=== PATIENT | male | born 1960 | race African-American/Black ===

== ENCOUNTER 2018-01-04 04:23 | Emergency (ER) | payer MEDICARE ==
--- OUTSIDE RECORDS SUMMARY | 2018-01-04 04:26 | XMS REPORT | Clinical Summary ---
:1960 Author Organization [facility] Address [address] [place] [address] Care Team Providers Name Role Phone Luba Colvin Primary Care Provider Unavailable Allergies No Known Allergies Current Medications Prescription Sig. Disp. Refills Start Date End Date Status aspirin 325 MG tablet Take 325 mg by Active mouth daily. rosuvastatin (CRESTOR) Take 20 mg by Active 20 MG tablet mouth nightly. furosemide (LASIX) 20 Take 20 mg by Active MG tablet mouth 2 (two) times a day. potassium chloride Take 10 mEq by Active (K-DUR,KLOR-CON) 10 mouth daily. MEQ CR tablet DICLOFENAC Take 2 tablets Active SODIUM/MISOPROSTOL by mouth 2 (ARTHROTEC 75 ORAL) (two) times a day. amitriptyline (ELAVIL) Take 25 mg by Active 25 MG tablet mouth nightly. LOSARTAN POTASSIUM Take 1 tablet Active (LOSARTAN ORAL) by mouth daily. insulin detemir Inject 100 Active (LEVEMIR) 100 unit/mL Units under the injection skin 2 (two) times a day. insulin lispro Inject 30 Units Active (HumaLOG) 100 unit/mL under the skin injection 3 (three) times a day before meals. clopidogrel (PLAVIX) Take 1 tablet 90 tablet 3 07/18/2016 07/18/2017 75 mg (75 mg total) tabletIndications: PAD by mouth daily. (peripheral artery disease) Active Problems Not on file Family History Medical History Relation Name Comments No Known Problems Father No Known Problems Mother Relation Name Status Comments Father Mother Social History Tobacco Use Types Packs/Day Years Used Date Former Smoker Alcohol Use Drinks/Week oz/Week Comments No Sex Assigned at Date Recorded Not on file Last Filed Vital Signs Not on file Plan of Treatment Health Maintenance Due Date Last Done Comments COLONOSCOPY 2011 SHINGRIX VACCINE (#1) 2011 INFLUENZA VACCINE 04/02/2018 Results Not on fileafter 01/03/2017 Insurance Payer Benefit Plan / Group Subscriber ID Type Phone Address [facility] MEDICARE AARP MEDICARE COMPLETE MCR xxxxxxxxx O [facility] CHOICE/CHOICE + xxxxxxxxx HMO/PPO Home: Julio C RO ESTELA [phone] [place] [id number]
--- OUTSIDE RECORDS SUMMARY | 2018-01-04 04:26 | XMS REPORT | Clinical Summary ---
:1960 Author Organization [facility] Address [address] [place] [address] Phone Care Team Providers Name Role Phone Unavailable Primary Care Provider Unavailable Allergies No Known Allergies Current Medications Prescription Sig. Disp. Refills Start End Date Status Date metFORMIN Take 500 mg by Active (GLUMETZA) 500 MG mouth daily with (MOD) 24 hr tablet breakfast Takes it 2x day . amitriptyline Take 25 mg by mouth Active (ELAVIL) 25 MG nightly. tablet insulin regular Inject Active (HUMULIN R,NOVOLIN subcutaneously 2 R) 100 unit/mL (two) times daily injectionIndicatio Use as directed . ns: type 1 diabetes mellitus, 40 units in the morning, 40 Units at night rosuvastatin Take 40 mg by mouth Active (CRESTOR) 40 MG daily. tablet furosemide (LASIX) Take 10 mg by mouth Active 10 mg/mL daily. solutionIndication s: Edema QUEtiapine Take 100 mg by Active (SEROQUEL) 100 MG mouth nightly. tablet aspirin 325 MG Take 325 mg by Active tablet mouth daily. FLUoxetine Take 40 mg by mouth Active (PROZAC) 40 MG daily. capsule loratadine Take 10 mg by mouth Active (CLARITIN) 10 mg as needed for tablet Allergies. fluticasone 1 spray by Nasal Active (FLONASE) 50 route as needed for mcg/actuation Rhinitis. nasal spray clopidogrel Take 1 tablet (75 30 tablet 11 09/01/20 Active (PLAVIX) 75 mg mg total) by mouth 7 18 tablet daily. insulin lispro Inject 0-12 Units 10 mL 0 09/01/20 Active (HUMALOG) 100 subcutaneously as 7 18 unit/mL injection needed (High blood sugar). insulin lispro Inject 0-4 Units 10 mL 0 09/01/20 Active (HUMALOG) 100 subcutaneously 7 18 unit/mL injection every night as needed (High blood sugar). carvedilol (COREG) Take 25 mg by mouth 09/01/20 Discontinued 25 MG tablet 2 (two) times daily 17 with breakfast and dinner. Active Problems Problem Noted Date Bradycardia 09/01/2017 AV dissociation 09/01/2017 PAOD (peripheral arterial occlusive disease) ([facility]) 08/31/2017 Ischemic rest pain of lower extremity ([facility]) 08/30/2017 Coronary artery disease involving coronary bypass graft of [place] heart 2016 without angina pectoris Type 2 diabetes mellitus with complication ([facility]) 08/30/2017 Secondary hypertension 08/30/2017 Encounters Date Type Specialty Care Team Description 08/30/2017 - Hospital Encounter Cardiology Damon Iraj Ischemic rest pain 09/01/2017 MD Jami of lower extremity Nighat Stewart ([facility]);Coronary MD Odilon artery disease involving coronary bypass graft of [place] heart without angina pectoris;Secondary hypertension;Type 2 diabetes mellitus with complication, with long-term current use of insulin ([facility]);PAOD (peripheral arterial occlusive disease) ([facility]) 08/30/2017 Procedure Pass 08/30/2017 Surgery Ele Leung, ANGIOGRAM,CORONARY 08/30/2017 Orders Only General Internal Medicine after 01/03/2017 Social History Tobacco Use Types Packs/Day Years Used Date Former Smoker 1 Quit: 08/30/2007 Smokeless Tobacco: Never Used Tobacco Cessation: Counseling Given: No Alcohol Use Drinks/Week oz/Week Comments No Sex Assigned at Date Recorded Not on file Last Filed Vital Signs Vital Sign Reading Time Taken Blood Pressure 116/62 09/01/2017 7:38 AM ADULT SECONDARY EDUCATION INSTRUCTOR Pulse 96 09/01/2017 9:04 AM ADULT SECONDARY EDUCATION INSTRUCTOR Temperature 36.7 C (98.1 F) 09/01/2017 7:38 AM ADULT SECONDARY EDUCATION INSTRUCTOR Respiratory Rate 18 09/01/2017 9:04 AM ADULT SECONDARY EDUCATION INSTRUCTOR Oxygen Saturation 97% 09/01/2017 9:04 AM ADULT SECONDARY EDUCATION INSTRUCTOR Inhaled Oxygen Concentration - - Weight 125.2 kg (276 lb) 08/31/2017 4:30 AM ADULT SECONDARY EDUCATION INSTRUCTOR Height 172.7 cm (5' 8") 08/30/2017 1:00 PM ADULT SECONDARY EDUCATION INSTRUCTOR Body Mass Index 41.97 08/31/2017 4:30 AM ADULT SECONDARY EDUCATION INSTRUCTOR Plan of Treatment Not on file Implants Implanted Type Area Human Resource Statistician Device Expiration Model / Identifier Date Serial / Lot Closure Sysammy Smithgl 6fr 27094-34 - [id number] Cardiovascular Right: POE 06/01/2019 [id number] / Implanted: Qty: 1 on 08/30/2017 by Ele Leung MD Groin LAB:VASC DEV / Lutonix 035 Stents-Periphera Left: BARD VASCULAR [id number] 2019 [id number] / Implanted: Qty: 1 on 08/30/2017 by Ele Leung MD l Arterial / [id number] Lutonix 035 Stents-Periphera Left: BARD VASCULAR [id number] 2019 [id number] / Implanted: Qty: 1 on 08/30/2017 by Ele Leung MD l Arterial / [id number] Poe V[employer] Supera Stents-Periphera Left: POE 06/01/2018 [id number]-65-100 -120-P6 / Implanted: Qty: 1 on 08/30/2017 by Ele Leung MD l Arterial VASCULAR / DEVICE [id number] P[employer] Supera Stents-Periphera Left: POE 12/30/2017 S-65-100 -120-P6 / Implanted: Qty: 1 on 08/30/2017 by Ele Leung MD l Arterial VASCULAR / DEVICE [id number] Cook Stents-Periphera Left: Solaire Generation [id number] 05/01/2019 [id number] / Implanted: Qty: 1 on 08/30/2017 by Ele Leung MD l Arterial / [id number] Procedures Procedure Name Priority Date/Time Associated Diagnosis Comments PERIPHERAL ARTERIOGRAM 08/30/2017 2:17 PM ADULT SECONDARY EDUCATION INSTRUCTOR chest paina ANGIOGRAM,CORONARY 08/30/2017 2:17 PM ADULT SECONDARY EDUCATION INSTRUCTOR chest paina after 01/03/2017 Results CARDIAC CATH REPORT - SCAN (09/04/2017 3:12 PM)RHYTHM STRIP - SCAN (09/04/2017 12:28 PM)EKG-SCANNED (09/04/2017 12:28 PM)POC-Glucose meter (09/01/2017 7:37 AM )Only the most recent of9 resultswithin the time period is included. Component Value Ref Range POC-Glucose Meter 143 (H)Comment: TESTED AT [facility] [address] [place] [address] 70 - 110 mg/[place] [address] Specimen Performing Laboratory Blood [address] [address] Hemoglobin A1c (09/01/2017 3:53 AM) Component Value Ref Range Hemoglobin A1C 8.3 (H) 4.3 - 6.1 % Specimen Performing Laboratory Blood - Arm, Left [address] [address] TRANSFUSION SERVICE REPORT - SCAN (08/31/2017 5:32 PM)PERIPHERAL VASCULAR REPORT - SCAN (08/30/2017 5:43 PM)ECG 12 lead (08/30/2017 12:22 PM)Only the most recent of2 resultswithin the time period is included. Specimen Performing Laboratory GE MUSE Narrative Ventricular Rate 79 BPM Atrial Rate 79 BPM P-R Interval 324 ms QRS Duration 104 ms Q-T Interval 392 ms QTC Calculation(Bazett) 449 ms P [place] 74 degrees R [place] 17 degrees T [place] 44 degrees Sinus rhythm with 1st degree A-V block Possible Left atrial enlargement Nonspecific T wave abnormality Abnormal ECG When compared with ECG of 30-AUG-2017 06:24, Sinus rhythm has replaced Junctional rhythm QT has shortened Confirmed by MD QUEVEDO PATRICK J ([id number]) on 09/01/2017 10:29:06 AM Procedure Note Interface, External Ris In - 09/01/2017 10:29 AM ADULT SECONDARY EDUCATION INSTRUCTOR Ventricular Rate 79 BPM Atrial Rate 79 BPM P-R Interval 324 ms QRS Duration 104 ms Q-T Interval 392 ms QTC Calculation(Bazett) 449 ms P [place] 74 degrees R [place] 17 degrees T [place] 44 degrees Sinus rhythm with 1st degree A-V block Possible Left atrial enlargement Nonspecific T wave abnormality Abnormal ECG When compared with ECG of 30-AUG-2017 06:24, Sinus rhythm has replaced Junctional rhythm QT has shortened Confirmed by MD QUEVEDO PATRICK J ([id number]) on 09/01/2017 10:29:06 AM Arterial doppler legs bilateral (08/30/2017 10:57 AM) Component Value Ref Range Ejection Fraction Specimen Performing Laboratory SLE ECHO HEARTLAB MKCKESSON CPACS Impressions Right Impression 1. The common femoral, profunda femoral, superficial femoral, popliteal, posterior tibial and peroneal arteries are patent with triphasic Doppler waveforms and calcification. 2. There is a >50% stenosis in the mid/distal anterior tibial artery with a peak velocity of 296 cm/sec. 3. The PT KHANG is unobtainable due to non-compressible artery. 4. The DP pressure is 138 mmHg with an KHANG of 1.37, within non-compressible range. 5. The great toe pressure is 70 mmHg with a normal TBI of 0.69. 6. The digits have adequate flow by PPG waveforms. Left Impression 1. The common femoral and profunda femoral arteries are patent with triphasic waveforms. 2. The superficial femoral artery is occluded with reconstitution of flow in the mid-distal segments via collateral flow. 3. The mid-distal popliteal artery is occluded. 4. The posterior tibial artery is occluded. 5. The peroneal is patent with calcification and decreased velocities. 6. The mid anterior tibial artery is occluded with reconstitution of flow distally via collateral flow. 7. The PT and DP KHANG's are unobtainable due to absent Doppler signals. 8. The digits have no obtainable flow by PPG waveforms. Conclusions Summary Arterial pressures and Doppler waveforms were performed bilaterally. Adequate Doppler waveforms were obtained. On the right side, the common femoral, profunda femoral, superficial femoral, popliteal, posterior tibial and peroneal arteries were patent with triphasic Doppler waveforms and calcification. There was a >50% stenosis in the mid/distal anterior tibial artery. The PT KHANG was unobtainable due to non-compressible artery. The DP KHANG was within non-compressible range. The digits had adequate flow by PPG waveforms. On the left side, the superficial femoral artery was occluded with reconstitution of flow in the mid-distal segments via collateral flow. The mid-distal popliteal artery was occluded. The posterior tibial artery was occluded. The peroneal was patent with calcification and decreased velocities. The mid anterior tibial artery was occluded with reconstitution of flow distally via collateral flow. The PT and DP KHANG's were unobtainable due to absent Doppler signals. The digits had no obtainable flow by PPG waveforms. Signature Velocities are measured in cm/s ; Diameters are measured in cm LE Duplex Measurements Right Left + + + + + + + + + + !Location ! !PSV!EDV !Waveform ! !PSV!EDV !Waveform ! + + + + + + + + + + !Mid Common Femoral ! !89.7 !! ! !58.1 !! ! + + + + + + + + + + !Prox PFA ! !44 !! ! !54.2 !! ! + + + + + + + + + + !Prox SFA ! !93.2 !! ! !13 !! ! + + + + + + + + + + !Mid SFA ! !52.6 !! ! !12.4 !! ! + + + + + + + + + + !Dist SFA ! !47.9 !! ! !8.64 !! ! + + + + + + + + + + !Prox Popliteal ! !40.2 !! ! !15.3 !! ! + + + + + + + + + + !Prox BICYCLE SERVICE TECHNICIAN ! !45.2 !! ! !6.48 !! ! + + + + + + + + + + !Mid BICYCLE SERVICE TECHNICIAN ! !42.4 !! ! !9.63 !! ! + + + + + + + + + + !Dist BICYCLE SERVICE TECHNICIAN ! !22.2 !! ! !9.23 !! ! + + + + + + + + + + !Prox ALVIN ! !37.4 !! ! !8.25 !! ! + + + + + + + + + + !Dist ALVIN ! !55 !! ! + + + + + + !Prox Peroneal ! + + !Mid Peroneal ! + + !Dist Peroneal ! + + Narrative [facility] - Lower Extremity Arterial Duplex Demographics Patient Name INES WILKERSON Date of Study 08/30/2017 [id number] Visit Number [id number] Male Accession Number [id number] of 1960 ReferringIraj Jose MD Room Number 1118 Physician SonographerAkilah JewellT Physician , [facility] Procedure Type of Study: Extremities Arteries: Lower Extremities Arterial Duplex, ARTERIAL DOPPLER LEGS, BILATERAL. Indications for Study:Peripheral Vascular Disease. Patient Status:Routine. Study Location:Vascular Lab. Technical Quality:Adequate visualization. Risk Factors History of Disease + +----+ + !Diagnosis!Date!Comments ! + +----+ + !History/Risk Factors:!!CHF, COPD, CAD, HTN, Former Smoker, DM ! + +----+ + Procedure Note Interface, External Ris In - 08/30/2017 5:12 PM ADULT SECONDARY EDUCATION INSTRUCTOR [facility] - Lower Extremity Arterial Duplex Demographics Patient Name INES WILKERSON Date of Study 08/30/2017 Age 57 Visit Number [id number] Gender Male Accession Number [id number] Date of 1960 Referring Iraj Jose MD Room Number 1118 Physician Music Supervisor Lindsay Willard Interpreting Akilah OrozcoT Physician , RP Procedure Type of Study: Extremities Arteries: Lower Extremities Arterial Duplex, ARTERIAL DOPPLER LEGS, BILATERAL. Indications for Study:Peripheral Vascular Disease. Patient Status:Routine. Study Location:Vascular Lab. Technical Quality:Adequate visualization. Risk Factors History of Disease + +----+ + !Diagnosis !Date!Comments ! + +----+ + !History/Risk Factors: ! !CHF, COPD, CAD, HTN, Former Smoker, DM ! + +----+ + Impressions Right Impression 1. The common femoral, profunda femoral, superficial femoral, popliteal, posterior tibial and peroneal arteries are patent with triphasic Doppler waveforms and calcification. 2. There is a >50% stenosis in the mid/distal anterior tibial artery with a peak velocity of 296 cm/sec. 3. The PT KHANG is unobtainable due to non-compressible artery. 4. The DP pressure is 138 mmHg with an KHANG of 1.37, within non-compressible range. 5. The great toe pressure is 70 mmHg with a normal TBI of 0.69. 6. The digits have adequate flow by PPG waveforms. Left Impression 1. The common femoral and profunda femoral arteries are patent with triphasic waveforms. 2. The superficial femoral artery is occluded with reconstitution of flow in the mid-distal segments via collateral flow. 3. The mid-distal popliteal artery is occluded. 4. The posterior tibial artery is occluded. 5. The peroneal is patent with calcification and decreased velocities. 6. The mid anterior tibial artery is occluded with reconstitution of flow distally via collateral flow. 7. The PT and DP KHANG's are unobtainable due to absent Doppler signals. 8. The digits have no obtainable flow by PPG waveforms. Conclusions Summary Arterial pressures and Doppler waveforms were performed bilaterally. Adequate Doppler waveforms were obtained. On the right side, the common femoral, profunda femoral, superficial femoral, popliteal, posterior tibial and peroneal arteries were patent with triphasic Doppler waveforms and calcification. There was a >50% stenosis in the mid/distal anterior tibial artery. The PT KHANG was unobtainable due to non-compressible artery. The DP KHANG was within non-compressible range. The digits had adequate flow by PPG waveforms. On the left side, the superficial femoral artery was occluded with reconstitution of flow in the mid-distal segments via collateral flow. The mid-distal popliteal artery was occluded. The posterior tibial artery was occluded. The peroneal was patent with calcification and decreased velocities. The mid anterior tibial artery was occluded with reconstitution of flow distally via collateral flow. The PT and DP KHANG's were unobtainable due to absent Doppler signals. The digits had no obtainable flow by PPG waveforms. Signature Velocities are measured in cm/s ; Diameters are measured in cm LE Duplex Measurements Right Left + + + -------+ + + + +------- + + !Location ! !PSV !EDV !Waveform ! !PSV !EDV !Waveform ! + + + -------+ + + + +------- + + !Mid Common Femoral ! !89.7 ! ! ! !58.1 ! ! ! + + + -------+ + + + +------- + + !Prox PFA ! !44 ! ! ! !54.2 ! ! ! + + + -------+ + + + +------- + + !Prox SFA ! !93.2 ! ! ! !13 ! ! ! + + + -------+ + + + +------- + + !Mid SFA ! !52.6 ! ! ! !12.4 ! ! ! + + + -------+ + + + +------- + + !Dist SFA ! !47.9 ! ! ! !8.64 ! ! ! + + + -------+ + + + +------- + + !Prox Popliteal ! !40.2 ! ! ! !15.3 ! ! ! + + + -------+ + + + +------- + + !Prox BICYCLE SERVICE TECHNICIAN ! !45.2 ! ! ! !6.48 ! ! ! + + + -------+ + + + +------- + + !Mid BICYCLE SERVICE TECHNICIAN ! !42.4 ! ! ! !9.63 ! ! ! + + + -------+ + + + +------- + + !Dist BICYCLE SERVICE TECHNICIAN ! !22.2 ! ! ! !9.23 ! ! ! + + + -------+ + + + +------- + + !Prox ALVIN ! !37.4 ! ! ! !8.25 ! ! ! + + + -------+ + + + +------- + + !Dist ALVIN ! !55 ! ! ! + + + -------+ + + !Prox Peroneal ! + + !Mid Peroneal ! + + !Dist Peroneal ! + + Basic metabolic panel (08/30/2017 9:20 AM) Component Value Ref Range Sodium 140 136 - 145 meq/L Potassium 4.4 3.5 - 5.1 meq/L Chloride 109 (H) 98 - 107 meq/L CO2 22 22 - 29 meq/L BUN 22 (H) 7 - 21 mg/dL Creatinine 1.25 0.57 - 1.25 mg/dL Glucose 104 70 - 105 mg/dL Calcium 9.2 8.4 - 10.2 mg/dL EGFR 72Comment: ESTIMATED GFR IS NOT ACCURATE mL/min/1.73 sq m CREATININE CLEARANCE IN PREDICTING GLOMERULAR FILTRATION RATE. ESTIMATED GFR IS NOT APPLICABLE FOR DIALYSIS PATIENTS. Specimen Performing Laboratory Blood - Arm, Left [address] [place] [address] XR chest 1 view portable/bedside (08/30/2017 6:02 AM) Specimen Performing Laboratory GE RIS Narrative FINAL REPORT CLINICAL HISTORY: pre-op TECHNIQUE: 1 view of the chest. COMPARISON: None IMPRESSION: There are no focal infiltrates or effusions. A focal density in the medial right upper lung zone may be related to costochondral calcification from the right first rib. The cardiomediastinal silhouette is magnified by technique. Signed: Dorian Pelaez MD Report Verified Date/Time:08/30/2017 07:45:46 Reading Location: [facility] Radiology Reading Room Procedure Note Interface, External Ris In - 08/30/2017 7:47 AM ADULT SECONDARY EDUCATION INSTRUCTOR FINAL REPORT CLINICAL HISTORY: pre-op TECHNIQUE: 1 view of the chest. COMPARISON: None IMPRESSION: There are no focal infiltrates or effusions. A focal density in the medial right upper lung zone may be related to costochondral calcification from the right first rib. The cardiomediastinal silhouette is magnified by technique. Signed: Dorian Pelaez MD Report Verified Date/Time: 08/30/2017 07:45:46 Reading Location: [facility] Radiology Reading Room Type and screen, automated (08/30/2017 4:47 AM) Component Value Ref Range ABO/RH AUTOMATED (BEAKER) A POSITIVE Ab Scrn NEGATIVE Specimen Performing Laboratory Blood - Arm, [address] [address] aPTT (08/30/2017 4:47 AM) Component Value Ref Range PTT 32.2 22.5 - 36.0 seconds Specimen Performing Laboratory Blood - Arm, [address] [address] Narrative Within 24 hours, if on Coumadin Prothrombin time/INR (08/30/2017 4:47 AM) Component Value Ref Range Protime 13.3 11.7 - 14.7 seconds INR 1.0 <=5.9 Specimen Performing Laboratory Blood - Arm, [address] [address] Narrative RECOMMENDED COUMADIN/WARFARIN INR THERAPY RANGES STANDARD DOSE: 2.0 - 3.0 Includes: PROPHYLAXIS for venous thrombosis, systemic embolization; TREATMENT for venous thrombosis and/or pulmonary embolus. HIGH RISK: Target INR is 2.5-3.5 for patients with mechanical heart valves. Within 24 hours, if on Coumadin CBC (Hemogram only) (08/30/2017 4:47 AM) Component Value Ref Range WBC 5.0 3.5 - 10.5 K/L RBC 5.27 4.63 - 6.08 M/L Hemoglobin 15.8 13.7 - 17.5 GM/DL Hematocrit 49.4 40.1 - 51.0 % MCV 93.7 (H) 79.0 - 92.2 fL MCH 30.0 25.7 - 32.2 pg MCHC 32.0 (L) 32.3 - 36.5 GM/DL RDW 13.8 11.6 - 14.4 % Platelets 151 150 - 450 K/CU MM MPV 13.0 (H) 9.4 - 12.4 fL nRBC 0 0 - 0 /100 WBC Specimen Performing Laboratory Blood - Arm, Left [address] [place] [address] after 01/03/2017
--- OUTSIDE RECORDS SUMMARY | 2018-01-04 04:27 | XMS REPORT ---
:1960 [facility] Address [address] [place] [address] Care Team Providers Name Role Phone KARY LOONEY Unavailable Unavailable Problems This patient has no known problems. Allergies, Adverse Reactions, Alerts This patient has no known allergies or adverse reactions. Medications This patient has no known medications. Results Test Description Test Time Test Comments Text Results Atomic Results Result Comments HEMOGLOBIN A1C 2017-09-01 09:17:00 Test Item Value Reference Range Comments HEMOGLOBIN A1C (BEAKER) (test juwc=397) 8.3 % 4.3-6.1 POCT-GLUCOSE [id number] 08:15:00 Test Item Value Reference Range Comments POC-GLUCOSE METER (BEAKER) 143 mg/dL 70-110 TESTED AT [address] (test zwhk=1378) [facility] [address] POCT-GLUCOSE [id number] 21:11:00 Test Item Value Reference Range Comments POC-GLUCOSE METER (BEAKER) 214 mg/dL 70-110 TESTED AT [address] (test elcc=2278) [facility] [address] POCT-GLUCOSE [id number] 17:19:00 Test Item Value Reference Range Comments POC-GLUCOSE METER (BEAKER) 160 mg/dL 70-110 TESTED AT [address] (test aalz=2692) [facility] [address] POCT-GLUCOSE [id number] 12:59:00 Test Item Value Reference Range Comments POC-GLUCOSE METER (BEAKER) 175 mg/dL 70-110 TESTED AT [address] (test ymtj=3404) [facility] [address] POCT-GLUCOSE [id number] 09:21:00 Test Item Value Reference Range Comments POC-GLUCOSE METER (BEAKER) 194 mg/dL 70-110 TESTED AT [address] (test njfo=8909) [place] [address] POCT-GLUCOSE [id number] 21:05:00 Test Item Value Reference Range Comments POC-GLUCOSE METER (BEAKER) 264 mg/dL 70-110 TESTED AT [address] (test kavc=1388) [place] [id number] POCT-GLUCOSE [id number] 17:11:00 Test Item Value Reference Range Comments POC-GLUCOSE METER (BEAKER) 158 mg/dL 70-110 TESTED AT [address] (test krpv=4184) [place] [address] POCT-GLUCOSE [id number] 12:14:00 Test Item Value Reference Range Comments POC-GLUCOSE METER (BEAKER) 127 mg/dL 70-110 TESTED AT [address] (test xtwk=9580) [place] [address] BASIC METABOLIC [id number] 10:20:00 Test Item Value Reference Range Comments SODIUM (BEAKER) (test 140 meq/L 136-145 patj=559) POTASSIUM (BEAKER) (test 4.4 meq/L 3.5-5.1 utub=723) CHLORIDE (BEAKER) (test 109 meq/L 98-107 dzdh=461) CO2 (BEAKER) (test 22 meq/L 22-29 plnh=491) BLOOD UREA NITROGEN 22 mg/dL 7-21 (BEAKER) (test bkqs=282) CREATININE (BEAKER) (test 1.25 mg/dL 0.57-1.25 zylx=620) GLUCOSE RANDOM (BEAKER) 104 mg/dL 70-105 (test dywy=439) CALCIUM (BEAKER) (test 9.2 mg/dL 8.4-10.2 cqgp=324) EGFR (BEAKER) (test 72 mL/min/1.73 sq m ESTIMATED GFR IS NOT bnax=7978) ACCURATE CREATININE CLEARANCE IN PREDICTING GLOMERULAR FILTRATION RATE. ESTIMATED GFR IS NOT APPLICABLE FOR DIALYSIS PATIENTS. POCT-GLUCOSE [id number] 09:05:00 Test Item Value Reference Range Comments POC-GLUCOSE METER (BEAKER) 108 mg/dL 70-110 TESTED AT [address] (test dwie=5902) [place] [address] RAD, CHEST, 1 VIEW, NON [id number] 07:45:00Reason for exam:->pre- opShould this be performed at the bedside?->YesFINAL REPORT CLINICAL HISTORY: pre-op TECHNIQUE: 1 view of the chest. COMPARISON: None IMPRESSION: There are no focal infiltrates or effusions. A focal density in the medial right upper lung zone may be related to costochondral calcification from the right first rib. The cardiomediastinal silhouette is magnified by technique. Signed: Dorian Pelaez MDReport Verified Date/Time: 07:45:46 Reading Location: [facility] Radiology Reading Room PROTHROMBIN [id number] 07:17:00 Test Item Value Reference Range Comments PROTIME (BEAKER) (test pzcl=141) 13.3 seconds 11.7-14.7 INR (BEAKER) (test owjh=214) 1.0 <=5.9 RECOMMENDED COUMADIN/WARFARIN INR THERAPY RANGESSTANDARD DOSE: 2.0 - 3.0 Includes: PROPHYLAXIS forvenous thrombosis, systemic embolization; TREATMENT for venous thrombosis and/or pulmonary embolus.HIGH RISK: Target INR is 2.5-3.5 for patients with mechanical heart valves.Within 24 hours, if on [id number] 07:17:00 Test Item Value Reference Range Comments PARTIAL THROMBOPLASTIN TIME (BEAKER) (test 32.2 seconds 22.5-36.0 cidq=624) Within 24 hours, if on CoumadinCBC (HEMOGRAM ONLY)2017-08-30 07:07:00 Test Item Value Reference Range Comments WHITE BLOOD CELL COUNT (BEAKER) (test jers=488) 5.0 K/ L 3.5-10.5 RED BLOOD CELL COUNT (BEAKER) (test cjjj=594) 5.27 M/ L 4.63-6.08 HEMOGLOBIN (BEAKER) (test sqfv=082) 15.8 GM/DL 13.7-17.5 HEMATOCRIT (BEAKER) (test arwp=579) 49.4 % 40.1-51.0 MEAN CORPUSCULAR VOLUME (BEAKER) (test gvml=876) 93.7 fL 79.0-92.2 MEAN CORPUSCULAR HEMOGLOBIN (BEAKER) (test 30.0 pg 25.7-32.2 ljca=431) MEAN CORPUSCULAR HEMOGLOBIN CONC (BEAKER) (test 32.0 GM/DL 32.3-36.5 uwin=096) RED CELL DISTRIBUTION WIDTH (BEAKER) (test 13.8 % 11.6-14.4 dhjq=696) PLATELET COUNT (BEAKER) (test xywv=393) 151 K/CU MM 150-450 MEAN PLATELET VOLUME (BEAKER) (test xynv=723) 13.0 fL 9.4-12.4 NUCLEATED RED BLOOD CELLS (BEAKER) (test 0 /100 WBC 0-0 dqcm=652)
[2018-01-04] MEDS ORDERED: ALBUTEROL 2.5 MG/3 ML NEB SOL ONE (04:50)
[2018-01-04] MEDS ORDERED: FUROSEMIDE 40 MG/4 ML VIAL ONE (04:50)
[2018-01-04] MEDS ORDERED: IPRATROPIUM BROM 0.5MG/2.5ML ONE (04:50)
[2018-01-04 05:21] LABS: Absolute Lymphocytes (CBC) 1.8 K/uL (0.7-4.9); Absolute Monocytes 0.9 K/uL (0.1-1.3); Basophils % 0.4 % (0-1.3); Eosinophils % 4.6 % (0-4.4); Hematocrit 51.5 % (39.6-49.0); Lymphocytes % 29.9 % (15.3-44.8); MCH 30.3 pg (27.0-35.0); MCV 93.7 fL (80-100); MPV 10.1 fL (7.6-11.3); Monocytes % 14.4 % (3.3-12.3); RBC Red Blood Cell Count 5.49 M/uL (4.33-5.43)
[2018-01-04 05:27] LABS: Protime INR 1.02
--- NOTE | 2018-01-04 06:30 | ER ---
Nurse's Notes [facility] Name: [place] Age: 57 yrs Sex: Male : 1960 Arrival Date: 01/04/2018 Time: 04:24 Bed 5 Private MD: Opal Lares Diagnosis: Unspecified combined systolic (congestive) and diastolic (congestive) heart failure;Cough Presentation: 01/04 04:45 Presenting complaint: Patient states: that for the past 2 weeks he has had fc progressively worsening shortness of breath and cough with clear sputum. Denies any sore throat or fever. Transition of care: patient was not received from another setting of care. Onset of symptoms was December 2017. Initial Sepsis Screen: Does the patient meet any 2 criteria? No. Patient's initial sepsis screen is negative. Does the patient have a suspected source of infection? No. Patient's initial sepsis screen is negative. Care prior to arrival: None. 04:45 Method Of Arrival: Ambulatory fc 04:45 Acuity: ANKIT 3 fc Triage Assessment: 05:14 General: Appears in no apparent distress. uncomfortable. Respiratory: Reports shortness ao of breath Onset: The symptoms/episode began/occurred suddenly, the patient has moderate shortness of breath. Historical: - Allergies: 04:53 No Known Allergies; fc - Home Meds: 04:53 amitriptyline 10 mg Oral tab 1 tab nightly for Depression [Active]; aspirin 81 mg Oral fc TbEC 1 tab once daily [Active]; Crestor 20 mg Oral tab 1 tab once daily for Hypercholesterolemia [Active]; doxazosin 2 mg Oral tab 1 tab 2 times daily [Active]; furosemide 20 mg Oral tab 1 tab once daily [Active]; loratadine 10 mg Oral tab 1 tab once daily [Active]; metformin 500 mg Oral tab 1 tab 2 times per day [Active]; Plavix 75 mg Oral tab 1 tab once daily [Active]; potassium chloride 10 mEq Oral cpER 1 cap once daily [Active]; tamsulosin 0.4 mg Oral cp24 1 cap once daily [Active]; Trulicity 0.75 mg/0.5 mL subcutaneous pnij 0.5 mL once wkly [Active]; Toujeo SoloStar 300 unit/mL (1.5 mL) subcutaneous inpn 45 unit daily [Active]; - PMHx: 04:53 Bipolar disorder; Depression; Diabetes - IDDM; DVT; High Cholesterol; Hypertension; fc quadraple bypass; Schizophrenia; - PSHx: 04:53 Heart stents; CABG; fc - Immunization history:: Last tetanus immunization: unknown. - Social history:: Smoking status: Patient/guardian denies using tobacco. Screenin:48 Abuse screen: Denies threats or abuse. Nutritional screening: No deficits noted. fc Tuberculosis screening: No symptoms or risk factors identified. Fall Risk None identified. Assessment: 04:50 General: Appears in no apparent distress. uncomfortable, Behavior is calm, cooperative, ao appropriate for age. Pain: Denies pain. Neuro: Level of Consciousness is awake, alert, obeys commands, Oriented to person, place, time, situation, Appropriate for age Moves all extremities. Speech is normal, Facial symmetry appears normal. Cardiovascular: Capillary refill < 3 seconds Rhythm is regular. Respiratory: Airway is patent Respiratory effort is even, unlabored, Respiratory pattern is regular, symmetrical, Breath sounds with crackles bilaterally. GI: Abdomen is obese. : No signs and/or symptoms were reported regarding the genitourinary system. EENT: No signs and/or symptoms were reported regarding the EENT system. Derm: Skin is intact, Skin is normal, Skin temperature is warm. Musculoskeletal: Range of motion: limited in all extremities. 05:54 Reassessment: Patient appears in no apparent distress at this time. Patient and/or ao family updated on plan of care and expected duration. Pain level reassessed. Patient is alert, oriented x 3, equal unlabored respirations, skin warm/dry/pink. waiting on dispo Patient states feeling better. Patient states symptoms have improved. 06:55 Reassessment: Patient appears in no apparent distress at this time. Patient and/or ao family updated on plan of care and expected duration. Pain level reassessed. Patient is alert, oriented x 3, equal unlabored respirations, skin warm/dry/pink. Patient resting with no SS of distress. 07:13 Reassessment: Report given to BAYRON Villanueva. ao 07:15 General: Appears comfortable, Behavior is calm, cooperative. Pain: Denies pain. Neuro: aa5 Level of Consciousness is awake, alert, obeys commands, Oriented to person, place, time, situation. Cardiovascular: Heart tones S1 S2 present Rhythm is regular. Respiratory: Reports shortness of breath cough that is productive, Airway is patent Respiratory effort is even, unlabored, Respiratory pattern is regular, symmetrical, Breath sounds are clear bilaterally. GI: Abdomen is obese, Bowel sounds present X 4 quads. Abd is soft and non tender X 4 quads. : No signs and/or symptoms were reported regarding the genitourinary system. EENT: No signs and/or symptoms were reported regarding the EENT system. Derm: Skin is dry, Skin is normal, Skin temperature is warm. Musculoskeletal: Range of motion: intact in all extremities. 07:45 Reassessment: Pt currently in CT . aa5 Vital Signs: 04:45 BP 146 / 87; Pulse 85; Resp 18; Temp 97.9(O); Pulse Ox 98% on R/A; Weight 127.01 kg fc (R); Height 5 ft. 8 in. (172.72 cm) (R); Pain 5/10; 05:54 BP 135 / 83; Pulse 72; Resp 16; Pulse Ox 95% on R/A; Pain 0/10; ao 06:55 BP 138 / 106; Pulse 79; Resp 16; Pulse Ox 97% ; ao 07:15 BP 139 / 84; Pulse 73; Resp 18; Pulse Ox 95% ; ao 08:05 BP 133 / 95; Pulse 75; Resp 18 S; Pulse Ox 98% on R/A; Pain 0/10; aa5 12:31 BP 134 / 98; Pulse 73; Resp 17; Pulse Ox 99% on R/A; aj 04:45 Body Mass Index 42.57 (127.01 kg, 172.72 cm) ED Course: 04:24 Patient arrived in ED. do 04:24 Opal Lares is Private Physician. do 04:39 Te Rebolledo MD is Attending Physician. gs 04:45 Arm band placed on Patient placed in an exam room, on a stretcher. fc 04:46 Lalit Piper, BAYRON is Primary Nurse. ao 04:47 Triage completed. fc 04:48 Patient has correct armband on for positive identification. Bed in low position. Call light in reach. 04:50 Inserted saline lock: 20 gauge in left forearm, using aseptic technique. Blood ao collected. 05:16 X-ray completed. Portable x-ray completed in exam room. jr1 05:18 XRAY Chest (1 view) In Process Unspecified. EDMS 07:10 Report received from BAYRON Cohn. aa5 07:13 Tiffany Cordova, RN is Primary Nurse. aa5 07:53 CT Chest For PE Angio In Process Unspecified. EDMS 07:53 CT completed. Patient tolerated procedure well. Patient moved back from CT. vr 08:11 No provider procedures requiring assistance completed. aa5 10:00 Report given to BAYRON Gray. aa5 12:32 IV discontinued, intact, bleeding controlled, No redness/swelling at site. Pressure aj dressing applied. Administered Medications: 05:00 Drug: Lasix 40 mg Route: IVP; Site: left forearm; ao 06:39 Follow up: Response: No adverse reaction ao 05:00 Drug: Albuterol 2.5 mg Route: Inhalation; ao 06:39 Follow up: Response: No adverse reaction ao 05:00 Drug: AtroVENT Aerosol 0.5 mg Route: Inhalation; ao 06:40 Follow up: Response: No adverse reaction ao Outcome: 06:29 Discharge ordered by MD. gs 12:23 Discharge ordered by MD. rn 12:32 Discharged to home ambulatory, with family. aj 12:32 Condition: good 12:32 Discharge instructions given to patient, family, Instructed on discharge instructions, follow up and referral plans. Demonstrated understanding of instructions, follow-up care, medications. 12:33 Patient left the ED. aj Signatures: Dispatcher [employer] Marina Pratt RN RN aj Ringgold, Jennifer jr1 Letha Wu RN RN fc Nieto, Roman, MD MD rn Calderon, Audri, RN RN aa5 Davis, Victoria vr Ortiz, Alex, RN RN ao Ogletree, Danielle do Starr, Gregory, MD MD gs
--- NOTE | 2018-01-04 06:30 | EDPHYS ---
Physician Documentation [facility] Name: [place] Jordan Age: 57 yrs Sex: Male : 1960 Arrival Date: 01/04/2018 Time: 04:24 Bed 5 Private MD: Opal Lares ED Physician Te Ocampo HPI: 01/04 05:05 This 57 yrs old Black Male presents to ER via Ambulatory with complaints of Breathing gs Difficulty, Cough. 05:05 The patient has shortness of breath at rest, with light activity, during heavy gs activity. Onset: The symptoms/episode began/occurred 2 week(s) ago, and became persistent. Duration: The symptoms are continuous. The patient's shortness of breath is aggravated by coughing, exertion, supine position, is alleviated by elevating head. Associated signs and symptoms: Pertinent positives: non-productive cough, Pertinent negatives: chest pain. Severity of symptoms: At their worst the symptoms were moderate in the emergency department the symptoms are unchanged. The patient has experienced similar episodes in the past, a few times. Historical: - Allergies: 04:53 No Known Allergies; fc - Home Meds: 04:53 amitriptyline 10 mg Oral tab 1 tab nightly for Depression [Active]; aspirin 81 mg Oral fc TbEC 1 tab once daily [Active]; Crestor 20 mg Oral tab 1 tab once daily for Hypercholesterolemia [Active]; doxazosin 2 mg Oral tab 1 tab 2 times daily [Active]; furosemide 20 mg Oral tab 1 tab once daily [Active]; loratadine 10 mg Oral tab 1 tab once daily [Active]; metformin 500 mg Oral tab 1 tab 2 times per day [Active]; Plavix 75 mg Oral tab 1 tab once daily [Active]; potassium chloride 10 mEq Oral cpER 1 cap once daily [Active]; tamsulosin 0.4 mg Oral cp24 1 cap once daily [Active]; Trulicity 0.75 mg/0.5 mL subcutaneous pnij 0.5 mL once wkly [Active]; Toujeo SoloStar 300 unit/mL (1.5 mL) subcutaneous inpn 45 unit daily [Active]; - PMHx: 04:53 Bipolar disorder; Depression; Diabetes - IDDM; DVT; High Cholesterol; Hypertension; fc quadraple bypass; Schizophrenia; - PSHx: 04:53 Heart stents; CABG; fc - Immunization history:: Last tetanus immunization: unknown. - Social history:: Smoking status: Patient/guardian denies using tobacco. ROS: 05:05 All other systems are negative. gs Exam: 05:05 Head/Face: Normocephalic, atraumatic. Eyes: Pupils equal round and reactive to light, gs extra-ocular motions intact. Lids and lashes normal. Conjunctiva and sclera are non-icteric and not injected. Cornea within normal limits. Periorbital areas with no swelling, redness, or edema. ENT: Nares patent. No nasal discharge, no septal abnormalities noted. Tympanic membranes are normal and external auditory canals are clear. Oropharynx with no redness, swelling, or masses, exudates, or evidence of obstruction, uvula midline. Mucous membranes moist. Neck: Trachea midline, no thyromegaly or masses palpated, and no cervical lymphadenopathy. Supple, full range of motion without nuchal rigidity, or vertebral point tenderness. No Meningismus. Chest/axilla: Normal chest wall appearance and motion. Nontender with no deformity. No lesions are appreciated. Cardiovascular: Regular rate and rhythm with a normal S1 and S2. No gallops, murmurs, or rubs. Normal PMI, no JVD. No pulse deficits. 05:05 Abdomen/GI: Soft, non-tender, with normal bowel sounds. No distension or tympany. No guarding or rebound. No evidence of tenderness throughout. Back: No spinal tenderness. No costovertebral tenderness. Full range of motion. Skin: Warm, dry with normal turgor. Normal color with no rashes, no lesions, and no evidence of cellulitis. MS/ Extremity: Pulses equal, no cyanosis. Neurovascular intact. Full, normal range of motion. Neuro: Awake and alert, GCS 15, oriented to person, place, time, and situation. Cranial nerves II-XII grossly intact. Motor strength 5/5 in all extremities. Sensory grossly intact. Cerebellar exam normal. Normal gait. 05:05 Constitutional: The patient appears alert, awake. 05:05 Cardiovascular: Edema: 1+ edema to level of left ankle and right ankle. 05:05 ECG was reviewed by the Attending Physician. 05:05 Respiratory: the patient does not display signs of respiratory distress, Respirations: normal, Breath sounds: decreased breath sounds, are located in both bases. Vital Signs: 04:45 BP 146 / 87; Pulse 85; Resp 18; Temp 97.9(O); Pulse Ox 98% on R/A; Weight 127.01 kg fc (R); Height 5 ft. 8 in. (172.72 cm) (R); Pain 5/10; 05:54 BP 135 / 83; Pulse 72; Resp 16; Pulse Ox 95% on R/A; Pain 0/10; ao 06:55 BP 138 / 106; Pulse 79; Resp 16; Pulse Ox 97% ; ao 07:15 BP 139 / 84; Pulse 73; Resp 18; Pulse Ox 95% ; ao 08:05 BP 133 / 95; Pulse 75; Resp 18 S; Pulse Ox 98% on R/A; Pain 0/10; aa5 12:31 BP 134 / 98; Pulse 73; Resp 17; Pulse Ox 99% on R/A; aj 04:45 Body Mass Index 42.57 (127.01 kg, 172.72 cm) MDM: 04:43 Patient medically screened. 05:05 Differential diagnosis: CHF exacerbation, Chronic Obstructive Pulmonary Disease gs pneumonia. Data reviewed: vital signs, nurses notes. 06:29 Response to treatment: the patient's symptoms have markedly improved after treatment, and as a result, I will discharge patient. 06:55 ED course: says has ivc filter, no swelling pain in legs no pleuritic pain. feels gs better wants to go home. . 12:22 ED course: Signed out to me by Dr ocampo, plan was to repeat trop and if no change rn attribute to CHF and chronic stress, trop no change, ct pe neg, patient urinated 3 jugs of urinals, feels much better, will dc home with pcp/cardiology f/u for lasix titration.. 01/04 04:44 Order name: Basic Metabolic Panel; Complete Time: 06:16 01/04 04:44 Order name: BNP; Complete Time: 06:16 01/04 04:44 Order name: CBC with Diff; Complete Time: 05:27 01/04 04:44 Order name: PT-INR; Complete Time: 06:16 01/04 04:44 Order name: Troponin (emerg Dept Use Only); Complete Time: 06:16 01/04 06:17 Order name: Urine Dipstick--Ancillary (enter results); Complete Time: 07:14 em1 01/04 04:44 Order name: XRAY Chest (1 view); Complete Time: 10:02 gs 01/04 06:56 Order name: Troponin (emerg Dept Use Only) gs 01/04 06:56 Order name: Troponin (Emerg Dept Use Only); Complete Time: 10:02 EDMS 01/04 07:15 Order name: CT Chest For PE Angio; Complete Time: 10:02 rn 01/04 04:44 Order name: EKG; Complete Time: 04:45 gs 01/04 04:44 Order name: Cardiac monitoring; Complete Time: 05:01 gs 01/04 04:44 Order name: EKG - Nurse/Tech; Complete Time: 05:15 gs 01/04 04:44 Order name: IV Saline Lock; Complete Time: 05:01 gs 01/04 04:44 Order name: Labs collected and sent; Complete Time: 05:01 gs 01/04 04:44 Order name: O2 Per Protocol; Complete Time: 05:01 gs 01/04 04:44 Order name: O2 Sat Monitoring; Complete Time: 05:01 gs 01/04 04:44 Order name: Urine Dipstick-Ancillary (obtain specimen); Complete Time: 06:38 gs EC:05 Rate is 80 beats/min. Rhythm is regular. NC interval is prolonged. QRS interval is gs prolonged. QT interval is normal. T waves are Flattened. Clinical impression: NSR w/ Non-specific ST/T Changes and Abnormal EKG without significant change. Interpreted by me. Administered Medications: 05:00 Drug: Lasix 40 mg Route: IVP; Site: left forearm; ao 06:39 Follow up: Response: No adverse reaction ao 05:00 Drug: Albuterol 2.5 mg Route: Inhalation; ao 06:39 Follow up: Response: No adverse reaction ao 05:00 Drug: AtroVENT Aerosol 0.5 mg Route: Inhalation; ao 06:40 Follow up: Response: No adverse reaction ao Disposition: 01/04/18 12:23 Discharged to Home. Impression: Unspecified combined systolic (congestive) and diastolic (congestive) heart failure, Cough. - Condition is Stable. - Discharge Instructions: Heart Failure, Cough, Adult. - Medication Reconciliation Form, Thank You Letter, Antibiotic Education, Prescription Opioid Use form. - Follow up: Private Physician; When: As needed; Reason: Recheck today's complaints, Re-evaluation by your physician. - Problem is new. - Symptoms have improved. Signatures: Dispatcher [employer] [facility] Marina Jiménez RN Letha Vieira RN Renny Roland MD MD rn Ortiz, Alex, RN RN ao Starr, Gregory, MD MD gs Corrections: (The following items were deleted from the chart) 06:32 06:29 01/04/2018 06:29 Discharged to Home. Impression: Acute bronchitis. Condition is gs Stable. Forms are Medication Reconciliation Form, Thank You Letter, Antibiotic Education, Prescription Opioid Use. Follow up: Private Physician; When: 2 - 3 days; Reason: Re-evaluation by your physician. 06:57 06:34 Chest For PE Angio+CT.RAD.BRZ ordered. [facility] 09:58 06:34 Extrem Venous W Compression Tereso+VAS.RAD.BRZ ordered. [facility] 12:33 12:23 01/04/2018 12:23 Discharged to Home. Impression: Unspecified combined systolic aj (congestive) and diastolic (congestive) heart failure; Cough. Condition is Stable. Forms are Medication Reconciliation Form, Thank You Letter, Antibiotic Education, Prescription Opioid Use. Follow up: Private Physician; When: As needed; Reason: Recheck today's complaints, Re-evaluation by your physician. Problem is new. Symptoms have improved. rn
[2018-01-04 07:10] LABS: Urine Blood TRACE (NEG); Urine Glucose 2+ (NEG); Urine Protein NEGATIVE (NEG)
--- NOTE | 2018-01-04 07:37 | EKG ---
Test Date: 2018-01-04 Test Time: 05:09:48 [employer]er: GARY MEASUREMENT RESULTS: Intervals: Rate: 80 UT: 344 QRSD: 110 QT: 378 QTc: 435 [place]: P: 58 UT: 344 QRS: 14 T: 10 INTERPRETIVE STATEMENTS: Sinus rhythm with 1st degree AV block Nonspecific T wave abnormality Abnormal ECG Compared to ECG 08/29/2017 20:34:26 T-wave abnormality still present Electronically Signed On 01-04-18 07:36:38 CDT by Felix Saenz
--- NOTE | 2018-01-04 08:10 | RAD REPORT ---
EXAM DESCRIPTION: CT - Chest For Pe Angio - 01/04/2018 7:53 am CLINICAL HISTORY: Chest pain and shortness of breath for 2 weeks COMPARISON: None. TECHNIQUE: Dynamically enhanced axial 3 mm thick images of the chest were obtained during administra tion of <100> mL Isovue 370 IV contrast. Coronal and oblique reconstruction images were generated and reviewed. Exam utilizes a protocol for optimal evaluation of pulmonary arterial tree. All CT scans are performed using dose optimization technique as appropriate and may include automated exposure control or mA/KV adjustment according to patient size. FINDINGS: A pulmonary embolus is not seen. A thoracic aortic aneurysm is not noted. A pleural effusion is not seen. A pericardial effusion is not seen. A lung consolidation is not present. The heart is enlarged IMPRESSION: Negative for a pulmonary embolism.
--- NOTE | 2018-01-04 09:55 | RAD REPORT ---
EXAM DESCRIPTION: Deven Single View01/04/2018 5:20 am CLINICAL HISTORY: cough COMPARISON: October 2017 FINDINGS: The lungs appear clear of acute infiltrate. The heart is mildly enlarged IMPRESSION: No acute abnormalities displayed
[2018-01-04 12:45] VITALS: TEMP 97.9
[2018-01-04 12:50] VITALS: BP 134/98; O2SAT 99
== END 2018-01-04 12:33 | disposition home or self-care (01) ==
LOC: ER 04:23
DX: I50.40 Unspecified combined systolic (congestive) and diastolic (congestive) heart failure (principal); I10 Essential (primary) hypertension; E11.9 Type 2 diabetes mellitus without complications; E78.5 Hyperlipidemia, unspecified; F31.9 Bipolar disorder, unspecified; Z95.1 Presence of aortocoronary bypass graft; Z95.818 Presence of other cardiac implants and grafts; Z79.01 Long term (current) use of anticoagulants; Z79.4 Long term (current) use of insulin; Z79.82 Long term (current) use of aspirin
CPT/HCPCS: 36415; 71045; 71275; 80048; 81003; 83880; 84484 ×2; 85025; 85610; 93005; 96374; 99285; Q9967

== ENCOUNTER 2018-09-08 21:43 | Observation (INO) | payer MEDICARE ==
--- OUTSIDE RECORDS SUMMARY | 2018-09-08 22:35 | XMS REPORT | Clinical Summary ---
:1960 Author Organization [facility] Address [address] [place] [address] Care Team Providers Name Role Phone Luba Colvin Primary Care Provider Unavailable Allergies No Known Allergies Medications Medication Sig Dispensed Refills Start Date End Date Status aspirin 325 MG tablet Take 325 mg by 0 Active mouth daily. rosuvastatin (CRESTOR) Take 20 mg by 0 Active 20 MG tablet mouth nightly. furosemide (LASIX) 20 Take 20 mg by 0 Active MG tablet mouth 2 (two) times a day. potassium chloride Take 10 mEq by 0 Active (K-DUR,KLOR-CON) 10 MEQ mouth daily. CR tablet DICLOFENAC Take 2 tablets by 0 Active SODIUM/MISOPROSTOL mouth 2 (two) (ARTHROTEC 75 ORAL) times a day. amitriptyline (ELAVIL) Take 25 mg by 0 Active 25 MG tablet mouth nightly. LOSARTAN POTASSIUM Take 1 tablet by 0 Active (LOSARTAN ORAL) mouth daily. insulin detemir Inject 100 Units 0 Active (LEVEMIR) 100 unit/mL under the skin 2 injection (two) times a day. insulin lispro Inject 30 Units 0 Active (HumaLOG) 100 unit/mL under the skin 3 injection (three) times a day before meals. Active Problems Not on file Family History Medical History Relation Name Comments No Known Problems Father No Known Problems Mother Relation Name Status Comments Father Mother Social History Tobacco Use Types Packs/Day Years Used Date Former Smoker Alcohol Use Drinks/Week oz/Week Comments No Sex Assigned at Date Recorded Not on file Job Start Date Occupation Industry Not on file Not on file Not on file Travel History Travel Start Travel End No recent travel history available. Last Filed Vital Signs Not on file Plan of Treatment Health Maintenance Due Date Last Done Comments COLON CANCER SCREENING 2011 SHINGLES VACCINES (1 of 2) 2011 INFLUENZA VACCINE 04/02/2018 Results Not on fileafter 09/07/2017 Insurance Payer Benefit Plan / Group Subscriber ID Type Phone Address [facility] MEDICARE AARP MEDICARE COMPLETE MCR xxxxxxxxx HMO [facility] CHOICE/CHOICE + xxxxxxxxx HMO/PPO ([place]) [place] [address] Advance Directives Patient has advance care planning documents on file. For more information, please contact:Trent Jacobs[address] [place] [address]
--- OUTSIDE RECORDS SUMMARY | 2018-09-08 22:36 | XMS REPORT ---
:1960 Author Organization [facility] Address [address] [place] [address] Care Team Providers Name Role Phone KARY [...] Reference Range Comments HEMOGLOBIN A1C (BEAKER) (test hnav=648) 8.3 % 4.3-6.1 POCT-GLUCOSE [id number] 08:15:00 Test Item Value Reference Range Comments POC-GLUCOSE METER (BEAKER) 143 mg/dL 70-110 TESTED AT [address] (test pggg=8227) [facility] [address] POCT-GLUCOSE [id number] 21:11:00 Test Item Value Reference Range Comments POC-GLUCOSE METER (BEAKER) 214 mg/dL 70-110 TESTED AT [address] (test fsme=9425) [facility] [address] POCT-GLUCOSE [id number] 17:19:00 Test Item Value Reference Range Comments POC-GLUCOSE METER (BEAKER) 160 mg/dL 70-110 TESTED AT [address] (test zwff=4349) [facility] [address] POCT-GLUCOSE [id number] 12:59:00 Test Item Value Reference Range Comments POC-GLUCOSE METER (BEAKER) 175 mg/dL 70-110 TESTED AT [address] (test llrx=9459) [facility] [address] POCT-GLUCOSE [id number] 09:21:00 Test Item Value Reference Range Comments POC-GLUCOSE METER (BEAKER) 194 mg/dL 70-110 TESTED AT [address] (test qrnm=1126) [place] [address] POCT-GLUCOSE [id number] 21:05:00 Test Item Value Reference Range Comments POC-GLUCOSE METER (BEAKER) 264 mg/dL 70-110 TESTED AT [address] (test sssm=6442) [place] [id number] POCT-GLUCOSE [id number] 17:11:00 Test Item Value Reference Range Comments POC-GLUCOSE METER (BEAKER) 158 mg/dL 70-110 TESTED AT [address] (test mbqn=1181) [place] [address] POCT-GLUCOSE [id number] 12:14:00 Test Item Value Reference Range Comments POC-GLUCOSE METER (BEAKER) 127 mg/dL 70-110 TESTED AT [address] (test hxsc=3673) [place] [address] BASIC METABOLIC [id number] 10:20:00 Test Item Value Reference Range Comments SODIUM (BEAKER) (test 140 meq/L 136-145 edlh=220) POTASSIUM (BEAKER) (test 4.4 meq/L 3.5-5.1 oyfy=071) CHLORIDE (BEAKER) (test 109 meq/L 98-107 tpfs=027) CO2 (BEAKER) (test 22 meq/L 22-29 awsm=144) BLOOD UREA NITROGEN 22 mg/dL 7-21 (BEAKER) (test ryzn=864) CREATININE (BEAKER) (test 1.25 mg/dL 0.57-1.25 ltgm=183) GLUCOSE RANDOM (BEAKER) 104 mg/dL 70-105 (test mhdi=681) CALCIUM (BEAKER) (test 9.2 mg/dL 8.4-10.2 lcjr=106) EGFR (BEAKER) (test 72 mL/min/1.73 sq m ESTIMATED GFR IS NOT hqob=2548) ACCURATE CREATININE CLEARANCE IN PREDICTING GLOMERULAR FILTRATION RATE. ESTIMATED GFR IS NOT APPLICABLE FOR DIALYSIS PATIENTS. POCT-GLUCOSE [id number] 09:05:00 Test Item Value Reference Range Comments POC-GLUCOSE METER (BEAKER) 108 mg/dL 70-110 TESTED AT [address] (test hdbv=4392) [place] [address] RAD, CHEST, 1 VIEW, NON [id number] 07:45:00Reason for exam:->pre- opShould this be performed at the bedside?->YesFINAL REPORT CLINICAL HISTORY: pre-op TECHNIQUE: 1 view of the chest. COMPARISON: None IMPRESSION: There are no focal infiltrates or effusions. A focal density in the medial right upper lung zone may be related to costochondral calcification from the right first rib. The cardiomediastinal silhouette is magnified by technique. Signed: Dorian Pealez MDReport Verified Date/Time: 07:45:46 Reading Location: [facility] Radiology Reading Room PROTHROMBIN TIME/[id number] 07:17:00 Test Item Value Reference Range Comments PROTIME (BEAKER) (test csrp=973) 13.3 seconds 11.7-14.7 INR (BEAKER) (test fndo=795) 1.0 <=5.9 RECOMMENDED COUMADIN/WARFARIN INR THERAPY RANGESSTANDARD DOSE: 2.0 - 3.0 Includes: PROPHYLAXIS forvenous thrombosis, systemic embolization; TREATMENT for venous thrombosis and/or pulmonary embolus.HIGH RISK: Target INR is 2.5-3.5 for patients with mechanical heart valves.Within 24 hours, if on [id number] 07:17:00 Test Item Value Reference Range Comments PARTIAL THROMBOPLASTIN TIME (BEAKER) (test 32.2 seconds 22.5-36.0 dozd=190) Within 24 hours, if on CoumadinCBC (HEMOGRAM ONLY)2017-08-30 07:07:00 Test Item Value Reference Range Comments WHITE BLOOD CELL COUNT (BEAKER) (test jtyb=381) 5.0 K/ L 3.5-10.5 RED BLOOD CELL COUNT (BEAKER) (test ffaa=191) 5.27 M/ L 4.63-6.08 HEMOGLOBIN (BEAKER) (test yzux=353) 15.8 GM/DL 13.7-17.5 HEMATOCRIT (BEAKER) (test lozq=779) 49.4 % 40.1-51.0 MEAN CORPUSCULAR VOLUME (BEAKER) (test fojl=844) 93.7 fL 79.0-92.2 MEAN CORPUSCULAR HEMOGLOBIN (BEAKER) (test 30.0 pg 25.7-32.2 nmnf=958) MEAN CORPUSCULAR HEMOGLOBIN CONC (BEAKER) (test 32.0 GM/DL 32.3-36.5 hvew=099) RED CELL DISTRIBUTION WIDTH (BEAKER) (test 13.8 % 11.6-14.4 oyom=592) PLATELET COUNT (BEAKER) (test dbiu=431) 151 K/CU MM 150-450 MEAN PLATELET VOLUME (BEAKER) (test jdnk=385) 13.0 fL 9.4-12.4 NUCLEATED RED BLOOD CELLS (BEAKER) (test 0 /100 WBC 0-0 izdd=597)
--- OUTSIDE RECORDS SUMMARY | 2018-09-08 22:36 | XMS REPORT | Clinical Summary ---
:1960 Author Organization [facility] Address [address] [place] [address] Care Team Providers Name Role Phone Unavailable Primary Care Provider Unavailable Allergies No Known Allergies Medications Medication Sig Dispensed Refills Start Date End Date Status metFORMIN Take 500 mg by mouth 0 Active (GLUMETZA) 500 MG daily with breakfast (MOD) 24 hr tablet Takes it 2x day . amitriptyline Take 25 mg by mouth 0 Active (ELAVIL) 25 MG nightly. tablet insulin regular Inject 0 Active (HUMULIN R,NOVOLIN subcutaneously 2 R) 100 unit/mL (two) times daily injectionIndication Use as directed . s: type 1 diabetes mellitus, 40 units in the morning, 40 Units at night rosuvastatin Take 40 mg by mouth 0 Active (CRESTOR) 40 MG daily. tablet furosemide (LASIX) Take 10 mg by mouth 0 Active 10 mg/mL daily. solutionIndications : Edema QUEtiapine Take 100 mg by mouth 0 Active (SEROQUEL) 100 MG nightly. tablet aspirin 325 MG Take 325 mg by mouth 0 Active tablet daily. FLUoxetine (PROZAC) Take 40 mg by mouth 0 Active 40 MG capsule daily. loratadine Take 10 mg by mouth 0 Active (CLARITIN) 10 mg as needed for tablet Allergies. fluticasone 1 spray by Nasal 0 Active (FLONASE) 50 route as needed for mcg/actuation nasal Rhinitis. spray clopidogrel Take 1 tablet (75 mg 30 tablet 11 09/01/2017 (PLAVIX) 75 mg total) by mouth 8 tablet daily. insulin lispro Inject 0-12 Units 10 mL 0 09/01/2017 (HUMALOG) 100 subcutaneously as 8 unit/mL injection needed (High blood sugar). insulin lispro Inject 0-4 Units 10 mL 0 09/01/2017 (HUMALOG) 100 subcutaneously every 8 unit/mL injection night as needed (High blood sugar). Active Problems Problem Noted Date Bradycardia 09/01/2017 AV dissociation 09/01/2017 PAOD (peripheral arterial occlusive disease) 08/31/2017 Ischemic rest pain of lower extremity 08/30/2017 Coronary artery disease involving coronary bypass graft of [place] heart 2016 without angina pectoris Type 2 diabetes mellitus with complication 08/30/2017 Secondary hypertension 08/30/2017 Social History Tobacco Use Types Packs/Day Years [...] Signs Not on file Plan of Treatment Not on file Implants Implanted Type Area Sleeve Sewer Device Shelf Model / Identifier Expiration Serial / Date Lot Closure Sys Perclose Progl 6fr [id number] - [id number] Cardiovascular Right: POE 06/01/2019 [id number] / Implanted: Qty: 1 on 08/30/2017 by Ele Leung MD [facility] LAB:VASC DEV / Lutonix 035 Stents-Periphera Left: BARD VASCULAR [id number] 2019 [id number] / Implanted: Qty: 1 on 08/30/2017 by Ele Leung MD l Arterial / [id number] Lutonix 035 Stents-Periphera Left: BARD VASCULAR [id number] 2019 [id number] / Implanted: Qty: 1 on 08/30/2017 by Ele Leung MD l Arterial / [id number] [employer] Supera Stents-Periphera Left: POE 06/01/2018 S-65-100 -120-P6 / Implanted: Qty: 1 on 08/30/2017 by Ele Leung MD l Arterial VASCULAR / DEVICE [id number] [employer] Supera Stents-Periphera Left: POE 12/30/2017 S-65-100 -120-P6 / Implanted: Qty: 1 on 08/30/2017 by Ele Leung MD l Arterial VASCULAR / DEVICE [id number] Cook Stents-Periphera Left: [employer] [id number] 05/01/2019 [id number] / Implanted: Qty: 1 on 08/30/2017 by Ele Leung MD l Arterial / [id number] Results Not on fileafter 09/07/2017 Insurance Payer Benefit Plan / Group Subscriber ID Type Phone Address [employer] - MEDICARE AARP/MEDICARE COMPLETE xxxxxxxxx MGD CARE Advance Directives For more information, please contact:[address] [phone] Code Status Date Activated Date Inactivated Comments Full Code 08/30/2017 4:15 AM 09/01/2017 3:36 PM This code status was determined by: Patient
[2018-09-08 22:38] LABS: Absolute Lymphocytes (CBC) 1.6 K/uL (0.7-4.9); Absolute Monocytes 0.8 K/uL (0.1-1.3); Absolute Neutrophil 2.8 K/uL (1.8-8.0); Basophils % 0.6 % (0-1.3); Eosinophils % 6.2 % (0-4.4); Hematocrit 45.1 % (39.6-49.0); Lymphocytes % 29.2 % (15.3-44.8); MPV 10.9 fL (7.6-11.3); Monocytes % 13.5 % (3.3-12.3); RBC Red Blood Cell Count 4.77 M/uL (4.33-5.43)
[2018-09-08 22:41] LABS: Protime INR 1.17
[2018-09-08] MEDS ORDERED: NA CHLORIDE 0.9% 1,000 ML ONE (22:45)
[2018-09-08 23:03] LABS: Albumin 3.2 g/dL (3.4-5.0); Bilirubin Direct 0.1 mg/dL (0-0.2); Bilirubin Total 0.3 mg/dL (0.2-1.0); Magnesium 1.8 mg/dL (1.8-2.4); Potassium 4.1 mmol/L (3.5-5.1); Protein, Total 7.2 g/dL (6.4-8.2); Troponin (Emerg Dept Use Only) 0.24 ng/mL (0.0-0.045)
[2018-09-08 23:24] LABS: Thyroid Stimulating Hormone 1.96 uIU/mL (0.360-3.740)
[2018-09-08 23:35] LABS: Blood Morphology Comment NOT SEEN (NOT SEEN); Platelet Estimate DECR; Platelets, Giant FEW; Urine White Blood Cell Casts OK
[2018-09-08 23:37] LABS: Urine Blood 1+ (NEG); Urine Glucose NEGATIVE (NEG); Urine Protein 2+ (NEG); Urine Specific Gravity 1.025 (1.005-1.030); Urine pH 5.5 (5.0-7.0)
--- NOTE | 2018-09-09 00:52 | EDPHYS ---
Physician Documentation [facility] Name: [place] Age: 58 yrs Sex: Male : 1960 Arrival Date: 09/08/2018 Time: 21:53 Bed 8 Private MD: Tarik Lackey HPI: 09/09 00:44 This 58 yrs old Black Male presents to ER via Ambulatory with complaints of High Blood sy Pressure, LT LEG NUMB AND PAINFUL. 00:44 The patient has elevated blood pressure and discovered this at home. Onset: The sy symptoms/episode began/occurred 5 day(s) ago. Modifying factors: The symptoms are aggravated by activity, The symptoms are alleviated by remaining still. 00:45 The patient presents with pain, weakness, difficult to control. The complaints affect sy the lateral aspect of left thigh, lateral aspect of left knee, lateral aspect of left calf, left hamstring, posterior aspect of left knee, left calf, medial aspect of left thigh, medial aspect of left knee, medial aspect of left calf, left quadriceps, left knee and left chacon. Context: The problem was sustained at an unknown site. Modifying factors: The symptoms are alleviated by remaining still, the symptoms are aggravated by movement, weight bearing, bending knee. Associated signs and symptoms: Pertinent positives: weakness, of the left leg. The patient complains of pain to the forehead, left frontal area, left temporal area and right temporal area. Onset: The symptoms/episode began/occurred 3 day(s) ago. Historical: - Allergies: 09/08 22:15 No Known Allergies; ea - Home Meds: 22:15 amitriptyline 10 mg Oral tab 1 tab nightly for Depression [Active]; aspirin 81 mg Oral ea TbEC 1 tab once daily [Active]; Crestor 20 mg Oral tab 1 tab once daily for Hypercholesterolemia [Active]; doxazosin 2 mg Oral tab 1 tab 2 times daily [Active]; furosemide 20 mg Oral tab 1 tab once daily [Active]; Humulin N Pen 100 unit/mL (3 mL) Sub-Q inpn 40 unit twice a day [Active]; loratadine 10 mg Oral tab 1 tab once daily [Active]; metformin 500 mg Oral tab 1 tab 2 times per day [Active]; Plavix 75 mg Oral tab 1 tab once daily [Active]; potassium chloride 10 mEq Oral cpER 1 cap once daily [Active]; tamsulosin 0.4 mg Oral cp24 1 cap once daily [Active]; Toujeo SoloStar 300 unit/mL (1.5 mL) subcutaneous inpn 45 unit daily [Active]; Trulicity 0.75 mg/0.5 mL subcutaneous pnij 0.5 mL once wkly [Active]; - PMHx: 22:15 Bipolar disorder; Depression; Diabetes - IDDM; High Cholesterol; Hypertension; DVT; ea Schizophrenia; quadraple bypass; - PSHx: 22:15 CABG; Heart stents; ea - Immunization history:: Adult Immunizations up to date. - Social history:: Smoking status: Patient/guardian denies using tobacco. - Ebola Screening: : No symptoms or risks identified at this time. - Family history:: not pertinent. ROS: 09/09 00:45 Constitutional: Negative for fever, chills, and weight loss, Eyes: Negative for injury, sy pain, redness, and discharge, ENT: Negative for injury, pain, and discharge, Neck: Negative for injury, pain, and swelling, Cardiovascular: Negative for chest pain, palpitations, and edema, Respiratory: Negative for shortness of breath, cough, wheezing, and pleuritic chest pain, Abdomen/GI: Negative for abdominal pain, nausea, vomiting, diarrhea, and constipation, Back: Negative for injury and pain, : Negative for injury, bleeding, discharge, and swelling, Skin: Negative for injury, rash, and discoloration, Psych: Negative for depression, anxiety, suicide ideation, homicidal ideation, and hallucinations, Allergy/Immunology: Negative for hives, rash, and allergies, Endocrine: Negative for neck swelling, polydipsia, polyuria, polyphagia, and marked weight changes, Hematologic/Lymphatic: Negative for swollen nodes, abnormal bleeding, and unusual bruising. MS/extremity: Positive for decreased range of motion, pain, of the left leg. Neuro: Positive for headache, weakness. Exam: 00:45 Constitutional: This is a well developed, well nourished patient who is awake, alert, sy and in no acute distress. Head/Face: Normocephalic, atraumatic. Eyes: Pupils equal round and reactive to light, extra-ocular motions intact. Lids and lashes normal. Conjunctiva and sclera are non-icteric and not injected. Cornea within normal limits. Periorbital areas with no swelling, redness, or edema. ENT: Nares patent. No nasal discharge, no septal abnormalities noted. Tympanic membranes are normal and external auditory canals are clear. Oropharynx with no redness, swelling, or masses, exudates, or evidence of obstruction, uvula midline. Mucous membranes moist. Neck: Trachea midline, no thyromegaly or masses palpated, and no cervical lymphadenopathy. Supple, full range of motion without nuchal rigidity, or vertebral point tenderness. No Meningismus. Chest/axilla: Normal chest wall appearance and motion. Nontender with no deformity. No lesions are appreciated. Cardiovascular: Regular rate and rhythm with a normal S1 and S2. No gallops, murmurs, or rubs. Normal PMI, no JVD. No pulse deficits. Respiratory: Lungs have equal breath sounds bilaterally, clear to auscultation and percussion. No rales, rhonchi or wheezes noted. No increased work of breathing, no retractions or nasal flaring. Abdomen/GI: Soft, non-tender, with normal bowel sounds. No distension or tympany. No guarding or rebound. No evidence of tenderness throughout. Back: No spinal tenderness. No costovertebral tenderness. Full range of motion. Skin: Warm, dry with normal turgor. Normal color with no rashes, no lesions, and no evidence of cellulitis. MS/ Extremity: Pulses equal, no cyanosis. Neurovascular intact. Full, normal range of motion. Psych: Awake, alert, with orientation to person, place and time. Behavior, mood, and affect are within normal limits. 00:45 Neuro: Orientation: is normal, appropriate for stated age, no acute changes, Mentation: is normal, appropriate for stated age, no acute changes, Memory: is normal, appropriate for stated age, no acute changes, Cranial nerves: grossly normal, is grossly normal based on the patient's age, no acute changes, Cerebellar function: unable to test, Motor: moves all fours, strength is 5/5 in all extremities, Sensation: no obvious gross deficits, appropriate no acute changes, Gait: not tested. seizure activity, is not displayed by the patient. Vital Signs: 09/08 22:12 BP 177 / 94; Pulse 81; Resp 18; Temp 98.5; Pulse Ox 98% ; Weight 114.31 kg; Height 5 ea ft. 8 in. (172.72 cm); 23:09 BP 119 / 75; Pulse 85; Resp 18 S; Pulse Ox 96% on R/A; ca1 23:54 BP 125 / 68; Pulse 66; Resp 19; Pulse Ox 95% on R/A; ca1 09/09 00:35 BP 157 / 96; Pulse 73; Resp 19; Pulse Ox 95% on R/A; ca1 01:13 BP 144 / 80; Pulse 73; Resp 19; Pulse Ox 96% on R/A; ca1 02:16 BP 135 / 96; Pulse 67; Resp 18; Pulse Ox 97% on R/A; ca1 09/08 22:12 Body Mass Index 38.32 (114.31 kg, 172.72 cm) ea MDM: 09/08 22:14 Patient medically screened. [facility] 09/09 00:53 Data reviewed: vital signs, nurses notes, lab test result(s), EKG, radiologic studies, [facility] CT scan, plain films. 09/08 22:15 Order name: Basic Metabolic Panel; Complete Time: 00:37 [facility] 09/08 22:15 Order name: CBC with Diff; Complete Time: 00:37 [facility] 09/08 22:15 Order name: LFT's; Complete Time: 00:37 [facility] 09/08 22:15 Order name: Magnesium; Complete Time: 00:37 [facility] 09/08 22:15 Order name: NT PRO-BNP; Complete Time: 00:37 [facility] 09/08 22:15 Order name: PT-INR; Complete Time: 00:37 [facility] 09/08 22:15 Order name: Troponin (emerg Dept Use Only); Complete Time: 00:37 [facility] 09/08 22:15 Order name: XRAY Chest (1 view) [facility] 09/08 22:15 Order name: Lipase; Complete Time: 00:37 [facility] 09/08 22:15 Order name: Urine Culture [facility] 09/08 22:15 Order name: CT Head Brain wo Cont [facility] 09/08 22:15 Order name: TSH; Complete Time: 00:37 [facility] 09/08 23:20 Order name: Urine Dipstick--Ancillary (enter results); Complete Time: 00:37 ag4 09/08 23:35 Order name: CBC Smear Scan; Complete Time: 00:37 EDMS 09/08 22:15 Order name: EKG; Complete Time: 22:16 [facility] 09/08 22:15 Order name: Cardiac monitoring; Complete Time: 22:17 [facility] 09/08 22:15 Order name: EKG - Nurse/Tech; Complete Time: 22:46 [facility] 09/08 22:15 Order name: IV Saline Lock; Complete Time: 22:33 [facility] 09/08 22:15 Order name: Labs collected and sent; Complete Time: 22:33 [facility] 09/08 22:15 Order name: O2 Per Protocol; Complete Time: 22:17 [facility] 09/08 22:15 Order name: O2 Sat Monitoring; Complete Time: 22:17 [facility] 09/08 22:15 Order name: Urine Dipstick-Ancillary (obtain specimen); Complete Time: 23:19 [facility] Administered Medications: 09/08 22:52 Drug: NS 0.9% 1000 ml Route: IV; Rate: 125 ml/hr; Site: left antecubital; ca1 09/09 00:55 Follow up: Response: No adverse reaction; IV Status: Infusion continued upon admission ca1 02:19 Follow up: IV Status: IV converted to saline lock ca1 00:47 Drug: Aspirin 81 mg Route: PO; ca1 02:20 Follow up: Response: No adverse reaction ca1 00:48 Drug: Lovenox 100 mg Route: Sub-Q; Site: right lower abdomen; ca1 02:20 Follow up: Response: No adverse reaction ca1 Disposition: 09/09/18 00:51 Hospitalization ordered by June Quarles for Observation. Preliminary diagnosis are Weakness - left leg, Essential (primary) hypertension, Type 1 diabetes mellitus - elevated troponin, Obesity, unspecified, Palpitations - Mobitz 1. - Bed requested for Telemetry/MedSurg (observation). - Status is Observation. ca1 - Condition is Fair. - Problem is new. - Symptoms have improved. UTI on Admission? No Signatures: Dispatcher [employer] EDMS Elizabeth De La Cruz RN RN mw Anderson, Corey, MD MD cha Antunez, Elena, RN RN ea Acob, Cheryl, RN RN ca1 Corrections: (The following items were deleted from the chart) 00:53 00:51 Hospitalization Ordered by June Quarles MD for Observation. Preliminary [facility] diagnosis is Weakness - left leg; Essential (primary) hypertension; Type 1 diabetes mellitus; Obesity, unspecified. Bed requested for Telemetry/MedSurg (observation). Status is Observation. Condition is Fair. Problem is new. Symptoms have improved. UTI on Admission? No. sy 01:04 00:53 09/09/2018 00:51 Hospitalization Ordered by June Quarles MD for Observation. mw Preliminary diagnosis is Weakness - left leg; Essential (primary) hypertension; Type 1 diabetes mellitus - elevated troponin; Obesity, unspecified; Palpitations - Mobitz 1. Bed requested for Telemetry/MedSurg (observation). Status is Observation. Condition is Fair. Problem is new. Symptoms have improved. UTI on Admission? No. sy 02:21 01:04 09/09/2018 00:51 Hospitalization Ordered by June Quarles MD for Observation. ca1 Preliminary diagnosis is Weakness - left leg; Essential (primary) hypertension; Type 1 diabetes mellitus - elevated troponin; Obesity, unspecified; Palpitations - Mobitz 1. Bed requested for Telemetry/MedSurg (observation). Status is Observation. Condition is Fair. Problem is new. Symptoms have improved. UTI on Admission? No. mw
--- NOTE | 2018-09-09 00:52 | ER ---
Nurse's Notes [facility] Name: New Jordan Age: 58 yrs Sex: Male : 1960 Arrival Date: 09/08/2018 Time: 21:53 Bed 8 Private MD: Diagnosis: Weakness-left leg;Essential (primary) hypertension;Type 1 diabetes mellitus-elevated troponin;Obesity, unspecified;Palpitations-Mobitz 1 Presentation: 09/08 22:08 Presenting complaint: Patient states: Pt reports numbness and pain to the left leg that ea started two days ago. Pt states she has been feeling dizzy when he walks. Transition of care: patient was not received from another setting of care. Onset of symptoms was September 08, 2018. Risk Assessment: Do you want to hurt yourself or someone else? Patient reports no desire to harm self or others. Initial Sepsis Screen: Does the patient meet any 2 criteria? No. Patient's initial sepsis screen is negative. Does the patient have a suspected source of infection? No. Patient's initial sepsis screen is negative. Care prior to arrival: None. 22:08 Method Of Arrival: Ambulatory ea 22:08 Acuity: ANKIT 3 ea Historical: - Allergies: 22:15 No Known Allergies; ea - Home Meds: 22:15 amitriptyline 10 mg Oral tab 1 tab nightly for Depression [Active]; aspirin 81 mg Oral ea TbEC 1 tab once daily [Active]; Crestor 20 mg Oral tab 1 tab once daily for Hypercholesterolemia [Active]; doxazosin 2 mg Oral tab 1 tab 2 times daily [Active]; furosemide 20 mg Oral tab 1 tab once daily [Active]; Humulin N Pen 100 unit/mL (3 mL) Sub-Q inpn 40 unit twice a day [Active]; loratadine 10 mg Oral tab 1 tab once daily [Active]; metformin 500 mg Oral tab 1 tab 2 times per day [Active]; Plavix 75 mg Oral tab 1 tab once daily [Active]; potassium chloride 10 mEq Oral cpER 1 cap once daily [Active]; tamsulosin 0.4 mg Oral cp24 1 cap once daily [Active]; Toujeo SoloStar 300 unit/mL (1.5 mL) subcutaneous inpn 45 unit daily [Active]; Trulicity 0.75 mg/0.5 mL subcutaneous pnij 0.5 mL once wkly [Active]; - PMHx: 22:15 Bipolar disorder; Depression; Diabetes - IDDM; High Cholesterol; Hypertension; DVT; ea Schizophrenia; quadraple bypass; - PSHx: 22:15 CABG; Heart stents; ea - Immunization history:: Adult Immunizations up to date. - Social history:: Smoking status: Patient/guardian denies using tobacco. - Ebola Screening: : No symptoms or risks identified at this time. - Family history:: not pertinent. Screenin:11 Abuse screen: Denies threats or abuse. Nutritional screening: No deficits noted. ea Tuberculosis screening: No symptoms or risk factors identified. Fall Risk None identified. Assessment: 22:11 General: Appears in no apparent distress. uncomfortable, Behavior is calm, cooperative, ca1 appropriate for age. Pain: Complains of pain in left leg Pain currently is 7 out of 10 on a pain scale. Quality of pain is described as numb. Neuro: Level of Consciousness is awake, alert, obeys commands, Oriented to person, place, time, situation, Reports dizziness. Cardiovascular: Heart tones S1 S2 present Capillary refill < 3 seconds Patient's skin is warm and dry. Respiratory: Airway is patent Trachea midline Respiratory effort is even, unlabored, Respiratory pattern is regular, symmetrical, Breath sounds are clear bilaterally. GI: Abdomen is round non-distended, Bowel sounds present X 4 quads. Abd is soft and non tender X 4 quads. : No signs and/or symptoms were reported regarding the genitourinary system. EENT: No signs and/or symptoms were reported regarding the EENT system. Derm: Skin is intact, is healthy with good turgor, Skin is pink, warm \T\ dry. Musculoskeletal: Circulation, motion, and sensation intact. Capillary refill < 3 seconds, Reports pain in left leg. 23:09 Reassessment: Patient appears in no apparent distress at this time. Patient and/or ca1 family updated on plan of care and expected duration. Pain level reassessed. Patient is alert, oriented x 3, equal unlabored respirations, skin warm/dry/pink. 23:54 Reassessment: Patient is alert, oriented x 3, equal unlabored respirations, skin ca1 warm/dry/pink. Patient sleeping on bed. 09/09 00:35 Reassessment: Patient appears in no apparent distress at this time. Patient is alert, ca1 oriented x 3, equal unlabored respirations, skin warm/dry/pink. Dr. Osullivan at bedside. 01:13 Reassessment: Patient appears in no apparent distress at this time. Patient and/or ca1 family updated on plan of care and expected duration. Pain level reassessed. Patient is alert, oriented x 3, equal unlabored respirations, skin warm/dry/pink. Patient talking to over the phone. Informed of hospitalization for observation. 02:16 Reassessment: Patient appears in no apparent distress at this time. Patient and/or ca1 family updated on plan of care and expected duration. Pain level reassessed. Patient is alert, oriented x 3, equal unlabored respirations, skin warm/dry/pink. Vital Signs: 09/08 22:12 BP 177 / 94; Pulse 81; Resp 18; Temp 98.5; Pulse Ox 98% ; Weight 114.31 kg; Height 5 ea ft. 8 in. (172.72 cm); 23:09 BP 119 / 75; Pulse 85; Resp 18 S; Pulse Ox 96% on R/A; ca1 23:54 BP 125 / 68; Pulse 66; Resp 19; Pulse Ox 95% on R/A; ca1 09/09 00:35 BP 157 / 96; Pulse 73; Resp 19; Pulse Ox 95% on R/A; ca1 01:13 BP 144 / 80; Pulse 73; Resp 19; Pulse Ox 96% on R/A; ca1 02:16 BP 135 / 96; Pulse 67; Resp 18; Pulse Ox 97% on R/A; ca1 09/08 22:12 Body Mass Index 38.32 (114.31 kg, 172.72 cm) ea ED Course: 09/08 21:53 Patient arrived in ED. es 22:07 Melissa Bee, RN is Primary Nurse. ea 22:11 Triage completed. ea 22:12 Arm band placed on right wrist. Patient placed in an exam room, on a stretcher, on ea pulse oximetry. 22:13 Tarik Osullivan MD is Attending Physician. sy 22:13 Patient has correct armband on for positive identification. Placed in gown. Bed in low ca1 position. Call light in reach. Side rails up X 1. 22:13 Pulse ox on. NIBP on. Warm blanket given. ca1 22:[address] via stretcher. nj 22:25 Missed attempt(s): 20 gauge in right antecubital area. ca1 22:27 Initial lab(s) drawn, by me, sent to lab. Inserted saline lock: 20 gauge in left ca1 antecubital area, using aseptic technique. Blood collected. 22:34 XRAY Chest (1 view) In Process Unspecified. EDMS 22:35 CT completed. Patient tolerated procedure well. Patient moved back from CT. nj 22:37 CT Head Brain wo Cont In Process Unspecified. EDMS 23:19 Yanci Rucker, RN is Primary Nurse. ca1 09/09 00:50 June Quarles MD is Hospitalizing Provider. sy 00:54 No provider procedures requiring assistance completed. Patient admitted, IV remains in ca1 place. Administered Medications: 09/08 22:52 Drug: NS 0.9% 1000 ml Route: IV; Rate: 125 ml/hr; Site: left antecubital; ca1 09/09 00:55 Follow up: Response: No adverse reaction; IV Status: Infusion continued upon admission ca1 02:19 Follow up: IV Status: IV converted to saline lock ca1 00:47 Drug: Aspirin 81 mg Route: PO; ca1 02:20 Follow up: Response: No adverse reaction ca1 00:48 Drug: Lovenox 100 mg Route: Sub-Q; Site: right lower abdomen; ca1 02:20 Follow up: Response: No adverse reaction ca1 Outcome: 00:51 Decision to Hospitalize by Provider. sy 01:08 Condition: stable ca1 01:08 Instructed on the need for admit, Demonstrated understanding of instructions. 02:10 Admitted to Med/surg accompanied by tech, via wheelchair, room 220, with chart, Report ca1 called to Denise Barrera RN 02:21 Patient left the ED. ca1 Signatures: Dispatcher [employer] Tarik Wright MD MD cha Salyer, Edna es Jordan, Nathan nj Antunez, Elena, RN RN ea Acob, Cheryl, RN RN ca1
[2018-09-09] MEDS ORDERED: ASPIRIN 81 MG CHEWABLE TABLET ONE (00:56)
[2018-09-09] MEDS ORDERED: ENOXAPARIN 100 MG/ML SYR SQ ONE (00:57)
--- NOTE | 2018-09-09 02:00 | P.HP ---
Certification for Inpatient Patient admitted to: Observation With expected LOS: <2 Midnights Practitioner: I am a practitioner with admitting privileges, knowledge of patient current condition, hospital course, and medical plan of care. Services: Services provided to patient in accordance with Admission requirements found in Title 42 Section 412.3 of the Code of Federal Regulations Patient History Date of Service: 09/09/18 Reason for admission: left side numbness History of Present Illness: Mr Jordan is a 58 years old male with history of CAD, DM II, HTN who came to ED complaining of left upper and lower extremity numbness since about 1 week ago. He was also complaining of headache and dizziness. He denied, weakness, blurred vision. During this time, the patient did not have any improvement of his symptoms. Lab work remarkable for creatinine 1.45, trop I 0.45. No chest pain or SOB. CT head shows no acute abnormalities, however, still expecting radiology report. Allergies No Known Drug Allergies Allergy (Unverified 08/10/14 19:00) Unknown No Known Allergies Allergy (Uncoded 12/11/15 21:51) Unknown Home medications list reviewed: Yes - Past Medical/Surgical History -: CAD -: DM II -: HTN -: DVT -: Dyslipidemia -: IVC filter -: CABG - Social History Smoking Status: Former smoker Alcohol use: No CD- Drugs: No Place of Residence: Home Review of Systems 10-point ROS is otherwise unremarkable Physical Examination - Physical Exam General: Alert, In no apparent distress HEENT: Atraumatic, PERRLA, Mucous membr. moist/pink, EOMI, Sclerae nonicteric Neck: Supple, 2+ carotid pulse no bruit, No LAD, Without JVD or thyroid abnormality Respiratory: Clear to auscultation bilaterally, Normal air movement Cardiovascular: Regular rate/rhythm, Normal S1 S2 Gastrointestinal: Normal bowel sounds, No tenderness Musculoskeletal: No tenderness Integumentary: No rashes Neurological: Normal speech, Normal strength at 5/5 x4 extr, Normal tone, Normal affect - Studies Laboratory Data (last 24 hrs) 09/08/18 22:27: PT 13.8 H, INR 1.17 09/08/18 22:27: WBC 5.6, Hgb 14.6, Hct 45.1, Plt Count 121 L 09/08/18 22:27: Sodium 141, Potassium 4.1, BUN 20 H, Creatinine 1.45 H, Glucose 149 H, Magnesium 1.8, Total Bilirubin 0.3, AST 16, ALT 22, Alkaline Phosphatase 61, Lipase 97 Assessment and Plan - Problems (Diagnosis) (1) Left sided numbness Current Visit: Yes Status: Acute (2) HTN (hypertension) Current Visit: Yes Status: Acute Qualifiers: Hypertension type: essential hypertension Qualified Code(s): I10 - Essential (primary) hypertension (3) Diabetes mellitus Current Visit: Yes Status: Acute Qualifiers: Diabetes mellitus type: type 2 Diabetes mellitus buttermaker helper insulin use: with buttermaker helper use Diabetes mellitus complication status: with unspecified complications Qualified Code(s): E11.8 - Type 2 diabetes mellitus with unspecified complications; Z79.4 - intermediate frame tender (current) use of insulin (4) CAD (coronary artery disease) Current Visit: Yes Status: Acute Qualifiers: Coronary Disease-Associated Artery/Lesion type: bypass graft [place] vs. transplanted heart: [place] heart Associated angina: without angina Qualified Code(s): I25.810 - Atherosclerosis of coronary artery bypass graft(s) without angina pectoris - Plan The patient will be admitted to the hospital to R/O acute/subacute CVA. Will order brain MRI, ECHO and carotid doppler. Continue plavix, check lipid panel, order statins. Consult PT. - Advance Directives Does patient have a Living Will: No Does patient have a Durable POA for Healthcare: No - Code Status/Comfort Care Code Status Assessed: Yes Code Status: Full Code
[2018-09-09] MEDS ORDERED: CLOPIDOGREL 75 MG TABLET PO ONE (02:28)
[2018-09-09] MEDS ORDERED: ONDANSETRON 4 MG/2 ML VIAL IV PRN (02:28)
[2018-09-09] MEDS ORDERED: ACETAMINOPHEN 500 MG TAB PO PRN (02:28)
[2018-09-09 02:37] VITALS: BMI 39.4
[2018-09-09 03:12] LABS: Absolute Lymphocytes (CBC) 2.1 K/uL (0.7-4.9); Absolute Monocytes 0.7 K/uL (0.1-1.3); Absolute Neutrophil 2.4 K/uL (1.8-8.0); Basophils % 0.1 % (0-1.3); Eosinophils % 6.1 % (0-4.4); Lymphocytes % 37.5 % (15.3-44.8); MPV 11.6 fL (7.6-11.3); Monocytes % 13.3 % (3.3-12.3); RBC Red Blood Cell Count 4.85 M/uL (4.33-5.43)
[2018-09-09 03:26] LABS: Potassium 4.1 mmol/L (3.5-5.1)
[2018-09-09] MEDS ORDERED: INFLUENZA VACCINE (for 3y+) 0.5 ML DOSE IMVAC ONE (06:00)
[2018-09-09] MEDS: INSULIN -REGULAR HUMAN 50 UNIT/0.5 ML ML SQ SCH ×2 (07:30→11:30)
--- NOTE | 2018-09-09 07:36 | EKG ---
Test Date: 2018-09-08 Test Time: 22:45:39 [employer]: JALIL MEASUREMENT RESULTS: Intervals: Rate: 57 OK: QRSD: 112 QT: 434 QTc: 422 [place]: P: 76 OK: QRS: 19 T: 71 INTERPRETIVE STATEMENTS: Sinus rhythm with 2nd degree AV block (Mobitz I) Nonspecific T wave abnormality Abnormal ECG Compared to ECG 01/04/2018 05:09:48 First degree AV block no longer present T-wave abnormality still present Electronically Signed On 09-09-18 07:35:24 SEQUENCING MACHINE OPERATOR by Felix Saenz
[2018-09-09 07:44] LABS: Urine Appearance CLEAR; Urine Bilirubin NEGATIVE (NEG); Urine Blood TRACE (NEG); Urine Color YELLOW; Urine Glucose NEGATIVE (NEG); Urine Protein 1+ (NEG); Urine Specific Gravity 1.015 (1.005-1.030)
[2018-09-09 07:46] LABS: Urine Microscopic Reflex ORDER UMIC
--- NOTE | 2018-09-09 07:54 | RAD REPORT ---
EXAM DESCRIPTION: Deven Single View09/08/2018 10:36 pm CLINICAL HISTORY: cough COMPARISON: January 2008 FINDINGS: The lungs appear clear of acute infiltrate. The heart is borderline enlarged IMPRESSION: No acute abnormalities displayed
[2018-09-09 08:35] LABS: Urine Bacteria <20 /HPF (NONE SEEN); Urine Culture Reflex Order NOT NEEDED; Urine RBC <5 /HPF (NONE SEEN)
[2018-09-09] MEDS ORDERED: ENOXAPARIN 40 MG/0.4 ML SQ SCH ×2 (09:00→21:00)
--- NOTE | 2018-09-09 09:32 | RAD REPORT ---
EXAM DESCRIPTION: MRI - Brain Wo Cont - 09/09/2018 7:58 am CLINICAL HISTORY: Blurred vision and numbness COMPARISON: 2017 MRI TECHNIQUE: Axial, sagittal, and coronal magnetic resonance images of the brain were obtained. FINDINGS: A few small areas of increased signal within deep, subcortical white matter are unchanged. Diffusion-weighted/ADC mapping does not reveal evidence of acute infarction. The ventricles are normal caliber. An extra-axial fluid collection is not noted. The sinuses and mastoids are clear. IMPRESSION: A few small areas increased signal within deep, subcortical and white matter unchanged f rom 2017 probably representing ischemic changes secondary to small vessel disease. No acute intracranial abnormality is noted
--- NOTE | 2018-09-09 09:33 | RAD REPORT ---
EXAM DESCRIPTION: CT - Head Brain Wo Cont - 09/09/2018 5:47 am CLINICAL HISTORY: Numbness and blurred vision COMPARISON: [address] TECHNIQUE: Computed axial tomography of the head was obtained. IV contrast was not requested.Juicei rebekah report generated by [employer] and reviewed prior to dictation All CT scans are performed using dose optimization technique as appropriate and may include automated exposure control or mA/KV adjustment according to patient size. FINDINGS: An intracranial bleed is not seen . The ventricles are normal in caliber. No extra-axial fluid collection is noted. Mild low-density areas within periventricular, deep and sub cortical white matter likely represent ischemic changes secondary to small vessel disease. Fluid within the sinuses/ mastoids is not seen. IMPRESSION: No acute intracranial abnormality is seen. If patient's symptoms persist MRI of the bra in would be recommended.
--- NOTE | 2018-09-09 09:34 | RAD REPORT ---
EXAM DESCRIPTION: USCarotid Artery Bilateral09/09/2018 8:20 am CLINICAL HISTORY: Blurred vision and numbness COMPARISON: None FINDINGS: The velocity of the right internal carotid artery equals 93 cm/sec. The right ICA/CCA rati o 1.9 The velocity of the left internal carotid artery equals 62 cm/sec. The left ICA/CCA ratio 0.7 Mild plaque is present within the carotid arteries. The vertebral arteries demonstrate antegrade flow IMPRESSION: Mild plaque within the carotid arteries without evidence of a hemodynamically significan t stenosis NASCET criteria used. Mild 0-49% stenosis Moderate 50-69% stenosis Severe 70-99% stenosis
[2018-09-09 11:19] VITALS: O2SAT 97
--- NOTE | 2018-09-09 12:33 | ECHO ---
HEIGHT: 5 ft 8 in WEIGHT: 259 lb 8 oz DATE OF STUDY: 09/09/[address]: June Ho MD 2-DIMENSIONAL: YES M.MODE: YES DOPPLER: YES COLOR FLOW: YES TDS: NO PORTABLE: NO DEFINITY: NO BUBBLE STUDY: NO DIAGNOSIS: CEREBRAL VASCULAR ACCIDENT CARDIAC HISTORY: CATHERIZATION: YES SURGERY: YES PROSTHETIC VALVE: NO PACEMAKER: NO MEASUREMENTS (cm) DIASTOLIC (NORMALS) SYSTOLIC (NORMALS) IVSd 1.3 (0.6-1.2) LA Diam 4.2 (1.9-4.0) LVEF 20-25% LVIDd 5.2 (3.5-5.7) LVIDs 4.2 (2.0-3.5) %FS % LVPWd 1.3 (0.6-1.2) Ao Diam 3.0 (2.0-3.7) 2 DIMENSIONAL ASSESSMENT: RIGHT ATRIUM: NORMAL LEFT ATRIUM: DILATED RIGHT VENTRICLE: NORMAL LEFT VENTRICLE: NORMAL TRICUSPID VALVE: NORMAL MITRAL VALVE: MITRAL ANNULAR CALCIFICATION PULMONIC VALVE: NORMAL AORTIC VALVE: SCLEROSIS PERICARDIAL EFFUSION: NONE AORTIC ROOT: NORMAL LEFT VENTRICULAR WALL MOTION: SEVERE GLOBAL HYPOKINESIS. DOPPLER/COLOR FLOW: MILD TRICUSPID, MITRAL AND AORTIC REGURGITATION. COMMENTS: SEVERE GLOBAL HYPOKINESIS. MILD TRICUSPID, MITRAL AND AORTIC REGURGITATION. NO THROMBUS. MITRAL ANNULAR CALCIFICATION. AORTIC SCLEROSIS. TECHNOLOGIST: Anthony ROMERO
[2018-09-09 13:48] VITALS: BP 146/73; TEMP 97.7
--- NOTE | 2018-09-09 15:46 | RAD REPORT ---
EXAM DESCRIPTION: USEisaias Venous Uni Ltd09/09/2018 3:01 pm CLINICAL HISTORY: left leg pain and swelling. COMPARISON: 2017 FINDINGS: Left common femoral, superficial femoral, popliteal and posterior tibial veins are compre ssible and demonstrate augmentation. Doppler demonstrates good flow. IMPRESSION: No evidence of deep venous thrombosis involving the left lower extremity.
[2018-09-09] MEDS ORDERED: ATORVASTATIN 20 MG TAB PO SCH (21:00)
== END 2018-09-09 16:26 | disposition home or self-care (01) ==
LOC: ER 21:43 → ERHOLD 09-09 00:51 → 2ND 09-09 02:12
PROVIDERS: ADMIT Internal Medicine; ATTEND Internal Medicine
DX: R20.0 Anesthesia of skin (principal); I25.10 Atherosclerotic heart disease of native coronary artery without angina pectoris; E11.9 Type 2 diabetes mellitus without complications; I10 Essential (primary) hypertension; E78.5 Hyperlipidemia, unspecified; Z86.718 Personal history of other venous thrombosis and embolism; Z95.1 Presence of aortocoronary bypass graft; Z23 Encounter for immunization
CPT/HCPCS: 36415; 70450; 70551; 71045; 80048 ×2; 80061; 80076; 81003; 82962 ×2; 83690; 83735; 83880; 84443; 84484 ×3; 85025 ×2; 85610; 87086; 87088; 93005; 93306; 93880; 93971; 96360; 96361; 96372; 97163; 99285; G0008; J1650; J7030; Q2035; 81015; G0378

== ENCOUNTER 2019-08-09 04:36 | Inpatient (IN) | payer MEDICARE ==
--- OUTSIDE RECORDS SUMMARY | 2019-08-09 04:38 | XMS REPORT ---
:1960 [facility] [address] [place] [address] Care Team Providers Name Role Phone KARY [...] Reference Range Comments HEMOGLOBIN A1C (BEAKER) (test yilk=695) 8.3 % 4.3-6.1 POCT-GLUCOSE [id number] 08:15:00 Test Item Value Reference Range Comments POC-GLUCOSE METER (BEAKER) 143 mg/dL 70-110 TESTED AT [address] (test juzi=1506) [facility] [address] POCT-GLUCOSE [id number] 21:11:00 Test Item Value Reference Range Comments POC-GLUCOSE METER (BEAKER) 214 mg/dL 70-110 TESTED AT [address] (test xray=8383) [facility] [address] POCT-GLUCOSE [id number] 17:19:00 Test Item Value Reference Range Comments POC-GLUCOSE METER (BEAKER) 160 mg/dL 70-110 TESTED AT [address] (test mptk=2023) [facility] [address] POCT-GLUCOSE [id number] 12:59:00 Test Item Value Reference Range Comments POC-GLUCOSE METER (BEAKER) 175 mg/dL 70-110 TESTED AT [address] (test nlyv=6623) [facility] [address] POCT-GLUCOSE [id number] 09:21:00 Test Item Value Reference Range Comments POC-GLUCOSE METER (BEAKER) 194 mg/dL 70-110 TESTED AT [address] (test whnq=4366) [place] [address] POCT-GLUCOSE [id number] 21:05:00 Test Item Value Reference Range Comments POC-GLUCOSE METER (BEAKER) 264 mg/dL 70-110 TESTED AT [address] (test bsls=6603) [place] [id number] POCT-GLUCOSE [id number] 17:11:00 Test Item Value Reference Range Comments POC-GLUCOSE METER (BEAKER) 158 mg/dL 70-110 TESTED AT [address] (test erdz=8986) [place] [address] POCT-GLUCOSE [id number] 12:14:00 Test Item Value Reference Range Comments POC-GLUCOSE METER (BEAKER) 127 mg/dL 70-110 TESTED AT [address] (test hpja=4419) [place] [address] BASIC METABOLIC [id number] 10:20:00 Test Item Value Reference Range Comments SODIUM (BEAKER) (test 140 meq/L 136-145 uwoh=235) POTASSIUM (BEAKER) (test 4.4 meq/L 3.5-5.1 adfv=140) CHLORIDE (BEAKER) (test 109 meq/L 98-107 lrlx=773) CO2 (BEAKER) (test 22 meq/L 22-29 inkn=665) BLOOD UREA NITROGEN 22 mg/dL 7-21 (BEAKER) (test wfoz=266) CREATININE (BEAKER) (test 1.25 mg/dL 0.57-1.25 twca=345) GLUCOSE RANDOM (BEAKER) 104 mg/dL 70-105 (test xlyt=761) CALCIUM (BEAKER) (test 9.2 mg/dL 8.4-10.2 ztem=792) EGFR (BEAKER) (test 72 mL/min/1.73 sq m ESTIMATED GFR IS NOT sjec=9876) ACCURATE CREATININE CLEARANCE IN PREDICTING GLOMERULAR FILTRATION RATE. ESTIMATED GFR IS NOT APPLICABLE FOR DIALYSIS PATIENTS. POCT-GLUCOSE [id number] 09:05:00 Test Item Value Reference Range Comments POC-GLUCOSE METER (BEAKER) 108 mg/dL 70-110 TESTED AT [address] (test zfyr=9741) [place] [address] RAD, CHEST, 1 VIEW, NON [id number] 07:45:00Reason for exam:->pre- opShould this be performed [...] Pelaez MDReport Verified Date/Time: 07:45:46 Reading Location: [facility] Radiology Reading Room PROTHROMBIN [id number] 07:17:00 Test Item Value Reference Range Comments PROTIME (BEAKER) (test reau=693) 13.3 seconds 11.7-14.7 INR (BEAKER) (test jinh=303) 1.0 <=5.9 RECOMMENDED COUMADIN/WARFARIN INR THERAPY RANGESSTANDARD DOSE: 2.0 - 3.0 Includes: PROPHYLAXIS forvenous thrombosis, systemic embolization; TREATMENT for venous thrombosis and/or pulmonary embolus.HIGH RISK: Target INR is 2.5-3.5 for patients with mechanical heart valves.Within 24 hours, if on [id number] 07:17:00 Test Item Value Reference Range Comments PARTIAL THROMBOPLASTIN TIME (BEAKER) (test 32.2 seconds 22.5-36.0 ujoj=260) Within 24 hours, if on CoumadinCBC (HEMOGRAM ONLY)2017-08-30 07:07:00 Test Item Value Reference Range Comments WHITE BLOOD CELL COUNT (BEAKER) (test cbhz=628) 5.0 K/ L 3.5-10.5 RED BLOOD CELL COUNT (BEAKER) (test vmip=909) 5.27 M/ L 4.63-6.08 HEMOGLOBIN (BEAKER) (test vqvl=491) 15.8 GM/DL 13.7-17.5 HEMATOCRIT (BEAKER) (test yvjn=753) 49.4 % 40.1-51.0 MEAN CORPUSCULAR VOLUME (BEAKER) (test rxrh=501) 93.7 fL 79.0-92.2 MEAN CORPUSCULAR HEMOGLOBIN (BEAKER) (test 30.0 pg 25.7-32.2 ompn=273) MEAN CORPUSCULAR HEMOGLOBIN CONC (BEAKER) (test 32.0 GM/DL 32.3-36.5 qgyl=201) RED CELL DISTRIBUTION WIDTH (BEAKER) (test 13.8 % 11.6-14.4 gybk=416) PLATELET COUNT (BEAKER) (test blof=700) 151 K/CU MM 150-450 MEAN PLATELET VOLUME (BEAKER) (test hfbr=830) 13.0 fL 9.4-12.4 NUCLEATED RED BLOOD CELLS (BEAKER) (test 0 /100 WBC 0-0 lvzd=102)
[2019-08-09] MEDS ORDERED: METHYLPREDNISOLONE 125 MG INJ ONE (05:46)
[2019-08-09] MEDS ORDERED: IPRATROPIUM BROM 0.5MG/2.5ML ONE (05:46)
[2019-08-09] MEDS ORDERED: CEFEPIME 2 GM VIAL ONE (05:46)
[2019-08-09] MEDS ORDERED: LEVALBUTEROL 1.25 MG/3 ML NEB ONE ×2 (05:47→07:07)
[2019-08-09] MEDS ORDERED: NA CHLORIDE 0.9% 1,000 ML ONE (05:47)
[2019-08-09] MEDS ORDERED: NA CHLORIDE 0.9% 100 ML IV ONE (05:47)
[2019-08-09 06:34] LABS: Basophils % 0.2 % (0-1.3); Hematocrit 41.9 % (39.6-49.0); MPV 10.9 fL (7.6-11.3); RBC Red Blood Cell Count 4.45 M/uL (4.33-5.43)
[2019-08-09 06:35] LABS: Protime INR 1.06
[2019-08-09 06:48] LABS: Albumin 2.9 g/dL (3.4-5.0); Bilirubin Direct 0.1 mg/dL (0-0.2); Bilirubin Total 0.4 mg/dL (0.2-1.0); Magnesium 2.1 mg/dL (1.8-2.4); Protein, Total 7.3 g/dL (6.4-8.2); Troponin (Emerg Dept Use Only) 0.34 ng/mL (0.0-0.045)
[2019-08-09] MEDS ORDERED: ASPIRIN 81 MG CHEWABLE TABLET ONE (07:07)
[2019-08-09] MEDS ORDERED: ENOXAPARIN 100 MG/ML SYR SQ ONE (07:08)
--- NOTE | 2019-08-09 07:15 | ER ---
Nurse's Notes [facility] Name: [place] Jordan Age: 59 yrs Sex: Male : 1960 Arrival Date: 08/09/2019 Time: 04:39 Bed 19 Private MD: Diagnosis: Dyspnea;Non-ST elevation (NSTEMI) myocardial infarction;Type 1 diabetes mellitus;Chronic obstructive pulmonary disease with (acute) exacerbation;Pneumonia due to other specified bacteria-bilateral patchy infiltrates;Hemoptysis Presentation: 08/09 05:01 Presenting complaint: Patient states: he has been sick approx 5 days starting with a bb headache then difficulty breathing, cough which turned into hemoptysis and dark sputum also his urine is very dark he was seen by PCP of Saturday and told he had bronchitis and started on antibiotics and breathing treatments. Transition of care: patient was not received from another setting of care. Onset of symptoms was August 04, 2019. Risk Assessment: Do you want to hurt yourself or someone else? Patient reports no desire to harm self or others. Initial Sepsis Screen: Does the patient meet any 2 criteria? No. Patient's initial sepsis screen is negative. Does the patient have a suspected source of infection? No. Patient's initial sepsis screen is negative. Care prior to arrival: None. 05:01 Method Of Arrival: Ambulatory bb 05:01 Acuity: ANKIT 3 bb Triage Assessment: 04:56 General: Appears in no apparent distress. uncomfortable. Respiratory: Reports shortness cc3 of breath at rest on exertion since 2 days ago cough that is Onset: The symptoms/episode began/occurred 2 days ago, the patient has moderate shortness of breath. Historical: - Allergies: 05:10 No Known Allergies; bb - Home Meds: 05:10 aspirin 81 mg Oral TbEC 1 tab once daily [Active]; Crestor 20 mg Oral tab 1 tab once bb daily for Hypercholesterolemia [Active]; furosemide 20 mg Oral tab 1 tab once daily [Active]; Plavix 75 mg Oral tab 1 tab once daily [Active]; metformin 750 mg oral Tb24 1 tab twice a day [Active]; Jardiance 25 mg oral tab 1 tab once daily [Active]; Nystatin Topical [Active]; Vesicare 10 mg oral tab 1 tab once daily [Active]; [place] XL [Active]; pantoprazole 40 mg oral TbEC 1 tab once daily [Active]; Triamcinolone Acetonide Topical [Active]; fluoxetine Oral [Active]; Trulicity 0.75 mg/0.5 mL subcutaneous pnij 0.5 mL once wkly [Active]; Toucatalina SoloStar 300 unit/mL (1.5 mL) subcutaneous inpn 45 unit daily [Active]; - PMHx: 05:10 Bipolar disorder; Depression; Diabetes - IDDM; DVT; High Cholesterol; Hypertension; bb quadraple bypass; Schizophrenia; - PSHx: 05:10 CABG; bb - Immunization history:: Adult Immunizations up to date. - Social history:: Smoking status: Patient/guardian denies using tobacco. - Ebola Screening: : No symptoms or risks identified at this time. - Family history:: not pertinent. Screenin:56 Abuse screen: Denies threats or abuse. Denies injuries from another. Nutritional cc3 screening: No deficits noted. Tuberculosis screening: No symptoms or risk factors identified. Fall Risk Ambulatory Aid- None/Bed Rest/Nurse Assist (0 pts). Gait- Normal/Bed Rest/Wheelchair (0 pts) Mental Status- Oriented to own ability (0 pts). Assessment: 04:56 General: Appears in no apparent distress. uncomfortable, Behavior is calm, cooperative, cc3 appropriate for age. Pain: Denies pain. Neuro: Level of Consciousness is awake, alert, obeys commands, Oriented to person, place, time, situation, Appropriate for age. Cardiovascular: Denies chest pain, Heart tones S1 S2 present Capillary refill < 3 seconds in bilateral fingers Patient's skin is warm and dry. Rhythm is regular. Respiratory: Airway is patent Respiratory effort is even, unlabored, Respiratory pattern is regular, symmetrical, Breath sounds are diminished bilaterally. Breath sounds with rhonchi bilaterally. Breath sounds with wheezes bilaterally. GI: Abdomen is round obese, Bowel sounds present X 4 quads. Abd is soft and non tender X 4 quads. : No signs and/or symptoms were reported regarding the genitourinary system. EENT: No signs and/or symptoms were reported regarding the EENT system. Derm: Skin is intact, is healthy with good turgor, Skin is normal, black, Skin temperature is warm. Musculoskeletal: Circulation, motion, and sensation intact. Range of motion: intact in all extremities. 05:12 Reassessment: Patient appears in no apparent distress at this time. Patient and/or cc3 family updated on plan of care and expected duration. Pain level reassessed. Patient is alert, oriented x 3, equal unlabored respirations, skin warm/dry/pink. 06:31 Reassessment: Patient appears in no apparent distress at this time. Patient and/or cc3 family updated on plan of care and expected duration. Pain level reassessed. Patient is alert, oriented x 3, equal unlabored respirations, skin warm/dry/pink. Patient denies pain at this time. 07:05 General: Appears in no apparent distress. comfortable, Behavior is calm, cooperative, em appropriate for age. Pain: Complains of pain in head Pain currently is 7 out of 10 on a pain scale. Neuro: Level of Consciousness is awake, alert, obeys commands, Oriented to person, place, time, situation, Appropriate for age. Cardiovascular: Capillary refill < 3 seconds Patient's skin is warm and dry. Respiratory: Airway is patent Respiratory effort is even, unlabored, Respiratory pattern is regular, symmetrical. Derm: Skin is intact, is healthy with good turgor, Skin is pink, warm \T\ dry. Musculoskeletal: Capillary refill < 3 seconds, Range of motion: intact in all extremities. 08:00 Reassessment: see [facility] charting, pt ER hold, pending room assignment. em Vital Signs: 05:10 BP 138 / 91; Pulse 61; Resp 20 S; Temp 98.1(O); Pulse Ox 100% on R/A; Weight 118.84 kg bb (R); Height 5 ft. 8 in. (172.72 cm) (R); Pain 7/10; 06:24 BP 118 / 80; Pulse 88; Resp 20 S; Pulse Ox 100% on R/A; cc3 07:15 BP 133 / 75; Pulse 84; Resp 16; Pulse Ox 99% on R/A; Pain 7/10; em 05:10 Body Mass Index 39.84 (118.84 kg, 172.72 cm) ED Course: 04:39 Patient arrived in ED. cl3 04:56 Paty Gimenez is Primary Nurse. cc3 04:56 Patient has correct armband on for positive identification. Placed in gown. Bed in low cc3 position. Call light in reach. Side rails up X2. senior biostatistician on. Pulse ox on. NIBP on. 04:59 Tarik Osullivan MD is Attending Physician. sy 05:04 Triage completed. bb 05:10 Arm band placed on Patient placed in an exam room, on a stretcher, on pulse oximetry. bb EKG completed in triage. Results shown to MD. 05:55 Inserted saline lock: 22 gauge in right antecubital area, using aseptic technique. cc3 Blood collected. inserted by audiometric technician [place]. 06:07 XRAY Chest (1 view) In Process Unspecified. EDMS 07:00 Report given to JAZMIN Nicole. cc3 07:04 Corey Kerr LVN is Primary Nurse. em 07:10 Pranav Vega MD is Hospitalizing Provider. sy 07:31 CT completed. Patient tolerated procedure well. Patient moved back from CT. bq 07:33 CT Chest For PE Angio In Process Unspecified. EDMS 08:00 No provider procedures requiring assistance completed. Patient admitted, IV remains in em place. Administered Medications: 05:40 Drug: Xopenex 3.75 mg Route: Inhalation; cc3 06:24 Follow up: Response: No adverse reaction; Marked relief of symptoms cc3 05:40 Drug: AtroVENT Aerosol 0.5 mg Route: Inhalation; cc3 06:24 Follow up: Response: No adverse reaction; Marked relief of symptoms cc3 05:45 Drug: NS 0.9% 1000 ml Route: IV; Rate: 75 ml/hr; Site: right antecubital; cc3 05:45 Drug: SOLU-Medrol 125 mg Route: IVP; Site: right antecubital; cc3 06:24 Follow up: Response: No adverse reaction; Marked relief of symptoms cc3 06:10 Drug: Cefepime 2 grams Route: IVPB; Rate: 200 ml/hr; Infused Over: 30 mins; Site: right cc3 antecubital; 06:39 Follow up: Response: No adverse reaction; IV Status: Completed infusion; IV Intake: cc3 100ml 07:10 Drug: Lovenox 100 mg Route: Sub-Q; Site: left lower abdomen; em 07:47 Follow up: Response: No adverse reaction em 07:10 Drug: Aspirin 162 mg Route: PO; em 07:47 Follow up: Response: No adverse reaction em 07:11 Drug: Xopenex 1.25 mg Route: Inhalation; em 07:47 Follow up: Response: No adverse reaction; Marked relief of symptoms em 07:47 Drug: Tylenol 650 mg Route: PO; em 08:28 Follow up: Response: No adverse reaction; Marked relief of symptoms; Pain is decreased em 07:48 Drug: Pepcid 20 mg Route: IVP; Site: right forearm; iw 08:22 Follow up: Response: No adverse reaction em 08:47 Drug: Zithromax 500 mg Route: IVPB; Infused Over: 1 hrs; Site: right forearm; em 17:11 Follow up: IV Status: Completed infusion; IV Intake: 250ml em Intake: 06:39 IV: 100ml; Total: 100ml. cc3 17:11 IV: 250ml; Total: 350ml. em Outcome: 07:13 Decision to Hospitalize by Provider. sy 08:00 Admitted to Tele accompanied by tech, via wheelchair, room 221, with chart. em 08:00 Condition: good 08:00 Instructed on the need for admit, Demonstrated understanding of instructions. 14:10 Patient left the ED. eb Signatures: Dispatcher [employer] Tarik Wright MD MD cha Quilty, Betty bq Munoz, Edgar, GAMBLING COUNSELLOR GAMBLING COUNSELLOR Ebony García, Samara Ross RN, Lizeth Chandler RN, Charlene cc3 Sofía Lu cl3
--- NOTE | 2019-08-09 07:16 | EDPHYS ---
Physician Documentation [facility] Name: [place] Jordan Age: 59 yrs Sex: Male : 1960 Arrival Date: 08/09/2019 Time: 04:39 Bed 19 Private MD: ED Physician Tarik Osullivan HPI: 08/09 05:28 This 59 yrs old Black Male presents to ER via Ambulatory with complaints of Shortness sy Of Breath, Fever. 05:28 The patient has shortness of breath at rest, with light activity. Onset: The sy symptoms/episode began/occurred 2 day(s) ago. Duration: The symptoms are continuous, and are steadily getting worse. The patient's shortness of breath is aggravated by coughing, exertion. Associated signs and symptoms: Pertinent positives: non-productive cough, fever. Severity of symptoms: At their worst the symptoms were mild moderate in the emergency department the symptoms are unchanged. The patient has experienced similar episodes in the past, several times. Historical: - Allergies: 05:10 No Known Allergies; bb - Home Meds: 05:10 aspirin 81 mg Oral TbEC 1 tab once daily [Active]; Crestor 20 mg Oral tab 1 tab once bb daily for Hypercholesterolemia [Active]; furosemide 20 mg Oral tab 1 tab once daily [Active]; Plavix 75 mg Oral tab 1 tab once daily [Active]; metformin 750 mg oral Tb24 1 tab twice a day [Active]; Jardiance 25 mg oral tab 1 tab once daily [Active]; Nystatin Topical [Active]; Vesicare 10 mg oral tab 1 tab once daily [Active]; [place] XL [Active]; pantoprazole 40 mg oral TbEC 1 tab once daily [Active]; Triamcinolone Acetonide Topical [Active]; fluoxetine Oral [Active]; Trulicity 0.75 mg/0.5 mL subcutaneous pnij 0.5 mL once wkly [Active]; Toujeo SoloStar 300 unit/mL (1.5 mL) subcutaneous inpn 45 unit daily [Active]; - PMHx: 05:10 Bipolar disorder; Depression; Diabetes - IDDM; DVT; High Cholesterol; Hypertension; bb quadraple bypass; Schizophrenia; - PSHx: 05:10 CABG; bb - Immunization history:: Adult Immunizations up to date. - Social history:: Smoking status: Patient/guardian denies using tobacco. - Ebola Screening: : No symptoms or risks identified at this time. - Family history:: not pertinent. ROS: 05:28 Constitutional: Negative for fever, chills, and weight loss, Eyes: Negative for injury, sy pain, redness, and discharge, ENT: Negative for injury, pain, and discharge, Neck: Negative for injury, pain, and swelling, Cardiovascular: Negative for chest pain, palpitations, and edema, Abdomen/GI: Negative for abdominal pain, nausea, vomiting, diarrhea, and constipation, Back: Negative for injury and pain, : Negative for injury, bleeding, discharge, and swelling, MS/Extremity: Negative for injury and deformity, Skin: Negative for injury, rash, and discoloration, Neuro: Negative for headache, weakness, numbness, tingling, and seizure, Psych: Negative for depression, anxiety, suicide ideation, homicidal ideation, and hallucinations, Allergy/Immunology: Negative for hives, rash, and allergies, Endocrine: Negative for neck swelling, polydipsia, polyuria, polyphagia, and marked weight changes. 05:28 Respiratory: Positive for cough, "sounds productive". Exam: 05:28 Constitutional: This is a well developed, well nourished patient who is awake, alert, sy and in no acute distress. Head/Face: Normocephalic, atraumatic. Eyes: Pupils equal round and reactive to light, extra-ocular motions intact. Lids and lashes normal. Conjunctiva and sclera are non-icteric and not injected. Cornea within normal limits. Periorbital areas with no swelling, redness, or edema. ENT: Nares patent. No nasal discharge, no septal abnormalities noted. Tympanic membranes are normal and external auditory canals are clear. Oropharynx with no redness, swelling, or masses, exudates, or evidence of obstruction, uvula midline. Mucous membranes moist. Neck: Trachea midline, no thyromegaly or masses palpated, and no cervical lymphadenopathy. Supple, full range of motion without nuchal rigidity, or vertebral point tenderness. No Meningismus. Chest/axilla: Normal chest wall appearance and motion. Nontender with no deformity. No lesions are appreciated. Cardiovascular: Regular rate and rhythm with a normal S1 and S2. No gallops, murmurs, or rubs. Normal PMI, no JVD. No pulse deficits. Abdomen/GI: Soft, non-tender, with normal bowel sounds. No distension or tympany. No guarding or rebound. No evidence of tenderness throughout. Male : Normal genitalia with no discharge or lesions. Skin: Warm, dry with normal turgor. Normal color with no rashes, no lesions, and no evidence of cellulitis. MS/ Extremity: Pulses equal, no cyanosis. Neurovascular intact. Full, normal range of motion. Neuro: Awake and alert, GCS 15, oriented to person, place, time, and situation. Cranial nerves II-XII grossly intact. Motor strength 5/5 in all extremities. Sensory grossly intact. Cerebellar exam normal. Normal gait. Psych: Awake, alert, with orientation to person, place and time. Behavior, mood, and affect are within normal limits. 05:28 Respiratory: mild respiratory distress is noted, Respirations: normal, Breath sounds: decreased breath sounds, rhonchi, wheezing: inspiratory expiratory 07:48 Musculoskeletal/extremity: DVT Exam: No signs of deep vein thrombosis. no pain, no sy swelling, no tenderness, negative Homans' sign noted on exam, no appreciated bluish discoloration, no erythema, no increased warmth. Vital Signs: 05:10 BP 138 / 91; Pulse 61; Resp 20 S; Temp 98.1(O); Pulse Ox 100% on R/A; Weight 118.84 kg bb (R); Height 5 ft. 8 in. (172.72 cm) (R); Pain 7/10; 06:24 BP 118 / 80; Pulse 88; Resp 20 S; Pulse Ox 100% on R/A; cc3 07:15 BP 133 / 75; Pulse 84; Resp 16; Pulse Ox 99% on R/A; Pain 7/10; em 05:10 Body Mass Index 39.84 (118.84 kg, 172.72 cm) MDM: 05:13 Patient medically screened. [facility] [place] 05:28 Data reviewed: vital signs, nurses notes, lab test result(s), EKG, radiologic studies. [facility] [place] 08/09 05:28 Order name: Basic Metabolic Panel; Complete Time: 06:53 [facility] [place] 08/09 05:28 Order name: CBC with Diff; Complete Time: 06:42 [facility] [place] 08/09 05:28 Order name: LFT's; Complete Time: 06:53 [facility] [place] 08/09 05:28 Order name: Magnesium; Complete Time: 06:53 [facility] [place] 08/09 05:28 Order name: NT PRO-BNP; Complete Time: 06:53 [facility] [place] 08/09 05:28 Order name: PT-INR; Complete Time: 06:42 [facility] [place] 08/09 05:28 Order name: Troponin (emerg Dept Use Only); Complete Time: 06:53 [facility] [place] 08/09 05:28 Order name: Blood Culture Adult (2) [facility] [place] 08/09 05:28 Order name: Urine Culture [facility] [place] 08/09 05:28 Order name: Lactate; Complete Time: 06:42 [facility] [place] 08/09 08:19 Order name: CBC with Automated Diff EDMS 08/09 08:19 Order name: CBC with Automated Diff EDMS 08/09 08:19 Order name: Comprehensive Metabolic Panel EDIL 08/09 08:19 Order name: Comprehensive Metabolic Panel EDIL 08/09 05:28 Order name: XRAY Chest (1 view) [facility] [place] 08/09 07:15 Order name: CT Chest For PE Angio; Complete Time: 07:53 [facility] [place] 08/09 08:19 Order name: Echo with Doppler EDIL 08/09 08:19 Order name: Lipid Profile EDIL 08/09 08:19 Order name: Lipid Profile EDMS 08/09 08:19 Order name: Troponin I EDIL 08/09 08:19 Order name: Troponin I EDIL 08/09 08:19 Order name: Troponin I EDIL 08/09 12:24 Order name: Glucose, Ancillary Testing EDIL 08/09 14:09 Order name: Urine Dipstick--Ancillary (enter results) 08/09 05:28 Order name: EKG; Complete Time: 05:30 [facility] [place] 08/09 05:28 Order name: Cardiac monitoring; Complete Time: 05:41 [facility] [place] 08/09 05:28 Order name: EKG - Nurse/Tech; Complete Time: 05:41 [facility] [place] 08/09 05:28 Order name: IV Saline Lock; Complete Time: 06:09 [facility] [place] 08/09 05:28 Order name: Labs collected and sent; Complete Time: 06:09 [facility] [place] 08/09 05:28 Order name: O2 Per Protocol; Complete Time: 05:41 [facility] [place] 08/09 05:28 Order name: O2 Sat Monitoring; Complete Time: 05:41 [facility] [place] 08/09 08:19 Order name: CONS Pharmacy Consult EDIL 08/09 08:19 Order name: CONS Physician Consult [facility] 08/09 08:19 Order name: Heart Healthy EDIL Administered Medications: 05:40 Drug: Xopenex 3.75 mg Route: Inhalation; cc3 06:24 Follow up: Response: No adverse reaction; Marked relief of symptoms cc3 05:40 Drug: AtroVENT Aerosol 0.5 mg Route: Inhalation; cc3 06:24 Follow up: Response: No adverse reaction; Marked relief of symptoms cc3 05:45 Drug: NS 0.9% 1000 ml Route: IV; Rate: 75 ml/hr; Site: right antecubital; cc3 05:45 Drug: SOLU-Medrol 125 mg Route: IVP; Site: right antecubital; cc3 06:24 Follow up: Response: No adverse reaction; Marked relief of symptoms cc3 06:10 Drug: Cefepime 2 grams Route: IVPB; Rate: 200 ml/hr; Infused Over: 30 mins; Site: right cc3 antecubital; 06:39 Follow up: Response: No adverse reaction; IV Status: Completed infusion; IV Intake: cc3 100ml 07:10 Drug: Lovenox 100 mg Route: Sub-Q; Site: left lower abdomen; em 07:47 Follow up: Response: No adverse reaction em 07:10 Drug: Aspirin 162 mg Route: PO; em 07:47 Follow up: Response: No adverse reaction em 07:11 Drug: Xopenex 1.25 mg Route: Inhalation; em 07:47 Follow up: Response: No adverse reaction; Marked relief of symptoms em 07:47 Drug: Tylenol 650 mg Route: PO; em 08:28 Follow up: Response: No adverse reaction; Marked relief of symptoms; Pain is decreased em 07:48 Drug: Pepcid 20 mg Route: IVP; Site: right forearm; iw 08:22 Follow up: Response: No adverse reaction em 08:47 Drug: Zithromax 500 mg Route: IVPB; Infused Over: 1 hrs; Site: right forearm; em 17:11 Follow up: IV Status: Completed infusion; IV Intake: 250ml em Disposition: 08/09/19 07:13 Hospitalization ordered by Pranav Vega for Inpatient Admission. Preliminary diagnosis are Dyspnea, Non-ST elevation (NSTEMI) myocardial infarction, Type 1 diabetes mellitus, Chronic obstructive pulmonary disease with (acute) exacerbation, Pneumonia due to other specified bacteria - bilateral patchy infiltrates, Hemoptysis. - Bed requested for Telemetry/MedSurg (Inpatient). - Status is Inpatient Admission. eb - Condition is Fair. - Problem is new. - Symptoms have improved. UTI on Admission? No Signatures: Dispatcher [employer] EDTarik Rico MD MD cha Munoz, Corey, FOCUSED FACTORY MANAGER FOCUSED FACTORY MANAGER em Ebony Sifuentes RN RN bb Samara Garcia RN RN iw Botello, Elizabeth eb Cordel, Charlene cc3 Corrections: (The following items were deleted from the chart) 07: 07:13 Hospitalization Ordered by Pranav Vega MD for Inpatient Admission. Preliminary eb diagnosis is Dyspnea; Non-ST elevation (NSTEMI) myocardial infarction; Type 1 diabetes mellitus; Chronic obstructive pulmonary disease with (acute) exacerbation. Bed requested for Telemetry/MedSurg (Inpatient). Status is Inpatient Admission. Condition is Fair. Problem is new. Symptoms have improved. UTI on Admission? No. sy 08:07 07:21 08/09/2019 07:13 Hospitalization Ordered by Pranav Vega MD for Inpatient sy Admission. Preliminary diagnosis is Dyspnea; Non-ST elevation (NSTEMI) myocardial infarction; Type 1 diabetes mellitus; Chronic obstructive pulmonary disease with (acute) exacerbation. Bed requested for Telemetry/MedSurg (Inpatient). Status is Inpatient Admission. Condition is Fair. Problem is new. Symptoms have improved. UTI on Admission? No. eb 08:07 08:07 08/09/2019 07:13 Hospitalization Ordered by Pranav Vega MD for Inpatient sy Admission. Preliminary diagnosis is Dyspnea; Non-ST elevation (NSTEMI) myocardial infarction; Type 1 diabetes mellitus; Chronic obstructive pulmonary disease with (acute) exacerbation; Pneumonia due to other specified bacteria - bilateral patchy infiltrates. Bed requested for Telemetry/MedSurg (Inpatient). Status is Inpatient Admission. Condition is Fair. Problem is new. Symptoms have improved. UTI on Admission? No. sy 08:34 08:07 08/09/2019 07:13 Hospitalization Ordered by Pranav Vega MD for Inpatient eb Admission. Preliminary diagnosis is Dyspnea; Non-ST elevation (NSTEMI) myocardial infarction; Type 1 diabetes mellitus; Chronic obstructive pulmonary disease with (acute) exacerbation; Pneumonia due to other specified bacteria - bilateral patchy infiltrates; Hemoptysis. Bed requested for Telemetry/MedSurg (Inpatient). Status is Inpatient Admission. Condition is Fair. Problem is new. Symptoms have improved. UTI on Admission? No. sy 12:48 08:34 08/09/2019 07:13 Hospitalization Ordered by Pranav Vega MD for Inpatient eb Admission. Preliminary diagnosis is Dyspnea; Non-ST elevation (NSTEMI) myocardial infarction; Type 1 diabetes mellitus; Chronic obstructive pulmonary disease with (acute) exacerbation; Pneumonia due to other specified bacteria - bilateral patchy infiltrates; Hemoptysis. Bed requested for [facility] ER HOLD. Status is Inpatient Admission. Condition is Fair. Problem is new. Symptoms have improved. UTI on Admission? No. eb 14:10 12:48 08/09/2019 07:13 Hospitalization Ordered by Pranav Vega MD for Inpatient eb Admission. Preliminary diagnosis is Dyspnea; Non-ST elevation (NSTEMI) myocardial infarction; Type 1 diabetes mellitus; Chronic obstructive pulmonary disease with (acute) exacerbation; Pneumonia due to other specified bacteria - bilateral patchy infiltrates; Hemoptysis. Bed requested for Telemetry/MedSurg (Inpatient). Status is Inpatient Admission. Condition is Fair. Problem is new. Symptoms have improved. UTI on Admission? No. eb
[2019-08-09] MEDS ORDERED: ACETAMINOPHEN 325 MG TABLET ONE (07:33)
[2019-08-09] MEDS ORDERED: FAMOTIDINE 20 MG/2 ML VIAL IV ONE (07:33)
--- NOTE | 2019-08-09 07:48 | RAD REPORT ---
EXAM DESCRIPTION: CT - Chest For Pe Angio - 08/09/2019 7:32 am CLINICAL HISTORY: CHEST PAIN, shortness of breath, hemoptysis COMPARISON: Chest For Pe Angio dated 01/04/2018; Chest Single View dated 08/09/2019 TECHNIQUE: Dynamically enhanced 3 mm thick images of the chest were obtained during administration o f approximately 150mL Isovue 370 IV contrast. Coronal and oblique MIP reconstruction images were gene rated and reviewed. Exam utilizes a protocol to evaluate the pulmonary arterial tree. All CT scans are performed using dose optimization technique as appropriate and may include automated exposure control or mA/KV adjustment according to patient size. FINDINGS: No pulmonary emboli are identified. The aorta as imaged shows no acute or suspicious finding. Cardiomegaly is present without pericardial effusion. Patchy airspace opacification present in the anterior mid left lung field with minimal airspace opaci ties present in the lingula and in the left lower lobe base. Bilateral lower lung field bronchial wal l thickening present. There is interstitial opacification in each lower lobe with patchy airspace [place] in the medial right lower lobe and in the inferior anterior aspect of the right upper lobe. No endobronchial lesion. Minimal bilateral pleural effusions are present. Nonspecific mediastinal lymph nodes are present most likely reactive. No chest wall masses or abnorma l axillary lymphadenopathy. IMPRESSION: No pulmonary emboli identified. Patchy bilateral pneumonia changes are present. Minimal bilateral pleural effusions.
[2019-08-09] MEDS ORDERED: ONDANSETRON 4 MG/2 ML VIAL IV PRN (08:09)
[2019-08-09] MEDS ORDERED: ACETAMINOPHEN 500 MG TAB PO PRN (08:09)
[2019-08-09] MEDS ORDERED: ALBUTEROL 2.5 MG/3 ML NEB SOL NEB PRN (08:09)
[2019-08-09] MEDS ORDERED: HYDRALAZINE HCL 20 MG/ML VIAL IV PRN (08:11)
[2019-08-09] MEDS ORDERED: GUAIFENESIN/DM 5 ML UCUP PO PRN (08:11)
[2019-08-09] MEDS ORDERED: Oxycodone HCl/Acetaminophen 1 TAB TAB PO PRN (08:11)
[2019-08-09] MEDS ORDERED: D50W 25 GM/50 ML SYRINGE/VIAL IV PRN ×2 (08:13→12:20)
[2019-08-09] MEDS ORDERED: GLUCAGON 1 MG/VIAL IM PRN ×2 (08:13→12:20)
--- NOTE | 2019-08-09 08:47 | RAD REPORT ---
EXAM DESCRIPTION: RAD - Chest Single View - 08/09/2019 6:07 am CLINICAL HISTORY: Chest pain, cough, COPD COMPARISON: September 2018 TECHNIQUE: AP portable chest image was obtained 0602 hours . FINDINGS: Lungs are underinflated accentuating lung markings. Bilateral lung base increased opacific ation may simply be the affects of shallow inspiration and large body habitus. Early interstitial gissel ma or infiltrate can be masked in this setting. No large consolidations seen with patchy areas of pne umonia could be masked. Heart size is normal and pulmonary vascularity within normal limits for the e xam limitations. Significant failure or volume overload are doubtful. No measurable pleural effusion and no pneumothorax. No acute bony abnormality seen. No acute aortic findings suspected. IMPRESSION: No dense mass or consolidation. Shallow inspiration and body habitus affects accentuate lung base markings potentially early pneumoni a.
[2019-08-09] MEDS: FLUOXETINE 20 MG CAP PO SCH (09:00)
[2019-08-09] MEDS: LOSARTAN POTASSIUM 50 MG TABLET PO SCH (09:00)
[2019-08-09] MEDS: CLOPIDOGREL 75 MG TABLET PO SCH (09:00)
[2019-08-09] MEDS ORDERED: HOME MED 1 EA UNK (Aspirin [Aspirin Ec 325 Mg] 325 MG) PO SCH (09:00)
[2019-08-09] MEDS ORDERED: FUROSEMIDE 40 MG/4 ML VIAL IV ONE (09:00)
[2019-08-09] MEDS ORDERED: HOME MED 1 EA UNK (Fluoxetine Hcl [Prozac] 40 MG) PO SCH (09:00)
[2019-08-09] MEDS: GABAPENTIN 100 MG CAP PO SCH ×2 (09:00→20:58)
[2019-08-09] MEDS ORDERED: POTASSIUM 25 MEQ EFFERV TAB PO ONE (09:00)
[2019-08-09] MEDS: CEFTRIAXONE/SWI 1gm 1 GM/10 ML SYR IVP SCH (09:00)
[2019-08-09] MEDS: ASPIRIN EC 325 MG TABLET PO SCH (09:00)
[2019-08-09] MEDS: INSULIN GLARGINE 100 UNITS/ML SQ SCH ×2 (09:00→20:59)
[2019-08-09] MEDS: FUROSEMIDE 40 MG TABLET PO SCH ×2 (09:00→16:36)
[2019-08-09] MEDS: ENOXAPARIN 40 MG/0.4 ML SQ SCH (09:00)
[2019-08-09] MEDS: NITROGLYCERIN 0.2 MG/HR (5 MG) PATCH TD SCH (09:00)
[2019-08-09] MEDS ORDERED: METFORMIN ER 500 MG TAB PO SCH (09:00)
[2019-08-09] MEDS ORDERED: AZITHROMYCIN IV 500 MG in NA CHLORIDE 0.9% 250 ML IVPB ONE (09:00)
[2019-08-09] MEDS ORDERED: INSULIN GLARGINE HUM REC ANLOG 10 UNIT SQ SCH (09:00)
[2019-08-09] MEDS: PANTOPRAZOLE 40MG TABLET PO SCH ×2 (09:00→16:37)
[2019-08-09] MEDS: GUAIFENESIN 600 MG SA TAB PO SCH ×2 (09:00→20:58)
[2019-08-09] MEDS ORDERED: POTASSIUM 25 MEQ EFFERV TAB ONE (09:18)
[2019-08-09] MEDS ORDERED: FUROSEMIDE 40 MG/4 ML VIAL ONE (09:18)
[2019-08-09] MEDS ORDERED: FUROSEMIDE 40 MG TABLET ONE (09:18)
[2019-08-09] MEDS ORDERED: PANTOPRAZOLE 40MG TABLET PO ONE (09:18)
[2019-08-09] MEDS ORDERED: CLOPIDOGREL 75 MG TABLET ONE (09:18)
--- NOTE | 2019-08-09 10:21 | P.CNS ---
Date of Consult: 08/09/19 Reason for Consult: Pneumonia Chief Complaint: Cough congestion fever chills History of Present Illness: Patient is 59 years of age gets sick her hr the past 4 days started complaining of cough congestion fever chills and hemoptysis this interim lose some shortness of breath and was admitted to the hospital with a diagnosis of bilateral pneumonia no prior history of pulmonary complaints he is significant cardiac history status post CABG 5 years ago he does have diabetes hypertension neuropathy peripheral vascular disease nonsmoker Allergies No Known Drug Allergies Allergy (Verified 09/09/18 02:10) Unknown Home Medications: Aspirin [Aspirin EC 325 MG] 325 mg PO DAILY 09/09/18 Clopidogrel Bisulfate [Plavix] 75 mg PO DAILY 09/09/18 Dulaglutide [Trulicity] 1.5 mg SQ Q7D 09/09/18 Fluoxetine HCl [Prozac] 40 mg PO DAILY 09/09/18 Fluticasone [Flonase 50MCG Nasal [place]*] 1 puff IN BID 09/09/18 Gabapentin 100 mg PO BID 09/09/18 Insulin Glargine,Hum.rec.anlog [Toujeo Solostar] 10 unit SQ DAILY 09/09/18 Losartan Potassium [Cozaar] 75 mg PO DAILY 09/09/18 Metformin ER [Glucophage ER*] 750 mg PO BID 09/09/18 Pantoprazole [Protonix Tab*] 40 mg PO DAILY 09/09/18 Rosuvastatin Calcium 40 mg PO BEDTIME 09/09/18 Solifenacin Succinate [Vesicare] 10 mg PO DAILY 09/09/18 - Past Medical/Surgical History Diabetic: Yes -: CAD -: DM II -: HTN -: DVT -: Dyslipidemia -: Bipolar -: Depression -: HLD -: Schizophrenia -: IVC filter -: CABG -: Cardiac stents - Social History Smoking Status: Never smoker Alcohol use: No CD- Drugs: No Caffeine use: Yes Review of Systems 10-point ROS is otherwise unremarkable General: Weakness Respiratory: Cough, Shortness of Breath, Hemoptysis Physical Examination Temp Pulse Resp BP Pulse Ox 97.4 F 85 20 136/84 97 08/09/19 08:09 08/09/19 09:00 08/09/19 08:09 08/09/19 09:00 08/09/19 08:09 General: Alert, Oriented x3 Neck: Supple Respiratory: Crackles/rales, Expiratory wheezes Cardiovascular: No edema, Regular rate/rhythm, Normal S1 S2 Gastrointestinal: Normal bowel sounds, Soft and benign Laboratory Data (last 24 hrs) 08/09/19 05:55: PT 12.5, INR 1.06 08/09/19 05:55: WBC 6.9, Hgb 13.8, Hct 41.9, Plt Count 124 L 08/09/19 05:55: Sodium 141, Potassium 4.0, BUN 16, Creatinine 1.04, Glucose 98, Magnesium 2.1, Total Bilirubin 0.4, AST 35, ALT 31, Alkaline Phosphatase 63 - Problems (1) Pneumonia Current Visit: Yes Status: Acute Plan: Patient is 59 years of age admitted with a 4 day history of cough congestion hemoptysis fever chills she chest CT scan shows bilateral interstitial changes probably has either atypical pneumonia or Haemophilus history of congestive heart failure BNP is elevated troponin and also mildly elevated I recommend changing admit to p.o. levofloxacin possible discharge elevated troponin is nonspecific EKG not available oxygen saturations vital satisfactory Qualifiers: Laterality: bilateral
[2019-08-09] MEDS: INSULIN -REGULAR HUMAN 50 UNIT/0.5 ML ML SQ SCH ×3 (11:30→20:59)
[2019-08-09] MEDS: ALBUTEROL 2.5 MG/3 ML NEB SOL NEB SCH ×3 (12:00→19:20)
[2019-08-09] MEDS ORDERED: ALBUTEROL 2.5 MG/3 ML NEB SOL ONE (12:16)
[2019-08-09] MEDS ORDERED: INSULIN -REGULAR HUMAN 50 UNIT/0.5 ML ML ONE (12:26)
[2019-08-09 14:12] LABS: Urine Blood TRACE (NEG); Urine Glucose 1+ (NEG); Urine Protein NEGATIVE (NEG); Urine Specific Gravity 1.005 (1.005-1.030)
[2019-08-09] MEDS: MORPHINE 2 MG/ML SYR IV PRN (14:30)
[2019-08-09] MEDS: Levofloxacin500mg IV 500 MG/100 ML BAG IV SCH (14:33)
[2019-08-09 15:36] LABS: Urine Appearance CLEAR; Urine Bilirubin NEGATIVE (NEG); Urine Blood TRACE (NEG); Urine Glucose 3+ (NEG); Urine Protein 1+ (NEG); Urine Specific Gravity 1.025 (1.005-1.030); Urine pH 5.5 (5.0-7.0)
[2019-08-09 15:38] LABS: Urine Color YELLOW; Urine Microscopic Reflex ORDER UMIC
[2019-08-09 15:43] LABS: Urine Bacteria <20 /HPF (NONE SEEN); Urine Culture Reflex Order NOT NEEDED; Urine RBC <5 /HPF (NONE SEEN)
[2019-08-09] MEDS: IPRATROPIUM BROM 0.5MG/2.5ML NEB SCH ×2 (15:45→19:20)
[2019-08-09] MEDS: METFORMIN ER 500 MG TAB PO SCH (16:36)
--- NOTE | 2019-08-09 22:49 | HP ---
Date of Admission: 08/09/2019 Presenting Complaint: Increasing shortness of breath and cough. History Of Present Illness: Mr. Jordan is a 58-year-old male with history of hype rtension, diabetes mellitus type 2 with diabetic neuropathy, history of CAD, status post quadruple bypass 6 years ago, history of lower extremity PVD, previously on antic oagulation, but had a stent placement with a recurrent chronic lower extremity pain limiting ambulati on. Patient also has history of chronic exertional dyspnea. He presented because of increasing coug h since 1 week with shortness of breath now at rest. He admits to fever and chills. He states he layton s a sick contact with the recently having upper respiratory tract symptoms. He denies any recen t travel. He denies any associated chest pain, but admits to intermittent chest pain with exertion f or less than 1 block. He has not had any repeat cardiac stressing or angiogram since his post CABG. He has stop seeing his tape maker since over a year now due to some insurance issues. He denies a ny increasing body swelling. He denies any headache. On presentation in the ED, he was noted with m ild elevated troponin of 0.2. Patient admits to trace hemoptysis with fits of coughing. Past Medical History: Significant for hypertension, diabetes mellitus, history of DVT/PVD, history o f lower extremity stent placement, history of IVC filter, history of hyperlipidemia, history of chron ic exertional dyspnea. Past Surgical History: Significant for IVC filter placement as well as CABG. Social History: Patient is a former smoker, quit about 10 years ago. He resides in the community wi th his spouse. No history of alcohol, tobacco, or illicit drug use now. Family History: Significant for history of CAD, but no history of lung cancer. Allergies: NO KNOWN DRUG ALLERGY. Home Medications: The patient to bring home med list. Review of Systems: All systems reviewed x14 were negative except patient also complaining of intermittent dysphagia with swallowing as well as intermittent choking symptoms while asleep. Physical Examination: Current Vitals: Blood pressure is 140/84, pulse of 86, respiratory rate of 20, O2 saturation of 96% on room air. Temp of 98.1. General: Obese, a middle-aged male, sitting in bed, not on any oxygen on room air. HEENT: Head is atraumatic, normocephalic. Pupils equal, reactive to light. Neck: No JVD. No carotid bruit. Respiratory: Has left base crepitations noted. No expiratory wheeze or rhonchi. Anterior chest wal l with multiple keloid around sternotomy scar. Cardiovascular: S1, S2. Rate and rhythm regular. GI: Abdomen is slightly distended, but soft. Bowel sounds positive in all 4 quadrants. No epigastr ic tenderness. Rectal: Deferred. Extremities: Trace pedal edema, but no calf tenderness. Neuro: Patient is alert, oriented. Cranial nerves 2-12 grossly intact. Laboratory And Imaging Data: EKG shows normal sinus rhythm with borderline first-degree AV block. R est of labs: WBC 6.9, hemoglobin 13, platelet 124, neutrophils 70%, no bands. INR 1.06. Sodium 141 , potassium 4, BUN 16, creatinine 1.04, glucose 247, lactic acid of 0.9, magnesium 2.1. Troponin of 0.34, repeat of 0.33. ProBNP of 1424. Chest x-ray shows left base pneumonia. CT of the chest done with contrast shows no evidence of PE, but notable left base pneumonia with right midlung zone infilt rate also consistent with bilateral pneumonia. Also noted bilateral mild pleural effusion. Impression: 1.Bilateral pneumonia, likely community-acquired. 2.Presumed diastolic congestive heart failure with pleural effusions. 3.Dysphagia. 4.Hypertension. 5.Diabetes mellitus. 6.Coronary artery disease with possible [id number] myocardial infarction. Plan: 1.We will admit patient to telemetry unit. We will manage patient for following bilateral pneumonia . We will obtain sputum for culture and sensitivity. We will consult Pulmonary. We start patient o n empirical antibiotics with Levaquin and Rocephin. We will obtain blood cultures. We will continue to monitor pulse oximetry. May need oxygen leave decompensating. We will not do any IV fluid for n ow, but we do IV Lasix given mild bilateral pleural effusions. Appreciate Pulmonary evaluation today . 2.Epl-EM-spmpbbckk [place] appears to be patient chronic. Review of record shows patient admission 1 yea r ago with a troponin of 0.45 in setting of diabetic neuropathy. We will monitor troponin trend. We will obtain echocardiogram given suspected diastolic CHF. 3.Mild fluid retention/suspected diastolic CHF. We will increase Lasix to 40 b.i.d. from 20 daily. We will monitor for fluid volume for now. Monitor daily weight. 4.Hypertension. Continue home regimen. 5.Diabetes mellitus with insulin sliding scale with Accu-Cheks. We will continue metformin, but we will hold other insulin regimen and do Lantus, Levemir p.r.n. 6.DVT prophylaxis. Continue with subcutaneous Lovenox. 7.Advanced directive discussed with patient. The patient wishes to be full code. 8.History of intermittent dysphagia. We will do a mechanical soft diet for now. We will obtain a b arium swallow eval in a.m. Total time spent review of record discussed with patient and evaluation, greater than [address] Coby Soto from Pulmonary also discussed with. EO/MODL Voice ID: [id number]
--- NOTE | 2019-08-09 22:55 | HP ---
Date of Admission: 08/09/2019 Presenting Complaint: Increasing shortness of breath. DICTATION ENDS HERE. EO/MODL Voice ID: [id number]
[2019-08-10] MEDS: ALBUTEROL 2.5 MG/3 ML NEB SOL NEB SCH ×6 (01:30→20:08)
[2019-08-10] MEDS: IPRATROPIUM BROM 0.5MG/2.5ML NEB SCH ×4 (01:30→20:08)
[2019-08-10 06:14] LABS: Absolute Lymphocytes (CBC) 0.7 K/uL (0.7-4.9); Basophils % 0.1 % (0-1.3); Hematocrit 39.1 % (39.6-49.0); Lymphocytes % 6.5 % (15.3-44.8); MPV 11.1 fL (7.6-11.3); RBC Red Blood Cell Count 4.21 M/uL (4.33-5.43)
[2019-08-10 06:30] LABS: Albumin 2.8 g/dL (3.4-5.0); Bilirubin Total 0.3 mg/dL (0.2-1.0); Protein, Total 7.1 g/dL (6.4-8.2)
[2019-08-10] MEDS: INSULIN -REGULAR HUMAN 50 UNIT/0.5 ML ML SQ SCH ×4 (07:30→21:00)
--- NOTE | 2019-08-10 07:40 | EKG ---
Test Date: 2019-08-09 Test Time: 05:04:40 Mainframe Programmer Analyst: STEVE MEASUREMENT RESULTS: Intervals: Rate: 61 DE: 384 QRSD: 114 QT: 442 QTc: 444 [place]: P: 65 DE: 384 QRS: 29 T: 75 INTERPRETIVE STATEMENTS: Sinus rhythm with sinus arrhythmia with 1st degree AV block Incomplete left bundle branch block Nonspecific T wave abnormality Abnormal ECG Compared to ECG 09/08/2018 22:45:39 First degree AV block now present Left bundle-branch block now present T-wave abnormality still present Electronically Signed On 08-10-19 07:39:33 MOTOR OPERATOR by Felix Saenz
[2019-08-10 07:41] LABS: Blood Morphology Comment NOT SEEN (NOT SEEN); Platelet Estimate ADEQ
[2019-08-10] MEDS: FUROSEMIDE 40 MG TABLET PO SCH ×2 (09:00→16:00)
[2019-08-10] MEDS: INSULIN GLARGINE 100 UNITS/ML SQ SCH ×2 (09:00)
[2019-08-10] MEDS: ASPIRIN EC 325 MG TABLET PO SCH (09:23)
[2019-08-10] MEDS: LOSARTAN POTASSIUM 50 MG TABLET PO SCH (09:23)
[2019-08-10] MEDS: METFORMIN ER 500 MG TAB PO SCH ×2 (09:24→16:00)
[2019-08-10] MEDS: FLUOXETINE 20 MG CAP PO SCH (09:24)
[2019-08-10] MEDS: GABAPENTIN 100 MG CAP PO SCH ×2 (09:24→21:04)
[2019-08-10] MEDS: PANTOPRAZOLE 40MG TABLET PO SCH ×2 (09:25→16:00)
[2019-08-10] MEDS: CLOPIDOGREL 75 MG TABLET PO SCH (09:25)
[2019-08-10] MEDS: GUAIFENESIN 600 MG SA TAB PO SCH ×2 (09:25→21:04)
[2019-08-10] MEDS: ENOXAPARIN 40 MG/0.4 ML SQ SCH (09:25)
[2019-08-10] MEDS: CEFTRIAXONE/SWI 1gm 1 GM/10 ML SYR IVP SCH (09:25)
[2019-08-10] MEDS: NITROGLYCERIN 0.2 MG/HR (5 MG) PATCH TD SCH (09:26)
[2019-08-10] MEDS: MORPHINE 2 MG/ML SYR IV PRN (09:30)
[2019-08-10] MEDS: TOUJEO SQ SCH (10:11)
--- NOTE | 2019-08-10 12:11 | P.PN ---
Subjective Date of Service: 08/10/19 Chief Complaint: Cough congestion fever chills Subjective: No new changes, Doing well Review of Systems 10-point ROS is otherwise unremarkable Physical Examination - Vital Signs Temperature: 97.9 F Blood Pressure: 125/67 Pulse: 95 Respirations: 20 Pulse Ox (%): 95 - Physical Exam General: Alert, In no apparent distress, Oriented x3 HEENT: Atraumatic, Normocephalic Neck: Supple, 2+ carotid pulse no bruit Respiratory: Clear to auscultation bilaterally, Normal air movement Cardiovascular: No edema, Normal pulses, Regular rate/rhythm Gastrointestinal: Normal bowel sounds, Soft and benign Musculoskeletal: No clubbing, No swelling - Studies # Medications List Reviewed: Yes Assessment & Plan - Problems (Diagnosis) (1) Pneumonia Current Visit: Yes Status: Acute Qualifiers: Laterality: bilateral (2) HTN (hypertension) Onset Date: 09/10/18 Current Visit: No Status: Acute Qualifiers: Hypertension type: essential hypertension Qualified Code(s): I10 - Essential (primary) hypertension (3) Diabetes mellitus Onset Date: 09/10/18 Current Visit: No Status: Acute Qualifiers: Diabetes mellitus type: type 2 Diabetes mellitus intermediate project manager insulin use: with penitentiary use Diabetes mellitus complication status: with unspecified complications (4) CAD (coronary artery disease) Onset Date: 09/10/18 Current Visit: No Status: Acute Qualifiers: Coronary Disease-Associated Artery/Lesion type: bypass graft [place] vs. transplanted heart: [place] heart Associated angina: without angina Qualified Code(s): I25.810 - Atherosclerosis of coronary artery bypass graft(s) without angina pectoris Discharge Plan: Home Plan to discharge in: 24 Hours - Code Status/Comfort Care Code Status Assessed: Yes Code Status: Full Code Physician Review Additional Text: # B/l PNA - doing well -follow with abx -appreciate Pulmonary # Dysphagia - follow barium swallow # HTN - controlled # CHF- follow echo , possible systolic -c/w lasix # DVT prop- sc heparin Critical Care: No Time Spent Managing Pts Care (In Minutes): 35
[2019-08-10] MEDS: Levofloxacin500mg IV 500 MG/100 ML BAG IV SCH (12:24)
[2019-08-10] MEDS ORDERED: D50W 25 GM/50 ML SYRINGE/VIAL IV PRN (13:55)
--- NOTE | 2019-08-10 15:00 | RAD REPORT ---
EXAM DESCRIPTION: RAD - Barium Swallow Modified - 08/10/2019 2:53 pm CLINICAL HISTORY: Cough, choking, dysphagia FINDINGS: No aspiration noted. No pooling of contrast within the valleculae/ piriform sinus Prominent cricopharyngeus at c4-c5, Moderate esophageal stasis/retention, barium tablet passed into LES without incident fluoro time 2.31 min 13 fluoroscopic spot series obtained
--- NOTE | 2019-08-10 15:12 | ECHO ---
HEIGHT: 5 ft 8 in WEIGHT: 269 lb 6 oz DATE OF STUDY: 08/10/[address]: Pranav Vega MD 2-DIMENSIONAL: YES M.MODE: YES DOPPLER: YES COLOR FLOW: YES TDS: NO PORTABLE: NO DEFINITY: NO BUBBLE STUDY: NO DIAGNOSIS: CEREBRAL VASCULAR ACCIDENT CARDIAC HISTORY: CATHERIZATION: YES SURGERY: YES PROSTHETIC VALVE: NO PACEMAKER: NO MEASUREMENTS (cm) DIASTOLIC (NORMALS) SYSTOLIC (NORMALS) IVSd 1.3 (0.6-1.2) LA Diam 4.3 (1.9-4.0) LVEF 40-45% LVIDd 5.2 (3.5-5.7) LVIDs 4.4 (2.0-3.5) %FS 14% LVPWd 1.4 (0.6-1.2) Ao Diam 2.9 (2.0-3.7) 2 DIMENSIONAL ASSESSMENT: RIGHT ATRIUM: NORMAL LEFT ATRIUM: DILATED RIGHT VENTRICLE: NORMAL LEFT VENTRICLE: LEFT VENTRICULAR HYPERTROPHY TRICUSPID VALVE: NORMAL MITRAL VALVE: NORMAL PULMONIC VALVE: NORMAL AORTIC VALVE: SCLEROSIS, BICUSPID PERICARDIAL EFFUSION: NONE AORTIC ROOT: NORMAL LEFT VENTRICULAR WALL MOTION: MILD GLOBAL HYPOKINESIS. DOPPLER/COLOR FLOW: NO AORTIC STENOSIS OR AORTIC REGURGITATION. MILD TRICUSPID REGURGITATION. NORMAL RIGHT VENTRICULAR SYSTOLIC PRESSURE. COMMENTS: MILDLY DEPRESSED LEFT VENTRICULAR EJECTION FRACTION. DILATED LEFT ATRIUM. LEFT VENTRICULAR HYPERTROPHY. BICUSPID AORTIC VALVE WITH NO SIGNIFICATION AORTIC STENOSIS OR AORTIC REGURGITATION. MILD TRICUSPID REGURGITATION. THE RHYTHM WAS IRREGULAR, LIKELY ATRIAL FIBRILLATION. TECHNOLOGIST: Anthony ROMERO
[2019-08-10] MEDS ORDERED: INSULIN GLARGINE 100 UNITS/ML SQ SCH (21:00)
[2019-08-11] MEDS: ALBUTEROL 2.5 MG/3 ML NEB SOL NEB SCH ×4 (00:05→13:00)
[2019-08-11] MEDS: IPRATROPIUM BROM 0.5MG/2.5ML NEB SCH ×3 (02:00→13:00)
[2019-08-11 06:26] VITALS: BMI 39.4
[2019-08-11] MEDS: INSULIN -REGULAR HUMAN 50 UNIT/0.5 ML ML SQ SCH ×2 (07:30→11:30)
[2019-08-11] MEDS: TOUJEO SQ SCH (08:32)
[2019-08-11] MEDS: GUAIFENESIN 600 MG SA TAB PO SCH (08:33)
[2019-08-11] MEDS: PANTOPRAZOLE 40MG TABLET PO SCH (08:33)
[2019-08-11] MEDS: FLUOXETINE 20 MG CAP PO SCH (08:34)
[2019-08-11] MEDS: GABAPENTIN 100 MG CAP PO SCH (08:34)
[2019-08-11] MEDS: FUROSEMIDE 40 MG TABLET PO SCH (08:34)
[2019-08-11] MEDS: LOSARTAN POTASSIUM 50 MG TABLET PO SCH (08:35)
[2019-08-11] MEDS: METFORMIN ER 500 MG TAB PO SCH (08:35)
[2019-08-11] MEDS: CLOPIDOGREL 75 MG TABLET PO SCH (08:35)
[2019-08-11] MEDS: NITROGLYCERIN 0.2 MG/HR (5 MG) PATCH TD SCH (08:36)
[2019-08-11] MEDS: ASPIRIN EC 325 MG TABLET PO SCH (08:36)
[2019-08-11] MEDS: CEFTRIAXONE/SWI 1gm 1 GM/10 ML SYR IVP SCH (08:37)
[2019-08-11] MEDS: ENOXAPARIN 40 MG/0.4 ML SQ SCH (08:37)
[2019-08-11 08:39] VITALS: O2SAT 96
[2019-08-11 08:43] VITALS: BP 156/83
[2019-08-11 09:29] VITALS: TEMP 97.7
[2019-08-11] MEDS: Levofloxacin500mg IV 500 MG/100 ML BAG IV SCH (12:06)
--- NOTE | 2019-08-11 12:41 | P.PN ---
Subjective Date of Service: 08/19/19 Chief Complaint: Hemoptysis Patient is still complaining of some hemoptysis no change patient is on Plavix at home Review of Systems General: Weakness Respiratory: Cough, Hemoptysis Physical Examination - Vital Signs Temperature: 97.7 F Blood Pressure: 156/83 Pulse: 77 Respirations: 20 Pulse Ox (%): 95 - Physical Exam General: Alert, Oriented x3 HEENT: Atraumatic Neck: Supple Respiratory: Clear to auscultation bilaterally Cardiovascular: No edema, Regular rate/rhythm - Studies Medications List Reviewed: Yes Assessment & Plan - Problems (Diagnosis) (1) Pneumonia Status: Acute Plan: Patient has been complaining of hemoptysis normal white count is Plavix will need to be stopped patient has a normal white count blood cultures are negative bronchoscopy contraindicated as patient a will have to be off Plavix for a week or some sputum cultures vital signs oxygenation stable. Consider discharge follow up with me in a week if his hemoptysis persists will consider bronchoscopy echocardiogram shows mild heart failure Qualifiers: Pneumonia type: due to unspecified organism Laterality: bilateral
--- NOTE | 2019-08-11 14:02 | P.DS ---
Admission Date: 08/09/19 Discharge Date: 08/11/19 Disposition: ROUTINE DISCHARGE Discharge Condition: GOOD Reason for Admission: Hemoptysis Consultations: pulmonary - Problems (1) Pneumonia Current Visit: Yes Status: Acute Qualifiers: Pneumonia type: due to unspecified organism Laterality: bilateral (2) HTN (hypertension) Onset Date: 09/10/18 Current Visit: No Status: Acute Qualifiers: Hypertension type: essential hypertension Qualified Code(s): I10 - Essential (primary) hypertension (3) Diabetes mellitus Onset Date: 09/10/18 Current Visit: No Status: Acute Qualifiers: Diabetes mellitus type: type 2 Diabetes mellitus manager terminal insulin use: with long-term use Diabetes mellitus complication status: with unspecified complications (4) CAD (coronary artery disease) Onset Date: 09/10/18 Current Visit: No Status: Acute Qualifiers: Coronary Disease-Associated Artery/Lesion type: bypass graft [place] vs. transplanted heart: [place] heart Associated angina: without angina Qualified Code(s): I25.810 - Atherosclerosis of coronary artery bypass graft(s) without angina pectoris Brief History of Present Illness: History of Present Illness: Patient is 59 years of age gets sick her hr the past 4 days started complaining of cough congestion fever chills and hemoptysis this interim lose some shortness of breath and was admitted to the hospital with a diagnosis of bilateral pneumonia no prior history of pulmonary complaints he is significant cardiac history status post CABG 5 years ago he does have diabetes hypertension neuropathy peripheral vascular disease nonsmoker Allergies Hospital Course: Patient with PMHX of HTN , DM , CAD on Plavix and Aspirin admitted for cough , SOB , hemoptysis . He was noted with b/l infiltrate on CXR and CT chest .He was started on abx and his cough symptoms started to improved . Pulmonary eval was done and given patient was on Plavix , decision was made to hold Plavix and ave follow up with pulmonary at outpt for possible bronchoscopy . Patient is stable , dosing well on abx and mucolytics regime Vital Signs/Physical Exam: Temp Pulse Resp BP Pulse Ox 97.7 F 77 20 156/83 H 95 08/11/19 12:42 08/11/19 12:42 08/11/19 12:42 08/11/19 12:42 08/11/19 12:42 General: Alert, In no apparent distress, Oriented x3 HEENT: Atraumatic, Normocephalic Neck: Supple, 2+ carotid pulse no bruit Respiratory: Clear to auscultation bilaterally, Normal air movement Cardiovascular: No edema, Normal pulses Gastrointestinal: Normal bowel sounds, Soft and benign Integumentary: No rashes, No breakdown Neurological: Normal gait, Normal speech Laboratory Data at Discharge: WBC 10.5 K/uL (4.3-10.9) D 08/10/19 05:48 Hgb 13.4 g/dL (13.6-17.9) L 08/10/19 05:48 Hct 39.1 % (39.6-49.0) L 08/10/19 05:48 Plt Count 135 K/uL (152-406) L 08/10/19 05:48 PT 12.5 SECONDS (9.5-12.5) 08/09/19 05:55 INR 1.06 08/09/19 05:55 Sodium 140 mmol/L (136-145) 08/10/19 05:48 Potassium 4.0 mmol/L (3.5-5.1) 08/10/19 05:48 BUN 19 mg/dL (7-18) H 08/10/19 05:48 Creatinine 1.14 mg/dL (0.55-1.3) 08/10/19 05:48 Glucose 150 mg/dL (74-106) H 08/10/19 05:48 Magnesium 2.1 mg/dL (1.8-2.4) 08/09/19 05:55 Total Bilirubin 0.3 mg/dL (0.2-1.0) 08/10/19 05:48 AST 25 U/L (15-37) 08/10/19 05:48 ALT 26 U/L (12-78) 08/10/19 05:48 Alkaline Phosphatase 59 U/L (45-117) 08/10/19 05:48 Troponin I 0.34 ng/mL (0.0-0.045) H 08/09/19 12:30 Triglycerides 53 mg/dL (<150) 08/10/19 05:48 Cholesterol 155 mg/dL (<200) 08/10/19 05:48 HDL Cholesterol 62 mg/dL (40-60) H 08/10/19 05:48 Cholesterol/HDL Ratio 2.50 08/10/19 05:48 Home Medications: Aspirin [Aspirin EC 325 MG] 325 mg PO DAILY 09/09/18 Dulaglutide [Trulicity] 1.5 mg SQ Q7D 09/09/18 Fluoxetine HCl [Prozac] 40 mg PO DAILY 09/09/18 Fluticasone [Flonase 50MCG Nasal [place]*] 1 puff IN BID 09/09/18 Gabapentin 100 mg PO BID 09/09/18 Insulin Glargine,Hum.rec.anlog [Toujeo Solostar] 10 unit SQ DAILY 09/09/18 Losartan Potassium [Cozaar] 75 mg PO DAILY 09/09/18 Metformin ER [Glucophage ER*] 750 mg PO BID 09/09/18 Pantoprazole [Protonix Tab*] 40 mg PO DAILY 09/09/18 Rosuvastatin Calcium 40 mg PO BEDTIME 09/09/18 Solifenacin Succinate [Vesicare] 10 mg PO DAILY 09/09/18 Albuterol Neb [Proventil 0.083% Neb Soln] 2.5 mg NEB [id number] PRN #14 amp Ipratropium Neb [Atrovent*] 0.5 mg NEB [id number] PRN #14 amp 08/11/19 Levofloxacin [Levaquin] 500 mg PO DAILY #10 tablet 08/11/19 New Medications: Albuterol Neb [Proventil 0.083% Neb Soln] 2.5 mg NEB [id number] PRN #14 amp PRN Reason: Shortness Of Breath Ipratropium Neb [Atrovent*] 0.5 mg NEB [id number] PRN #14 amp PRN Reason: Wheezing Levofloxacin [Levaquin] 500 mg PO DAILY #10 tablet Diet: ADA Activity: Ad ananya Followup: Curt Soto MD [ACTIVE - CAN ADMIT] - 1 Week Time spent managing pt's care (in minutes): 35
== END 2019-08-11 15:33 | disposition home or self-care (01) | DRG 193 ==
LOC: ER 04:36 → ERHOLD 08:10 → 2ND 13:49
PROVIDERS: ADMIT Internal Medicine; ATTEND Internal Medicine
DX: J18.9 Pneumonia, unspecified organism (principal); I50.21 Acute systolic (congestive) heart failure; R04.2 Hemoptysis; E11.9 Type 2 diabetes mellitus without complications; I25.10 Atherosclerotic heart disease of native coronary artery without angina pectoris; Z95.1 Presence of aortocoronary bypass graft; I73.9 Peripheral vascular disease, unspecified; I11.0 Hypertensive heart disease with heart failure
CPT/HCPCS: 36415; 71045; 71275; 74230; 80048; 80053; 80061; 80076; 81003; 81015; 82947; 83605; 83735; 83880; 84484; 85025; 85610; 87040; 87086; 87088; 92611; 93005; 93306; 94640; 94760; 96365; 96366; 96367; 96372; 96375; 99285; J0456; J0692; J0696; J1650; J1815; J1940; J2270; J2930; J7030; Q9967

== ENCOUNTER 2020-02-23 12:13 | Inpatient (IN) | payer MEDICARE ==
[2020-02-23 12:49] LABS: Absolute Lymphocytes (CBC) 1.2 K/uL (0.7-4.9); Basophils % 0.3 % (0-1.3); Hematocrit 47.7 % (39.6-49.0); Lymphocytes % 11.4 % (15.3-44.8); RBC Red Blood Cell Count 5.13 M/uL (4.33-5.43)
[2020-02-23 13:06] LABS: Albumin 3.6 g/dL (3.4-5.0); Bilirubin Direct 0.1 mg/dL (0-0.2); Bilirubin Total 0.6 mg/dL (0.2-1.0); Potassium 4.6 mmol/L (3.5-5.1); Protein, Total 8.1 g/dL (6.4-8.2)
--- OUTSIDE RECORDS SUMMARY | 2020-02-23 13:17 | XMS REPORT | Continuity of Care Document ---
:1960 Author Organization [employer] Care Team Providers Name Role Phone [employer] Unavailable Un available Problems Problem Status Onset Classification Date Comments Sourc e Date Reported Cervical Active Problem 08/13/2019 [facility]ischer spondylosis Neuro (disorder) Cough (finding) Active Problem 08/13/2019 Mis milo Neuro Diabetes mellitus Active Problem 08/13/2019 M ischer (disorder) Neuro Hyperlipidemia Active Problem 08/13/2019 Misc her (disorder) Neuro Hypertensive Active Problem 08/13/2019 Mische r disorder, Neuro systemic arterial (disorder) Lumbar Active Problem 08/13/2019 Mischer radiculopathy Neuro (disorder) Morbid obesity Active Problem 08/13/2019 Misc her (disorder) Neuro Paresthesia Active Problem 08/13/2019 Mischer (finding) Neuro Peripheral nerve Active Problem 08/13/2019 Mi smith disease Neuro (disorder) Peripheral Resolved Problem 08/13/2019 Mischer vascular disease Delmy ro (disorder) Medications No Data Provided for This Section Allergies, Adverse Reactions, Alerts Substance Category Reaction Severity Reaction Status Date Comments S ource type Reported No Known Assertion Drug Misch er Medication allergy Neuro Allergies Immunizations No Data Provided for This Section Results No Data Provided for This Section Pathology Reports No Data Provided for This Section Diagnostic Reports No Data Provided for This Section Consultation Notes No Data Provided for This Section Discharge Summaries No Data Provided for This Section History and Physicals No Data Provided for This Section Vital Signs Vital Sign Value Date Comments Source Systolic (mm Hg) 134 04/21/2019 Mischer Delmy ro Diastolic (mm Hg) 67 04/21/2019 [facility] Ne uro Heart Rate 65 04/21/2019 [facility] Neuro Respitory Rate 16 04/21/2019 [facility] Neuro Height 172.72 cm 04/21/2019 [facility] Neuro Weight 122.727 04/21/2019 [facility] Neuro BMI Calculated 41.14 04/21/2019 [facility] Neuro Heart Rate 78 01/28/2019 [facility] Neuro Respitory Rate 16 01/28/2019 [facility] Neuro Systolic (mm Hg) 127 01/28/2019 Mischer Delmy ro Diastolic (mm Hg) 67 01/28/[address] [facility] Ne uro Height 172.72 cm 12/23/[address] [facility] Neuro Weight 112.727 12/23/[address] [facility] Neuro BMI Calculated 37.79 12/23/[address] [facility] Neuro Heart Rate 87 12/23/[address] [facility] Neuro Respitory Rate 16 12/23/[address] [facility] Neuro Systolic (mm Hg) 137 12/23/[address] [facility] Delmy ro Diastolic (mm Hg) 87 12/23/[address] [facility] Ne uro Encounters Location Location Encounter Encounter Reason Attending ADM MS Stat us Source Details Type Number For Provider Date Date Visit Outpatient [id number] Baltazar 12/05 [facility] [place] Outpatient [id number] Baltazar 12/23 [facility] [place] MNA Outpatient [id number] Baltazar 12/23 12/[address] [facility] Neurology [facility] [place] Outpatient [id number] Baltazar 01/28 [facility] [place] MNA Outpatient [id number] Baltazar 01/28 01/[address] [facility] Neurology [facility] [place] Outpatient [id number] Baltazar 03/18 Active [facility] MNA Ambulatory [id number] Baltazar 03/18 03/[address] [facility] Neurology Pre-Reg [facility] [place] Outpatient [id number] Baltazar 04/21 [facility] [place] MNA Outpatient [id number] Baltazar 04/21 04/[address] [facility] Neurology [facility] [place] Outpatient [id number] Baltazar 08/11 Active [facility] [place] MNA Ambulatory [id number] Baltazar 08/11 08/[address] [facility] Neurology Pre-Reg [facility] [place] Procedures No Data Provided for This Section Assessment and Plan No Data Provided for This Section Plan of Care No Data Provided for This Section Social History Social History Date Source Social History TypeResponse 04/21/[address] 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
--- OUTSIDE RECORDS SUMMARY | 2020-02-23 13:17 | XMS REPORT | Clinical Summary ---
:1960 Author Organization [employer] Address [address] [place] [address] Care Team Providers Name Role Phone Vinicius Primary Care Provider Unavailable Allergies No Known [...] tablet DICLOFENAC Take 2 tablets by 0 A ctive SODIUM/MISOPROSTOL mouth 2 (two) (ARTHROTEC 75 ORAL) [...] Maintenance Due Date Last Done Comments COLONOSCOPY SCREENING 2011 SHINGLES VACCINES (#1) 2011 INFLUENZA VACCINE 04/02/2020 Results Not on fileafter 02/22/2019 Insurance Payer Benefit Plan / Group Subscriber ID Effective Phone Addre ss Type Dates [facility] MEDICARE AARP MEDICARE COMPLETE xxxxxxxxx 2015-Prese HMO MCR nt [facility] xxxxxxxxx 2015-Prese HMO/PPO CHOICE/CHOICE + nt Advance Directives For more information, please contact: [phone] Type Date 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
--- OUTSIDE RECORDS SUMMARY | 2020-02-23 13:17 | XMS REPORT | Clinical Summary ---
:1960 Author Organization [facility] Address [address] [place] [address] Care Team Providers Name Role Phone Unavailable Primary Care Provider Unavailable Allergies No Known Allergies Medications Medication Sig Dispensed Refills Start Date End Date Status metFORMIN (GLUMETZA) Take 500 mg by mouth 0 Active 500 MG (MOD) 24 hr daily with breakfast tablet Takes it 2x day . amitriptyline Take 25 mg by mouth 0 Active (ELAVIL) 25 MG nightly. tablet insulin regular Inject 0 Acti ve (HUMULIN R,NOVOLIN subcutaneously 2 R) 100 unit/mL (two) times daily injectionIndications Use as directed . : type 1 diabetes mellitus, 40 units in the morning, 40 Units at night rosuvastatin Take 40 mg by mouth 0 Active (CRESTOR) 40 MG daily. tablet furosemide (LASIX) Take 10 mg by mouth 0 Active 10 mg/mL daily. solutionIndications: visible water retention QUEtiapine Take 100 mg by mouth 0 Active (SEROQUEL) 100 MG nightly. tablet aspirin 325 MG Take 325 mg by mouth 0 Active tablet daily. FLUoxetine (PROZAC) Take 40 mg by mouth 0 Active 40 MG capsule daily. loratadine Take 10 mg by mouth 0 Active (CLARITIN) 10 mg as needed for tablet Allergies. fluticasone 1 spray by Nasal 0 A ctive (FLONASE) 50 route as needed for mcg/actuation nasal Rhinitis. spray Active Problems Problem Noted Date Bradycardia 09/01/2017 AV dissociation 09/01/2017 PAOD (peripheral arterial occlusive disease) 7 Ischemic rest pain of lower extremity 08/30/2017 Coronary artery disease involving coronary bypass [facility] [place] [facility] 08/30/2017 without angina pectoris Type 2 diabetes mellitus with complication 08/30/2017 Secondary hypertension 08/30/2017 Social History Tobacco Use Types Packs/Day Years Used Date Former Smoker 1 Quit: 08/30/20 07 Smokeless Tobacco: Never Used Tobacco Cessation: Counseling [...] Not on file Implants Implanted Type Area Independent Distributor Device Shelf Model / Identifier Expiration Serial / Date Lot Closure Sys Perclose Progl 6fr [id number] - [id number] Cardiovascul ar Right: POE 06/01/2019 [id number] / Implanted: Qty: 1 on 08/30/2017 by Ele Leung MD [facility]:VASC DEV / Lutonix 035 Stents-Periphera Left: BARD VASCULAR [id number] / Implanted: Qty: 1 on 08/30/2017 by Ele Leung MD l Arterial / [id number] Lutonix 035 Stents-Periphera Left: BARD VASCULAR [id number] / Implanted: Qty: 1 on 08/30/2017 by Ele Leung MD l Arterial / [id number] [employer]oe [employer] Supera Stents-Periphera Left: POE 06/01/2018 [id number] / Implanted: Qty: 1 on 08/30/2017 by Ele Leung MD l Arterial VASCULAR / DEVICE [id number] [employer] Supera Stents-Periphera Left: POE 12/30/2017 [id number] / Implanted: Qty: 1 on 08/30/2017 by Ele Leung MD l Arterial VASCULAR / DEVICE [id number] Cook Stents-Periphera Left: [employer] [id number] 05/01 [id number] / Implanted: Qty: 1 on 08/30/2017 by Ele Leung MD l Arterial / [id number] Results Not on fileafter 02/22/2019 Insurance Payer Benefit Plan / Group Subscriber ID Type Phone A ddress [employer] - MEDICARE AARP/MEDICARE COMPLETE xxxxxxxxx MGD CARE Advance Directives For more information, please contact:[place] [id number] [place], [place] [phone] Code Status Date Activated Date Inactivated Comments Full Code 08/30/2017 4:15 AM 09/01/2017 3:36 PM This code status was determined by: Patient
--- OUTSIDE RECORDS SUMMARY | 2020-02-23 13:18 | XMS REPORT | Summary of Care ---
:1960 Author Organization [facility] - [facility] Address [address] [place] [address] Care Team Providers Name Role Phone Opal Lares Primary Care Provider Reason for Visit Reason Comments Rx Concern/Question Encounter Details Date Type Department Care Team Description 12/24/2019 Telephone [facility] [place] [facility] Larisa Carranza MD Rx Concern/Question Endocrinology- [place] [id number] [facility] Professional Office [address] [address] [address] [place] [address] [phone] Allergies No Known Allergiesdocumented as of this encounter (statuses as of 12/24/2019) Medications Medication Sig Dispensed Refills Start Date End Date Status aspirin 81 mg Take 325 mg by 0 A ctive chewable tablet mouth daily. carvedilol 6.25 mg 0 07/01/2017 Active tablet FLUoxetine 40 mg 0 07/01/2017 Ac tive capsule QUEtiapine 100 mg 0 07/01/2017 A ctive tablet amitriptyline 10 mg 0 07/01/2017 Active tablet fluticasone 50 0 07/01/2017 Acti ve mcg/actuation nasal spray ketoconazole 2 % 0 07/01/2017 Ac tive cream loratadine 10 mg Take 1 tablet by 30 tablet 6 10/24/2017 Active tablet mouth daily. gabapentin 100 mg Take 2 tablet at 270 capsule 1 06/03/2018 Active capsuleIndications: bedtime and one Neuropathy tablet in morning blood sugar Use as directed, 300 Strip 1 12/02/2018 Active diagnostic (ONETOUCH BID, DX:E11.21 VERIO) stripIndications: Type 2 diabetes mellitus with diabetic nephropathy, with long-term current use of insulin lancets 33 gauge Use as directed, 300 Each 1 12/02/2018 Active MiscIndications: Type DX:E11.21, TID 2 diabetes mellitus with diabetic nephropathy, with long-term current use of insulin LISINOPRIL 10 mg TAKE 1 TABLET BY 90 tablet 1 02/19/2019 Active tablet MOUTH ONCE DAILY dulaglutide inject 1.5 mg 6 mL 1 05/19/2019 Act [place] (TRULICITY) 1.5 under the skin mg/0.5 mL weekly. PnIjIndications: Type 2 diabetes mellitus with diabetic nephropathy, with long-term current use of insulin empagliflozin Take 1 tablet by 90 tablet 3 09/23/2019 Active (JARDIANCE) 25 mg mouth daily. TabIndications: Type 2 diabetes mellitus with diabetic nephropathy, with long-term current use of insulin rosuvastatin 40 mg Take 1 tablet by 90 tablet 3 09/23/2019 Active tabletIndications: mouth at bedtime. Dyslipidemia, PVD (peripheral vascular disease) TOUWASHINGTON SOLOSTAR U-300 inject 45 Units 15 mL 1 09/23/2019 Active INSULIN 300 unit/mL under the skin (1.5 mL) every morning. InPnIndications: Type 2 diabetes mellitus with diabetic nephropathy, with long-term current use of insulin METFORMIN ER 750 mg TAKE 1 TABLET BY 180 tablet 0 12/18/2019 Active 24 hr MOUTH TWICE DAILY tabletIndications: BEFORE BREAKFAST Type 2 diabetes AND BEFORE SUPPER mellitus with diabetic nephropathy, with long-term current use of insulin documented as of this encounter (statuses as of 12/24/2019) Active Problems Problem Noted Date Albuminuria 06/03/2018 Essential hypertension 06/03/2018 Stage 3 chronic kidney disease 08/20/2017 Type 2 diabetes mellitus with diabetic nephropathy, wi th long-term current 04/09/2017 use of insulin Dyslipidemia 04/09/2017 documented as of this encounter (statuses as of 12/24/2019) Social History Tobacco Use Types Packs/Day Years Used Date Never Smoker Smokeless Tobacco: Never Used Sex Assigned at Date Recorded Not on file Job Start Date Occupation Industry Not on file Not on file Not on file Travel History Travel Start Travel End No recent travel history available. documented as of this encounter Last Filed Vital Signs Not on filedocumented in this encounter Plan of Treatment Date Type Specialty Care Team Description 01/26/2020 Telemedicine Visit Endocrinology Diabetes & Larisa Carranza MD Metabolism [address] [place] [address] [phone] Health Maintenance Due Date Last Done Comments HEPATITIS C (HCV) SCREEN 1960 PNEUMOCOCCAL 0-64 YEARS 1967 COMBINED SERIES (1 of 1 - PPSV23) DTaP,Tdap,and Td Vaccines 1972 (1 - Tdap) COLONOSCOPY 2011 Zoster Recombinant Vaccine 2011 (SHINGRIX) (1 of 2) EYE EXAM 02/28/2020 02/27/2019 HgA1C 03/23/2020 09/23/2019, 12/02/2018, 06/03/2018, Additional history exists INFLUENZA VACCINE (#1) 2020 Postponed from 05/03/2019 ([place] Guidelines) CREATININE (SERUM) 09/23/2020 09/23/2019, 12/02/2018, 09/20/2018, Additional history exists FOOT EXAM 09/23/2020 09/23/2019, 09/23/2019, 12/02/2018, Additional history exists LDL-C 09/23/2020 09/23/2019, 12/02/2018, 12/11/2017, Additional history exists URINE MICROALBUMIN 09/23/2020 09/23/2019, 12/02/2018, 08/20/2017 documented as of this encounter Results Not on filedocumented in this encounter Insurance Payer Benefit Plan / Subscriber ID Effective Phone Address T ype Group Dates [facility] [id number] 2019-[place] mix [facility] - MEDICARE nt HMO MANAGED MEDICARE ADVANTAGE documented as of this encounter
--- OUTSIDE RECORDS SUMMARY | 2020-02-23 13:18 | XMS REPORT | Summary of Care ---
:1960 Author Organization [facility] - [facility] Address [address] [place] [address] Care Team Providers Name Role Phone Opal Lares Primary Care Provider Reason for Visit Reason Comments Refill Request Encounter Details Date Type Department Care Team Description 12/18/[address] [facility] Endocrinology- Larisa Carranza MD Refill Request [address] Professional Office [place], [place] [id number] [place] [address] [address] [place] [address] Allergies No Known Allergiesdocumented as of this encounter (statuses as of 12/18/2019) Medications Medication Sig Dispensed Refills Start Date [...] cream loratadine 10 mg Take 1 tablet 30 tablet 6 10/24/2017 Active tablet by mouth daily. gabapentin 100 mg Take 2 tablet 270 capsule 1 06/03/2018 Active capsuleIndications: at bedtime and Neuropathy one tablet in morning blood sugar Use as 300 Strip 1 12/02/2018 Active diagnostic directed, BID, (ONETOUCH VERIO) DX:E11.21 stripIndications: Type 2 diabetes mellitus with diabetic nephropathy, with long-term current use of insulin lancets 33 gauge Use as 300 Each 1 12/02/2018 Ac tive MiscIndications: directed, Type 2 diabetes DX:E11.21, TID mellitus with diabetic nephropathy, with long-term current use of insulin LISINOPRIL 10 mg TAKE 1 TABLET 90 tablet 1 02/19/2019 Active tablet BY MOUTH ONCE DAILY dulaglutide inject 1.5 mg 6 mL 1 05/19/2019 Act [place] (TRULICITY) 1.5 under the skin mg/0.5 mL weekly. PnIjIndications: Type 2 diabetes mellitus with diabetic nephropathy, with long-term current use of insulin empagliflozin Take 1 tablet 90 tablet 3 09/23/2019 A ctive (JARDIANCE) 25 mg by mouth TabIndications: daily. Type 2 diabetes mellitus with diabetic nephropathy, with long-term current use of insulin rosuvastatin 40 mg Take 1 tablet 90 tablet 3 09/23/2019 Active tabletIndications: by mouth at Dyslipidemia, PVD bedtime. (peripheral vascular disease) TOUJEO SOLOSTAR inject 45 15 mL 1 09/23/2019 Act [place] U-300 INSULIN 300 Units under unit/mL (1.5 mL) the skin every InPnIndications: morning. Type 2 diabetes mellitus with diabetic nephropathy, with long-term current use of insulin METFORMIN ER 750 mg TAKE 1 TABLET 180 tablet 0 12/18/2019 Active 24 hr BY MOUTH TWICE tabletIndications: DAILY BEFORE Type 2 diabetes BREAKFAST AND mellitus with BEFORE SUPPER diabetic nephropathy, with long-term current use of insulin METFORMIN ER 750 mg TAKE 1 TABLET 180 tablet 0 08/17/201912/01 Discontinued 24 hr BY MOUTH TWICE 0 tabletIndications: DAILY BEFORE Type 2 diabetes BREAKFAST AND mellitus with DINNER diabetic nephropathy, with long-term current use of insulin documented as of this encounter (statuses as of 12/18/2019) Active Problems Problem Noted Date Albuminuria 06/03/2018 Essential hypertension 06/03/2018 Stage 3 chronic kidney disease 08/20/2017 Type 2 diabetes mellitus with diabetic nephropathy, wi th long-term current 04/09/2017 use of insulin Dyslipidemia 04/09/2017 documented as of this encounter (statuses as of 12/18/2019) Social History Tobacco Use Types Packs/Day Years [...] Description 01/26/2020 Telemedicine Visit Endocrinology Diabetes & Carranza, MD Larisa Metabolism [address] [place] [address] [phone] Health Maintenance Due Date Last Done Comments [...] Results Not on filedocumented in this encounter Visit Diagnoses Diagnosis Type 2 diabetes mellitus with diabetic n ephropathy, with long-term current use of insulin documented in this encounter Insurance Payer Benefit Plan / Subscriber ID Effective Phone Address T ype Group Dates [facility] [id number] 2019-[employer]iquita [employer] HEALTHCARE - MEDICARE nt O MANAGED MEDICARE ADVANTAGE documented as of this encounter
--- OUTSIDE RECORDS SUMMARY | 2020-02-23 13:18 | XMS REPORT | Continuity of Care Document ---
:1960 Author Organization [facility] t Address [address] [place] [address] Care Team Providers Name Role Phone Vinicius Primary Care Physician Unavailable Dillon MENDOZA Attending Clinician Paul MENDOZA Attending Clinician Pramod Pham Attending Clinician RICK LOONEY Attending Clinician Unavailable RIOS SMITH Admitting Clinician Unavailable Payers Payer Name Policy Type Policy Number Effective Date Expiration Date S ource Problems Condition Condition Condition Status Onset Resolution Last Treating Co mments Source Name Details Category Date Date Treatment Clinician Date Bradycardi Bradycardi Disease Active 2016-[address] [facility] 00 [place] AV AV Disease Active 2016-[address] [facility] dissociati dissociati 2-31 Tracee kes - on on 00:00: Medical 00 Center PAOD PAOD Disease Active 2016-[address] (periphera (periphera 2-30 Tracee kes - l arterial l arterial 00:00: Me dical occlusive occlusive 00 Cent er disease) disease) Ischemic Ischemic Disease Active 2016-09 [facility] pain rest pain 2-29 [facility] - of lower of lower 00:00: Medica l extremity extremity 00 Cent er Coronary Coronary Disease Active 2016-09 [facility] artery artery [facility]- [facility] - disease disease 00:00: Medical involving involving 00 Cent er coronary coronary bypass bypass graft of graft of [place] heart heart without without angina angina pectoris pectoris Type 2 Type 2 Disease Active 2016-[address] [facility] diabetes diabetes 2- [facility] - mellitus mellitus 00:00: Medica l with with 00 Center complicati complicati on on Secondary Secondary Disease Active 2016-[address]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 Tracee kes - on on 00:00: Medical 00 Center Peripheral Problem Resolve 2019-08-13 Memoria vascular d 22:26:06 l disease Geoff (disorder) Peripheral vascular disease (disorder) Resolved Problem 08/13/2019 [facility] Cervical Problem Active 2019-08-13 Mem oria spondylosi 22:26:06 l s Cervical Javier n (disorder) spondylosi s (disorder) Active Problem 08/13/2019 [facility] Cough Problem Active 2019-08-13 Memor ia (finding) 22:26:06 l Cough [place] (finding) Active Problem 08/13/2019 [facility] Diabetes Problem Active 2019-08-13 Mem oria mellitus 22:26:06 l (disorder) Diabetes He rmann mellitus (disorder) Active Problem 08/13/2019 [facility] Hyperlipid Problem Active 2019-08-13 M emoria emia 22:26:06 l (disorder) Javier n Hyperlipid emia (disorder) Active Problem 08/13/2019 [facility] Hypertensi Problem Active 2019-08-13 M emoria ve 22:26:06 l disorder, Geoff systemic Hypertensi arterial ve (disorder) disorder, systemic arterial (disorder) Active Problem 08/13/2019 [facility] Lumbar Problem Active 2019-08-13 Memor ia radiculopa 22:26:06 l thy Lumbar [place] (disorder) radiculopa thy (disorder) Active Problem 08/13/2019 [facility] Morbid Problem Active 2019-08-13 Memor ia obesity 22:26:06 l (disorder) Morbid Herm esvin obesity (disorder) Active Problem 08/13/2019 [facility] Paresthesi Problem Active 2019-08-13 M emoria a 22:26:06 l (finding) [place] Paresthesi a (finding) Active Problem 08/13/2019 [facility] Peripheral Problem Active 2019-08-13 M emoria nerve 22:26:06 l disease [place] (disorder) Peripheral nerve disease (disorder) Active Problem 08/13/2019 [facility] Allergies, Adverse Reactions, Alerts Allergy Allergy Status Severity Reaction(s) Onset Inactive Treating Comm ents Source Name Type Date Date Clinician Iodine FA Active [facility] 00:00: [address] Produc guaifene DA Active [facility] sin 11-22 [facility] 00:00: [address] No Known DA Active [facility] Allergie 02-06 [facility] s 00:00: [address] No Known No Known Active Memori a Medicati Medicati l on on Geoff Allergie Allergie s s Family History Family Member Diagnosis Comments Start Date Stop Date Source Natural father No Known Problems [facility] Natural mother No Known Problems [facility]da [facility] Social History Social Habit Start Date Stop Date Quantity Comments Source Sex Assigned At [facility] Cigarettes smoked 2017-09-03 2017-09-03 [facility] - current (pack per 00:00:00 00:00:00 [facility] day) - Reported Alcohol intake 2016-08-02 2016-08-02 Current [facility] thodist 00:00:00 00:00:00 non-drinker of alcohol (finding) History of tobacco 2007-08-[address] [facility] use [facility] Smoking Status Start Date Stop Date Source Former smoker 2017-09-03 00:00:00 2017-09-03 00:00:00 [facility] Medications Ordered Filled Start Stop Current Ordering Indication Dosage Frequency Signature Comments Components Source Medication Medication Date Date Medication? Clinician (SIG) Name Name aspirin 325 2016-09 Yes 325mg QD Take [address] MG tablet 2-29 mg by [facility] - 00:59: mouth Medical 09 daily. [place] FLUoxetine 2016-09 Yes 40mg QD Take [address] (PROZAC) 40 2-29 by mouth Luke s - MG capsule 00:59: daily. Medic al 09 [place] loratadine 2016-09 Yes 10mg Take [address] (CLARITIN) 2-29 by mouth [facility] - 10 mg 00:59: as needed Medical tablet 09 for Center Allergies. fluticasone 2016-09 Yes 1{spray [address] [facility] [address] (FLONASE) 2-29 } Nasal [facility] - 50 00:59: route as Medical mcg/actuati 09 needed for Ce nter on nasal Rhinitis. spray QUEtiapine 2016-09 Yes 100mg QD Take [address] (SEROQUEL) 2-29 mg by [facility] - 100 MG 00:39: mouth Medical tablet 06 nightly. [place] amitriptyli 2016-09 Yes 25mg QD Take [address] ne (ELAVIL) 2-29 by mouth Luke s - 25 MG 00:36: nightly. Medical tablet 58 [place] insulin 2016-09 Yes type [address] Q[address] [facility] regular 2-29 diabetes subcutaneo Tracee kes - (HUMULIN 00:36: mellitus usly 2 Med ical R,NOVOLIN 58 (two) Center R) 100 times unit/mL daily Use injection as directed . rosuvastati 2016-09 Yes 40mg QD Take [address] n (CRESTOR) 2-29 by mouth Luke s - 40 MG 00:36: daily. Medical tablet 58 [place] furosemide 2016-09 Yes visible 10mg QD Take [address] (LASIX) 10 2-29 water by mouth Luke s - mg/mL 00:36: retention daily. Medic al solution 58 [place] metFORMIN 2016-09 Yes 500mg Take [address] (GLUMETZA) 2-29 mg by [facility] - 500 MG 00:30: mouth Medical (MOD) 24 hr 55 daily with Ce nter tablet breakfast Takes it 2x day . aspirin 325 2015-09 Yes 325mg QD Take 325 [place] MG tablet 1-29 mg by Methodi 14:11: mouth st 20 daily. rosuvastati 2015-09 Yes 20mg QD Take 20 mg [place] (CRESTOR) 1-29 by mouth Meth shyla 20 MG 14:11: nightly. st tablet 20 furosemide 2015-09 Yes 20mg Q.5D Take 20 mg [place] (LASIX) 20 1-29 by mouth 2 Met hodi MG tablet 14:11: (two) st 20 times a day. potassium 2015-09 Yes 10meq QD Take 10 [place] chloride 1-29 mEq by Methodi (K-DUR,KLOR 14:11: mouth st -CON) 10 20 daily. MEQ CR tablet DICLOFENAC 2015-09 Yes 2{tbl} Q.5D Take 2 G[place]elda ston SODIUM/MISO -29 tablets by Me jackson PROSTOL 14:11: mouth 2 st (ARTHROTEC 20 (two) 75 ORAL) times a day. amitriptyli 2015-09 Yes 25mg QD Take 25 mg [place] ne (ELAVIL) 29 by mouth Meth shyla 25 MG 14:11: nightly. st tablet 20 LOSARTAN 2015-09 Yes 1{tbl} QD Take 1 [place] POTASSIUM 09-30 tablet by Metho di (LOSARTAN 14:11: mouth st ORAL) 20 daily. insulin 2015-09 Yes 100U Q.5D Inject 100 [place] detemir - Units Methodi (LEVEMIR) 14:11: under the st 100 unit/mL 20 skin 2 injection (two) times a day. insulin 2015-09 Yes 30U [id number] Inject 30 [place] lispro 09-30 [id number] Units Method i (HumaLOG) 14:11: 3D under the st 100 unit/mL 20 skin 3 injection (three) times a day before meals. Vital Signs Vital Name Observation Time Observation Value Comments Source Systolic (mm Hg) 2019-04-21 16:15:00 Cl rial Geoff Diastolic (mm Hg) 2019-04-21 16:15:00 Mem orial Geoff Heart Rate 2019-04-21 16:15:00 [facility] Geoff Respitory Rate 2019-04-21 16:15:00 Memori al [place] Height 2019-04-21 16:15:00 172.72 cm [facility] Geoff Weight 2019-04-21 16:15:00 [facility] Geoff BMI Calculated 2019-04-21 16:15:00 Memori al Geoff Heart Rate 2019-01-28 19:55:00 Memorial [place] Respitory Rate 2019-01-28 19:55:00 Memori al [place] Systolic (mm Hg) 2019-01-28 19:55:00 Cl rial [place] Diastolic (mm Hg) 2019-01-28 19:55:00 Mem orial [place] Height 2018-12-23 21:36:00 172.72 cm [facility] Geoff Weight 2018-12-23 21:36:00 [facility] Geoff BMI Calculated 2018-12-23 21:36:00 Memori al [place] Heart Rate 2018-12-23 21:36:00 [facility] Geoff Respitory Rate 2018-12-23 21:36:00 Memmisha al Geoff Systolic (mm Hg) 2018-12-23 21:36:00 Cl nava [place] Diastolic (mm Hg) 2018-12-23 21:36:00 Mem orial [place] Procedures This patient has no known procedures. Plan of Care Planned Activity Planned Date Details Comments Source Future Scheduled 2020-04-02 INFLUENZA VACCINE [place] 00:00:00 [code = INFLUENZA VACCINE] Future Scheduled 2011 COLONOSCOPY SCREENING [place] [facility] 00:00:00 [code = COLONOSCOPY SCREENING] Future Scheduled 2011 SHINGLES VACCINES [facility] 00:00:00 (#1) [code = SHINGLES VACCINES (#1)] Encounters Start End Encounter Admission Attending Care Care Encounter Source Date/Time Date/Time Type Type Clinicians Facility Department ID 2020-01-26 2020-01-26 Telemedici Carranza, [facility] [id number] 07:58:17 08:28:17 ne Visit Larisa Morley [id number] Gary [id number] Professio [phone] [address] 2019-12-31 2019-12-31 Telephone Carranza, [facility] [id number] 00:00:00 00:00:00 Wentong Morley [id number] Gary [id number] Professio [phone] [address] 2019-12-24 2019-12-24 Telephone Carranza, [facility] [id number] 00:00:00 00:00:00 Wentong Morley [id number] Gary [id number] Professio [phone] [address] 2019-12-18 2019-12-18 Refill Carranza, [facility] [id number] 00:00:00 00:00:00 Wentong Morley [id number] Gary [id number] Professio [phone] [address] 2019-10-12 2019-10-12 Patient Carranza, [facility] [id number] 00:00:00 00:00:00 Secure Msg Larisa Silva [id number] Gary [id number] Professio [phone] nal 220 [facility] 2019-09-25 2019-09-25 Telephone Paul [facility] [id number] 00:00:00 00:00:00 Carli Silva [id number] Gary [id number] Professio [phone] nal 059 [facility] 2019-09-23 2019-09-23 Office Dillon [facility] [id number] 10:40:06 12:19:03 Visit Larisa Silva [id number] Gary [id number] Professio [phone] nal 220 [facility] 2019-08-11 2019-08-11 Outpatient HAILEE Pham MISCHER [id number] 09:30:00 09:30:00 Baltazar 05 [facility] 2019-04-21 2019-04-21 Outpatient FRANCIE PhamSCHALANA GRESHAMMISCHER [id number] 11:00:00 23:59:59 Baltazar 04 [facility] 2019-03-18 2019-03-18 Outpatient FRANCIE PhamSCHALANA GRESHAMMISCHER [id number] 14:45:00 14:45:00 Baltazar 03 [facility] 2019-01-28 2019-01-28 Outpatient HAILEE PhamSCHER [id number] 14:30:00 23:59:59 Baltazar 02 [facility] 2018-12-23 2018-12-23 Outpatient FRANCIE PhamSCHALANA MISCHER [id number] 16:15:00 23:59:59 Baltazar Pramod Results Test Description Test Time Test Comments Results Result Comments Source GLUCOSE BEDSIDE TESTING 2019-11-25 16:27:00 Test Item Value Reference Range Interpretation Comme nts GLUCOSE BEDSIDE TESTING (test code = GLUBED) 368 MG/DL 60-99 Notified Nurse~ GLUCOSE BEDSIDE [id number] 08:20:00 Test Item Value Reference Range Interpretation Comments GLUCOSE BEDSIDE TESTING (test code 109 MG/DL 60-99 H = GLUBED) GLUCOSE BEDSIDE [id number] 08:17:00 Test Item Value Reference Range Interpretation Comments GLUCOSE BEDSIDE TESTING 439 MG/DL 60-99 HH Noti fied Nurse~ (test code = GLUBED) BASIC METABOLIC [id number] 06:32:00 Test Item Value Reference Range Interpretation Comments SODIUM (test code = 136 MMOL/L 137-145 L NA) POTASSIUM (test code = 4.6 MMOL/L 3.5-5.1 N K) CHLORIDE (test code = 103 MMOL/L 98-107 N CL) CARBON DIOXIDE (test 23 MMOL/L 22-30 N code = CO2) ANION GAP (test code = 15 MMOL/L 14-24 N GAP) GLUCOSE (test code = 150 MG/DL 74-106 H GLU) BLOOD UREA NITROGEN 25 MG/DL 9-20 H (test code = BUN) GLOMERULAR FILTRATION > 60 Report ing units: RATE (test code = GFR) ml/mi n/1.73 m2 (Modified MDRD Formula)Referen ce Range: > or = 6 0 ml/min/1.73 m2 CREATININE (test code 1.20 MG/DL 0.66-1.25 N = CREAT) CALCIUM (test code = 8.8 MG/DL 8.4-10.2 N CA) BASIC METABOLIC [id number] 06:28:00 Test Item Value Reference Range Interpretation Comments SODIUM (test code = NA) 136 MMOL/L 137-145 L POTASSIUM (test code = K) 4.6 MMOL/L 3.5-5.1 N CHLORIDE (test code = CL) 103 MMOL/L 98-107 N CARBON DIOXIDE (test code = CO2) MMOL/L 22-30 GLUCOSE (test code = GLU) MG/DL 74-106 BLOOD UREA NITROGEN (test code = MG/DL 9-20 BUN) GLOMERULAR FILTRATION RATE (test code = GFR) CREATININE (test code = CREAT) MG/DL 0.66-1.25 CALCIUM (test code = CA) MG/DL 8.7-9.7 CBC W/AUTO [id number] 06:17:00 Test Item Value Reference Range Interpretation Comments WHITE BLOOD CELL (test code = 10.2 K/MM3 3.8-9.8 H WBC) RED BLOOD CELL (test code = 5.12 M/MM3 3.95-5.67 N RBC) HEMOGLOBIN (test code = HGB) 15.8 G/DL 12.4-16.7 N HEMATOCRIT (test code = HCT) 48.6 % 35.9-49.5 N MEAN CELL VOLUME (test code = 95 fL 81.7-96.1 N MCV) MEAN CELL HGB (test code = MCH) 30.9 pg 27.6-33.2 N MEAN CELL HGB CONCETRATION 32.5 % 32.9-35.5 L (test code = MCHC) RED CELL DISTRIBUTION WIDTH 12.7 % 12.1-15.2 N (test code = RDW) PLATELET COUNT (test code = 127 K/MM3 129-368 L PLT) MEAN PLATELET VOLUME (test code 12.4 fl 7.4-10.4 H = MPV) NEUTROPHIL % (test code = NT%) 74.7 % 43-75 N IMMATURE GRANULOCYTE % (test 0.3 % 0.0-2.0 N code = IG%) LYMPHOCYTE % (test code = LY%) 14.3 % 14-44 N MONOCYTE % (test code = MO%) 10.6 % 4-13 N EOSINOPHIL % (test code = EO%) 0.0 % 0-6 N BASOPHIL % (test code = BA%) 0.1 % 0-2 N NUCLEATED RBC % (test code = 0.0 % 0-1.0 N NRBC%) NEUTROPHIL # (test code = NT#) 7.60 K/mm3 2.0-7.6 N IMMATURE GRANULOCYTE # (test 0.03 x10 3/uL 0-0.03 N code = IG#) LYMPHOCYTE # (test code = LY#) 1.45 K/mm3 1.0-3.8 N MONOCYTE # (test code = MO#) 1.08 K/mm3 0.1-0.8 H EOSINOPHIL # (test code = EO#) 0.00 K/mm3 0.0-0.2 N BASOPHIL # (test code = BA#) 0.01 K/mm3 0.0-0.2 N NUCLEATED RBC # (test code = 0.00 K/mm3 0.0-0.1 N NRBC#) - XR CHEST [id number] 11:58:00 Patient Name: INES WILKERSON Unit No: [id number] EXAMS: CPT CODE: [id number] XR CHEST 1V [id number] EXAM: XR Chest 1 View INDICATION: S/P ICD LOCATION CODE: T 18 COMPARISON: Chest radiograph dated 03/20/2013 TECHNIQUE: Frontal view of the chest was obtained. FINDINGS: Left 3-lead AICD/pacemakerhas been placed with one lead in the right atrium. Second lead in the left ventricle, and third lead in the right ventricle.. Mild pulmonary vascular congestion is present. No focal c onsolidation is seen. There is no pleural effusion or pneumothorax. The cardiomediastinal silhouette is unchanged. No acute osseous abnormality is identified. IMPRESSION: 1. Interval placement of left 3-lead pacemaker as described above. No pneumothorax is seen. 2. Mild pulmonary vascular congestion. at 1158 Reported and signed by: Lizeth Salgado MD CC: Te Sheth Technologist: Regina Coles, RT (R) Transcrpt Date/Tm/Trnsp: 11/24/2019 (1158) [email or web address] Orig Print D/T: S: 11/24/2019 (1202) [facility] NAME: INES WILKERSON [address] PHYS: [place] [address] : 1960 AGE: 59 SEX: M LOC: Z[facility] PHONE #: [phone] EXAM DATE: 11/24/2019 STATUS: REG [facility] [place] [place] FAX #: [phone] RADIOLOGY NO: PAGE 1 Signed ReportBASIC METABOLIC [id number] 07:32:00 Test Item Value Reference Range Interpretation Comments SODIUM (test code = 139 MMOL/L 137-145 N NA) POTASSIUM (test code = 4.6 MMOL/L 3.5-5.1 N K) CHLORIDE (test code = 105 MMOL/L 98-107 N CL) CARBON DIOXIDE (test 28 MMOL/L 22-30 N code = CO2) GLUCOSE (test code = 153 MG/DL 74-106 H GLU) BLOOD UREA NITROGEN 21 MG/DL 9-20 H (test code = BUN) GLOMERULAR FILTRATION > 60 Report ing units: RATE (test code = GFR) ml/mi n/1.73 m2 (Modified MDRD Formula)Referen ce Range: > or = 6 0 ml/min/1.73 m2 CREATININE (test code 1.30 MG/DL 0.66-1.25 H = CREAT) CALCIUM (test code = 9.4 MG/DL 8.4-10.2 N CA) Comments to Religion Teacher: NURSE WILL BRING SPECIMEN TO LABIs this a LINE draw? N [id number] 07:32:00 Test Item Value Reference Range Interpretation Comments MAGNESIUM (test code = MAG) 2.1 MG/DL 1.6-2.3 N Comments to Religion Teacher: NURSE WILL BRING SPECIMEN TO LABIs this a LINE draw? N BASIC METABOLIC [id number] 07:31:00 Test Item Value Reference Range Interpretation Comments SODIUM (test code = 139 MMOL/L 137-145 N NA) POTASSIUM (test code = 4.6 MMOL/L 3.5-5.1 N K) CHLORIDE (test code = 105 MMOL/L 98-107 N CL) CARBON DIOXIDE (test 28 MMOL/L 22-30 N code = CO2) GLUCOSE (test code = MG/DL 74-106 GLU) BLOOD UREA NITROGEN MG/DL 9-20 (test code = BUN) GLOMERULAR FILTRATION > 60 Report ing units: RATE (test code = GFR) ml/mi n/1.73 m2 (Modified MDRD Formula)Referen ce Range: > or = 6 0 ml/min/1.73 m2 CREATININE (test code 1.30 MG/DL 0.66-1.25 H = CREAT) CALCIUM (test code = MG/DL 8.7-9.7 CA) Comments to Religion Teacher: NURSE WILL BRING SPECIMEN TO LABIs this a LINE draw? N [id number] 07:31:00 Test Item Value Reference Range Interpretation Comments MAGNESIUM (test code = MAG) MG/DL 1.6-2.3 Comments to Religion Teacher: NURSE WILL BRING SPECIMEN TO LABIs this a LINE draw? N BASIC METABOLIC [id number] 07:29:00 Test Item Value Reference Range Interpretation Comments SODIUM (test code = NA) 139 MMOL/L 137-145 N POTASSIUM (test code = K) 4.6 MMOL/L 3.5-5.1 N CHLORIDE (test code = CL) 105 MMOL/L 98-107 N CARBON DIOXIDE (test code = CO2) MMOL/L 22-30 GLUCOSE (test code = GLU) MG/DL 74-106 BLOOD UREA NITROGEN (test code = MG/DL 9-20 BUN) GLOMERULAR FILTRATION RATE (test code = GFR) CREATININE (test code = CREAT) MG/DL 0.66-1.25 CALCIUM (test code = CA) MG/DL 8.7-9.7 Comments to Religion Teacher: NURSE WILL BRING SPECIMEN TO LABIs this a LINE draw? N [id number] 07:29:00 Test Item Value Reference Range Interpretation Comments MAGNESIUM (test code = MAG) MG/DL 1.6-2.3 Comments to Religion Teacher: NURSE WILL BRING SPECIMEN TO LABIs this a LINE draw? N BASIC METABOLIC [id number] 07:28:00 Test Item Value Reference Range Interpretation Comments SODIUM (test code = NA) 139 MMOL/L 137-145 N POTASSIUM (test code = K) MMOL/L 3.5-5.1 CHLORIDE (test code = CL) 105 MMOL/L 98-107 N CARBON DIOXIDE (test code = CO2) MMOL/L 22-30 GLUCOSE (test code = GLU) MG/DL 74-106 BLOOD UREA NITROGEN (test code = MG/DL 9-20 BUN) GLOMERULAR FILTRATION RATE (test code = GFR) CREATININE (test code = CREAT) MG/DL 0.66-1.25 CALCIUM (test code = CA) MG/DL 8.7-9.7 Comments to Religion Teacher: NURSE WILL BRING SPECIMEN TO LABIs this a LINE draw? N [id number] 07:28:00 Test Item Value Reference Range Interpretation Comments MAGNESIUM (test code = MAG) MG/DL 1.6-2.3 Comments to Religion Teacher: NURSE WILL BRING SPECIMEN TO LABIs this a LINE draw? N PROTHROMBIN [id number] 07:26:00 Test Item Value Reference Range Interpretation Comments PROTHROMBIN TIME 11.7 SECONDS 9.4-12.5 N PATIENT (test code = PTP) INTERNATIONAL NORMAL 1.1 The INR is to be RATIO (test code = used only for INR) monitoring oral anticoagulantth erap y. INDICATION I NR VALUE ---- ---- ---- -------1. Prophylaxis, de ep venous thrombos is, including hig h risk surgery. 2.0 - 3.0 2. Prophylaxis, de ep venous thrombos is, hip surgery, treatment for d eep venous thrombosis or pulmonary prevention of systemic emboli sm in patients wit h valvular heart disease, atrial fibrillation, tissue heart va lve, or acute myocar dial infarction. 2.0 - 3 .0 3. Mechanical prosthesis hear t valves, recurrent syste verenice embolism. 3.0 - 4.5 Comments to Religion Teacher: NURSE WILL BRING SPECIMEN TO LABPTT ACTIVATED 2019-11-24 07:26:00 Test Item Value Reference Range Interpretation Comments PTT ACTIVATED (test code = APTT) 34.6 SECONDS 25.1-36.5 N Comments to Religion Teacher: NURSE WILL BRING SPECIMEN TO LABCBC W/AUTO DIFF 2019-11-24 07:15:00 Test Item Value Reference Range Interpretation Comments WHITE BLOOD CELL (test code = 4.9 K/MM3 3.8-9.8 N WBC) RED BLOOD CELL (test code = 5.27 M/MM3 3.95-5.67 N RBC) HEMOGLOBIN (test code = HGB) 16.2 G/DL 12.4-16.7 N HEMATOCRIT (test code = HCT) 50.7 % 35.9-49.5 H MEAN CELL VOLUME (test code = 96 fL 81.7-96.1 N MCV) MEAN CELL HGB (test code = MCH) 30.7 pg 27.6-33.2 N MEAN CELL HGB CONCETRATION 32.0 % 32.9-35.5 L (test code = MCHC) RED CELL DISTRIBUTION WIDTH 13.0 % 12.1-15.2 N (test code = RDW) PLATELET COUNT (test code = 126 K/MM3 129-368 L PLT) MEAN PLATELET VOLUME (test code 11.6 fl 7.4-10.4 H = MPV) NEUTROPHIL % (test code = NT%) 48.2 % 43-75 N IMMATURE GRANULOCYTE % (test 0.4 % 0.0-2.0 N code = IG%) LYMPHOCYTE % (test code = LY%) 33.7 % 14-44 N MONOCYTE % (test code = MO%) 14.0 % 4-13 H EOSINOPHIL % (test code = EO%) 3.3 % 0-6 N BASOPHIL % (test code = BA%) 0.4 % 0-2 N NUCLEATED RBC % (test code = 0.0 % 0-1.0 N NRBC%) NEUTROPHIL # (test code = NT#) 2.37 K/mm3 2.0-7.6 N IMMATURE GRANULOCYTE # (test 0.02 x10 3/uL 0-0.03 N code = IG#) LYMPHOCYTE # (test code = LY#) 1.66 K/mm3 1.0-3.8 N MONOCYTE # (test code = MO#) 0.69 K/mm3 0.1-0.8 N EOSINOPHIL # (test code = EO#) 0.16 K/mm3 0.0-0.2 N BASOPHIL # (test code = BA#) 0.02 K/mm3 0.0-0.2 N NUCLEATED RBC # (test code = 0.00 K/mm3 0.0-0.1 N NRBC#) Comments to Religion Teacher: NURSE WILL BRING SPECIMEN TO LABIs this a LINE draw? N HEMOGLOBIN [id number] 09:17:00 Test Item Value Reference Range Interpretation Comments HEMOGLOBIN A1C ([facility]) (test code = 8.3 % 4.3-6.1 H 368) POCT-GLUCOSE [id number] 08:15:00 Test Item Value Reference Range Interpretation Comments POC-GLUCOSE METER 143 mg/dL 70-110 H TESTED AT [place] [address] ([facility]) ([facility] = [facility] 1538) [id number] POCT-GLUCOSE [id number] 21:11:00 Test Item Value Reference Range Interpretation Comments POC-GLUCOSE METER 214 mg/dL 70-110 H TESTED AT [place] [address] ([facility]) (test code = [facility] Emilia [facility] 1538) [address] POCT-GLUCOSE [id number] 17:19:00 Test Item Value Reference Range Interpretation Comments POC-GLUCOSE METER 160 mg/dL 70-110 H TESTED AT [place] [address] ([facility]) (test code = [facility] Emilia [facility] 1538) [address] POCT-GLUCOSE [id number] 12:59:00 Test Item Value Reference Range Interpretation Comments POC-GLUCOSE METER 175 mg/dL 70-110 H TESTED AT [facility] 6720 (BEAKER) (test code = ANDREA Nieto [facility] 1538) [address] POCT-GLUCOSE [id number] 09:21:00 Test Item Value Reference Range Interpretation Comments POC-GLUCOSE METER 194 mg/dL 70-110 H TESTED AT [facility] 6720 (BEAKER) (test code = [facility] 1538) [id number] POCT-GLUCOSE [id number] 21:05:00 Test Item Value Reference Range Interpretation Comments POC-GLUCOSE METER 264 mg/dL 70-110 H TESTED AT [place] [id number] (BEAKER) (test code = [facility] Emilia [facility] 1538) [address] POCT-GLUCOSE [id number] 17:11:00 Test Item Value Reference Range Interpretation Comments POC-GLUCOSE METER 158 mg/dL 70-110 H TESTED AT [place] [address] (BEAKER) (test code = [facility] Emilia [facility] 1538) [address] POCT-GLUCOSE [id number] 12:14:00 Test Item Value Reference Range Interpretation Comments POC-GLUCOSE METER 127 mg/dL 70-110 H TESTED AT [place] [address] (BEAKER) (test code = [facility] 1538) [id number] BASIC METABOLIC [id number] 10:20:00 Test Item Value Reference Range Interpretation Comments SODIUM (BEAKER) 140 meq/L 136-145 (test code = 381) POTASSIUM (BEAKER) 4.4 meq/L 3.5-5.1 (test code = 379) CHLORIDE (BEAKER) 109 meq/L 98-107 H (test code = 382) CO2 (BEAKER) (test 22 meq/L 22-29 code = 355) BLOOD UREA NITROGEN 22 mg/dL 7-21 H (BEAKER) (test code = 354) CREATININE (BEAKER) 1.25 mg/dL 0.57-1.25 (test code = 358) GLUCOSE RANDOM 104 mg/dL 70-105 (BEAKER) (test code = 652) CALCIUM (BEAKER) 9.2 mg/dL 8.4-10.2 (test code = 697) EGFR (BEAKER) (test 72 mL/min/1.73 ESTIMA NIRALI GFR IS code = 1092) sq m NOT ACCURATE CREATININE CLEARANCE IN PREDICTING GLOMERULAR FILTRATION RATE . ESTIMATED GFR I S NOT APPLICABLE FOR DIALYSIS PATIEN TS. POCT-GLUCOSE [id number] 09:05:00 Test Item Value Reference Range Interpretation Comments POC-GLUCOSE METER 108 mg/dL 70-110 TESTED AT [facility] (test code = [place] 1538) [address] RAD, CHEST, 1 VIEW, NON [id number] 07:45:00Reason for exam:->pre-opShould this be performed at the bedside?->YesFINAL REPORT CLINICAL HISTORY: pre-op TECHNIQUE: 1 view of the chest. COMPARISON: None IMPRESSION: There are no focal infiltrates or effusions. A focal density in the medial right upper lung zone may be related to costochondral calcification from the right first rib. The cardiomediastinal silhouette is magnified by technique. Signed: Dorian Barnetteport Verified Date/Time: 08/30/2017 07:45:46 Reading Location: [facility] Radiology Reading Room PROTHROMBIN TIME/[id number] 07:17:00 Test Item Value Reference Range Interpretation Comments PROTIME ([facility]) (test code = 13.3 seconds 11.7-14.7 759) INR ([facility]) (test code = 370) 1.0 <=5.9 RECOMMENDED COUMADIN/WARFARIN INR THERAPY RANGESSTANDARD DOSE: 2.0 - 3.0 Includes: PROPHYLAXIS forvenous thrombosis, systemic embolization; TREATMENT for venous thrombosis and/or pulmonary embolus.HIGH RISK: Target INR is 2.5-3.5 for patients with mechanical heart valves.Within 24 hours, if on CoumadinAPTT 2017-08-30 07:17:00 Test Item Value Reference Range Interpretation Comments PARTIAL THROMBOPLASTIN TIME 32.2 seconds 22.5-36.0 ([facility]) (test code = 760) Within 24 hours, if on CoumadinCBC (HEMOGRAM ONLY)2017-08-30 07:07:00 Test Item Value Reference Range Interpretation Comments WHITE BLOOD CELL COUNT (AKER) 5.0 K/ L 3.5-10.5 (test code = 775) RED BLOOD CELL COUNT (BEAKER) 5.27 M/ L 4.63-6.08 (test code = 761) HEMOGLOBIN (BEAKER) (test code = 15.8 GM/DL 13.7-17.5 410) HEMATOCRIT (BEAKER) (test code = 49.4 % 40.1-51.0 411) MEAN CORPUSCULAR VOLUME (BEAKER) 93.7 fL 79.0-92.2 H (test code = 753) MEAN CORPUSCULAR HEMOGLOBIN 30.0 pg 25.7-32.2 (BEAKER) (test code = 751) MEAN CORPUSCULAR HEMOGLOBIN CONC 32.0 GM/DL 32.3-36.5 L (BEAKER) (test code = 752) RED CELL DISTRIBUTION WIDTH 13.8 % 11.6-14.4 (BEAKER) (test code = 412) PLATELET COUNT (BEAKER) (test 151 K/CU MM 150-450 code = 756) MEAN PLATELET VOLUME (BEAKER) 13.0 fL 9.4-12.4 H (test code = 754) NUCLEATED RED BLOOD CELLS 0 /100 WBC 0-0 (BEAKER) (test code = 413)
--- OUTSIDE RECORDS SUMMARY | 2020-02-23 13:19 | XMS REPORT | Summary of Care ---
:1960 Author Organization [facility] Address [address] [place] [id number] Care Team Providers Name Role Phone Opal Lares Primary Care Provider Reason for Visit Reason Comments Follow-up Diabetes Mellitus II (Routine) Status Reason Specialty Diagnoses / Referred By Referred To Procedures Contact Contact Closed Endocrinology Procedures Dillon Lares Went[place], Diabetes & CONSULT Opal Jenkins MD Metabolism ENDOCRINOLOGY [address] [address] [place], [place] Phone: [phone] Phone: Encounter Details Date Type Department Care Team Description 01/26/2020 Telemedicine Visit [facility] Larisa Carranza MD Type 2 diabetes mellitus with diabetic n ephropathy, with long-term current use of insulin (Primary Dx); Endocrinology- [address] [place] [address] Dyslipidemia; [facility] Albuminuria; Professional Office [place], [place] Ess tia hypertension; Building [address] PVD (peripheral vascular disease) [address] [place] [address] [address] [place], [place] (Fax) [phone] Allergies No Known Allergiesdocumented as of this encounter (statuses as of 01/26/2020) Medications Medication Sig Dispensed Refills Start Date End Date Status aspirin 81 mg chewable Take 325 mg by 0 Active tablet mouth daily. carvedilol 6.25 mg 0 07/01/2017 Active tablet FLUoxetine 40 mg 0 07/01/2017 Ac tive capsule QUEtiapine 100 mg 0 07/01/2017 A ctive tablet amitriptyline 10 mg 0 07/01/2017 Active tablet fluticasone 50 0 07/01/2017 Acti ve mcg/actuation nasal spray ketoconazole 2 % cream 0 07/01/2017 Active loratadine 10 mg Take 1 tablet by 30 tablet 6 10/24/2017 Active tablet mouth daily. gabapentin 100 mg Take 2 tablet at 270 capsule 1 06/03/2018 Active capsuleIndications: bedtime and one Neuropathy tablet in morning blood sugar diagnostic Use as directed, 300 Strip 1 12/02/2018 Active (ONETOUCH VERIO) BID, DX:E11.21 stripIndications: Type 2 diabetes mellitus with [...] tablet 3 09/23/2019 Active tabletIndications: mouth at Dyslipidemia, PVD bedtime. (peripheral vascular disease) TOUWASHINGTON SOLOSTAR U-300 inject 45 Units 15 mL 1 09/23/2019 Active INSULIN 300 unit/mL under the skin (1.5 mL) every morning. InPnIndications: Type 2 diabetes mellitus with diabetic nephropathy, with long-term current use of insulin Additional information Patient taking differently: 47 Units Subcutaneous QAM, Reported on 01/26/2020 9:17 AM METFORMIN ER 750 mg 24 TAKE 1 TABLET 180 tablet 0 12/18/2019 Active hr tabletIndications: BY MOUTH TWICE Type 2 diabetes mellitus DAILY BEFORE with diabetic BREAKFAST AND nephropathy, with BEFORE SUPPER long-term current use of insulin dulaglutide (TRULICITY) inject 1.5 mg 6 mL 1 01/26/2020 Active 1.5 mg/0.5 mL under the skin PnIjIndications: Type 2 weekly. diabetes mellitus with diabetic nephropathy, with long-term current use of insulin lisinopril 10 mg Take 1 tablet 90 tablet 1 01/26/2020 Active tabletIndications: by mouth daily. Albuminuria, Essential hypertension LISINOPRIL 10 mg tablet TAKE 1 TABLET 90 tablet 1 02/19/2019 0 01/25 Discontinued BY MOUTH ONCE /2019 (Reord er) DAILY dulaglutide (TRULICITY) inject 1.5 mg 6 mL 1 05/19/2019 0 01/25 Discontinued 1.5 mg/0.5 mL under the skin /2019 ( Reorder) PnIjIndications: Type 2 weekly. diabetes mellitus with diabetic nephropathy, with long-term current use of insulin documented as of this encounter (statuses as of 01/26/2020) Active Problems Problem Noted Date Albuminuria 06/03/2018 Essential hypertension 06/03/2018 Stage 3 chronic kidney disease 08/20/2017 Type 2 diabetes mellitus with diabetic nephropathy, wi th long-term current 04/09/2017 use of insulin Dyslipidemia 04/09/2017 documented as of this encounter (statuses as of 01/26/2020) Social History Tobacco Use Types Packs/Day Years Used Date Never Smoker Smokeless Tobacco: Never Used Sex Assigned at Date Recorded Not on file Job Start Date Occupation Industry Not on file Not on file Not on file Travel History Travel Start Travel End No recent travel history available. documented as of this encounter Last Filed Vital Signs Not on filedocumented in this encounter Patient Instructions Patient InstructionsLarisa Carranza MD - 01/26/2020 9:00 AM CDTContinue current metformin ER, jardiance, Trulicity and Toujeo documented in this encounter Progress Notes Larisa Carranza MD - 01/26/2020 9:00 AM CDT TELEHEALTH NOTE Verbal consent obtained from Patient: [place] Sr. due to the COVID-19 pandemic for telehealthservices provided below. Communication with patient was conducted via Telephone due to patient unable to obtain video call option. Location of Patient: Home Location of Provider: Clinic Date of Service: 01/26/2020 Chief Complaint: Type 2 diabetes mellitus-follow up HPI: [place] Sr. is a 59 year old male with Past Medical History: Diagnosis Date Diabetes mellitus Dyslipidemia Hyperlipidemia Hypertension PVD (peripheral vascular disease) who is called today for follow up Diabetes Mellitus Type 2. Patient's diabetes is complicated by atherogenic diet, hyperlipidemia, hypertension , macrovascular complications: Coronary Artery Disease and S/P 4 Vessel Coronary Artery Bypass Graft , nephropathy: with chronic kidney disease stage 3 and with microalbuminuria and obesity. Type 2 diabetes mellitus Diagnosed at age 46, on insulin since 2011 TAD was in 09/2019 with A1C at 7.1. He reports compliance with diet Had pace maker placement by Dr Aleman in 11/2019 Patient usually checks blood glucoses once every other day. Average blood sugar at breakfast [phone]. Post meal( 30 minutes) some 200s. The patient is not having problems with hypoglycemia. Patient is compliant with medication regimen Diabetes regimen: Metformin ER 750 mg bid Jardiance 25 mg daily Trulicity 1.5 mg Toujeo 47 units daily Patient issemicompliant with diet.. Exercise is limited due to PVD. Weight stable Dyslipidemia: taking Crestor 40 mg. Neuropathy: Takes gabapentin 100 mg-one in am and twoat night. folowing with Dr Pham, neurologist BPH: Sees Urologist. Takes Vesicare CKD stage 3: GFR 40-50, stable PVd: Bilateral- Stents placed 08/2017 HTn/proteinuria: Off Losartan CAD s/p CABG- Dr Robertson in past . Now follow Dr. Love JOYA- sees pulmonary DIABETIC HEALTH MAINTENANCE Last Ophthalmology visit was 01/2019, stable retinopathy, Dr Rodriguez Patient on ALEKSANDR/ARB therapy - No stopped by vascular Patient on ASA therapy - Yes. Patient on Statin/Fibrate therapy - Yes. Patient instructed about daily feet exams, last sensation exam was 09/23/2019 Patient has received Nutrition/Diet/Diabetes Education on 09/2019 MEDICATIONS: Patient's Medications START taking these medications No medications on file CONTINUE taking these medications which have NOT CHANGED AMITRIPTYLINE 10 MG TABLET ASPIRIN 81 MG CHEWABLE TABLET Take 325 mg by mouth daily. BLOOD SUGAR DIAGNOSTIC (PLTechTOUCH VERIO) STRIP Use as directed, BID, DX:E11.21 CARVEDILOL 6.25 MG TABLET EMPAGLIFLOZIN (JARDIANCE) 25 MG TAB Take 1 tablet by mouth daily. FLUOXETINE 40 MG CAPSULE FLUTICASONE 50 MCG/ACTUATION NASAL SPRAY GABAPENTIN 100 MG CAPSULE Take 2 tablet at bedtime and one tablet in morning KETOCONAZOLE 2 % CREAM LANCETS 33 GAUGE MISC Use as directed, DX:E11.21, TID LORATADINE 10 MG TABLET Take 1 tablet by mouth daily. METFORMIN ER 750 MG 24 HR TABLET TAKE 1 TABLET BY MOUTH TWICE DAILY BEFORE BREAKFAST AND BEFORE SUPPER QUETIAPINE 100 MG TABLET ROSUVASTATIN 40 MG TABLET Take 1 tablet by mouth at bedtime. IRAJ SONG U-300 INSULIN 300 UNIT/ML (1.5 ML) INPN inject 45 Units under the skin every morning. START taking Modified Medications as Prescribed Modified Medication Previous Medication DULAGLUTIDE (TRULICITY) 1.5 MG/0.5 ML PNIJ dulaglutide (TRULICITY) 1.5 mg/0.5 mL PnIj inject 1.5 mg under the skin weekly. inject 1.5 mg under the skin weekly. LISINOPRIL 10 MG TABLET LISINOPRIL 10 mg tablet Take 1 tablet by mouth daily. TAKE 1 TABLET BY MOUTH ONCE DAILY STOP taking these medications No medications on file ROS Constitutional: denies weight change, denies fatigue and hair loss Eyes: denies blurry vision, denies diplopia and denies pain. Neck: denies pain, denies swollen glands Cardiovascular: denies chest pain , denies irregular pulse and denies palpitations. Respiratory: denies dyspnea on exertion and denies shortness of breath. Gastrointestinal: denies abdominal pain, denies constipation and denies diarrhea. Genitourinary: denies burning and denies dysuria. Musculoskeletal: + bilateral burning thigh pain on and off Skin: + pigmentation on feet- chronic. Neuro: +numbness in feet and leg , denies tingling and denies tremor. Psych: negative. Endocrine: denies goiter, denies hair loss, denies intolerance to cold, denies intolerance to heat, denies polydipsia, denies polyphagia and denies polyuria. TELEHEALTH EXAM Chest/ Lungs: Patient not short of breath during phone encounter. Breathing sounds are normal on thephone. Neuro: Patient answering questions appropriately. Alert. No additional exam as this is a telephone encounter. POCT GLU (mg/dL) Date Value 04/23/2016 401 (H) CREATININE Date Value 09/23/2019 1.27 mg/dL (H) 04/06/2004 0.88 MG/DL CREATININE-Q (mg/dL) Date Value 08/20/2017 1.49 (H) CHOL Date Value 09/23/2019 226 mg/dL (H) 04/06/2004 404 MG/DL (W) CHOLESTEROL, TOTAL-Q (mg/dL) Date Value 08/20/2017 274 (H) HDL CHOL (MG/DL) Date Value 04/06/2004 65 HDL CHOLESTEROL-Q (mg/dL) Date Value 08/20/2017 76 HDL (mg/dL) Date Value 09/23/2019 79 LDL CHOL Date Value 09/23/2019 137 mg/dL 04/06/2004 305 MG/DL (H) [id number]-S (mg/dL (calc)) Date Value 08/20/2017 181 (H) TRIG Date Value 09/23/2019 50 mg/dL 04/06/2004 168 MG/DL TRIGLYCERIDES-Q (mg/dL) Date Value 08/20/2017 66 MICROAL/CR (mg/g of creatinine) Date Value 09/23/2019 388 (H) POCT HBA1C (%) Date Value 09/23/2019 7.1 (A) 12/02/2018 6.5 (A) HGB A1C (%) Date Value 04/06/2004 15.1 (H) ASSESSMENT/ PLAN New [place] Sr. is a 59 year old male with PMH as above presenting with: 1. Type 2 diabetes mellitus with diabetic nephropathy, with long-term current use of insulin -A1C (target=6-7%): 6.5 (12/19) --->7.1(09/21) -glucose range: AM fasting at target.concerns he has postprandial hyperglycemia - without hypoglycemia -complication: neuropathy retinopathy nephropathy macrovascular: CAD -medication limitation: Victoza- did not help, Metformin-2000 mg daily--- stopped due to side effects ( diarrhea) -diet: compliant -exercise: limited by leg pain--PVD Plan -reinterated to check glucose daily alternating fasting and 2 hours post meals -urged compliance with diet/exercise - dulaglutide (TRULICITY) 1.5 mg/0.5 mL PnIj; inject 1.5 mg under the skin weekly. Dispense: 6 mL; Refill: 1 Patient Instructions Continue current metformin ER, jardiance, Trulicity and Toujeo 2. Dyslipidemia Lipid was at target plan - rosuvastatin 40 mg tablet; Take 1 tablet by mouth at bedtime. 3. Albuminuria 4. Essential hypertension Comment:. Advised to monitor BP at home Plan: Continue - lisinopril 10 mg tablet; Take 1 tablet by mouth daily. Dispense: 90 tablet; Refill: 1 5. PVD (peripheral vascular disease) Follow up with casting room helper After visit summary (AVS ) documentation will be available [facility] for this encounter. A total of 40 minutes was spent on the Telephone due to patient unable to obtain video call option. Larisa Carranza MD documented in this encounter Plan of Treatment Health Maintenance Due Date Last Done Comments HEPATITIS C (HCV) SCREEN 1960 PNEUMOCOCCAL 0-64 YEARS 1966 COMBINED SERIES (1 of 1 - PPSV23) DTaP,Tdap,and Td Vaccines 1972 (1 - Tdap) COLONOSCOPY 2011 Zoster Recombinant Vaccine 2011 (SHINGRIX) (1 of 2) EYE EXAM 02/28/2020 02/27/2019 HgA1C 03/23/2020 09/23/2019, 12/02/2018, 06/03/2018, Additional history exists INFLUENZA VACCINE (Season 06/01/2020 Postpo suzette from Ended) 05/03/2020 ([place] Guidelines) CREATININE (SERUM) 09/23/2020 09/23/2019, [...] ephropathy, with long-term current use of insulin - Primary Dyslipidemia Other and unspecified hyperlipidemia Albuminuria Proteinuria Essential hypertension Unspecified essential hypertension PVD (peripheral vascular disease) Peripheral vascular disease, unspecified documented in this encounter Insurance Payer Benefit Plan / Subscriber ID Effective Phone Address T e Group Dates [facility] [id number] 2019-[place]iqu[place] mix [facility] - MEDICARE nt HMO MANAGED MEDICARE ADVANTAGE documented as of this encounter
--- OUTSIDE RECORDS SUMMARY | 2020-02-23 13:19 | XMS REPORT | Summary of Care ---
:1960 Author Organization [facility] Address [address] [place] [id number] Care Team Providers Name Role Phone Opal Lares Primary Care Provider Reason for Visit Reason Comments Assessment Encounter Details Date Type Department Care Team Description 12/31/2019 Telephone [facility] Endocrinology- Larisa Carranza MD Assessment [address] Professional Office [place], [place] [id number] [place] [address] [address] [place] [phone] Allergies No Known Allergiesdocumented as of this encounter (statuses as of 12/31/2019) Medications Medication Sig Dispensed Refills Start Date [...] as of this encounter (statuses as of 12/31/2019) Active Problems Problem Noted Date Albuminuria 06/03/2018 Essential hypertension 06/03/2018 Stage 3 chronic kidney disease 08/20/2017 Type 2 diabetes mellitus with diabetic nephropathy, wi th long-term current 04/09/2017 use of insulin Dyslipidemia 04/09/2017 documented as of this encounter (statuses as of 12/31/2019) Social History Tobacco Use Types Packs/Day Years [...] Description 01/26/2020 Telemedicine Visit Endocrinology Diabetes & CarranzaLarisa MD Metabolism [address] [place] [address] [phone] Health Maintenance Due Date Last Done Comments [...] Effective Phone Address T ype Group Dates [facility] [id number] 2019-[employer] - MEDICARE nt HMO MANAGED MEDICARE ADVANTAGE documented as of this encounter
--- NOTE | 2020-02-23 13:49 | RAD REPORT ---
EXAM DESCRIPTION: CT - Stone Protocol - 02/23/2020 1:24 pm CLINICAL HISTORY: Abdominal pain. Flank pain COMPARISON: 2010 TECHNIQUE: Computed axial tomography of the abdomen pelvis was obtained without oral or IV contrast. Lack of IV and oral contrast limits evaluation of solid organs, bowel, and vessels. Coronal reformat bisi images were obtained and reviewed. All CT scans are performed using dose optimization technique as appropriate and may include automated exposure control or mA/KV adjustment according to patient size. FINDINGS: A renal calculus is not seen. An ureteral calculus is not noted. A bladder calculus is not present. The liver, spleen, pancreas and right adrenal appear grossly normal 24 millimeter left adrenal nodule unchanged compatible with an adenoma. A filter is present within the IVC There is no evidence of diverticulitis. The appendix appears normal Multiple small gallstones. The gallbladder is distended. The gallbladder wall appears mildly thickene d IMPRESSION: Negative for a genitourinary calculus Cholelithiasis. Gallbladder is distended. Mild gallbladder wall thickening may indicate cholecystitis
[2020-02-23 15:06] LABS: Urine Bacteria <20 /HPF (NONE SEEN); Urine Culture Reflex Order NOT NEEDED; Urine RBC <5 /HPF (NONE SEEN)
--- NOTE | 2020-02-23 15:39 | RAD REPORT ---
EXAM DESCRIPTION: US - Abdomen Exam Limited - 02/23/2020 3:17 pm CLINICAL HISTORY: Abdominal pain. COMPARISON: CT scan February 23, 2020 FINDINGS: Gallbladder wall is thickened measuring 9 millimeters. Multiple gallstones. Gallbladder is distended. The biliary tree is normal caliber. IMPRESSION: Cholelithiasis with gallbladder wall thickening probably cholecystitis.
--- NOTE | 2020-02-23 16:34 | EDPHYS ---
Physician Documentation [facility] Name: New Jordan Age: 59 yrs Sex: Male : 1960 Arrival Date: 02/23/2020 Time: 12:16 Bed 17 Private MD: ED Physician Renny Schaeffer HPI: 02/22 12:44 This 59 yrs old Black Male presents to ER via Wheelchair with complaints of Possible kb Kidney Stone - blood in urine. 12:44 The patient presents with abdominal pain in the right upper quadrant, right lower kb quadrant. The patient has not experienced similar symptoms in the past. The patient has not recently seen a physician. 12:44 Onset: The symptoms/episode began/occurred yesterday. The symptoms do not radiate. kb Associated signs and symptoms: none. The symptoms are described as constant. Modifying factors: The symptoms are alleviated by nothing, the symptoms are aggravated by nothing. Severity of pain: At its worst the pain was moderate in the emergency department the pain has improved mildly. Pt reports right flank and right abd pain since yesterday. Historical: - Allergies: 12:26 No Known Allergies; ca1 - PMHx: 12:26 Bipolar disorder; Depression; Diabetes - IDDM; DVT; High Cholesterol; Hypertension; ca1 quadraple bypass; Schizophrenia; - PSHx: 12:26 CABG; ca1 - Immunization history:: Adult Immunizations up to date. - Social history:: Smoking status: Patient denies any tobacco usage or history of. ROS: 12:42 Constitutional: Negative for fever, chills, and weight loss, Cardiovascular: Negative kb for chest pain, palpitations, and edema, Respiratory: Negative for shortness of breath, cough, wheezing, and pleuritic chest pain, : Negative for injury, bleeding, discharge, and swelling, MS/Extremity: Negative for injury and deformity, Skin: Negative for injury, rash, and discoloration, Neuro: Negative for headache, weakness, numbness, tingling, and seizure. 12:42 Abdomen/GI: Positive for abdominal pain. 12:42 Back: Positive for flank pain, on the right. Exam: 12:43 Constitutional: This is a well developed, well nourished patient who is awake, alert, kb and in no acute distress. Head/Face: Normocephalic, atraumatic. Chest/axilla: Normal chest wall appearance and motion. Nontender with no deformity. No lesions are appreciated. Cardiovascular: Regular rate and rhythm with a normal S1 and S2. No gallops, murmurs, or rubs. Normal PMI, no JVD. No pulse deficits. Respiratory: Lungs have equal breath sounds bilaterally, clear to auscultation and percussion. No rales, rhonchi or wheezes noted. No increased work of breathing, no retractions or nasal flaring. Back: No spinal tenderness. No costovertebral tenderness. Full range of motion. Skin: Warm, dry with normal turgor. Normal color with no rashes, no lesions, and no evidence of cellulitis. MS/ Extremity: Pulses equal, no cyanosis. Neurovascular intact. Full, normal range of motion. Neuro: Awake and alert, GCS 15, oriented to person, place, time, and situation. Cranial nerves II-XII grossly intact. Motor strength 5/5 in all extremities. Sensory grossly intact. Cerebellar exam normal. Normal gait. 12:43 Abdomen/GI: Inspection: obese Bowel sounds: normal, in all quadrants, Palpation: soft, in all quadrants, mild abdominal tenderness, in the right upper quadrant and right lower quadrant. Vital Signs: 12:20 BP 81 / 53; Pulse 89; Resp 16 S; Temp 98.4(TE); Pulse Ox 97% on R/A; Weight 115.67 kg ca1 (R); Height 5 ft. 8 in. (172.72 cm) (R); Pain 6/10; 12:33 BP 105 / 59; ca1 13:20 BP 93 / 70; Pulse 77; Resp 15; Pulse Ox 97% ; bp 15:26 BP 111 / 73; Pulse 84; Resp 18; Pulse Ox 99% on R/A; ls4 16:44 BP 115 / 79; Pulse 89; Resp 16; Pulse Ox 100% ; bp 12:20 Body Mass Index 38.77 (115.67 kg, 172.72 cm) ca1 MDM: 12:26 Patient medically screened. kb 12:42 Data reviewed: vital signs, nurses notes. Data interpreted: Pulse oximetry: on room air kb is 97 %. Interpretation: normal. 16:13 Counseling: I had a detailed discussion with the patient and/or guardian regarding: the kb historical points, exam findings, and any diagnostic results supporting the discharge/admit diagnosis, lab results, radiology results, the need for further work-up and treatment in the hospital. Physician consultation: Jensen Salas MD was called at 16:10. 16:32 Physician consultation: Prince Carolann MENDOZA was contacted at 16:32, regarding admission, kb to the medical/surgical unit. patient's condition, and will see patient in ED, shortly. 02/22 12:22 Order name: Urine Microscopic Only; Complete Time: 15:08 kb 02/22 12:35 Order name: Basic Metabolic Panel; Complete Time: 13:09 kb 02/22 12:35 Order name: CBC with Diff; Complete Time: 12:56 kb 02/22 12:35 Order name: Hepatic Function; Complete Time: 13:09 kb 02/22 12:35 Order name: Lipase; Complete Time: 13:09 kb 02/22 13:45 Order name: Urine Dipstick--Ancillary (enter results) em1 02/22 12:22 Order name: Urine Dipstick-Ancillary (obtain specimen); Complete Time: 13:44 kb 02/22 12:35 Order name: IV Saline Lock; Complete Time: 13:20 kb 02/22 12:35 Order name: Labs collected and sent; Complete Time: 13:20 kb 02/22 13:10 Order name: CT Stone Protocol; Complete Time: 13:51 kb 02/22 13:52 Order name: US Abdomen Limited; Complete Time: 15:44 kb Administered Medications: 16:45 Drug: NS 0.9% 1000 ml Route: IV; Rate: 75 ml/hr; Site: right antecubital; ls4 16:55 Drug: Zosyn 3.375 grams Route: IVPB; Infused Over: 60 mins; Site: right antecubital; ls4 Disposition: 02/23 07:13 Co-signature as Attending Physician, Renny Schaeffer MD. rn Disposition: 02/23/20 16:33 Hospitalization ordered by Prince Carolann for Observation. Preliminary diagnosis are Cholelithiasis, Cholecystitis. - Bed requested for Telemetry/MedSurg (observation). - Status is Observation. ea - Condition is Stable. - Problem is new. - Symptoms are unchanged. Signatures: Dispatcher [employer] EDLilian Garcia, SUREKHA-Gregory IRBY-Nida Bettencourt, RN RN dw Renny Schaeffer MD MD rn Antunez, Elena, RN RN ea Ingrid Chahal, BAYRON VERMA ls4 Yanci Rucker RN RN ca1 Corrections: (The following items were deleted from the chart) 02/22 16:46 16:33 Hospitalization Ordered by Prince Carolann MENDOZA for Observation. Preliminary dw diagnosis is Cholelithiasis; Cholecystitis. Bed requested for Telemetry/MedSurg (observation). Status is Observation. Condition is Stable. Problem is new. Symptoms are unchanged. kb 19:21 16:46 02/23/2020 16:33 Hospitalization Ordered by Prince Carolann MENDOZA for Observation. ea Preliminary diagnosis is Cholelithiasis; Cholecystitis. Bed requested for Telemetry/MedSurg (observation). Status is Observation. Condition is Stable. Problem is new. Symptoms are unchanged. dw
--- NOTE | 2020-02-23 16:34 | ER ---
Nurse's Notes [facility] Name: New Jordan Age: 59 yrs Sex: Male : 1960 Arrival Date: 02/23/2020 Time: 12:16 Bed 17 Private MD: Diagnosis: Cholelithiasis;Cholecystitis Presentation: 02/22 12:20 Chief complaint: Patient states: Diffuse abdominal pain radiating to the back since ca1 yesterday evening. Reports nausea and little vomiting. Denies diarrhea. Denies fever. Coronavirus screen: Proceed with normal triage. Patient denies a cough. Patient denies shortness of breath or difficulty breathing. Patient denies measured and/or subjective temperature greater than 100.4F prior to today's visit. Patient denies travel on a cruise ship or to a country the [facility] currently lists as an affected area. Patient denies contact with known and/or suspected case of COVID-19. Ebola Screen: Patient negative for fever greater than or equal to 101.5 degrees Fahrenheit, and additional compatible Ebola Virus Disease symptoms Patient denies exposure to infectious person. Patient denies travel to an Ebola-affected area in the 21 days before illness onset. No symptoms or risks identified at this time. Initial Sepsis Screen: Does the patient meet any 2 criteria? No. Patient's initial sepsis screen is negative. Does the patient have a suspected source of infection? No. Patient's initial sepsis screen is negative. Risk Assessment: Do you want to hurt yourself or someone else? Patient reports no desire to harm self or others. Onset of symptoms was February 23, 2020. 12:20 Method Of Arrival: Wheelchair ca1 12:20 Acuity: ANKIT 2 ca1 Triage Assessment: 12:30 General: Appears in no apparent distress. uncomfortable, obese, Behavior is calm, bp cooperative, appropriate for age. Pain: Complains of pain in abdomen. EENT: No deficits noted. Neuro: No deficits noted. Cardiovascular: Rhythm is sinus rhythm. Respiratory: No deficits noted. GI: Abdomen is non-distended, obese. : No signs and/or symptoms were reported regarding the genitourinary system. Derm: No deficits noted. Musculoskeletal: No deficits noted. Historical: - Allergies: 12:26 No Known Allergies; ca1 - PMHx: 12:26 Bipolar disorder; Depression; Diabetes - IDDM; DVT; High Cholesterol; Hypertension; ca1 quadraple bypass; Schizophrenia; - PSHx: 12:26 CABG; ca1 - Immunization history:: Adult Immunizations up to date. - Social history:: Smoking status: Patient denies any tobacco usage or history of. Screenin:30 Abuse screen: Denies threats or abuse. Denies injuries from another. Nutritional bp screening: No deficits noted. Tuberculosis screening: No symptoms or risk factors identified. Fall Risk None identified. Assessment: 12:30 General: SEE TRIAGE NOTE. bp 13:20 Reassessment: PT TO CT WITH CHIEF CREATIVE OFFICER. bp 15:00 Reassessment: PT TO U/S, CT SUGGESTIVE OF WILDA. bp 16:44 Reassessment: HOSPITALIST AT B/S. bp 18:13 Respiratory: Airway is compromised Trachea midline Respiratory effort is even, ls4 unlabored, Respiratory pattern is regular, Breath sounds are clear bilaterally. the patient has mild shortness of breath. GI: Bowel sounds present X 4 quads. Abd is soft Abdomen is tender to palpation in right lower quadrant and right upper quadrant Reports lower abdominal pain. : Reports blood in urine. Derm: No deficits noted. No signs and/or symptoms reported regarding the dermatologic system. Musculoskeletal: No deficits noted. No signs and/or symptoms reported regarding the musculoskeletal system. 19:22 Reassessment: Patient and/or family updated on plan of care and expected duration. Pain ea level reassessed. Patient is alert, oriented x 3, equal unlabored respirations, skin warm/dry/pink. Pt admitted to second floor, pt left ED via stretcher per tech. Pt tolerating well. Report called to second floor per day shift ED nurse. Vital Signs: 12:20 BP 81 / 53; Pulse 89; Resp 16 S; Temp 98.4(TE); Pulse Ox 97% on R/A; Weight 115.67 kg ca1 (R); Height 5 ft. 8 in. (172.72 cm) (R); Pain 6/10; 12:33 BP 105 / 59; ca1 13:20 BP 93 / 70; Pulse 77; Resp 15; Pulse Ox 97% ; bp 15:26 BP 111 / 73; Pulse 84; Resp 18; Pulse Ox 99% on R/A; ls4 16:44 BP 115 / 79; Pulse 89; Resp 16; Pulse Ox 100% ; bp 12:20 Body Mass Index 38.77 (115.67 kg, 172.72 cm) ca1 ED Course: 12:16 Patient arrived in ED. as 12:18 Lil[facility]ill [facility]C [facility] kb 12:18 Renny Schaeffer MD is Attending Physician. kb 12:24 Triage completed. ca1 12:26 Arm band placed on right wrist. ca1 12:27 Blaze Dalton, RN is Primary Nurse. bp 12:30 Patient has correct armband on for positive identification. Bed in low position. Call bp light in reach. Side rails up X2. 12:43 Initial lab(s) drawn, by me, sent to lab. Inserted saline lock: 20 gauge in right ca1 forearm, using aseptic technique. Blood collected. 13:25 CT Stone Protocol In Process Unspecified. EDMS 14:00 No apparent distress. ls4 14:00 No provider procedures requiring assistance completed. Patient maintains SpO2 ls4 saturation greater than 95% on room air. 15:16 US Abdomen Limited In Process Unspecified. EDMS 16:33 Prince Vuong MD is Hospitalizing Provider. kb 19:21 Patient admitted, IV remains in place. ea Administered Medications: 16:45 Drug: NS 0.9% 1000 ml Route: IV; Rate: 75 ml/hr; Site: right antecubital; ls4 16:55 Drug: Zosyn 3.375 grams Route: IVPB; Infused Over: 60 mins; Site: right antecubital; ls4 Outcome: 16:33 Decision to Hospitalize by Provider. kb 19:20 Admitted to Med/surg accompanied by tech, via stretcher, room 230, on monitor. ea 19:20 Condition: stable 19:20 Instructed on the need for admit, Demonstrated understanding of instructions. 19:21 Patient left the ED. ea Signatures: Dispatcher [employer] EDMS Lilian Dill FNP-C FNP-Mirta Rosado Elena, RN RN ea Blaze Dalton, Ingrid Carter RN, RN RN ls4 Yanci Rucker RN RN ca1 Corrections: (The following items were deleted from the chart) 12:28 12:20 Acuity: ANKIT 3 ca1 ca1 12:28 12:20 Pulse 89bpm; Resp 16bpm; Spontaneous; Pulse Ox 97% RA; Temp 98.4F Temporal; ca1 115.67 kg Reported; Height 5 ft. 8 in. Reported; BMI: 38.7; Pain 6/10; ca1 17:20 17:19 Zosyn 3.375 grams IVPB in right antecubital over 60 mins ls4 ls4
--- NOTE | 2020-02-23 17:12 | P.HP ---
Certification for Inpatient Patient admitted to: Inpatient With expected LOS: >2 Midnights Patient will require the following post-hospital care: None Practitioner: I am a practitioner with admitting privileges, knowledge of patient current condition, hospital course, and medical plan of care. Services: Services provided to patient in accordance with Admission requirements found in Title 42 Section 412.3 of the Code of Federal Regulations Patient History Date of Service: 02/23/20 Reason for admission: Abdominal pain History of Present Illness: Patient is a 59-year-old man with a past medical history of hypertension, hyperlipidemia, coronary disease status post CABG 6 years ago, 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 He presents to the ER accompanied by with an acute onset of abdominal pain. He is describing a a right upper quadrant abdominal pain, which started less than 24 hr prior to presentation. Associated symptoms include subjective fever, chills and dry heaving. He arrived in the ER without signs of sepsis. Abdominal CT showed evidence of cholelithiasis and acute cholecystitis. Dr. Oconnor has been consulted and there is a tentative plan for a cholecystectomy tomorrow. Patient is on dual anti-platelet therapy aspirin and Plavix. My cardiac standpoint, she has been complaining of dyspnea on exertion without poor exercise tolerance. He has occasional bilateral lower extremity edema. His last stress test was September of 2019 in [place] and was told that the study was unremarkable. I consulted Cardiology for perioperative management Allergies No Known Drug Allergies Allergy (Verified 09/09/18 02:10) Unknown Home Medications: Aspirin [Aspirin EC 325 MG] 325 mg PO DAILY 09/09/18 Dulaglutide [Trulicity] 1.5 mg SQ Q7D 09/09/18 Fluoxetine HCl [Prozac] 40 mg PO DAILY 09/09/18 Fluticasone [Flonase 50MCG Nasal Lowry*] 1 puff IN BID 09/09/18 Gabapentin 100 mg PO BID 09/09/18 Insulin Glargine,Hum.rec.anlog [Toujeo Solostar] 10 unit SQ DAILY 09/09/18 Losartan Potassium [Cozaar] 75 mg PO DAILY 09/09/18 Metformin ER [Glucophage ER*] 750 mg PO BID 09/09/18 Pantoprazole [Protonix Tab*] 40 mg PO DAILY 09/09/18 Rosuvastatin Calcium 40 mg PO BEDTIME 09/09/18 Solifenacin Succinate [Vesicare] 10 mg PO DAILY 09/09/18 Albuterol Neb [Proventil 0.083% Neb Soln] 2.5 mg NEB [id number] PRN #14 amp 08/11/19 Guaifenesin/Dextromethorphan [Mucinex Dm ER 600-30 mg Tablet] 1 each PO BID #10 tab.er.12h 08/11/19 Ipratropium Neb [Atrovent*] 0.5 mg NEB [id number] PRN #14 amp 08/11/19 Levofloxacin [Levaquin] 500 mg PO DAILY #10 tablet 08/11/19 - Past Medical/Surgical History Diabetic: Yes -: CAD -: DM II -: HTN -: DVT -: Dyslipidemia -: Bipolar -: Depression -: HLD -: Schizophrenia -: IVC filter -: CABG -: Cardiac stents - Social History Alcohol use: No CD- Drugs: No Caffeine use: No Physical Examination - Physical Exam General: Cooperative, Acute distress, Mild distress, Obese HEENT: Atraumatic, Normocephalic Neck: Supple Respiratory: Clear to auscultation bilaterally, Normal air movement Cardiovascular: No edema, Normal pulses, Regular rate/rhythm, Normal S1 S2, Other Gastrointestinal: Normal bowel sounds, Non-distended, Tenderness Musculoskeletal: No clubbing, No swelling, No contractures, No erythema, No tenderness, No warmth Integumentary: No rashes, No breakdown, No significant lesion, No tenderness/swelling, No erythema, No warmth, No cyanosis Neurological: Normal speech, Normal tone, Sensation intact, Normal affect - Studies Laboratory Data (last 24 hrs) 02/23/20 12:42: WBC 10.9, Hgb 15.6, Hct 47.7, Plt Count 150 L 02/23/20 12:42: Sodium 137, Potassium 4.6, BUN 27 H, Creatinine 1.63 H, Glucose 229 H, Total Bilirubin 0.6, AST 27, ALT 32, Alkaline Phosphatase 63, Lipase 65 L Assessment and Plan - Problems (Diagnosis) (1) Cholecystitis, acute with cholelithiasis Current Visit: Yes Status: Acute (2) Hx of CABG Current Visit: Yes Status: Acute (3) Pacemaker Current Visit: Yes Status: Acute (4) CAD (coronary artery disease) Onset Date: 09/10/18 Current Visit: No Status: Acute Qualifiers: Coronary Disease-Associated Artery/Lesion type: bypass graft [place] vs. transplanted heart: [place] heart Associated angina: without angina Qualified Code(s): I25.810 - Atherosclerosis of coronary artery bypass graft(s) without angina pectoris (5) Diabetes mellitus Onset Date: 09/10/18 Current Visit: No Status: Acute Qualifiers: Diabetes mellitus type: type 2 Diabetes mellitus manager long term care insulin use: with manager long term care use Diabetes mellitus complication status: with unspecified complications (6) HTN (hypertension) Onset Date: 09/10/18 Current Visit: No Status: Acute Qualifiers: Hypertension type: essential hypertension Qualified Code(s): I10 - Essential (primary) hypertension (7) ZABRINA (acute kidney injury) Current Visit: Yes Status: Acute - Plan Assessment Patient is a 59-year-old male with a past medical history of hypertension, hyperlipidemia, coronary disease status post CABG, pacemaker placement for symptomatic bradycardia, and uncontrolled diabetes. He is currently admitted with acute cholecystitis with cholelithiasis and is pending surgical evaluation. Surgery has been consulted. I also consulted Cardiology for preop assessment PLAN Admit inpatient with telemetry NPO after midnight Start clear liquid diet and a slow infusion of lactated Ringer Anti emetics and multimodal pain regimen Surgery has been consulted. Possible cholecystectomy tomorrow Hold aspirin and Plavix perioperatively I have consulted Cardiology Nephrology consulted for ZABRINA Will obtain a preop EKG and chest x-ray Check for hemoglobin A1c and lipid panel Resume rest of home regimen except for insulin, which will be resumed at half the home dose since patient will be NPO tomorrow - Advance Directives Does patient have a Living Will: No Does patient have a Durable POA for Healthcare: No
[2020-02-23] MEDS ORDERED: IPRATROPIUM BROM 0.5MG/2.5ML NEB PRN (17:22)
[2020-02-23] MEDS ORDERED: ALBUTEROL 2.5 MG/3 ML NEB SOL NEB PRN (17:22)
[2020-02-23] MEDS ORDERED: SODIUM CHLORIDE 0.9% 10ML INJ IV PRN (17:25)
[2020-02-23] MEDS ORDERED: ONDANSETRON 4 MG/2 ML VIAL IV PRN (17:25)
[2020-02-23] MEDS: PIPER/TAZO/NS 3.375gm 3.375 GM/100 ML BAG IVPB SCH (19:47)
[2020-02-23 20:01] VITALS: BMI 38.7
[2020-02-23] MEDS: PANTOPRAZOLE 40 MG INJ IVP SCH (20:27)
[2020-02-23] MEDS: GABAPENTIN 100 MG CAP PO SCH (20:27)
[2020-02-23] MEDS: ROSUVASTATIN 10 MG TAB PO SCH (20:27)
[2020-02-23] MEDS ORDERED: GABAPENTIN 100 MG CAP PO SCH (21:00)
[2020-02-23] MEDS ORDERED: ROSUVASTATIN CALCIUM 40 MG PO SCH (21:00)
[2020-02-23 21:05] LABS: Urine Blood NEGATIVE (NEG); Urine Glucose 2+ (NEG); Urine Protein NEGATIVE (NEG); Urine pH 5.5 (5.0-7.0)
--- NOTE | 2020-02-23 21:37 | RAD REPORT ---
EXAM DESCRIPTION: Deven Single View02/23/2020 8:24 pm CLINICAL HISTORY: Preop cardiomegaly COMPARISON: none FINDINGS: The lungs appear clear of acute infiltrate. The heart is mildly enlarged. Pacemaker leads are in place IMPRESSION: No acute abnormalities displayed
--- NOTE | 2020-02-23 21:52 | P.CNS ---
Date of Consult: 02/23/20 PC: This 59-year-old male presents emergency room with severe abdominal pain for diagnosis and treatment. HPC: Patient states he had sudden onset of severe right upper quadrant abdominal pain. Head and crawling on the floor in misery. PMH: Coronary artery disease, defibrillator, diabetes, hypercholesterolemia PSHx: Open heart surgery, IVC filter SOC: No known allergies, medications were reviewed (he is on Plavix and aspirin SYS REVIEW: States he has been relatively good shape, saw his supervising broker recently and had no changes. No cough, temperatures, appetite is being good weight is steady O/E awake alert vital signs are stable at the moment, resting comfortably HEENT: Not jaundice Chest: Chest movement equal bilaterally ABD: Soft but still has some mild tenderness LOCO: Intact DATA: Documenting gallstones IMPRESSION: Biliary colic with cholelithiasis PLAN: I will take him to the in the morning to the operating room for laparoscopic cholecystectomy with cholangiogram. The risks of this surgery were discussed. The possibility of bleeding, infection, injury to bile ducts blood vessels intestines has been described. The possible need for an open and/or further surgeries and procedures was discussed. He understands and wants us to proceed.
[2020-02-23] MEDS ORDERED: GLUCAGON 1 MG/VIAL IM PRN (22:17)
[2020-02-23] MEDS ORDERED: NA CHLORIDE 0.9% 1,000 ML IV SCH (23:00)
[2020-02-23] MEDS: INSULIN -REGULAR HUMAN 50 UNIT/0.5 ML ML SQ SCH (23:26)
[2020-02-24] MEDS: PIPER/TAZO/NS 3.375gm 3.375 GM/100 ML BAG IVPB SCH ×3 (00:46→18:37)
[2020-02-24 04:42] LABS: Protime INR 1.12
--- NOTE | 2020-02-24 05:42 | CON ---
Date of Consultation: 02/23/2020 The patient admitted to Dr. Vuong on 02/23/2020. Reason For Consultation: Cardiac clearance for possible cholecystectomy. History Of Present Illness: Mr. Jordan is a 59-year-old black male. He is a patient of Dr. Amol hardin. Has had some cardiac history in the past. He has had a history of CABG. Has a pacemaker defibri llator. Apparently, has done very well as far as that is concerned. His last defibrillator check wa s the end of December, had an echocardiogram in the middle of December by Dr. Bee and according to the salvador ent, everything looked stable. He has not had any cardiac symptoms. Denied PND, orthopnea, pedal ed amber, palpitations, or syncope. He denied any chest pain. He came in and was found to have gallstone s. There is a plan for possible cholecystectomy although patient took his Plavix this morning. Past Medical History: As stated above, also included bipolar disorder, depression, diabetes, hyperte nsion, dyslipidemia, history of DVT. Past Surgical History: Includes CABG. Allergies: NONE. Review of Systems: Negative. Social History: Negative. Family History: Noncontributory. Medications: At home include, 1.Albuterol inhaler. 2.Aspirin. 3.Plavix. 4.Trulicity. 5.Jardiance. 6.Prozac. 7.Gabapentin. 8.Insulin. 9.Atrovent. 10.Losartan. 11.Metformin. 12.Protonix. 13.Crestor. 14.VESIcare. 15.Carvedilol. Physical Examination: Vital Signs: Stable. He was afebrile. HEENT: Negative. Neck: Supple with no bruit. Chest: Clear. Cardiac: Revealed paced rhythm. Abdomen: Negative. Extremities: Revealed no clubbing, cyanosis, or edema. Diagnostic Data: His creatinine is 1.63. EKG showed paced rhythm. Chest x-ray is negative. White count is 10.9. His glucose was 229. Troponin was negative. Ultrasound of the gallbladder showed ch olelithiasis with gallbladder wall thickening, probably cholecystitis. CT scan of the abdomen shows gallbladder that is distended, may indicate cholecystitis. Surgical consultation is pending. Impression And Plan: Mr. Jordan is a patient who has chronic systolic congestive heart failure. H e is status post coronary artery bypass graft in the past. He has a defibrillator pacemaker. Recent echocardiogram, pacemaker check in December by Dr. Bee seems to be stable. He is not having any card iac symptoms. He has unremarkable cardiac examination at this point. He is on appropriate therapy f rom a heart standpoint. My only concern is that he took Plavix this morning and his risk of bleeding is higher with surgery. I will leave that decision up to Dr. Salas and the family and Dr. Vuong as far as surgery is concerned, but from my standpoint, he is clear from a cardiovascular standpoint . I will continue to follow him along. His other problems including hypertension, dyslipidemia, diabetes seems to be well controlled. JANIS/XI Voice ID: [id number] Report ID: [id number]
[2020-02-24] MEDS: INSULIN -REGULAR HUMAN 50 UNIT/0.5 ML ML SQ SCH ×4 (07:30→18:00)
[2020-02-24 08:03] LABS: Potassium 3.9 mmol/L (3.5-5.1)
[2020-02-24] MEDS: D50W 25 GM/50 ML SYRINGE/VIAL IV PRN ×2 (08:08→12:38)
[2020-02-24] MEDS: SOLIFENACIN SUCCIN 5 MG TAB PO SCH (09:00)
[2020-02-24] MEDS ORDERED: HOME MED 1 EA UNK (Fluoxetine Hcl [Prozac] 40 MG) PO SCH (09:00)
[2020-02-24] MEDS: GABAPENTIN 100 MG CAP PO SCH ×2 (09:00→21:23)
[2020-02-24] MEDS: FLUOXETINE 20 MG CAP PO SCH (09:00)
[2020-02-24] MEDS: PANTOPRAZOLE 40 MG INJ IVP SCH (11:16)
[2020-02-24] MEDS ORDERED: GLUCAGON 1 MG/VIAL IM PRN (11:53)
[2020-02-24] MEDS ORDERED: D50W 25 GM/50 ML SYRINGE/VIAL IV PRN (11:53)
--- NOTE | 2020-02-24 11:54 | P.PN ---
Subjective Date of Service: 02/24/20 Chief Complaint: Abdominal pain Subjective: Other (NPO for possible cholecystectomy today. Hypoglycemic overnight with BG 48. Required D50 injection.) Physical Examination - Vital Signs Temperature: 98.2 F Blood Pressure: 116/75 Pulse: 64 Respirations: 16 Pulse Ox (%): 96 - Physical Exam General: In no apparent distress, Cooperative, Other (lethargic) HEENT: Atraumatic, Normocephalic, EOMI Neck: Supple Respiratory: Clear to auscultation bilaterally, Normal air movement Cardiovascular: No edema, Normal pulses, Regular rate/rhythm, Normal S1 S2, Oth er (AICD in place) Gastrointestinal: Normal bowel sounds, Soft and benign, Non-distended, No tenderness Musculoskeletal: No clubbing, No swelling, No contractures, No erythema, No tenderness, No warmth Integumentary: No rashes, No breakdown, No significant lesion, No tenderness/swelling, No erythema, No warmth, No cyanosis Neurological: Normal speech, Sensation intact, Normal affect - Studies Laboratory Data (last 24 hrs) 02/23/20 12:42: WBC 10.9, Hgb 15.6, Hct 47.7, Plt Count 150 L 02/23/20 12:42: Sodium 137, Potassium 4.6, BUN 27 H, Creatinine 1.63 H, Glucose 229 H, Total Bilirubin 0.6, AST 27, ALT 32, Alkaline Phosphatase 63, Lipase 65 L Assessment & Plan - Problems (Diagnosis) (1) Cholecystitis, acute with cholelithiasis Current Visit: Yes Status: Acute (2) Hx of CABG Current Visit: Yes Status: Acute (3) Pacemaker Current Visit: Yes Status: Acute (4) CAD (coronary artery disease) Onset Date: 09/10/18 Current Visit: No Status: Acute Qualifiers: Coronary Disease-Associated Artery/Lesion type: bypass graft [place] vs. transplanted heart: [place] heart Associated angina: without angina Qualified Code(s): I25.810 - Atherosclerosis of coronary artery bypass graft(s) without angina pectoris (5) Diabetes mellitus Onset Date: 09/10/18 Current Visit: No Status: Acute Qualifiers: Diabetes mellitus type: type 2 Diabetes mellitus fpc insulin use: with fpc use Diabetes mellitus complication status: with unspecified complications (6) HTN (hypertension) Onset Date: 09/10/18 Current Visit: No Status: Acute Qualifiers: Hypertension type: essential hypertension Qualified Code(s): I10 - Essential (primary) hypertension (7) ZABRINA (acute kidney injury) Current Visit: Yes Status: Acute Physician Review Additional Text: Assessment Patient is a 59-year-old male with a past medical history of hypertension, hyperlipidemia, coronary disease status post CABG (on DAPT), pacemaker placement for symptomatic bradycardia, and uncontrolled diabetes. He is currently admitted with acute cholecystitis with cholelithiasis and is pending surgical evaluation. He has been evaluated by Cardiology. No acute intervention or work up recommended. However, cardiology expressed concerned regarding higher risk of bleeding since patient took his plavix the morning of 02/23/2020. Surgery has been updated. Hospital course complicated by hypoglycemia after he has been NPO. He took 46 units of Toujeo (long acting insulin) the morning of 02/23/2020. PLAN Currently NPO Defer surgical decision to Dr. Oconnor Change IVF from NS to D5 1/2 NS infusion Hold insulin products including insulin sliding scale due to recent hypoglycemia Anti emetics and multimodal pain regimen Hold BP meds due to low-normal BP Continue holding aspirin and Plavix perioperatively
[2020-02-24] MEDS: D5 0.45 NS 1,000 ML IV SCH (12:27)
--- NOTE | 2020-02-24 13:27 | CON ---
Date of Consultation: 02/24/2020 Reason For Consult: Acute renal failure. History Of Present Illness: Mr. Jordan is a 59-year-old male with past medical hi story significant for history of coronary artery disease, hypertension, and morbid obesity, presented to the emergency room yesterday accompanied by his with acute onset of abdominal pain, which he described as right upper quadrant abdominal pain and he was found to have acute cholecystitis on the CT scan. He is being scheduled for cholecystectomy, however he has had a slight setback because of hypoglycemia from being n.p.o. status. Nephrology is being consulted for management of acute renal i nsufficiency. The patient is being also evaluated by Cardiology prior to his surgery because of the fact that he has coronary artery disease and he is on dual anti-platelet therapy. Past Medical History: Significant for history of coronary artery disease status post CABG, type 2 di abetes, hypertension, hyperlipidemia, bipolar disease, depression, history of IVC filter. Social History: No history of tobacco, alcohol, or drug use reported. Family History: Noncontributory. Review of Systems: Positive for abdominal pain, weakness, lethargy. All other review of systems are negative. Physical Examination: Vital Signs: At this time are showing temperature of 98.2, pulse rate of 64, respiratory rate of 16, and blood pressure 116/75. General: He appears in no acute distress. He is a morbidly obese male. HEENT: Atraumatic head. Lungs: Clear to auscultation. Abdomen: Soft with tenderness noted in the right upper quadrant. Extremities: Lower extremities showed no evidence of edema. Heart: Auscultation of the heart revealed regular rate and rhythm. Laboratory Data: At this time are showing creatinine improving to 1.3 from 1.6 yesterday. Sodium of 141, potassium of 3.9, chloride of 109, and BUN of 26. Blood glucose was down to 48 and has improve d to 105 at this time. LFTs were within normal limits yesterday, lipase was 65. CBC showed stable h emoglobin, hematocrit, and platelet count. Current Medications: Include, 1.D5 half-normal saline. 2.Zosyn every 8 hours. 3.VESIcare. 4.Aspirin and Plavix are currently on hold. 5.Insulin sliding scale. Impression: 1.Acute renal failure secondary to possibly from dehydration and acute cholecystitis. Currently, wi th improving renal function. Continue IV fluids and monitor closely. 2.History of coronary artery bypass graft. The patient has been evaluated by Cardiology and will ne ed to monitor closely for bleeding, especially given dual anti-platelet therapy. 3.History of pacemaker. 4.Type 2 diabetes. 5.Hypertension, currently stable. Plan: Patient is currently okay. Continue D5 half-normal saline to maintain his blood sugar levels and also maintain renal perfusion. Avoid further hypotension and intraoperative hypotension. Plan w as discussed with the patient's at bedside. He is okay for proceeding to surgery from Nephrolog y standpoint. Continue all other medications and plan of care. VV/MODL Voice ID: [id number] Report ID: [id number]
[2020-02-24] MEDS ORDERED: ROCURONIUM 50 MG/5 ML VIAL IV ONE (13:49)
[2020-02-24] MEDS ORDERED: FENTANYL CITR 100 MCG/2 ML ONE (13:49)
[2020-02-24] MEDS ORDERED: propofoL 200 MG/20 ML VIAL IV ONE (13:49)
[2020-02-24] MEDS ORDERED: ONDANSETRON 4 MG/2 ML VIAL ONE (13:50)
[2020-02-24] MEDS ORDERED: MIDAZOLAM HCL 2 MG/2 ML INJ ONE (13:50)
[2020-02-24] MEDS ORDERED: LIDOCAINE 2% MPF 5 ML VIAL ONE (13:50)
[2020-02-24] MEDS ORDERED: KETOROLAC 30 MG/ML INJ ONE (13:50)
[2020-02-24] MEDS ORDERED: dexAMETHasone 10 MG/ML VIAL ONE (13:50)
[2020-02-24] MEDS ORDERED: NA CHLORIDE 0.9% 1,000 ML ONE (13:52)
[2020-02-24] MEDS ORDERED: NS 0.9% VIAL 10 ML ONE (15:47)
[2020-02-24] MEDS ORDERED: Phenylephrine HCl 10 MG/ML 1 ML VIAL ONE (15:47)
[2020-02-24] MEDS ORDERED: ETOMIDATE 20 MG/10 ML VIAL IV ONE (16:04)
[2020-02-24] MEDS ORDERED: GLYCOPYRROLATE 0.2 MG/ML SYR ONE (16:40)
--- NOTE | 2020-02-24 17:33 | P.OP ---
Preoperative diagnosis: Cholecystitis with cholelithiasis Postoperative diagnosis: The same Primary procedure: Laparoscopic cholecystectomy Secondary procedure: Cholangiogram Anesthesia: General Estimated blood loss: Less than 10 cc Specimen: 1 gallbladder and contents Operative Technique: The patient was brought to the operating room placed supine on the table. After the induction of adequate general endotracheal anesthesia, the area of the abdomen was prepped with a DuraPrep solution, and draped in the usual aseptic manner. A subumbilical incision was made. This brought down through the skin and subcutaneous tissue. The Visiport was used to enter the peritoneal cavity and created pneumoperitoneum to approximately 12 mm of mercury. Under direct vision a 5 mm trocar was placed in the upper midline, and 2 other 5 mm trocars on the right lateral side. The patient was then placed in reverse Trendelenburg and rolled towards the pulper operator's side. We could see a chronically inflamed gallbladder with an acute component. There was a marked amount of adhesions to the serosal surface. These were thick dense chronic adhesions. There were gently dissected off the gallbladder from the fundus down towards Lashell's pouch. The gallbladder was also markedly distended. The contents were aspirated from the gallbladder itself. A grasper was now placed on the fundus of the gallbladder. Another 1 was placed down by Lashell's pouch. Applying lateral traction we were able to dissect and expose the cystic duct and artery. The artery was dealt with 1st. It was clipped and divided in the usual manner. A clip was then placed between the gallbladder and the cystic duct. An opening was made into the cystic duct. We attempted then to pass the cholangiocath into the c ystic duct.The cystic duct itself contained numerous valves. We were finally able to get the catheter to slide in. Our cholangiogram demonstrated good flow of contrast into the duodenum. No filling defects were noted. The catheter was removed. Clips were now placed on the distal portion of the cystic duct. The cystic duct was then divided. The gallbladder was now dissected free from the liver bed. There was a marked amount of edema between the gallbladder and the liver itself. The was also chronic thick scar tissue in this area as well. This pus was finally detached, and the placed into an Endo-Catch. The specimen was then brought out through the umbilical trocar site. The gallbladder fossa was inspected to ensure adequate hemostasis. It was irrigated with a saline solution and the irrigant aspirated from the peritoneal cavity. 0.25% Marcaine was aerosolized into the right upper quadrant and the gallbladder fossa. The umbilical trocar site was now approximated with an Endo Close and an absorbable sutures. The pneumoperitoneum was then collapsed, the suture tied, and nelsy applied to the skin. A further 0.25% Marcaine was injected around are incision sites. At the end of the procedure the patient was in a stable condition when sent to the recovery room. Needle sponge instrument count were correct. 1 specimen was sent for histopathology. Complications: None Transferred to: Recovery Room Condition: Good
[2020-02-24] MEDS ORDERED: D50W 25 GM/50 ML SYRINGE/VIAL IV ONE (17:41)
[2020-02-24] MEDS ORDERED: MORPHINE 4 MG/ML SYR IV PRN (17:47)
[2020-02-24] MEDS ORDERED: HYDROCODONE/APAP 7.5/325 MG TAB PO PRN (17:47)
[2020-02-24] MEDS: HYDROMORPHONE HCL 1 MG/ML INJ ONE ×2 (17:58→18:04)
[2020-02-24] MEDS: ROSUVASTATIN 10 MG TAB PO SCH (21:22)
--- NOTE | 2020-02-24 21:33 | PN ---
Date of Progress Note: 02/24/2020 Mr. Jordan was seen yesterday for preop clearance for cholecystectomy because of cholelithiasis wit h acute cholecystitis. Dr. Salas saw the patient yesterday. There is a plan for him to go to surg [facility] today for laparoscopic cholecystectomy. The patient continues to be in a paced rhythm. No cardi ac complaints. Vital signs stable. Chest is clear. He shows no peripheral edema. He has been off Plavix for more than 24 hours and we will await the recommendation of Dr. Salas and we will continu e to follow him along. I will be available for questions if the need arises. JANIS/XI Voice ID: [id number] Report ID: [id number]
--- NOTE | 2020-02-24 22:36 | RAD REPORT ---
EXAM DESCRIPTION: RAD - Cholangiogram Oper-Xray Or - 02/24/2020 6:23 pm FINDINGS: Two portable C-arm views were submitted from an intraoperative fluoroscopic assisted chola ngiogram. No suspicious or unexpected finding. Light weights is limited when only selected images are available. Fluoro time was 0.1 minutes.
[2020-02-25] MEDS: INSULIN -REGULAR HUMAN 50 UNIT/0.5 ML ML SQ SCH ×3 (00:23→12:05)
[2020-02-25] MEDS: PIPER/TAZO/NS 3.375gm 3.375 GM/100 ML BAG IVPB SCH ×2 (00:48→08:27)
[2020-02-25 02:11] VITALS: O2SAT 94
[2020-02-25] MEDS: D5 0.45 NS 1,000 ML IV SCH ×2 (03:11→08:00)
[2020-02-25] MEDS ORDERED: D50W 25 GM/50 ML SYRINGE/VIAL IV PRN (05:14)
[2020-02-25] MEDS ORDERED: GLUCAGON 1 MG/VIAL IM PRN (05:14)
[2020-02-25 05:17] LABS: Absolute Lymphocytes (CBC) 0.6 K/uL (0.7-4.9); Hematocrit 43.8 % (39.6-49.0); Lymphocytes % 4.8 % (15.3-44.8); MPV 11.1 fL (7.6-11.3); RBC Red Blood Cell Count 4.61 M/uL (4.33-5.43)
[2020-02-25 07:26] LABS: Blood Morphology Comment NOT SEEN (NOT SEEN); Platelet Estimate ADEQ
[2020-02-25] MEDS: FLUOXETINE 20 MG CAP PO SCH (08:25)
[2020-02-25] MEDS: GABAPENTIN 100 MG CAP PO SCH (08:26)
[2020-02-25] MEDS: SOLIFENACIN SUCCIN 5 MG TAB PO SCH (08:26)
[2020-02-25] MEDS: PANTOPRAZOLE 40 MG INJ IVP SCH (08:27)
[2020-02-25] MEDS ORDERED: INSULIN GLARGINE 100 UNITS/ML SQ SCH (09:00)
--- NOTE | 2020-02-25 11:02 | P.DS ---
Admission Date: 02/23/20 Discharge Date: 02/25/20 Disposition: ROUTINE DISCHARGE Discharge Condition: GOOD Reason for Admission: Abdominal pain - Problems (1) Cholecystitis, acute with cholelithiasis Current Visit: Yes Status: Acute (2) Hx of CABG Current Visit: Yes Status: Acute (3) Pacemaker Current Visit: Yes Status: Acute (4) CAD (coronary artery disease) Onset Date: 09/10/18 Current Visit: No Status: Acute Qualifiers: Coronary Disease-Associated Artery/Lesion type: bypass graft [place] vs. 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 He presents to the ER accompanied by with an acute onset of abdominal pain. He is describing a a right upper quadrant abdominal pain, which started less than 24 hr prior to presentation. Associated symptoms include subjective fever, chills and dry heaving. He arrived in the ER without signs of sepsis. Abdominal CT showed evidence of cholelithiasis and acute cholecystitis. Dr. Oconnor has been consulted and there is a tentative plan for a cholecystectomy tomorrow. Patient is on dual anti-platelet therapy aspirin and Plavix. My cardiac standpoint, she has been complaining of dyspnea on exertion without poor exercise tolerance. He has occasional bilateral lower extremity edema. His last stress test was September of 2019 in [place] and was told that the study was unremarkable. I consulted Cardiology for perioperative management Hospital Course: Patient is a 59 year old male who was admitted with acute cholecystitis complicated by cholelithiasis. He underwent laparascopic cholecystectomy without complications. He will be discharged today. Vital Signs/Physical Exam: Temp Pulse Resp BP Pulse Ox 97.8 F 77 18 138/79 97 02/25/20 08:00 02/25/20 08:00 02/25/20 08:00 02/25/20 08:00 02/25/20 08:00 General: Alert, In no apparent distress, Obese HEENT: Atraumatic, Normocephalic Neck: Supple Respiratory: Clear to auscultation bilaterally Cardiovascular: No edema, Normal pulses, Regular rate/rhythm, Normal S1 S2 Gastrointestinal: Normal bowel sounds, Soft and benign, No tenderness, No guarding Neurological: Normal speech, Sensation intact, Normal affect Laboratory Data at Discharge: WBC 11.6 K/uL (4.3-10.9) H 02/25/20 04:32 Hgb 14.0 g/dL (13.6-17.9) 02/25/20 04:32 Hct 43.8 % (39.6-49.0) 02/25/20 04:32 Plt Count 122 K/uL (152-406) L 02/25/20 04:32 PT 13.2 SECONDS (9.5-12.5) H 02/24/20 04:03 INR 1.12 02/24/20 04:03 APTT 34.7 SECONDS (24.3-36.9) 02/24/20 04:03 Sodium 135 mmol/L (136-145) L 02/25/20 04:32 Potassium 5.0 mmol/L (3.5-5.1) 02/25/20 04:32 BUN 27 mg/dL (7-18) H 02/25/20 04:32 Creatinine 1.56 mg/dL (0.55-1.3) H 02/25/20 04:32 Glucose 375 mg/dL (74-106) H 02/25/20 04:32 Total Bilirubin 0.6 mg/dL (0.2-1.0) 02/23/20 12:42 AST 27 U/L (15-37) 02/23/20 12:42 ALT 32 U/L (12-78) 02/23/20 12:42 Alkaline Phosphatase 63 U/L (45-117) 02/23/20 12:42 Triglycerides 85 mg/dL (<150) 02/24/20 04:03 Cholesterol 171 mg/dL (<200) 02/24/20 04:03 HDL Cholesterol 65 mg/dL (40-60) H 02/24/20 04:03 Cholesterol/HDL Ratio 2.63 02/24/20 04:03 Lipase 65 U/L (73-393) L 02/23/20 12:42 Home Medications: Dulaglutide [Trulicity] 1.5 mg SQ Q7D 09/09/18 Fluoxetine HCl [Prozac] 40 mg PO DAILY 09/09/18 Fluticasone [Flonase 50MCG Nasal Kathleen*] 1 puff IN BID 09/09/18 Gabapentin 600 mg PO BID 09/09/18 Losartan Potassium [Cozaar] 75 mg PO DAILY 09/09/18 Pantoprazole [Protonix Tab*] 40 mg PO DAILY 09/09/18 Rosuvastatin Calcium 40 mg PO BEDTIME 09/09/18 Solifenacin Succinate [Vesicare] 10 mg PO DAILY 09/09/18 Albuterol Neb [Proventil 0.083% Neb Soln] 2.5 mg NEB [id number] PRN #14 amp 08/11/19 Ipratropium Neb [Atrovent*] 0.5 mg NEB [id number] PRN #14 amp 08/11/19 Aspirin [Lo-Dose Aspirin EC] 1 tab PO DAILY 02/23/20 Clopidogrel Bisulfate [Plavix*] 75 mg PO DAILY 02/23/20 Empagliflozin [Jardiance] 1 tab PO DAILY 02/23/20 carvediloL [Carvedilol] 12.23 mg PO BID 02/23/20 Tramadol HCl [Ultram] 50 mg PO Q8HR PRN #7 tablet 02/25/20 New Medications: Tramadol HCl [Ultram] 50 mg PO Q8HR PRN #7 tablet PRN Reason: Abdominal Pain Diet: ADA
[2020-02-25 12:33] VITALS: BP 117/60; TEMP 98.2
--- NOTE | 2020-02-25 20:54 | P.PN ---
Date of Service: 02/25/20 Vital Signs Temp Pulse Resp BP Pulse Ox 98.2 F 81 19 117/60 96 02/25/20 12:00 02/25/20 12:00 02/25/20 12:00 02/25/20 12:00 02/25/20 12:00 Assessment/ Plan: Nephrology CPS stable without CP or SOB. Feeling better. +Appetite Reports ED. No acute events overnight. Vitals, medications, blood work and imaging reviewed in the chart. NAD. MMM. Neck supple. CTA. RRR. Soft Abd. No C/C/E. No rash. AAO. Normal Speech. Obese. A/ ZABRINA/ CKD III Hyponatremia Hypocalcemia HTN with CKD LE Edema DM II with CKD BPH with LUTS. P/ Continue current POC and Medications. IVF as needed. Continue abx. Recommend Vitamin D. Encourage nutrition. AM labs PRN. Daily weight. No NSAIDs. EXAM DESCRIPTION: US - Abdomen Exam Limited - 02/23/2020 3:17 pm CLINICAL HISTORY: Abdominal pain. COMPARISON: CT scan February 23, 2020 FINDINGS: Gallbladder wall is thickened measuring 9 millimeters. Multiple gallstones. Gallbladder is distended. The biliary tree is normal caliber. IMPRESSION: Cholelithiasis with gallbladder wall thickening probably cholecystitis. EXAM DESCRIPTION: RADChest Single View02/23/2020 8:24 pm CLINICAL HISTORY: Preop cardiomegaly COMPARISON: none FINDINGS: The lungs appear clear of acute infiltrate. The heart is mildly enlarged. Pacemaker leads are in place IMPRESSION: No acute abnormalities displayed EXAM DESCRIPTION: CT - Stone Protocol - 02/23/2020 1:24 pm CLINICAL HISTORY: Abdominal pain. Flank pain COMPARISON: 2010 TECHNIQUE: Computed axial tomography of the abdomen pelvis was obtained without oral or IV contrast. Lack of IV and oral contrast limits evaluation of solid organs, bowel, and vessels. Coronal reformatted images were obtained and reviewed. All CT scans are performed using dose optimization technique as appropriate and may include automated exposure control or mA/KV adjustment according to patient size. FINDINGS: A renal calculus is not seen. An ureteral calculus is not noted. A bladder calculus is not present. The liver, spleen, pancreas and right adrenal appear grossly normal 24 millimeter left adrenal nodule unchanged compatible with an adenoma. A filter is present within the IVC There is no evidence of diverticulitis. The appendix appears normal Multiple small gallstones. The gallbladder is distended. The gallbladder wall appears mildly thickened IMPRESSION: Negative for a genitourinary calculus Cholelithiasis. Gallbladder is distended. Mild gallbladder wall thickening may indicate cholecystitis
== END 2020-02-25 12:41 | disposition home or self-care (01) | DRG 418 ==
LOC: ER 12:13 → ERHOLD 16:33 → 2ND 18:11
PROVIDERS: ADMIT Internal Medicine; ATTEND Internal Medicine
PROC: BF121ZZ Fluoroscopy of Gallbladder using Low Osmolar Contrast (ICD-10-PCS; 2020-02-24)
PROC: 0FT44ZZ Resection of Gallbladder, Percutaneous Endoscopic Approach (ICD-10-PCS; principal; 2020-02-24 12:00)
DX: K80.00 Calculus of gallbladder with acute cholecystitis without obstruction (principal); I25.810 Atherosclerosis of coronary artery bypass graft(s) without angina pectoris; N17.9 Acute kidney failure, unspecified; I50.22 Chronic systolic (congestive) heart failure; K80.42 Calculus of bile duct with acute cholecystitis without obstruction; I13.0 Hypertensive heart and chronic kidney disease with heart failure and stage 1 through stage 4 chronic kidney disease, or unspecified chronic kidney disease; E87.1 Hypo-osmolality and hyponatremia; E78.5 Hyperlipidemia, unspecified; N40.1 Benign prostatic hyperplasia with lower urinary tract symptoms; Z95.5 Presence of coronary angioplasty implant and graft; Z68.38 Body mass index [BMI] 38.0-38.9, adult; Z95.810 Presence of automatic (implantable) cardiac defibrillator; E66.01 Morbid (severe) obesity due to excess calories; E86.0 Dehydration; N18.3 Chronic kidney disease, stage 3 (moderate); E11.22 Type 2 diabetes mellitus with diabetic chronic kidney disease; E83.51 Hypocalcemia; Z11.59 Encounter for screening for other viral diseases; R60.9 Edema, unspecified; Z79.82 Long term (current) use of aspirin; Z86.718 Personal history of other venous thrombosis and embolism; Z79.899 Other long term (current) drug therapy; Z79.4 Long term (current) use of insulin
CPT/HCPCS: 36415; 71045; 74176; 74300; 76377; 76705; 80048; 80061; 80076; 81003; 81015; 82947; 83036; 83690; 85025; 85610; 85730; 88304; 96374; 99285; C9113; J1100; J1170; J1815; J2250; J2370; J2405; J2543; J2704; J3010; J7030; J7799; U0002

== ENCOUNTER 2020-04-05 01:56 | Emergency (ER) | payer MEDICARE ==
--- OUTSIDE RECORDS SUMMARY | 2020-04-05 01:58 | XMS REPORT | Clinical Summary ---
:1960 Author Organization [facility] Address [address] [place] [address] Care Team Providers Name Role Phone Vinicius [...] INFLUENZA VACCINE 04/02/2020 Results Not on fileafter 04/05/2019 Insurance Payer Benefit Plan / Group Subscriber ID Effective Phone Addre ss Type Dates [facility] MEDICARE AARP MEDICARE COMPLETE xxxxxxxxx 2015-Prese HMO MCR nt [facility] xxxxxxxxx 2015-Prese HMO/PPO CHOICE/CHOICE + nt Advance Directives For more information, please contact: [phone] Type Date Recorded Patient Crumb Packer Explanati on Advance Directives, Living Will and Medical Power of Photographer'S Model
--- OUTSIDE RECORDS SUMMARY | 2020-04-05 01:59 | XMS REPORT | Continuity of Care Document ---
:1960 Author Organization [facility] [facility] Care Team Providers Name Role Phone [employer] [facility] Unavailable Un available Problems Problem Status Onset [...] Delmy ro Diastolic (mm Hg) 67 01/28/2019 [facility] Ne uro Height 172.72 cm 12/23/2018 [facility] Neuro Weight 112.727 12/23/2018 [facility] BMI Calculated 37.79 12/23/2018 [facility] Neuro Heart Rate 87 12/23/2018 [facility] Neuro Respitory Rate 16 12/23/2018 [facility] Neuro Systolic (mm Hg) 137 12/23/2018 [facility] Delmy ro Diastolic (mm Hg) 87 12/23/2018 [facility] Ne uro Encounters Location Location Encounter Encounter Reason Attending ADM [place] Stat us Source Details Type Number For Provider Date Date Visit Outpatient [id number] Balta[place] 12/05 [facility] Outpatient [id number] Baltazar 12/23 [facility] Outpatient [id number] Baltazar 12/23 12/24 [facility] Neurology [facility] [place] [facility]patient [id number] [place] 01/28 [facility] MNA Outpatient [id number] Baltazar 01/28 01/29 [facility] Neurology [facility] [place] Outpatient [id number] Baltazar 03/18 Active [facility] MNA Ambulatory [id number] Baltazar 03/18 03/18 [facility] Neurology Pre-Reg [facility] [place] Outpatient [id number] Baltazar 04/21 [facility] Outpatient [id number] Baltazar 04/21 04/22 [facility] Neurology [facility] [place] Outpatient [id number] Baltazar 08/11 Active [facility]NA Ambulatory [id number] Baltazar 08/11 08/11 [facility] Neurology Pre-Reg [facility] [place] Procedures No Data Provided for This Section Assessment and Plan No Data Provided for This Section Plan of Care No Data Provided for This Section Social History Social History Date Source Social History TypeResponse 04/21/2019 [facility] Neur o Smoking Status Unknown if ever smoked; 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
--- OUTSIDE RECORDS SUMMARY | 2020-04-05 01:59 | XMS REPORT | Clinical Summary ---
:1960 Author Organization [facility] Address [address] [place] [address] Care Team Providers Name Role Phone Unavailable [...] disease involving coronary bypass radha t of [place] heart 08/30/2017 without angina pectoris Type 2 [...] Not on file Implants Implanted Type Area Active Directory Administrator Device Shelf Model / Identifier Expiration Serial / Date Lot Closure Sys Perclose Progl 6fr [id number] - [id number] Cardiovascul ar Right: POE 06/01/2019 [id number] / Implanted: Qty: 1 on 08/30/2017 by Ele Leung MD [facility]:VASC DEV / Lutonix 035 Stents-Periphera Left: BARD VASCULAR [id number] / Implanted: Qty: 1 on 08/30/2017 by Ele Leung MD l Arterial / [id number] Lutonix 035 Stents-Periphera Left: BARD VASCULAR [id number] / Implanted: Qty: 1 on 08/30/2017 by Ele Leung MD l Arterial / [id number] [employer] Supera Stents-Periphera Left: POE 06/01/2018 [id number] / Implanted: Qty: 1 on 08/30/2017 by Ele Leung MD l Arterial VASCULAR / DEVICE [id number] [employer] Supera Stents-Periphera Left: POE 12/30/2017 [id number] / Implanted: Qty: 1 on 08/30/2017 by Ele Leung MD l Arterial VASCULAR / DEVICE [id number] Cook Stents-Periphera Left: Whistle [id number] 05/01 [id number] / Implanted: Qty: 1 on 08/30/2017 by Ele Leung MD l Arterial / [id number] Results Not on fileafter 04/05/2019 Insurance Payer Benefit Plan / Group Subscriber ID Type Phone A ddress [employer] - MEDICARE AARP/MEDICARE COMPLETE xxxxxxxxx MGD CARE Advance Directives For more information, please contact:[place] [phone] [place], [place] [phone] Code Status Date Activated Date Inactivated Comments Full Code 08/30/2017 4:15 AM 09/01/2017 3:36 PM This code status was determined by: Patient
--- OUTSIDE RECORDS SUMMARY | 2020-04-05 02:00 | XMS REPORT | Continuity of Care Document ---
:1960 Author Organization [facility] t Address 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 of sycuan sycuan heart heart without without angina angina pectoris pectoris Type 2 Type 2 Disease Active 2016-[address] [facility] diabetes diabetes 2-29 [facility] - mellitus mellitus 00:00: Medica l with with 00 Center complicati complicati on on Secondary Secondary Disease Active 2016-[address] [facility]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 2-29 Tracee kes - on on 00:00: Medical 00 Center Peripheral Problem Resolve 2019-08-13 Memoria vascular d 22:26:06 l disease [place] (disorder) Peripheral vascular disease (disorder) Resolved Problem 08/13/2019 [facility] Cervical Problem Active 2019-08-13 Mem oria spondylosi 22:26:06 l s Cervical Javier n (disorder) spondylosi s (disorder) Active Problem 08/13/2019 [facility] Cough Problem Active 2019-08-13 Memor ia (finding) 22:26:06 l Cough [place] (finding) Active Problem 08/13/2019 [facility] Diabetes Problem Active 2019-08-13 Mem oria mellitus 22:26:06 l (disorder) Diabetes He rmann mellitus (disorder) Active Problem 08/13/2019 [facility] Hyperlipid Problem Active 2019-08-13 M emoria emia 22:26:06 l (disorder) Javier n Hyperlipid emia (disorder) Active Problem 08/13/2019 [facility] Hypertensi Problem Active 2019-08-13 M emoria ve 22:26:06 l disorder, [place] systemic Hypertensi arterial ve (disorder) disorder, systemic arterial (disorder) Active Problem 08/13/2019 [facility] Lumbar Problem Active 2019-08-13 Memor ia radiculopa 22:26:06 l thy Lumbar [place] (disorder) radiculopa thy (disorder) Active Problem 08/13/2019 [facility] Morbid Problem Active 2019-08-13 Memor ia obesity 22:26:06 l (disorder) Morbid Herm esvin obesity (disorder) Active Problem 08/13/2019 [facility] Paresthesi Problem Active 2019-08-13 M emoria a 22:26:06 l (finding) [place] Paresthesi a (finding) Active Problem 08/13/2019 [facility] Peripheral Problem Active 2019-08-13 M emoria nerve 22:26:06 l disease [place] (disorder) Peripheral nerve disease (disorder) Active Problem 08/13/2019 [facility] Allergies, Adverse Reactions, Alerts Allergy Allergy Status Severity Reaction(s) Onset Inactive Treating Comm ents Source Name Type Date Date Clinician Iodine FA Active [facility] Iodide 00:00: [place] Contain 00 [facility] Produc guaifene DA Active [facility] sin [facility] 00:00: [address] No Known DA Active [facility] Allergie [facility] s 00:00: [address] No Known No Known Active Memori a Medicati Medicati l on on [place] Allergie Allergie s s Family History Family Member Diagnosis Comments Start Date Stop Date Source Natural father No Known Problems Gricelda Jacobs Natural mother No Known Problems Gricelda Jacobs Social History Social Habit Start Date Stop Date Quantity Comments Source Sex Assigned At [facility] Cigarettes smoked 2017-09-03 2017-09-03 [facility] - current (pack per 00:00:00 00:00:00 [facility] day) - Reported Alcohol intake 2016-08-02 2016-08-02 Current [facility] thodist 00:00:00 00:00:00 non-drinker of alcohol (finding) History of tobacco 2007-08-[address] [facility] use 00:00:00 [facility] Smoking Status Start Date Stop Date Source Former smoker 2017-09-03 00:00:00 2017-09-03 00:00:00 [facility] Medications Ordered Filled Start Stop Current Ordering Indication Dosage Frequency Signature Comments Components Source Medication Medication Date Date Medication? Clinician (SIG) Name Name aspirin 325 2016-09 Yes 325mg QD Take [address] MG tablet 2-29 mg by [facility] - 00:59: mouth Medical 09 daily. [place] FLUoxetine 2016-09 Yes 40mg QD Take [address] (PROZAC) 40 2-29 by mouth Luke s - MG capsule 00:59: daily. Medic al 09 [place] loratadine 2016-09 Yes 10mg Take [address] (CLARITIN) 2-29 by mouth [facility] - 10 mg 00:59: as needed Medical tablet 09 for Center Allergies. fluticasone 2016-09 Yes 1{spray 1 spray by [facility] (FLONASE) 2- } Nasal [facility] - 50 00:59: route as Medical mcg/actuati 09 needed for Ce nter on nasal Rhinitis. spray QUEtiapine 2016-09 Yes 100mg QD Take [address] (SEROQUEL) 2-29 mg by [facility] - 100 MG 00:39: mouth Medical tablet 06 nightly. [place] amitriptyli 2016-09 Yes 25mg QD Take [address] ne (ELAVIL) 2-29 by mouth Luke s - 25 MG 00:36: nightly. Medical tablet 58 [place] insulin 2016-09 Yes type [address] Q[address] [facility] regular 2-29 diabetes subcutaneo Tracee kes - (HUMULIN 00:36: mellitus usly 2 Med ical R,NOVOLIN 58 (two) Center R) 100 times unit/mL daily Use injection as directed . rosuvastati 2016-09 Yes 40mg QD Take [address] n (CRESTOR) 2-29 by mouth Luke s - 40 MG 00:36: daily. Medical tablet 58 [place] furosemide 2016-09 Yes visible 10mg QD Take [address] (LASIX) 10 2-29 water by mouth Luke s - mg/mL 00:36: retention daily. Medic al solution 58 [place] metFORMIN 2016-09 Yes 500mg Take [address] (GLUMETZA) 2-29 mg by [facility] - 500 MG 00:30: mouth Medical (MOD) 24 hr 55 daily with Ce nter tablet breakfast Takes it 2x day . aspirin 325 2015-09 Yes 325mg QD Take 325 [place] MG tablet 1-29 mg by Methodi 14:11: mouth st 20 daily. rosuvastati 2015-09 Yes 20mg QD Take 20 mg [facility] n (CRESTOR) 1-29 by mouth Meth shyla [...] 2{tbl} Q.5D Take 2 Gricelda ston SODIUM/MISO 1-29 tablets by Ms thodi PROSTOL 14:11: mouth 2 st (ARTHROTEC 20 (two) 75 ORAL) times a day. amitriptyli 2015-09 Yes 25mg QD Take 25 mg [place] ne (ELAVIL) 29 by mouth Meth shyla 25 MG 14:11: nightly. st tablet 20 LOSARTAN 2015-09 Yes 1{tbl} QD Take 1 [place] POTASSIUM 09-30 tablet by Cynthiao di (LOSARTAN 14:11: mouth st ORAL) 20 daily. insulin 2015-09 Yes 100U Q.5D Inject [address] [place] detemir 09-30 Units Methodi (LEVEMIR) 14:11: under the st 100 unit/mL 20 skin 2 injection (two) times a day. insulin 2015-09 Yes 30U Q.[id number] Inject 30 [place] lispro 09-30 [id number] Units Method i (HumaLOG) 14:11: 3D under the st 100 unit/mL 20 skin 3 injection (three) times a day before meals. Vital Signs Vital Name Observation Time Observation Value Comments Source Systolic (mm Hg) 2019-04-21 16:15:00 Cl rial [place] Diastolic (mm Hg) 2019-04-21 16:15:00 Mem orial [place] Heart Rate 2019-04-21 16:15:00 [facility] [place] Respitory Rate 2019-04-21 16:15:00 Memori al [place] Height 2019-04-21 16:15:00 172.72 cm [facility] [place] Weight 2019-04-21 16:15:00 [facility] [place] BMI Calculated 2019-04-21 16:15:00 Memori al [place] Heart Rate 2019-01-28 19:55:00 [facility] [place] Respitory Rate 2019-01-28 19:55:00 Memori al [place] Systolic (mm Hg) 2019-01-28 19:55:00 Cl rial [place] Diastolic (mm Hg) 2019-01-28 19:55:00 Mem orial [place] Height 2018-12-23 21:36:00 172.72 cm [facility] [place] Weight 2018-12-23 21:36:00 [facility] BMI Calculated 2018-12-23 21:36:00 Memori al [place] Heart Rate 2018-12-23 21:36:00 [facility] [place] Respitory Rate 2018-12-23 21:36:00 Memori al [place] Systolic (mm Hg) 2018-12-23 21:36:00 Cl [place] Diastolic (mm Hg) 2018-12-23 21:36:00 Mem orial [place] Procedures This patient has no known procedures. Plan of Care Planned Activity Planned Date Details Comments Source Future Scheduled 2020-04-02 INFLUENZA VACCINE [place] [facility] 00:00:00 [code = INFLUENZA VACCINE] Future Scheduled 2011 COLONOSCOPY SCREENING [facility] 00:00:00 [code = COLONOSCOPY SCREENING] Future Scheduled 2011 SHINGLES VACCINES [place] [facility] 00:00:00 (#1) [code = SHINGLES VACCINES (#1)] Encounters Start End Encounter Admission Attending Care Care Encounter Source Date/Time Date/Time Type Type Clinicians Facility Department ID 2020-01-26 2020-01-26 Telemedici Carranza, [facility] [id number] 07:58:17 08:28:17 ne Visit Larisa Silva [id number] [place] [id number] Professio [phone] [address] 2019-12-31 2019-12-31 Telephone Carranza, [facility] [id number] 00:00:00 00:00:00 Larisa [place] [id number] [place] [id number] Professio [phone] [address] 2019-12-24 2019-12-24 Telephone Carranza, [facility] [id number] 00:00:00 00:00:00 Wentong [place] [id number] [place] [id number] Professio [phone] [address] 2019-12-18 2019-12-18 Refill Carranza, [facility] [id number] 00:00:00 00:00:00 Larisa [place] [id number] [place] [id number] Professio [id number] [address] 2019-10-12 2019-10-12 Patient Carranza, [facility] [id number] 00:00:00 00:00:00 Secure Msg Larisa Silva [id number] [place] [id number] Professio [phone] nal 220 [facility] 2019-09-25 2019-09-25 [facility]phone [facility] [id number] 00:00:00 00:00:00 Carli Silva [id number] [place] [id number] Professio [phone] nal 059 [facility] 2019-09-23 2019-09-23 Office [facility] [id number] 10:40:06 12:19:03 Visit Larisa Silva [id number] [place] [id number] Professio [phone] nal 220 [facility] 2019-08-11 2019-08-11 Outpatient HAILEE Pham [id number] 09:30:00 09:30:00 Baltazar 05 [facility] 2019-04-21 2019-04-21 Outpatient HAILEE Pham [id number] 11:00:00 23:59:59 Baltazar 04 [facility] 2019-03-18 2019-03-18 Outpatient HAILEE Pham [id number] 14:45:00 14:45:00 Baltazar 03 [facility] 2019-01-28 2019-01-28 Outpatient HAILEE Pham [id number] 14:30:00 23:59:59 Baltazar 02 [facility] 2018-12-23 2018-12-23 Outpatient HAILEE Pham [id number] 16:15:00 23:59:59 Baltazar 01 Pr[facility] Results Test Description Test Time Test Comments Results Result Comments Source GLUCOSE BEDSIDE TESTING 2019-11-25 16:27:00 Test Item Value Reference Range Interpretation Comme nts GLUCOSE BEDSIDE TESTING (test code = GLUBED) 368 MG/DL 60-99 HH Notified Nurse~ GLUCOSE BEDSIDE [id number] 08:20:00 Test Item Value Reference Range Interpretation Comments GLUCOSE BEDSIDE TESTING (test code 109 MG/DL 60-99 H = GLUBED) GLUCOSE BEDSIDE [id number] 08:17:00 Test Item Value Reference Range Interpretation Comments GLUCOSE BEDSIDE TESTING 439 MG/DL 60-99 HH Noti fied Nurse~ (test code = GLUBED) BASIC METABOLIC [id number] 06:32:00 Test Item Value Reference Range Interpretation [...] 8.8 MG/DL 8.4-10.2 N CA) BASIC METABOLIC [id number] 06:28:00 Test Item Value Reference Range Interpretation [...] code = CA) MG/DL 8.7-9.7 CBC W/AUTO [id number] 06:17:00 Test Item Value Reference Range Interpretation [...] K/mm3 0.0-0.1 N NRBC#) - XR CHEST [id number] 11:58:00 Patient Name: INES WILKERSON Unit No: [id number] EXAMS: CPT CODE: [id number] XR CHEST 1V 10601 EXAM: XR Chest 1 View INDICATION: S/P [...] Regina Coles, RT (R) Transcrpt Date/Tm/Trnsp: 11/24/2019 (5578) AndraR.EB14 Orig Print D/T: S: 11/24/2019 (4519) [facility] NAME: INES WILKERSON [address] PHYS: [place] [address] : 1960 AGE: 59 SEX: M LOC: [facility] PHONE #: [phone] EXAM DATE: 11/24/2019 STATUS: [facility] FAX #: [phone] RADIOLOGY NO: PAGE 1 Signed ReportBASIC METABOLIC [id number] 07:32:00 Test Item Value Reference Range Interpretation [...] 9.4 MG/DL 8.4-10.2 N CA) Comments to Photo Finish Photographer: NURSE WILL BRING SPECIMEN TO LABIs this a LINE draw? N [id number] 07:32:00 Test Item Value Reference Range Interpretation Comments MAGNESIUM (test code = MAG) 2.1 MG/DL 1.6-2.3 N Comments to Photo Finish Photographer: NURSE WILL BRING SPECIMEN TO LABIs this a LINE draw? N BASIC METABOLIC [id number] 07:31:00 Test Item Value Reference Range Interpretation [...] code = MG/DL 8.7-9.7 CA) Comments to Photo Finish Photographer: NURSE WILL BRING SPECIMEN TO LABIs this a LINE draw? N [id number] 07:31:00 Test Item Value Reference Range Interpretation Comments MAGNESIUM (test code = MAG) MG/DL 1.6-2.3 Comments to Photo Finish Photographer: NURSE WILL BRING SPECIMEN TO LABIs this a LINE draw? N BASIC METABOLIC [id number] 07:29:00 Test Item Value Reference Range Interpretation [...] code = CA) MG/DL 8.7-9.7 Comments to Photo Finish Photographer: NURSE WILL BRING SPECIMEN TO LABIs this a LINE draw? N [id number] 07:29:00 Test Item Value Reference Range Interpretation Comments MAGNESIUM (test code = MAG) MG/DL 1.6-2.3 Comments to Photo Finish Photographer: NURSE WILL BRING SPECIMEN TO LABIs this a LINE draw? N BASIC METABOLIC [id number] 07:28:00 Test Item Value Reference Range Interpretation [...] code = CA) MG/DL 8.7-9.7 Comments to Photo Finish Photographer: NURSE WILL BRING SPECIMEN TO LABIs this a LINE draw? N [id number] 07:28:00 Test Item Value Reference Range Interpretation Comments MAGNESIUM (test code = MAG) MG/DL 1.6-2.3 Comments to Photo Finish Photographer: NURSE WILL BRING SPECIMEN TO LABIs this a LINE draw? N PROTHROMBIN [id number] 07:26:00 Test Item Value Reference Range Interpretation [...] verenice embolism. 3.0 - 4.5 Comments to Photo Finish Photographer: NURSE WILL BRING SPECIMEN TO LABPTT ACTIVATED 2019-11-24 07:26:00 Test Item Value Reference Range Interpretation Comments PTT ACTIVATED (test code = APTT) 34.6 SECONDS 25.1-36.5 N Comments to Photo Finish Photographer: NURSE WILL BRING SPECIMEN TO LABCBC W/AUTO [...] 0.00 K/mm3 0.0-0.1 N NRBC#) Comments to Photo Finish Photographer: NURSE WILL BRING SPECIMEN TO LABIs this a LINE draw? N HEMOGLOBIN [id number] 09:17:00 Test Item Value Reference Range Interpretation Comments HEMOGLOBIN A1C ([facility]) (test code = 8.3 % 4.3-6.1 H 368) POCT-GLUCOSE [id number] 08:15:00 Test Item Value Reference Range Interpretation Comments POC-GLUCOSE METER 143 mg/dL 70-110 H TESTED AT [place] [address] ([facility]) (test code = [facility] 1538) [id number] POCT-GLUCOSE [id number] 21:11:00 Test Item Value Reference Range Interpretation Comments POC-GLUCOSE METER 214 mg/dL 70-110 H TESTED AT [place] [address] ([facility]) (test code = [facility] 1538) [id number] POCT-GLUCOSE [id number] 17:19:00 Test Item Value Reference Range Interpretation Comments POC-GLUCOSE METER 160 mg/dL 70-110 H TESTED AT [place] [address] ([facility]) (test code = [facility] 1538) [id number] POCT-GLUCOSE [id number] 12:59:00 Test Item Value Reference Range Interpretation Comments POC-GLUCOSE METER 175 mg/dL 70-110 H TESTED AT [place] [address] ([facility]) (test code = [facility] 1538) [id number] POCT-GLUCOSE [id number] 09:21:00 Test Item Value Reference Range Interpretation Comments POC-GLUCOSE METER 194 mg/dL 70-110 H TESTED AT [place] [address] ([facility] (test code = [place] Nieto [facility] 1538) [address] POCT-GLUCOSE [id number] 21:05:00 Test Item Value Reference Range Interpretation Comments POC-GLUCOSE METER 264 mg/dL 70-110 H TESTED AT [place] [address] ([facility]) (test code = [place]A Nieto [facility] 1538) [address] POCT-GLUCOSE [id number] 17:11:00 Test Item Value Reference Range Interpretation Comments POC-GLUCOSE METER 158 mg/dL 70-110 H TESTED AT [place] [address] ([facility] (test code = [facility] Emilia [facility] 1538) [id number] POCT-GLUCOSE [id number] 12:14:00 Test Item Value Reference Range Interpretation Comments POC-GLUCOSE METER 127 mg/dL 70-110 H TESTED AT [place] [address] ([facility]) (test code = HERNANDE Emilia [facility] 1538) [address] BASIC METABOLIC [id number] 10:20:00 Test Item Value Reference Range Interpretation [...] NOT APPLICABLE FOR DIALYSIS PATIEN TS. POCT-GLUCOSE [id number] 09:05:00 Test Item Value Reference Range Interpretation Comments POC-GLUCOSE METER 108 mg/dL 70-110 TESTED AT [facility] 6720 (BEAKER) (test code = [place] 1538) [address] RAD, CHEST, 1 VIEW, NON [id number] 07:45:00Reason for exam:->pre-opShould this be performed at the bedside?->YesFINAL REPORT CLINICAL HISTORY: pre-op TECHNIQUE: 1 view of the chest. COMPARISON: None IMPRESSION: There are no focal infiltrates or effusions. A focal density in the medial right upper lung zone may be related to costochondral calcification from the right first rib. The cardiomediastinal silhouette is magnified by technique. Signed: Dorian Barnett Verified Date/Time: 08/30/2017 07:45:46 Reading Location: [facility] Radiology Reading Room PROTHROMBIN TIME/[id number] 07:17:00 Test Item Value Reference Range Interpretation Comments PROTIME (BEAKER) (test code = 13.3 seconds 11.7-14.7 759) INR ([facility]) (test code = 370) 1.0 <=5.9 RECOMMENDED COUMADIN/WARFARIN INR THERAPY RANGESSTANDARD DOSE: 2.0 - 3.0 Includes: PROPHYLAXIS forvenous thrombosis, systemic embolization; TREATMENT for venous thrombosis and/or pulmonary embolus.HIGH RISK: Target INR is 2.5-3.5 for patients with mechanical heart valves.Within 24 hours, if on CoumadinAPTT 2017-08-30 07:17:00 Test Item Value Reference Range Interpretation Comments PARTIAL THROMBOPLASTIN TIME 32.2 seconds 22.5-36.0 (BEAKER) (test code = 760) Within 24 hours, if on CoumadinCBC (HEMOGRAM ONLY)2017-08-30 07:07:00 Test Item Value Reference Range Interpretation Comments WHITE BLOOD CELL COUNT (BEAKER) 5.0 K/ L 3.5-10.5 (test code = [...]
[2020-04-05 02:34] LABS: Absolute Lymphocytes (CBC) 1.8 K/uL (0.7-4.9); Basophils % 0.6 % (0-1.3); Hematocrit 41.3 % (39.6-49.0); Lymphocytes % 27.4 % (15.3-44.8); RBC Red Blood Cell Count 4.37 M/uL (4.33-5.43)
[2020-04-05 02:37] LABS: Protime INR 0.95
[2020-04-05 02:50] LABS: Troponin (Emerg Dept Use Only) 0.28 ng/mL (0.0-0.045)
[2020-04-05] MEDS ORDERED: ASPIRIN 325 MG TAB ONE (03:55)
[2020-04-05] MEDS ORDERED: HEPARIN/D5W 25,000 UNIT/500 ML BAG IV ONE (05:07)
--- NOTE | 2020-04-05 05:11 | EDPHYS ---
Physician Documentation [facility] Name: [place] Age: 59 yrs Sex: Male : 1960 Arrival Date: 04/05/2020 Time: 01:58 Bed 16 Private MD: ED Physician Renny Schaeffer HPI: 04/05 02:17 This 59 yrs old Black Male presents to ER via Ambulatory with complaints of Leg Pain, rn Foot Pain. 02:17 The patient presents with pain. The complaints affect the left foot and left leg. rn Onset: The symptoms/episode began/occurred yesterday. Modifying factors: The symptoms are alleviated by nothing. the symptoms are aggravated by nothing. Severity of symptoms: At their worst the symptoms were mild, in the emergency department the symptoms are unchanged. The patient has experienced similar episodes in the past. The patient has not recently seen a physician. Reports pain and numbness to left foot and leg, began yesterday after doing some exercise, pain worse after rest and not during exercise. No trauma. No fever. Also reports tingling and pain to left arm, and left jaw pain. No acute speech or vision changes. No chest pain. Reports hx of DVT and arterial occlusion in past.. Historical: - Allergies: 02:00 No Known Allergies; sg - Home Meds: 02:30 aspirin 81 mg Oral TbEC 1 tab once daily [Active]; Crestor 20 mg Oral tab 1 tab once sg daily for Hypercholesterolemia [Active]; Fluoxetine Oral [Active]; furosemide 20 mg Oral tab 1 tab once daily [Active]; Jardiance 25 mg Oral tab 1 tab once daily [Active]; metformin 750 mg Oral Tb24 1 tab twice a day [Active]; nystatin Topical [Active]; omega xl [Active]; pantoprazole 40 mg Oral TbEC 1 tab once daily [Active]; Plavix 75 mg Oral tab 1 tab once daily [Active]; Toujeo SoloStar 300 unit/mL (1.5 mL) subcutaneous inpn 45 unit daily [Active]; Triamcinolone Acetonide Topical [Active]; Trulicity 0.75 mg/0.5 mL subcutaneous pnij 0.5 mL once wkly [Active]; Vesicare 10 mg Oral tab 1 tab once daily [Active]; - PMHx: 02:00 Bipolar disorder; Depression; Diabetes - IDDM; DVT; High Cholesterol; Hypertension; sg quadraple bypass; Schizophrenia; - PSHx: 02:00 CABG; sg - Immunization history:: Adult Immunizations not up to date. - Social history:: Smoking status: Patient denies any tobacco usage or history of. - Family history:: not pertinent. - Hospitalizations: : No recent hospitalization is reported. ROS: 02:19 Constitutional: Negative for fever, chills, and weight loss, Eyes: Negative for injury, rn pain, redness, and discharge, ENT: + left ear and left dental pain Neck: Negative for injury, pain, and swelling, Cardiovascular: Negative for chest pain, palpitations, and edema, Respiratory: Negative for shortness of breath, cough, wheezing, and pleuritic chest pain, Abdomen/GI: Negative for abdominal pain, nausea, vomiting, diarrhea, and constipation, Back: Negative for injury and pain, MS/Extremity: + left arm and leg numb and painful Skin: Negative for injury, rash, and discoloration, Neuro: Negative for headache, and seizure. Exam: 02:20 Constitutional: Overweight male, no acute distress Head/Face: Normocephalic, rn atraumatic. Eyes: Pupils equal round and reactive to light Neck: Trachea midline, no masses palpated, and no cervical lymphadenopathy. Supple, full range of motion without nuchal rigidity, or vertebral point tenderness. No Meningismus. Cardiovascular: Regular rate and rhythm. + unable to locate left DP pulse Respiratory: Speaking full sentences. No increased work of breathing, no retractions or nasal flaring. Abdomen/GI: soft, non-tender MS/ Extremity: Unable to palpate left DP or PT pulse. Right DP pulse normal. No cyanosis. RLE larger circumference than left leg, no erythema or warmth. Neuro: Awake and alert, GCS 15, oriented to person, place, time, and situation. Cranial nerves II-XII grossly intact. Motor strength 5/5 in all extremities. Sensory grossly intact. Cerebellar exam normal. 05:13 ECG was reviewed by the Attending Physician. rn Vital Signs: 02:11 BP 142 / 91; Pulse 83; Resp 18; Temp 98.2(O); Pulse Ox 100% on R/A; mg2 02:30 Weight 113.4 kg; mt2 03:00 BP 131 / 91; Pulse 73; Resp 16; Pulse Ox 96% ; Pain 5/10; mt2 04:00 BP 124 / 101; Pulse 79; Resp 16; Pulse Ox 96% ; Pain 5/10; mt2 05:00 BP 123 / 74; Pulse 74; Resp 16; Temp 97.9(O); Pulse Ox 95% on R/A; Pain 0/10; mt2 06:00 BP 119 / 71; Pulse 76; Resp 16; Pulse Ox 96% on R/A; Pain 0/10; mt2 07:55 BP 118 / 79; Pulse 73; Resp 17; Pulse Ox 97% on R/A; tw2 08:29 BP 120 / 74; Pulse 87; Resp 17; Pulse Ox 99% on R/A; tw2 MDM: 02:02 Patient medically screened. rn 04:26 ED course: U/S shows both non-occlusive DVT LLE and occlusion of left SFA stent, with rn high grade stenosis proximal left popliteal artery. Both could be cause of his pain, and partial DVT could be old as patient reports bilateral DVT in past, only takes aspirin and plavix for anticoagulation. Initiated transfer to [facility] given no vascular here and stent placed there. . 05:09 Differential diagnosis: arterial occlusion vs high grade stenosis, DVT, polyneuropathy. rn Data reviewed: vital signs, nurses notes, lab test result(s), radiologic studies, ultrasound, and as a result, I will admit patient. Counseling: I had a detailed discussion with the patient and/or guardian regarding: the historical points, exam findings, and any diagnostic results supporting the discharge/admit diagnosis, lab results, radiology results, the need to transfer to another facility, for higher level of care, [facility] does not immediately have the required specialist. 06:04 ED course: Pt accepted for transfer by hospitalist service and vascular at [facility], rn awaiting bed assignment. . 04/05 02:16 Order name: Basic Metabolic Panel; Complete Time: 03:46 rn 04/05 02:16 Order name: Protime (+inr); Complete Time: 03:05 rn 04/05 02:16 Order name: Ptt, Activated; Complete Time: 03:05 rn 04/05 02:17 Order name: CBC with Automated Diff; Complete Time: 03:05 EDMS 04/05 02:16 Order name: Extremity Venous Uni Ltd US rn 04/05 02:16 Order name: Lower Extremity Artery Uni Ltd US rn 04/05 02:17 Order name: CT Head Brain wo Cont rn 04/05 02:30 Order name: Troponin (Emerg Dept Use Only); Complete Time: 03:46 EDMS 04/05 03:21 Order name: NT PRO-BNP; Complete Time: 03:46 EDMS 04/05 02:16 Order name: IV Start; Complete Time: 06:39 rn 04/05 02:16 Order name: EKG; Complete Time: 02:17 rn 04/05 02:16 Order name: EKG - Nurse/Tech; Complete Time: 03:38 rn EC:13 Rate is 79 beats/min. Rhythm is regular. QRS is positive in lead I and negative in lead rn aVF. QRS interval is prolonged. QT interval is normal. No Q waves. T waves are Normal. No ST changes noted. Clinical impression: Ventricular paced rhythm. Interpreted by me. Reviewed by me. Administered Medications: 03:52 Drug: Aspirin Chewable Tablet 324 mg Route: PO; mt2 04:30 Follow up: Response: No adverse reaction mt2 05:12 Drug: Heparin (DVT/PE Drip) 18 units/kg/hr - (HEParin 94093 units, D5W 500 ml) mt2 {Co-Signature: shashank (Ross Brewer RN).} Route: IV; Rate: calculated rate; Site: left forearm; 06:37 Follow up: Response: No adverse reaction mt2 08:41 Follow up: IV Status: Infusion continued upon transfer tw2 Disposition: 04/05/20 05:[address] [facility]. Diagnosis are Acute embolism and thrombosis of unspecified deep veins of left lower extremity, Occlusion of left superficial femoral artery stent. - Reason for transfer: Higher level of care. - Accepting physician is Dr. Patel. - Condition is Stable. - Problem is new. - Symptoms are unchanged. Signatures: Dispatcher [employer] Ross Rosario RN RN sg Nieto, Roman, MD MD rn Wise, Tara, RN RN tw2 Juli Tolentino RN RN mt2 Ross encarnacion Corrections: (The following items were deleted from the chart) 02:28 02:19 TROPONIN (EMERG DEPT USE ONLY)+C.LAB.BRZ ordered. EDDC EDMS 03:20 03:06 PROBNP+C.LAB.BRZ ordered. [facility] 05:50 05:11 04/05/2020 05:[address] [facility]. rn Diagnosis is Acute embolism and thrombosis of unspecified deep veins of left lower extremity; Occlusion of left superficial femoral artery stent. Reason for transfer: Higher level of care. Accepting physician is . Condition is Stable. Problem is new. Symptoms are unchanged. rn 08:41 05:50 04/05/2020 05:[address] [facility]. tw2 Diagnosis is Acute embolism and thrombosis of unspecified deep veins of left lower extremity; Occlusion of left superficial femoral artery stent. Reason for transfer: Higher level of care. Accepting physician is Dr. Patel. Condition is Stable. Problem is new. Symptoms are unchanged. rn
--- NOTE | 2020-04-05 05:11 | ER ---
Nurse's Notes [facility] Name: [place] Age: 59 yrs Sex: Male : 1960 Arrival Date: 04/05/2020 Time: 01:58 Bed 16 Private MD: Diagnosis: Acute embolism and thrombosis of unspecified deep veins of left lower extremity;Occlusion of left superficial femoral artery stent Presentation: 04/05 02:00 Chief complaint: Patient states: Lower extremity pain, reports leg and foot pain for sg several days, worsening this morning, denies trauma or injury at this time. Coronavirus screen: Client denies travel out of the [place] in the last 14 days. At this time, the client does not indicate any symptoms associated with coronavirus-19. Ebola Screen: Patient negative for fever greater than or equal to 101.5 degrees Fahrenheit, and additional compatible Ebola Virus Disease symptoms Patient denies exposure to infectious person. Patient denies travel to an Ebola-affected area in the 21 days before illness onset. No symptoms or risks identified at this time. Initial Sepsis Screen: Does the patient meet any 2 criteria? No. Patient's initial sepsis screen is negative. Does the patient have a suspected source of infection? No. Patient's initial sepsis screen is negative. Risk Assessment: Do you want to hurt yourself or someone else? Patient reports no desire to harm self or others. Onset of symptoms was April 05, 2020. Care prior to arrival: None. Transition of care: patient was not received from another setting of care. 02:00 Method Of Arrival: Ambulatory sg 02:00 Acuity: ANKIT 3 sg Triage Assessment: 02:00 General: Appears uncomfortable, Behavior is cooperative. Neuro: No deficits noted. mt2 Cardiovascular: No deficits noted. Respiratory: No deficits noted. GI: No deficits noted. : No deficits noted. Derm: No deficits noted. Musculoskeletal: Reports numbness in left arm and left leg pain in left arm and left leg. Historical: - Allergies: 02:00 No Known Allergies; sg - Home Meds: 02:30 aspirin 81 mg Oral TbEC 1 tab once daily [Active]; Crestor 20 mg Oral tab 1 tab once sg daily for Hypercholesterolemia [Active]; Fluoxetine Oral [Active]; furosemide 20 mg Oral tab 1 tab once daily [Active]; Jardiance 25 mg Oral tab 1 tab once daily [Active]; metformin 750 mg Oral Tb24 1 tab twice a day [Active]; nystatin Topical [Active]; omega xl [Active]; pantoprazole 40 mg Oral TbEC 1 tab once daily [Active]; Plavix 75 mg Oral tab 1 tab once daily [Active]; Toujeo SoloStar 300 unit/mL (1.5 mL) subcutaneous inpn 45 unit daily [Active]; Triamcinolone Acetonide Topical [Active]; Trulicity 0.75 mg/0.5 mL subcutaneous pnij 0.5 mL once wkly [Active]; Vesicare 10 mg Oral tab 1 tab once daily [Active]; - PMHx: 02:00 Bipolar disorder; Depression; Diabetes - IDDM; DVT; High Cholesterol; Hypertension; sg quadraple bypass; Schizophrenia; - PSHx: 02:00 CABG; sg - Immunization history:: Adult Immunizations not up to date. - Social history:: Smoking status: Patient denies any tobacco usage or history of. - Family history:: not pertinent. - Hospitalizations: : No recent hospitalization is reported. Screenin:55 Abuse screen: Denies threats or abuse. Nutritional screening: No deficits noted. mt2 Tuberculosis screening: No symptoms or risk factors identified. Fall Risk None identified. Assessment: 02:00 Reassessment: Patient and/or family updated on plan of care and expected duration. Pain mt2 level reassessed. Patient is alert, oriented x 3, equal unlabored respirations, skin warm/dry/pink. General: Appears uncomfortable. Pain: Complains of pain in left leg Pain currently is 10 out of 10 on a pain scale. Neuro: No deficits noted. Cardiovascular: No deficits noted. Respiratory: No deficits noted. GI: No deficits noted. : No deficits noted. EENT: No deficits noted. Derm: No deficits noted. Musculoskeletal: Reports numbness in left arm and left leg pain in left leg since 04/04/2020. 03:00 Reassessment: Patient and/or family updated on plan of care and expected duration. Pain mt2 level reassessed. Patient is alert, oriented x 3, equal unlabored respirations, skin warm/dry/pink. General: Appears uncomfortable, Behavior is cooperative. Pain: Complains of pain in left leg Pain currently is 5 out of 10 on a pain scale. 04:00 Reassessment: No changes from previously documented assessment. Patient and/or family mt2 updated on plan of care and expected duration. Pain level reassessed. General: Appears uncomfortable, Behavior is cooperative. Pain: Complains of pain in left leg Pain currently is 5 out of 10 on a pain scale. 05:19 Reassessment: Patient and/or family updated on plan of care and expected duration. Pain mt2 level reassessed. Patient is alert, oriented x 3, equal unlabored respirations, skin warm/dry/pink. General: Appears uncomfortable, Behavior is cooperative. 06:37 Reassessment: Patient and/or family updated on plan of care and expected duration. Pain mt2 level reassessed. Patient is alert, oriented x 3, equal unlabored respirations, skin warm/dry/pink. Patient denies pain at this time. General: Appears in no apparent distress. Behavior is cooperative. 07:55 Reassessment: Patient appears in no apparent distress at this time. No changes from tw2 previously documented assessment. Patient and/or family updated on plan of care and expected duration. Pain level reassessed. Patient is alert, oriented x 3, equal unlabored respirations, skin warm/dry/pink. 08:29 Reassessment: Patient appears in no apparent distress at this time. No changes from tw2 previously documented assessment. Patient and/or family updated on plan of care and expected duration. Pain level reassessed. Patient is alert, oriented x 3, equal unlabored respirations, skin warm/dry/pink. Vital Signs: 02:11 BP 142 / 91; Pulse 83; Resp 18; Temp 98.2(O); Pulse Ox 100% on R/A; mg2 02:30 Weight 113.4 kg; mt2 03:00 BP 131 / 91; Pulse 73; Resp 16; Pulse Ox 96% ; Pain 5/10; mt2 04:00 BP 124 / 101; Pulse 79; Resp 16; Pulse Ox 96% ; Pain 5/10; mt2 05:00 BP 123 / 74; Pulse 74; Resp 16; Temp 97.9(O); Pulse Ox 95% on R/A; Pain 0/10; mt2 06:00 BP 119 / 71; Pulse 76; Resp 16; Pulse Ox 96% on R/A; Pain 0/10; mt2 07:55 BP 118 / 79; Pulse 73; Resp 17; Pulse Ox 97% on R/A; tw2 08:29 BP 120 / 74; Pulse 87; Resp 17; Pulse Ox 99% on R/A; tw2 ED Course: 01:58 Patient arrived in ED. ag3 02:00 Arm band placed on. sg 02:02 Triage completed. sg 02:02 Renny Schaeffer MD is Attending Physician. rn 02:23 Inserted saline lock: 20 gauge in left forearm, using aseptic technique. Blood tt3 collected. 02:24 Initial lab(s) drawn, by me, sent to lab. tt3 02:36 CT Head Brain wo Cont In Process Unspecified. EDMS 02:53 Juli Tolentino RN is Primary Nurse. mt2 03:00 Patient has correct armband on for positive identification. Call light in reach. Side mt2 rails up X 1. Side rails up X2. 03:17 Extremity Venous Uni Ltd US In Process Unspecified. EDMS 03:17 Lower Extremity Artery Uni Ltd US In Process Unspecified. EDMS 06:38 No provider procedures requiring assistance completed. mt2 07:00 Report received from BAYRON Bustos. tw2 07:02 Primary Nurse role handed off by Juli Tolentino RN tw2 07:02 Melissa Zavala, BAYRON is Primary Nurse. tw2 08:10 Report given to BAYRON Covarrubias w/[facility]. tw2 08:29 Patient transferred, IV remains in place. tw2 Administered Medications: 03:52 Drug: Aspirin Chewable Tablet 324 mg Route: PO; mt2 04:30 Follow up: Response: No adverse reaction mt2 05:12 Drug: Heparin (DVT/PE Drip) 18 units/kg/hr - (HEParin 81663 units, D5W 500 ml) mt2 {Co-Signature: shashank (Ross Brewer RN).} Route: IV; Rate: calculated rate; Site: left forearm; 06:37 Follow up: Response: No adverse reaction mt2 08:41 Follow up: IV Status: Infusion continued upon transfer tw2 Outcome: 05:11 ER care complete, transfer ordered by . rn 08:28 Transferred by ground EMS to [facility]. tw2 08:28 Condition: stable 08:28 Instructed on the need for transfer. 08:41 Patient left the ED. tw2 Signatures: Dispatcher [employer] EDRoss Vail RN RN sg Renny Schaeffer MD MD rn Wise, Tara, RN RN tw2 Juan Olivas RN RN [facility] Megan Merino ag3 Izaiah Carlin tt3 Juli Tolentino RN RN mt2 Ross Brewer RN sg Corrections: (The following items were deleted from the chart) 02:17 02:00 Acuity: ANKIT 4 shashank sg
[2020-04-05 08:52] VITALS: TEMP 97.9
[2020-04-05 08:56] VITALS: BP 120/74; O2SAT 99
--- NOTE | 2020-04-05 11:01 | EKG ---
Test Date: 2020-04-05 Test Time: 03:15:58 Community Service Representative: KEY MEASUREMENT RESULTS: Intervals: Rate: 79 CA: 142 QRSD: 132 QT: 414 QTc: 474 [place]: P: 68 CA: 142 QRS: -56 T: 108 INTERPRETIVE STATEMENTS: Electronic ventricular pacemaker Compared to ECG 08/09/2019 05:04:40 Sinus rhythm no longer present Sinus arrhythmia no longer present First degree AV block no longer present Left bundle-branch block no longer present T-wave abnormality no longer present Electronically Signed On 04-05-20 11:00:51 CDT by Malachi Bañuelos
--- NOTE | 2020-04-06 09:06 | RAD REPORT ---
EXAM DESCRIPTION: Left lower extremity arterial duplex ultrasound. CLINICAL HISTORY: 59 years Male, PAIN COMPARISON: None. TECHNIQUE: Grayscale, color Doppler, and spectral Doppler imaging of the left lower extremity arteri es. FINDINGS: Doppler imaging: Left leg: Multiphasic waveforms in the left common femoral artery. Monophasic waveforms in the prox imal, mid, and distal superficial femoral artery. Short segment highly elevated velocity of greater t ponce 200 cm/s in the left popliteal artery with monophasic waveforms in the distal left popliteal ananya ry as well as the visualized trifurcated vessels. Left SFA stent. IMPRESSION: 1. High-grade stenosis of likely greater than 90% involving the proximal left popliteal artery. This may be on the basis of collateral flow as the left SFA stent demonstrates either very hi gh-grade stenosis versus occlusion. CTA could provide additional characterization. Electronically signed by: Bandar Liz 04/05/2020 3:42 AM CDT Due to temporary technical issues with the PACS/Fluency reporting system, reports are being signed by the in house radiologist without review as a courtesy to ensure prompt reporting. The interpreting r adiologist is fully responsible for the content of the report.
--- NOTE | 2020-04-06 09:07 | RAD REPORT ---
EXAM DESCRIPTION: Head Brain Wo Cont CLINICAL HISTORY: NUMBNESS COMPARISON: None. TECHNIQUE: CT HEAD WITHOUT IV CONTRAST on 04/05/2020 2:17 AM CDT This exam was performed according to our departmental dose-optimization program, which includes autom ated exposure control, adjustment of the mA and/or kV according to patient size and/or use of iterati ve reconstruction technique. FINDINGS: There is no acute hemorrhage, mass effect or midline shift. Babcock-white differentiation is preserved. There is no hydrocephalus. There is no significant volume loss for age. The calvarium is intact. Orbits and globes are unremarkable. The paranasal sinuses are clear. Mastoid air cells are clear. IMPRESSION: No acute intracranial findings. Electronically signed by: Uriah Foster MD 04/05/2020 2:43 AM CDT Due to temporary technical issues with the PACS/Fluency reporting system, reports are being signed by the in house radiologist without review as a courtesy to ensure prompt reporting. The interpreting r adiologist is fully responsible for the content of the report.
--- NOTE | 2020-04-06 09:09 | RAD REPORT ---
EXAM DESCRIPTION: Lower Extremity venous Uni Ltd CLINICAL HISTORY: Pain;Numbness/tingling COMPARISON: None. TECHNIQUE: Grayscale, color Doppler, and spectral Doppler imaging of the left lower extremity venous system. FINDINGS: Incomplete compressibility with preserved flow in the mid left superficial femoral vein. M inimal weblike peripheral thrombus. Normal compressibility and flow identified in the left common fem oral, popliteal, and visualized calf veins. Respiratory phasicity in the common femoral veins. IMPRESSION: 1. Minimal nonocclusive DVT in the mid left superficial femoral vein. Electronically signed by: Bandar Liz 04/05/2020 3:57 AM CDT Due to temporary technical issues with the PACS/Fluency reporting system, reports are being signed by the in house radiologist without review as a courtesy to ensure prompt reporting. The interpreting r adiologist is fully responsible for the content of the report.
== END 2020-04-05 08:41 | disposition short-term general hospital (02) ==
LOC: ER 01:56
DX: I82.402 Acute embolism and thrombosis of unspecified deep veins of left lower extremity (principal); T82.856A Stenosis of peripheral vascular stent, initial encounter; I10 Essential (primary) hypertension; E78.00 Pure hypercholesterolemia, unspecified; E11.9 Type 2 diabetes mellitus without complications; F31.9 Bipolar disorder, unspecified; Z79.4 Long term (current) use of insulin; Z86.718 Personal history of other venous thrombosis and embolism; Z79.01 Long term (current) use of anticoagulants; Z79.82 Long term (current) use of aspirin
CPT/HCPCS: 93005; 85025; 80048; 36415; 85610; 85730; 84484; 83880; 70450; 93926; 93971; J1644; 96365; 96366; 99285

== ENCOUNTER 2022-04-12 04:55 | Emergency (ER) | payer OTHER ==
--- OUTSIDE RECORDS SUMMARY | 2022-04-12 04:59 | XMS REPORT | Continuity of Care Document ---
:1960 Author Organization [facility] t Address [address] [place] [address] Care Team Providers Name Role Phone ArnaudOpal Gregory Primary Care Physician VIDHYA GOMEZ Attending Clinician Unavailable ZORAN PETERSON Attending Clinician Unavailable ROMÁN Attending Clinician Unavailable A_Byrd Attending Clinician Unavailable Quita Alvarado MD Attending Clinician Lea Baugh Attending Clinician QUITA ALVARADO Attending Clinician Unavailable JUNE GOMEZ Attending Clinician Unavailable SANCHEZ HEAD Attending Clinician Unavailable ROGER MCKEON Attending Clinician Unavailable ALFREDO TONEY Attending Clinician Unavailable AVERY HOFFMAN Attending Clinician Unavailable Alfredo Toney MD Attending Clinician , Adc Surg Spec Procedure Attending Clinician Unavailable Te Sheth Attending Clinician Unavailable KARY LOONEY Attending Clinician Unavailable VIDHYA GOMEZ Admitting Clinician Unavailable ZORAN PETERSON Admitting Clinician Unavailable ROMÁN Admitting Clinician Unavailable A_Byrd Admitting Clinician Unavailable SANCHEZ VASQUEZ Admitting Clinician Unavailable PORTIA SMITH Admitting Clinician Unavailable Payers Payer Name Policy Type Policy Number Effective Date Expiration Date Lazara jackson AARP/MEDICARE [id number] 2016 COMPLETE 00:00:00 CDC REVIEW [id number] 2020 00:00:00 [facility] [id number] WELLMED/AARP [id number] 2019 MEDICARE ADVANTAGE 00:00:00 Problems Condition Condition Condition Status Onset Resolution Last Treating Co mments Source Name Details Category Date Date Treatment Clinician Date 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 a a 0- ity of 00:00: [place] [address] Medical Branch Essential Essential Disease Active 2017-09 Uni vers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 0-02 it y of on on 00:00: [place] [facility] Stage 3 Stage 3 Disease Active 2016-09 Univers chronic chronic 2-19 ity of kidney kidney 00:00: [place] disease disease 00 Medical Branch 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 diabetes diabetes 8 ity of mellitus mellitus 00:00: [place] with with [facility] diabetic diabetic Branch nephropath nephropath y, with y, with long-term long-term current current use of use of insulin insulin Dyslipidem Dyslipidem Disease Active U nivers ia ia 8 ity of 00:00: [place] [address] Medical Branch Allergies, Adverse Reactions, Alerts Allergy Allergy Status Severity Reaction(s) Onset Inactive Treating Comm ents Source Name Type Date Date Clinician Iodine FA Active SV 2019-0 [facility] Iodide 00:00: [address] Produc Iodine FA Active SV SNEEZING [facility] Iodide 00:00: [address] Produc IODINE Allergy Active Low N\T\V 2020-0 [facility] AND 3-24 IODIDE 00:00: [facility] guaifene DA Active U 2019-0 [facility] sin [facility] 00:00: [address] guaifene DA Active U itching [facility] 00:00: [address] No Known DA Active U [facility] Allergie 02-06 [facility] s 00:00: [address] No Known DA Active U [facility] Allergie 02-06 [facility] s 00:00: [address] NO KNOWN Allergy Active [facility] ALLERGIE S NO KNOWN Drug Active Univers ALLERGIE Class ity of S [facility] Social History Social Habit Start Date Stop Date Quantity Comments Source Tobacco use and 2017-04-09 2017-04-09 Never used [facility] exposure 00:00:00 00:00:00 Medical Branch Sex Ass[birth year] At [birth year] [facility] 00:00:00 00:00:00 Medical Branch Smoking Status Start Date Stop Date Source Never smoker [facility] Medications Ordered Filled Start Stop Current Ordering Indication Dosage Frequency Signature Comments Components Source Medication Medication Date Date Medication? Clinician (SIG) Name Name AMLODIPINE Yes [id number] Take 1 U nivers 10 mg 9-30 tablet by ity of tablet 00:00: mouth once [place] 00 daily Medical Branch AMLODIPINE Yes [id number] Take 1 U nivers 10 mg 9-30 tablet by ity of tablet 00:00: mouth once [place] 00 daily Medical Branch NOVOLOG Yes 6U inject 6 Univer s FLEXPEN 4-22 Units ity of U-100 00:00: under the [place] INSULIN 100 00 skin 3 Medica l unit/mL (3 (three) Branch mL) times injection daily before meals. NOVOLOG Yes 6U inject 6 Univer s FLEXPEN 4-22 Units ity of U-100 00:00: under the [place] INSULIN 100 00 skin 3 Medica l unit/mL (3 (three) Branch mL) times injection daily before meals. aspirin 81 0 Yes 325mg Take 325 Un esme mg chewable 4-20 mg by ity of tablet 09:52: mouth [place] 42 daily. Medical Branch aspirin 81 2020-0 Yes 325mg Take 325 Un esme mg chewable 4-20 mg by ity of tablet 09:52: mouth [place] 42 daily. Medical Branch clopidogreL 2020- Yes 75mg Take 75 mg Univers 75 mg 4-20 by mouth. ity of tablet 09:49: [place] 49 Medical Branch clopidogreL 2020-0 Yes 75mg Take 75 mg Univers 75 mg 4-20 by mouth. ity of tablet 09:49: [place] 49 Medical Branch gabapentin 2020-0 Yes 600mg Take 1 Univ ers ER 600 mg 4-20 tablet by ity o f tablet, 00:00: mouth [place] extended 00 daily. Medical release 24 Branch hr insulin Yes [id number] 50U inject 50 Univers glargine 4-20 Units ity of U-300 conc 00:00: [place] (TOUJE[place] skin every Medica l SOLOST morning. Branch U-300 INSULIN) 300 unit/mL (1.5 mL) InPn empaglifloz Yes [id number] 1{tbl} Take 1 Univers in 4-20 tablet by ity of (JARDIANCE) 00:00: mouth [place] 25 mg Tab 00 daily. Medical Branch dulaglutide Yes [id number] 1.5mg inject 1.5 Univers (TRULICITY) 4-20 mg under ity of 1.5 mg/0.5 00:00: the skin [place] as mL PnIj 00 weekly. Medical Branch blood sugar Yes [id number] Use 3 Univers diagnostic 4-20 Times ity of (ONETOUCH 00:00: [place] VERIO TEST 00 E11.65 Medical STRIPS) Branch strip rosuvastati Yes [id number] 40mg Take 1 Univers n 40 mg 4-20 tablet by ity of tablet 00:00: mouth at [place] 00 bedtime. Medical Branch lancets Yes [id number] Use 3 Univ ers (ONE TOUCH 4-20 Times ity of DELICA) 33 00:00: daily [place] gauge Misc 00 E11.65 Medical Branch gabapentin Yes 600mg Take 1 Univ ers ER 600 mg 4-20 tablet by ity o f tablet, 00:00: mouth [place] extended 00 daily. Medical release 24 Branch hr insulin Yes [id number] 50U inject 50 Univers glargine 4-20 Units ity of U-300 conc 00:00: [place] ([place]OU[place] 00 skin every Medica l SOLOSTAR morning. Branch U-300 INSULIN) 300 unit/mL (1.5 mL) InPn empaglifloz Yes [id number] 1{tbl} Take 1 Univers in 4-20 tablet by ity of (JARDIANCE) 00:00: mouth [place] 25 mg Tab 00 daily. Medical Branch dulaglutide Yes [id number] 1.5mg inject 1.5 Univers (TRULICITY) 4-20 mg under ity of 1.5 mg/0.5 00:00: the skin [place] as mL PnIj 00 weekly. Medical Branch blood sugar Yes [id number] Use 3 Univers diagnostic 4-20 Times ity of (ONETOUCH 00:00: [place] VERIO TEST Medical STRIPS) Branch strip rosuvastati Yes [id number] 40mg Take 1 Univers n 40 mg 4-20 tablet by ity of tablet 00:00: mouth at [place] [address] bedtime. Medical Branch lancets Yes [id number] Use 3 Univ ers (ONE TOUCH 4-20 Times ity of DELICA) 33 00:00: daily [facility] [place] [facility] Misc Medical Branch amLODIPine 0 2020- No [id number] 10mg Take 1 Univers 10 mg 4-20 09-30 tablet by ity of tablet 00:00: 00:00 mouth [place] 00 :00 daily. Medical Branch TAMSULOSIN 0 Yes [id number] Take 1 Univers 0.4 mg 24 4-13 9102 capsule by ity of hr capsule 00:00: mouth [place] 00 daily [place] TAMSULOSIN 0 Yes [id number] Take 1 Univers 0.4 mg 24 4-13 9102 capsule by ity of hr capsule 00:00: mouth [place] 00 daily Medical Branch solifenacin 2019- Yes 10mg Take 10 mg Univers 10 mg 2-30 by mouth. ity of tablet 11:05: [place] [facility] solifenacin 2019-09 Yes 10mg Take 10 mg Univers 10 mg 2-30 by mouth. ity of tablet 11:05: [place] [facility] ONETOUCH 2019-09 Yes [id number] Use as Un esme VERIO FLEX 2-30 directed ity o f START Kit 00:00: TIDA Medical Branch ONETOUCH 2019-09 Yes [id number] Use as Un esme VERIO FLEX 2-30 directed ity o f START Kit 00:00: TIDAC [place] [facility] furosemide 0 Yes 20mg Take 20 mg U nivers 20 mg 6-24 by mouth. ity of tablet 00:00: [place] [facility] furosemide 0 Yes 20mg Take 20 mg U nivers 20 mg 6-24 by mouth. ity of tablet 00:00: [place] [facility] fluticasone Yes INHALE 1 Un esme -umeclidin- 4-20 PUFF ONCE ity of vilanter 00:00: DAILY AT [place] (TRELEGY 00 THE SAME Medical ELLIPTA) TIME EACH Branch 100-62.5-25 DAY mcg DsDv fluticasone Yes INHALE 1 Un esme -umeclidin- 4-20 PUFF ONCE ity of vilanter 00:00: DAILY AT [place] (TRELEGY 00 THE SAME Medical ELLIPTA) TIME EACH Branch 100-62.5-25 DAY mcg DsDv pantoprazol Yes 40mg Take 40 mg Univers e 40 mg EC 1-08 by mouth. ity of tablet 00:00: [place] [facility] pantoprazol Yes 40mg Take 40 mg Univers e 40 mg EC 1-08 by mouth. ity of tablet 00:00: [place] [facility] loratadine 0 Yes 10mg Take 1 Unive rs 10 mg 2-22 tablet by ity of tablet 00:00: mouth [place] 00 daily. Medical Branch loratadine Yes 10mg Take 1 Unive rs 10 mg 2-22 tablet by ity of tablet 00:00: mouth [place] 00 daily. Medical Branch carvedilol 2016-09 Yes Univers 6.25 mg 0-30 ity of tablet 00:00: [place] 00 Medical Branch FLUoxetine 2016-09 Yes Univers 40 mg 0-30 ity of capsule 00:00: [place] 00 Medical Branch QUEtiapine 2016-09 Yes Univers 100 mg 0-30 ity of tablet 00:00: [place] [facility] amitriptyli 2016-09 Yes Univer s ne 10 mg 0-30 ity of tablet 00:00: [place] [facility] fluticasone 2016-09 Yes Univer s 50 0-30 ity of mcg/actuati 00:00: [place] on nasal 00 Medical spray Branch ketoconazol 2016-09 Yes Univer s e 2 % cream 0-30 ity of 00:00: [place] 00 Medical Branch carvedilol 2016-09 Yes Univers 6.25 mg 0-30 ity of tablet 00:00: [place] 00 Medical Branch FLUoxetine 2016-09 Yes Univers 40 mg 0-30 ity of capsule 00:00: [place] 00 Medical Branch QUEtiapine 2016-09 Yes Univers 100 mg 0-30 ity of tablet 00:00: [place] [facility] amitriptyli 2016-09 Yes Univer s ne 10 mg 0-30 ity of tablet 00:00: [place] [facility] fluticasone 2016-09 Yes Univer s 50 0-30 ity of mcg/actuati 00:00: [place] on nasal 00 Medical spray Branch ketoconazol 2016-09 Yes Univer s e 2 % cream 0-30 ity of 00:00: [place] 00 Medical Branch Immunizations Ordered Filled Immunization Date Status Comments Sourc e Immunization Name Name Influenza Virus 2020-08-31 Completed Universit y of Vaccine Quad .5 mL 00:00:00 [place] Medical IM 6+ MO Branch Influenza Virus 2020-08-31 Completed Universit y of Vaccine Quad .5 mL 00:00:00 [place] Medical IM 6+ MO Branch Vital Signs Vital Name Observation Time Observation Value Comments Source HEIGHT 2020-04-05 00:00:00 172.7 cm WEIGHT 2020-04-05 00:00:00 116.03 kg HEIGHT 2020-04-05 00:00:00 172.7 cm WEIGHT 2020-04-05 00:00:00 116.03 kg Procedures This patient has no known procedures. Encounters Start End Encounter Admission Attending Care Care Encounter Source Date/Time Date/Time Type Type Clinicians Facility Department ID 2021-06-07 Inpatient [facility] Surgery [id number] [facility] 03:29:59 VIDHYA 2020-04-05 Inpatient UR [facility] Vascular [id number] [facility] 09:56:00 ZORAN Alberto 2022-03-27 2022-03-27 Outpatient AMBREEN_FAR MEHOP [facility] [id number] [place] 11:29:00 11:29:00 VISHNU 0726 da [facility] Outre h Program 2022-01-30 2022-01-30 Outpatient [id number] [place] 09:45:00 09:45:00 0531 [facility] 2021-11-30 2021-11-30 KARISHMA Pritchett [id number] Univers 00:00:00 00:00:00 Quita SCHULZ [id number] i ty of [facility] [id number] [place] PROFESS[place] [id number] Mi dical NAL 220 [facility] 2021-05-25 2021-05-25 [facility] [id number] Univers 00:00:00 00:00:00 Lea Schulz [id number] i ty of [place] [id number] [place] Professio [id number] Mi dic[address] 2021-03-21 2021-03-21 Outpatient R JENNY [facility] [id number] Univers 13:30:00 13:30:00 QUITA [id number] [facility] 2021-03-21 2021-03-21 Outpatient R JENNY, [facility] [id number] Univers 13:30:00 13:30:00 QUITA [facility] 2020-12-22 2020-12-22 Outpatient R [facility] [id number] Univers 10:45:00 10:45:00 [id number] [facility] 2020-12-22 2020-12-22 Outpatient R JENNY, [facility] [id number] Univers 10:45:00 10:45:00 [facility] 2020-12-20 2020-12-20 Outpatient R ALVARADO, [facility] [id number] Univers 09:30:00 09:30:00 QUITA [id number] [facility] 2020-12-20 2020-12-20 Outpatient R ALVARADO, [facility] [id number] Univers 09:30:00 09:30:00 QUITA [facility] 2020-11-30 2020-11-30 Outpatient R GRAMM, [facility] [id number] Univers 15:30:00 15:30:00 [facility]E [id number] [facility] 2020-11-30 2020-11-30 Outpatient R GRAMM, [facility] [id number] Univers 15:30:00 15:30:00 JUNE [facility] 2020-11-21 2020-11-21 Outpatient R PATRICIA [facility] [id number] Univers 15:30:00 15:30:00 JUNE [id number] [facility] 2020-11-21 2020-11-21 Outpatient R PATRICIA, [facility] [id number] Univers 15:30:00 15:30:00 [facility] 2020-09-12 2020-09-12 Outpatient R PATRICIA [facility] [id number] Univers 13:45:00 13:45:00 JUNE [id number] [facility] 2020-09-12 2020-09-12 Outpatient R GRAMM, [facility] [id number] Univers 13:45:00 13:45:00 JUNE [facility] 2020-08-31 2020-08-31 Outpatient R JENNY [facility] [id number] Univers 10:00:00 10:00:00 QUITA [facility] 2020-08-31 2020-08-31 Outpatient R ALVARADO [facility] [id number] Univers 10:00:00 10:00:00 FRANCISCOSONIA [facility] 2020-08-02 2020-08-02 Outpatient R SONIDO, [facility] [id number] Univers 09:15:00 09:15:00 SANCHEZ torri o violeta [facility] 2020-08-02 2020-08-02 Outpatient R SONIDO [facility] [id number] Univers 09:15:00 09:15:00 SANCHEZ wild o f [facility] 2020-07-25 2020-07-25 Outpatient R [facility] [id number] Univers 08:00:00 08:00:00 [id number] [facility] 2020-07-25 2020-07-25 Outpatient R [facility] [id number] Univers 08:00:00 08:00:00 [facility] 2020-07-22 2020-07-22 Outpatient R [facility] [id number] Univers 15:00:00 15:00:00 [facility] 2020-07-22 2020-07-22 [facility] [id number] Univers 13:00:00 13:00:00 SENDIL [facility] 2020-07-21 2020-07-21 Outpatient R JAZMINE [facility] [id number] Univers 09:30:00 09:30:00 [facility] [id number] [facility] 2020-07-21 2020-07-21 Outpatient R JAZMINE [facility] [id number] Univers 09:30:00 09:30:00 [facility] 2020-07-19 2020-07-19 Outpatient R SONIDO [facility] [id number] Univers 09:00:00 09:00:00 SANCHEZ [id number] dariondarian o violeta [facility] 2020-07-19 2020-07-19 Outpatient R SONIDO [facility] [id number] Univers 09:00:00 09:00:00 SANCHEZ wild o f [facility] 2020-07-12 2020-07-12 Outpatient R YASMIN [facility] [id number] Univers 10:00:00 10:00:00 AVERY [facility] 2020-07-12 2020-07-12 Outpatient R YASMIN [facility] [id number] Univers 10:00:00 10:00:[address] [facility] 2020-06-23 2020-06-23 [facility] [id number] 08:08:49 09:11:59 Visit Rm, Adc Surg Spec Procedure [facility] 3 [id number] [place] [id number] Professio [id number] [address] 2020-06-23 2020-06-23 Outpatient R JAZMINE [facility] [id number] Univers 08:30:00 08:30:00 [facility] [id number] [facility] 2020-06-23 2020-06-23 Outpatient R JAZMINE [facility] [id number] Univers 08:30:00 08:30:00 [facility] 2020-05-31 2020-05-31 Outpatient R JENNY [facility] [id number] Univers 08:00:00 08:00:00 QUITA [id number] [facility] 2020-05-31 2020-05-31 Outpatient R JENNY [facility] [id number] Univers 08:00:00 08:00:00 [facility] 2020-05-30 2020-05-30 Outpatient R JAZMINE [facility] [id number] Univers 14:00:00 14:00:00 [facility] [id number] [facility] 2020-05-30 2020-05-30 Outpatient R JAZMINE [facility] [id number] Univers 14:00:00 14:00:00 [facility] 2020-05-02 2020-05-02 Outpatient EL [facility] SLE [id number] [facility] 00:00:00 00:00:00 2020-04-21 2020-04-21 Outpatient R JAZMINE [facility] [id number] Univers 14:45:00 14:45:00 [facility] 2020-04-21 2020-04-21 Outpatient R JAZMINE [facility] [id number] Univers 14:45:00 14:45:00 [facility] 2020-01-26 2020-01-26 Outpatient R JENNY [facility] [id number] Univers 09:00:00 09:00:00 [facility] 2019-11-24 2019-11-24 Outpatient Meryl, [facility] [id number] [facility] 07:30:00 07:30:00 Te [id number] [facility] Results Test Description Test Time Test Comments Results Result Comments Source SARS-COV2/RT-PCR ([facility]) 2020-04-13 06:48:00 Test Item Value Reference Range Interpretation Comme nts SARS-COV2/RT-PCR (test code = 7234655) Negative Not Detected, N egative, See external report for linked test SARS-COV-2 PERFORMING LAB (test code = [facility] ROZINA [id number]) Negative result for this test determines that SARS-CoV-2 RNA was not present in the specimen above the Limit of Detection (LOD). However, Negative results do not preclude SARS-CoV-2 infection and should not be used as the sole basis for treatment or patient management decisions. Negative results must be combined with clinical observations, patient history, and epidemiological information. A false negative result may occur if a specimen is improperly collected, transported or handled. A false negative result should be considered if patient's recent exposures or clinical presentation indicate that COVID-19 (SARS-CoV-2) is likely and diagnostic tests for other causes of illness are negative. Re-testing should be considered in cases of suspected false negatives.The limit of detection for this assay is 800 copies/mL.This SARS CoV-2 test is a real-time RT-PCR test intended for the qualitative detection of nucleic acid from SARS-CoV-2 in a nasopharyngeal swab specimen collected from individuals suspected of COVID-19 by their healthcare provider.This test has not been Food and Drug Administration (FDA) cleared or approved. This is a modified version of an approved Emergency Use Authorization (EUA) and is in the process of review by the FDA. Once authorized by the FDA, the issued EUA will be effective until the declaration that circumstances exist justifying the authorization of the emergency use ofin vitro diagnostic tests for detection and/or diagnosis of COVID-19 is terminated under Section 564(b)(2) of the Act or the EUA is revoked under Section 564(g) of the Act.Fact Sheet for Healthcare Prov iders:https://www.Decisionlink/sites/default/files/product/documents/Fact_Sheet_HC _Enhauihvi_Haqe_CEKC-EeI-7.pdfFact Sheet for Healthcare Patients:https://www.Decisionlink/sites/default/files/product/docume nts/Tsfo_Yoktr_Xsewphan_Xxvf_SBLF-SgQ-9.pdfPerforming Laboratory:[facility], [place] [address]QNOCV METABOLIC PANEL 2020-04-12 18:16:00 Test Item Value Reference Range Interpretation Comments SODIUM (BEAKER) 133 meq/L 136-145 L (test code = 381) POTASSIUM (BEAKER) 4.9 meq/L 3.5-5.1 Specimen slightly (test code = 379) hemolyzed CHLORIDE (BEAKER) 103 meq/L 98-107 (test code = 382) CO2 (BEAKER) (test 23 meq/L 22-29 code = 355) BLOOD UREA NITROGEN 21 mg/dL 7-21 (BEAKER) (test code = 354) CREATININE (BEAKER) 1.49 mg/dL 0.57-1.25 H Specimen slightly (test code = 358) hemolyzed GLUCOSE RANDOM 330 mg/dL 70-105 H (BEAKER) (test code = 652) CALCIUM (BEAKER) 9.4 mg/dL 8.4-10.2 (test code = 697) EGFR (BEAKER) (test 59 mL/min/1.73 ESTIMA NIRALI GFR IS code = 1092) sq m NOT ACCURATE CREATININE CLEARANCE IN PREDICTING GLOMERULAR FILTRATION RATE . ESTIMATED GFR I S NOT APPLICABLE FOR DIALYSIS PATIEN TS. Maple Syrup Maker ID - ASPOCT-[id number] 17:34:00 Test Item Value Reference Range Interpretation Comments POC-GLUCOSE METER 327 mg/dL 70-110 H : Notified RN/MD: (MOISES) (test code = TESTED AT [facility] 6720 1538) [facility], [address]: Maple Syrup Maker/Techni talia ID = [id number] for OM[facility], [facility] CT, CTA EXTREMITY, LOWER, [id number] 15:42:00Anesthesia:->NoneAddendum BeginsREPORT STATUS:A Addendum: April 12, 2020 at 1540 hours I have reviewed the CT images for this study and I concur with the nonvascular imaging findings as dictated. There is a 2.4 cm homogeneously enhancing (Hounsfield units increase from 25 to 60 postcontrast) massin the left adrenal gland, as described. Given the size and appearance of this mass, it likely represents a benign adenoma. Adrenal washout CT or chemical shift MRI is recommended for further evaluation and characterization. Signed: Duane Chappell MDReport Verified Date/Time: 04/12/2020 15:42:53 Reading Location: [place] [address] Angio Body Reading RoomAddendum EndsFINAL REPORT CT angio graphy of the lower extremities, 09-Apr-20 INDICATION: This is a 59 year old male with intermittent claudication presents for assessment. TECHNIQUE: Spiral acquisition before and during intravenous contrast administration using a Siemens multidetector CT scanner. Images were obtained before and duringthe dynamic passage of intravenous contrast material. Multi-planar 3-D volume- rendering reconstruction was performed using an independent workstation interactively by the interpreting physician as wellas the 3-D specialist for optimal visualisation of the abdominal aorta, pelvic arteries, and its srikanth pheral branches. Please refer to the contrast sheet scanned in the EPIC system for the amount and route of contrast given. This exam was performed according to our departmental dose-optimisation programme, which includes automated exposure control, adjustment of the mA and/or kV according to patient size and/or use of iterative reconstruction technique. Dose modulation, iterative reconstruction, and/or weight based adjustment of the mA/kV was utilized to reduce the radiation dose to as low as reasonably achievable. FINDINGS: VASCULAR: The abdominal aorta is normal in course and calibre. There is mild calcific and noncalcific atherosclerosis identified infrarenal abdominal aorta, and no ectasia or a neurysmal dilation is seen. There is no evidence of acute aortic pathology, specifically, there is no dissection, intramural hematoma, or contained rupture. Quantitative dimensions of the abdominal aorta are as follows: 2.1 cm at the mesenteric segment; 1.7 cm at the renal segment,; and 2.0 cm at the aortic bifurcation. Nonobstructive calcification is seen in the takeoff of the coeliac axis with no stenosis identified. Calcific and noncalcific atherosclerosis is seen in the proximal SMA, with some luminal irregularities identified. The JOANNA is patent. Single left and right main renal arteries are seen. Eccentric calcification is seen at takeoff of the left renal artery. In addition, three small accessory patent left renal arteries are seen and they are patent. An IVC filter is identified, that appears to be well positioned, and the superior/tip of the filter is located inferior to the entrance ofthe left and the right renal veins. This study is not optimised in the assessment of venous structure. Calcific and noncalcific atherosclerosis identified in the common iliac arteries wound with luminal irregularities/mild stenosis identified with no obstructive lesion is seen. The external iliac arteries, and the common femoral arteries, bilaterally, are patent, with nonobstructive atherosclerosis identified only. In the left, the left profunda system is unremarkable. Whilst the origin of the left SFA is widely patent, long stent system is identified throughout the pathway of the left SFA extending into the left popliteal artery proximally and the stent system is not filled by contrast indicatingocclusion. A short segment of the proximal left profunda system distal to the stent is also not filled by contrast indicating occlusion. Thereafter, the left popliteal artery at image 463 is being reconstitution by surrounding collaterals and the distal half of the artery is patent with calcific and noncalcific atherosclerosis identified, suggesting mild to moderate disease with no critical lesion present. Another moderate calcification is identified in the very distal left popliteal artery, at image 529. In the left lower extremity, the left tibioperoneal trunk is patent. The origin of the left posterior tibial artery is occluded for the proximal 1 to 2 cm, and remainder of the right posterior tibial artery is widely patent and the plantar arch is seen distally. The left peroneal artery is well e nhanced by contrast with scattered calcification identified. Severe disease/subtotal occlusion is seen throughout the course of the left anterior tibial artery though some enhancement is still identified in the dorsalis pedis artery. Mild to moderate calcification is identified at the proximal right SFA image 250, likely without any significant disease. Thereafter remainder of the right SFA has mixture of calcific and noncalcific atherosclerosis seen throughout the course of the right SFA, with no obstructive lesion identified. The right profunda system is unremarkable. Majority of the right popliteal artery is also widely patent, with mild calcific and noncalcific atherosclerosis present, with noobstructive lesion identified except in the very distal right popliteal artery at image 532, substantial calcific lesion is seen making accurate assessment limited. In the right lower extremity, the right anterior tibial artery is patent with scattered calcification identified in the dorsalis pedis artery is well seen. The right peroneal artery is well seen down to level of the ankle with mild calcification seen proximally. The right posterior tibial artery is patent and plantar arch is seen distally. Focal calcification is identified in the right posterior tibial artery at image 633, and accurate a ssessment at this level is limited. NONVASCULAR: The lung bases are unremarkable, where visualised. In the abdomen, the liver and spleen appears unremarkable. The liver edge is smooth. No abnormal enhancing structure is identified. Patient is post cholecystectomy. The pancreas appears unremarkable, with a degree of fatty infiltration identified near the head of the pancreas. The right adrenal gland is unremarkable. A nodule is identified in the lateral aspect of the left adrenal gland, measure 2.1 x2.2 cm, at image six of the precontrast series, with precontrast Hounsfield unit greater than 10 with a degree of enhancement identified. An addendum will be dictated regarding the optimal follow-up recommendation. No acute renal pathology seen and no hydronephrosis or perirenal fluid collection is identified. Renal cyst is identified in the right kidney, image 66, measure 1.6 cm in diameter with no e nhancement after contrast demonstration indicating simple in nature. Bowel is not well assessed by CT angiography as enteric contrast is not given. No obvious bowel dilation is identified. The appendixappears unremarkable. No free air or free fluid is identified in the abdomen and pelvis. The prostate gland is prominent. The bladder appears unremarkable. No free air or free fluid is identified in the abdomen and pelvis and no significant retroperitoneal adenopathy is seen. A skin defect is identified in the right groin that may suggest prior coronary intervention. Correlate clinically. No extravasation of contrast is seen and no haematoma is identified identified in the right groin. In the bony windows, no acute bony pathology is identified. CONCLUSIONS: 1. Scattered atherosclerosis is identified the abdominal aorta with no acute aortic pathology identified. No aneurysmal dilation is seen. Quantitative dimensions of the abdominal aorta as described above. 2. No inflow disease, bilaterally. 3. W hilst the origin of the left SFA is patent, long stent system is identified in remainder of the leftSFA extending into the proximal left popliteal artery that is not filled by contrast indicating occlusion. Remainder of the the [place]sp[place] distal half of the left popliteal artery is patent, however, at the most distal left popliteal artery, at image 529, moderate focal calcification is seen. Details of the runoff vessels in the left lower extremity as described above. 4. Mild to moderate calcification is seen at the takeoff of the right SFA with no significant disease identified. Remainder of the rightSFA has calcific and noncalcific atherosclerosis with no obstructive lesion appreciated. The right po pliteal artery is also unremarkable however, at the very distal right popliteal artery at image 532,significant calcification is seen making accurate assessment limited. 5. Details of the runoff vessels as described above and the right lower extremity. 6. Other findings as described above, including the left adrenal gland finding; an addendum will be dictated thereafter. 7. An addendum will be dictated regarding the non-vascular findings by the Transit Clerk Radiologist. Signed: [facility] Verified Date/Time: 04/10/2020 08:48:51 Reading Location: [place] [id number] CT Reading Room CT, CTA EXTREMITY, LOWER, [id number] 15:42:00Addendum BeginsREPORT STATUS:A Addendum: April 12, 2020 at 1540 hours I have reviewed the CT images for this study and I concur with the nonvascular imaging findings as dictated. There is a 2.4 cm homogeneously enhancing (Hounsfield units increase from 25 to 60 postcontrast) massin the left adrenal gland, as described. Given the size and appearance of this mass, it likely represents a benign adenoma. Adrenal washout CT or chemical shift MRI is recommended for further evaluation and characterization. Signed: Duane Chappell MDReport Verified Date/Time: 04/12/2020 15:42:53 Reading Location: [place] [address] Angio Body Reading RoomAddendum EndsFINAL REPORT CT angiography of the lower extremities, 09-Apr-20 INDICATION: This is a 59 year old male with intermittent claudication presents for assessment. TECHNIQUE: Spiral acquisition before and during intravenous contrast administration using a Siemens multidetector CT scanner. Images were obtained before and duringthe dynamic passage of intravenous contrast material. Multi- planar 3-D volume-rendering reconstruction was performed using an independent workstation interactively by the interpreting physician as wellas the 3-D specialist for optimal visualisation of the abdominal aorta, pelvic arteries, and its peripheral branches. Please refer to the contrast sheet scanned in the EPIC system for the amount and route of contrast given. This exam was performed according to our departmental dose-optimisation programme, which includes automated exposure control, adjustment of the mA and/or kV according to patient size and/or use of iterative reconstruction technique. Dose modulation, iterative reconstruction, and/or weight based adjustment of the mA/kV was utilized to reduce the radiation dose to as low as reasonably achievable. FINDINGS: VASCULAR: The abdominal aorta is normal in course and calibre. There is mild calcific and noncalcific atherosclerosis identified infrarenal abdominal aorta, and no ectasia or aneurysmal dilation is seen. There is no evidence of acute aortic pathology, specifically, there is no dissection, intramural hematoma, or contained rupture. Quantitative dimensions of the abdominal aorta are as follows: 2.1 cm at the mesenteric segment; 1.7 cm at the renal segment,; and 2.0 cm at the aortic bifurcation. Nonobstructive calcification is seen in the takeoff of the coeliac axis with no stenosis identified. Calcific and noncalcific atherosclerosis is seen in the proximal SMA, with some luminal irregularities identified. The JOANNA is patent. Single left and right main renal arteries are seen. Eccentric calcification is seen at takeoff of the left renal artery. In addition, three small accessory patent left renal arteries are seen and they are patent. An IVC filter is identified, that appears to be well positioned, and the superior/tip of the filter is located inferior to the entrance ofthe left and the right renal veins. This study is not optimised in the assessment of venous structure. Calcific and noncalcific atherosclerosis identified in the common iliac arteries wound with luminal irregularities/mild stenosis identified with no obstructive lesion is seen. The external iliac arter ies, and the common femoral arteries, bilaterally, are patent, with nonobstructive atherosclerosis identified only. In the left, the left profunda system is unremarkable. Whilst the origin of the left SFA is widely patent, long stent system is identified throughout the pathway of the left SFA extending into the left popliteal artery proximally and the stent system is not filled by contrast indicatingocclusion. A short segment of the proximal left profunda system distal to the stent is also not filled by contrast indicating occlusion. Thereafter, the left popliteal artery at image 463 is being reconstitution by surrounding collaterals and the distal half of the artery is patent with calcific and noncalcific atherosclerosis identified, suggesting mild to moderate disease with no critical lesion present. Another moderate calcification is identified in the very distal left popliteal artery, at image 529. In the left lower extremity, the left tibioperoneal trunk is patent. The origin of the left posterior tibial artery is occluded for the proximal 1 to 2 cm, and remainder of the right posterior tibial artery is widely patent and the plantar arch is seen distally. The left peroneal artery is well enhanced by contrast with scattered calcification identified. Severe disease/subtotal occlusion is seen throughout the course of the left anterior tibial artery though some enhancement is still identified in the dorsalis pedis artery. Mild to moderate calcification is identified at the proximal right SFA image 250, likely without any significant disease. Thereafter remainder of the right SFA has mixture of calcific and noncalcific atherosclerosis seen throughout the course of the right SFA, with no obstructive lesion identified. The right profunda system is unremarkable. Majority of the right popliteal artery is also widely patent, with mild calcific and noncalcific atherosclerosis present, with noobstructive lesion identified except in the very distal right popliteal artery at image 532, substantial calcific lesion is seen making accurate assessment limited. In the right lower extremity, the right anterior tibial artery is patent with scattered calcification identified in the dorsalis pedis artery is well seen. The right peroneal artery is well seen down to level of the ankle with mild calcification seen proximally. The right posterior tibial artery is patent and plantar arch is seen distally. Focal calcification is identified in the right posterior tibial artery at image 633, and accurate assessment at this level is limited. NONVASCULAR: The lung bases are unremarkable, where visualised. In the abdomen, the liver and spleen appears unremarkable. The liver edge is smooth. No abnormal enhancing structure is identified. Patient is post cholecystectomy. The pancreas appears unremarkable, with a degree of fatty infiltration identified near the head of the pancreas. The right adrenal gland is unremarkable. A nodule is identified in the lateral aspect of the left adrenal gland, measure 2.1 x2.2 cm, at image six of the precontrast series, with precontrast Hounsfield unit greater than 10 with a degree of enhancement identified. An addendum will be dictated regarding the optimal follow-up recommendation. No acute renal pathology seen and no hydronephrosis or perirenal fluid collection is identified. Renal cyst is identified in the right kidney, image 66, measure 1.6 cm in diameter with no e nhancement after contrast demonstration indicating simple in nature. Bowel is not well assessed by CT angiography as enteric contrast is not given. No obvious bowel dilation is identified. The appendixappears unremarkable. No free air or free fluid is identified in the abdomen and pelvis. The prostate gland is prominent. The bladder appears unremarkable. No free air or free fluid is identified in the abdomen and pelvis and no significant retroperitoneal adenopathy is seen. A skin defect is identified in the right groin that may suggest prior coronary intervention. Correlate clinically. No extravasation of contrast is seen and no haematoma is identified identified in the right groin. In the bony windows, no acute bony pathology is identified. CONCLUSIONS: 1. Scattered atherosclerosis is identified the abdominal aorta with no acute aortic pathology identified. No aneurysmal dilation is seen. Quantitative dimensions of the abdominal aorta as described above. 2. No inflow disease, bilaterally. 3. W hilst the origin of the left SFA is patent, long stent system is identified in remainder of the leftSFA extending into the proximal left popliteal artery that is not filled by contrast indicating occlusion. Remainder of the the [place] distal half of the left popliteal artery is patent, however, at the most distal left popliteal artery, at image 529, moderate focal calcification is seen. Details of the runoff vessels in the left lower extremity as described above. 4. Mild to moderate calcification is seen at the takeoff of the right SFA with no significant disease identified. Remainder of the rightSFA has calcific and noncalcific atherosclerosis with no obstructive lesion appreciated. The right po pliteal artery is also unremarkable however, at the very distal right popliteal artery at image 532,significant calcification is seen making accurate assessment limited. 5. Details of the runoff vessels as described above and the right lower extremity. 6. Other findings as described above, including the left adrenal gland finding; an addendum will be dictated thereafter. 7. An addendum will be dictated regarding the non-vascular findings by the Transit Clerk Radiologist. Signed: Rex Hodge MDReport Verified Date/Time: 04/10/2020 08:48:51 Reading Location: [place] [address] CT Reading Room POCT-GLUCOSE [id number] 07:28:00 Test Item Value Reference Range Interpretation Comments POC-GLUCOSE METER 416 mg/dL 70-110 HH : Notified RN/: (MOISES) (test code = TESTED AT [facility] 6720 1538) [facility], [address]: Maple Syrup Maker/Techni talia ID = [id number] for SHANIA PANDEY CBC (HEMOGRAM ONLY)2020-04-12 05:56:00 Test Item Value Reference Range Interpretation Comments WHITE BLOOD CELL COUNT (MOISES) 7.4 K/ L 3.5-10.5 (test code = 775) RED BLOOD CELL COUNT (LUCÍAAKER) 4.74 M/ L 4.63-6.08 (test code = 761) [facility] (test code = 14.4 GM/DL 13.7-17.5 410) HEMATOCRIT (BEAKER) (test code = 45.1 % 40.1-51.0 411) MEAN CORPUSCULAR VOLUME (BEAKER) 95.1 fL 79.0-92.2 H (test code = 753) MEAN CORPUSCULAR HEMOGLOBIN 30.4 pg 25.7-32.2 (BEAKER) (test code = 751) MEAN CORPUSCULAR HEMOGLOBIN CONC 31.9 GM/DL 32.3-36.5 L (BEAKER) (test code = 752) RED CELL DISTRIBUTION WIDTH 13.0 % 11.6-14.4 (BEAKER) (test code = 412) PLATELET COUNT (BEAKER) (test 179 K/CU MM 150-450 code = 756) MEAN PLATELET VOLUME (BEAKER) 12.0 fL 9.4-12.4 (test code = 754) NUCLEATED RED BLOOD CELLS 0 /100 WBC 0-0 (BEAKER) (test code = 413) BASIC METABOLIC [id number] 05:52:00 Test Item Value Reference Range Interpretation Comments SODIUM (BEAKER) 130 meq/L 136-145 L (test code = 381) POTASSIUM (BEAKER) 4.7 meq/L 3.5-5.1 (test code = 379) CHLORIDE (BEAKER) 101 meq/L 98-107 (test code = 382) CO2 (BEAKER) (test 22 meq/L 22-29 code = 355) BLOOD UREA NITROGEN 19 mg/dL 7-21 (BEAKER) (test code = 354) CREATININE (BEAKER) 1.33 mg/dL 0.57-1.25 H (test code = 358) GLUCOSE RANDOM 323 mg/dL 70-105 H (BEAKER) (test code = 652) CALCIUM (BEAKER) 9.0 mg/dL 8.4-10.2 (test code = 697) EGFR (BEAKER) (test 67 mL/min/1.73 ESTIMA NIRALI GFR IS code = 1092) sq m NOT ACCURATE CREATININE CLEARANCE IN PREDICTING GLOMERULAR FILTRATION RATE . ESTIMATED GFR I S NOT APPLICABLE FOR DIALYSIS PATIEN TS. Maple Syrup Maker ID - [id number] 23:47:00 Test Item Value Reference Range Interpretation Comments ACTIVATED CLOTTING TIME 136 sec : 74 -137 seconds, (BEAKER) (test code = Baseli ne: TESTED AT 441) [facility] [address] [place] [address], [address]: Maple Syrup Maker/Techni talia ID = [id number] for [facility] MARIE HUSSEIN [id number] 23:47:00 Test Item Value Reference Range Interpretation Comments ACTIVATED CLOTTING TIME 153 sec : 74 -137 seconds, (BEAKER) (test code = Baseli ne: TESTED AT 441) [address], [address]: Maple Syrup Maker/Techni talia ID = [id number] for ST MARIE, HUSSEIN POCT-GLUCOSE [id number] 22:18:00 Test Item Value Reference Range Interpretation Comments POC-GLUCOSE METER 238 mg/dL 70-110 H : TESTED A T [facility] 6720 (BEAKER) (test code = [facility], 153) [address]: Maple Syrup Maker/Techni talia ID = [id number] for KIM RAYO TYLER [id number] 19:56:00 Test Item Value Reference Range Interpretation Comments ACTIVATED CLOTTING TIME 213 sec : 74 -137 seconds, (BEAKER) (test code = Baseli ne: TESTED AT [facility]) [address], [address]: Maple Syrup Maker/Techni talia ID = [id number] for TI NDALL, CRYSTAL POCT-GLUCOSE [id number] 17:25:00 Test Item Value Reference Range Interpretation Comments POC-GLUCOSE METER 191 mg/dL 70-110 H : [facility] (BEAKER) (test code = [facility], 153) [address]: Maple Syrup Maker/Techni talia ID = [id number] for TI NDALL, CRYSTAL [id number] 16:06:00 Test Item Value Reference Range Interpretation Comments ACTIVATED CLOTTING TIME 252 sec : 74 -137 seconds, (BEAKER) (test code = Baseli ne: TESTED AT [facility]) [address], [facility] 30: Maple Syrup Maker/Techni talia ID = [id number] for AL AIDAN, CASWANNA [id number] 15:21:00 Test Item Value Reference Range Interpretation Comments ACTIVATED CLOTTING TIME 257 sec : 74 -137 seconds, (BEAKER) (test code = Baseli ne: TESTED AT [facility]) [address], [address]: Maple Syrup Maker/Techni talia ID = [id number] for YONI WETZEL RN, DANIELLA [id number] 14:59:00 Test Item Value Reference Range Interpretation Comments ACTIVATED CLOTTING TIME 263 sec : 74 -137 seconds, (BEAKER) (test code = Anastacio ne: TESTED AT 441) [facility] [address] [facility], [address]: Maple Syrup Maker/Techni talia ID = [id number] for GUILLERMO LOPEZ POCT-GLUCOSE [id number] 12:19:00 Test Item Value Reference Range Interpretation Comments POC-GLUCOSE METER 167 mg/dL 70-110 H : TESTED A T [facility] 6720 (BEAKER) (test code = [facility], 1538) [address]: Maple Syrup Maker/Techni talia ID = [id number] for AV WILLARD POCT-GLUCOSE [id number] 06:01:00 Test Item Value Reference Range Interpretation Comments POC-GLUCOSE METER 185 mg/dL 70-110 H : TESTED A T [facility] 6720 (BEAKER) (test code = [facility], 1538) [address]: Maple Syrup Maker/Techni talia ID = [id number] for KEVAN PIRES BASIC METABOLIC [id number] 05:29:00 Test Item Value Reference Range Interpretation Comments SODIUM (BEAKER) 135 meq/L 136-145 L (test code = 381) POTASSIUM (BEAKER) 4.2 meq/L 3.5-5.1 (test code = 379) CHLORIDE (BEAKER) 104 meq/L 98-107 (test code = 382) CO2 (BEAKER) (test 24 meq/L 22-29 code = 355) BLOOD UREA NITROGEN 16 mg/dL 7-21 (BEAKER) (test code = 354) CREATININE (BEAKER) 0.99 mg/dL 0.57-1.25 (test code = 358) GLUCOSE RANDOM 168 mg/dL 70-105 H (BEAKER) (test code = 652) CALCIUM (BEAKER) 8.5 mg/dL 8.4-10.2 (test code = 697) EGFR (BEAKER) (test 94 mL/min/1.73 ESTIMA NIRALI GFR IS code = 1092) sq m NOT ACCURATE CREATININE CLEARANCE IN PREDICTING GLOMERULAR FILTRATION RATE . ESTIMATED GFR I S NOT APPLICABLE FOR DIALYSIS PATIEN TS. Maple Syrup Maker ID - [id number] (HEMOGRAM ONLY)2020-04-11 04:39:00 Test Item Value Reference Range Interpretation Comments WHITE BLOOD CELL COUNT (BEAKER) 6.2 K/ L 3.5-10.5 (test code = 775) RED BLOOD CELL COUNT (BEAKER) 4.39 M/ L 4.63-6.08 L (test code = 761) HEMOGLOBIN (BEAKER) (test code = 13.4 GM/DL 13.7-17.5 L 410) HEMATOCRIT (BEAKER) (test code = 42.2 % 40.1-51.0 411) MEAN CORPUSCULAR VOLUME (BEAKER) 96.1 fL 79.0-92.2 H (test code = 753) MEAN CORPUSCULAR HEMOGLOBIN 30.5 pg 25.7-32.2 (BEAKER) (test code = 751) MEAN CORPUSCULAR HEMOGLOBIN CONC 31.8 GM/DL 32.3-36.5 L (BEAKER) (test code = 752) RED CELL DISTRIBUTION WIDTH 13.1 % 11.6-14.4 (BEAKER) (test code = 412) PLATELET COUNT (BEAKER) (test 154 K/CU MM 150-450 code = 756) MEAN PLATELET VOLUME (BEAKER) 12.0 fL 9.4-12.4 (test code = 754) NUCLEATED RED BLOOD CELLS 0 /100 WBC 0-0 (BEAKER) (test code = 413) POCT-GLUCOSE [id number] 21:01:00 Test Item Value Reference Range Interpretation Comments POC-GLUCOSE METER 220 mg/dL 70-110 H : TESTED A T [facility] 6720 (BEAKER) (test code = [facility], 1538) [address]: Maple Syrup Maker/Techni talia ID = [id number] for KEVAN PIRES POCT-GLUCOSE [id number] 16:11:00 Test Item Value Reference Range Interpretation Comments POC-GLUCOSE METER 239 mg/dL 70-110 H : TESTED A T [facility] 6720 (BEAKER) (test code = [facility], 1538) [address]: Maple Syrup Maker/Techni talia ID = [id number] for KARI MISHRA POCT-GLUCOSE [id number] 11:48:00 Test Item Value Reference Range Interpretation Comments POC-GLUCOSE METER 233 mg/dL 70-110 H : TESTED A T [facility] 6720 (BEAKER) (test code = [facility], 1538) [address]: Maple Syrup Maker/Techni talia ID = [id number] for DA JOAQUÍN, KEYAIRA POCT-GLUCOSE [id number] 07:52:00 Test Item Value Reference Range Interpretation Comments POC-GLUCOSE METER 168 mg/dL 70-110 H : TESTED A T [facility] 6720 (BEAKER) (test code = [facility], 1538) [address]: Maple Syrup Maker/Techni talia ID = [id number] for DA VIS, KEYAIRA BASIC METABOLIC [id number] 04:50:00 Test Item Value Reference Range Interpretation Comments SODIUM (BEAKER) 137 meq/L 136-145 (test code = 381) POTASSIUM (BEAKER) 4.3 meq/L 3.5-5.1 (test code = 379) CHLORIDE (BEAKER) 107 meq/L 98-107 (test code = 382) CO2 (BEAKER) (test 23 meq/L 22-29 code = 355) BLOOD UREA NITROGEN 17 mg/dL 7-21 (BEAKER) (test code = 354) CREATININE (BEAKER) 1.14 mg/dL 0.57-1.25 (test code = 358) GLUCOSE RANDOM 172 mg/dL 70-105 H (BEAKER) (test code = 652) CALCIUM (BEAKER) 8.8 mg/dL 8.4-10.2 (test code = 697) EGFR (BEAKER) (test 80 mL/min/1.73 ESTIMA NIRALI GFR IS code = 1092) sq m NOT ACCURATE CREATININE CLEARANCE IN PREDICTING GLOMERULAR FILTRATION RATE . ESTIMATED GFR I S NOT APPLICABLE FOR DIALYSIS PATIEN TS. Maple Syrup Maker ID - [id number] (HEMOGRAM ONLY)2020-04-10 04:37:00 Test Item Value Reference Range Interpretation Comments WHITE BLOOD CELL COUNT (BEAKER) 8.2 K/ L 3.5-10.5 (test code = 775) RED BLOOD CELL COUNT (BEAKER) 4.46 M/ L 4.63-6.08 L (test code = 761) HEMOGLOBIN (BEAKER) (test code = 13.6 GM/DL 13.7-17.5 L 410) HEMATOCRIT (BEAKER) (test code = 42.9 % 40.1-51.0 411) MEAN CORPUSCULAR VOLUME (BEAKER) 96.2 fL 79.0-92.2 H (test code = 753) MEAN CORPUSCULAR HEMOGLOBIN 30.5 pg 25.7-32.2 (BEAKER) (test code = 751) MEAN CORPUSCULAR HEMOGLOBIN CONC 31.7 GM/DL 32.3-36.5 L (BEAKER) (test code = 752) RED CELL DISTRIBUTION WIDTH 13.2 % 11.6-14.4 (BEAKER) (test code = 412) PLATELET COUNT (BEAKER) (test 170 K/CU MM 150-450 code = 756) MEAN PLATELET VOLUME (BEAKER) 11.6 fL 9.4-12.4 (test code = 754) NUCLEATED RED BLOOD CELLS 0 /100 WBC 0-0 (BEAKER) (test code = 413) POCT-GLUCOSE [id number] 21:45:00 Test Item Value Reference Range Interpretation Comments POC-GLUCOSE METER 260 mg/dL 70-110 H : TESTED A T [facility] 6720 (BEAKER) (test code = [facility], 1538) 15180: Maple Syrup Maker/Techni talia ID = [id number] for GR AHAM, YEISON POCT-GLUCOSE [id number] 15:40:00 Test Item Value Reference Range Interpretation Comments POC-GLUCOSE METER 297 mg/dL 70-110 H : TESTED A T [facility] 6720 (BEAKER) (test code = [facility], 1538) [id number]: Maple Syrup Maker/Techni talia ID = [id number] for DA VIS, KEYAIRA POCT-GLUCOSE [id number] 12:01:00 Test Item Value Reference Range Interpretation Comments POC-GLUCOSE METER 239 mg/dL 70-110 H : TESTED A T [facility] 6720 (BEAKER) (test code = [facility], 1538) 01476: Maple Syrup Maker/Techni talia ID = [id number] for DA VIS, KEYAIRA POCT-GLUCOSE [id number] 08:29:00 Test Item Value Reference Range Interpretation Comments POC-GLUCOSE METER 318 mg/dL 70-110 H : TESTED A T [facility] 6720 (BEAKER) (test code = [facility] [place], 1538) 48735: Maple Syrup Maker/Techni talia ID = [id number] for KARI MISHRA POCT-GLUCOSE [id number] 05:25:00 Test Item Value Reference Range Interpretation Comments POC-GLUCOSE METER 376 mg/dL 70-110 H : TESTED A T [facility] 6720 (BEAKER) (test code = [facility], 1538) 07675: Maple Syrup Maker/Techni talia ID = [id number] for EVE MANCINI BASIC METABOLIC [id number] 04:27:00 Test Item Value Reference Range Interpretation Comments SODIUM (BEAKER) 134 meq/L 136-145 L (test code = 381) POTASSIUM (BEAKER) 4.7 meq/L 3.5-5.1 (test code = 379) CHLORIDE (BEAKER) 105 meq/L 98-107 (test code = 382) CO2 (BEAKER) (test 20 meq/L 22-29 L code = 355) BLOOD UREA NITROGEN 20 mg/dL 7-21 (BEAKER) (test code = 354) CREATININE (BEAKER) 1.32 mg/dL 0.57-1.25 H (test code = 358) GLUCOSE RANDOM 404 mg/dL 70-105 HH (BEAKER) (test code = 652) CALCIUM (BEAKER) 8.9 mg/dL 8.4-10.2 (test code = 697) EGFR (BEAKER) (test 68 mL/min/1.73 ESTIMA NIRALI GFR IS code = 1092) sq m NOT ACCURATE CREATININE CLEARANCE IN PREDICTING GLOMERULAR FILTRATION RATE . ESTIMATED GFR I S NOT APPLICABLE FOR DIALYSIS PATIEN TS. Maple Syrup Maker ID - LINDA MCBC (HEMOGRAM ONLY)2020-04-09 04:08:00 Test Item Value Reference Range Interpretation Comments WHITE BLOOD CELL COUNT (BEAKER) 6.7 K/ L 3.5-10.5 (test code = 775) RED BLOOD CELL COUNT (BEAKER) 4.96 M/ L 4.63-6.08 (test code = 761) HEMOGLOBIN (BEAKER) (test code = 15.0 GM/DL 13.7-17.5 410) HEMATOCRIT (BEAKER) (test code = 47.2 % 40.1-51.0 411) MEAN CORPUSCULAR VOLUME (BEAKER) 95.2 fL 79.0-92.2 H (test code = 753) MEAN CORPUSCULAR HEMOGLOBIN 30.2 pg 25.7-32.2 (BEAKER) (test code = 751) MEAN CORPUSCULAR HEMOGLOBIN CONC 31.8 GM/DL 32.3-36.5 L (BEAKER) (test code = 752) RED CELL DISTRIBUTION WIDTH 12.8 % 11.6-14.4 (BEAKER) (test code = 412) PLATELET COUNT (BEAKER) (test 182 K/CU MM 150-450 code = 756) MEAN PLATELET VOLUME (BEAKER) 11.9 fL 9.4-12.4 (test code = 754) NUCLEATED RED BLOOD CELLS 0 /100 WBC 0-0 (BEAKER) (test code = 413) [id number] 12:18:00 Test Item Value Reference Range Interpretation Comments PARTIAL THROMBOPLASTIN TIME 115.3 seconds 22.5-36.0 H (BEAKER) (test code = 760) POCT-GLUCOSE [id number] 12:09:00 Test Item Value Reference Range Interpretation Comments POC-GLUCOSE METER 143 mg/dL 70-110 H : TESTED A T [facility] 6720 (BEAKER) (test code = [facility] [place], 1538) [id number]: Maple Syrup Maker/Techni talia ID = [id number] for KARI MISHRA [id number] 05:09:00 Test Item Value Reference Range Interpretation Comments PARTIAL THROMBOPLASTIN TIME 89.1 seconds 22.5-36.0 H (BEAKER) (test code = 760) [id number] 03:59:00 Test Item Value Reference Range Interpretation Comments PARTIAL THROMBOPLASTIN TIME 164.6 seconds 22.5-36.0 HH (BEAKER) (test code = 760) [id number] 03:04:00 Test Item Value Reference Range Interpretation Comments PARTIAL THROMBOPLASTIN TIME 156.3 seconds 22.5-36.0 HH (BEAKER) (test code = 760) BASIC METABOLIC [id number] 02:57:00 Test Item Value Reference Range Interpretation Comments SODIUM (BEAKER) 135 meq/L 136-145 L (test code = 381) POTASSIUM (BEAKER) 4.8 meq/L 3.5-5.1 (test code = 379) CHLORIDE (BEAKER) 104 meq/L 98-107 (test code = 382) CO2 (BEAKER) (test 26 meq/L 22-29 code = 355) BLOOD UREA NITROGEN 16 mg/dL 7-21 (BEAKER) (test code = 354) CREATININE (BEAKER) 1.37 mg/dL 0.57-1.25 H (test code = 358) GLUCOSE RANDOM 211 mg/dL 70-105 H (BEAKER) (test code = 652) CALCIUM (BEAKER) 9.2 mg/dL 8.4-10.2 (test code = 697) EGFR (BEAKER) (test 65 mL/min/1.73 ESTIMA NIRALI GFR IS code = 1092) sq m NOT ACCURATE CREATININE CLEARANCE IN PREDICTING GLOMERULAR FILTRATION RATE . ESTIMATED GFR I S NOT APPLICABLE FOR DIALYSIS PATIEN TS. Maple Syrup Maker ID - EDASICBC W/PLT COUNT & AUTO [id number] 02:42:00 Test Item Value Reference Range Interpretation Comments WHITE BLOOD CELL COUNT (BEAKER) 6.2 K/ L 3.5-10.5 (test code = 775) RED BLOOD CELL COUNT (BEAKER) 4.68 M/ L 4.63-6.08 (test code = 761) HEMOGLOBIN (BEAKER) (test code = 14.3 GM/DL 13.7-17.5 410) HEMATOCRIT (BEAKER) (test code = 44.9 % 40.1-51.0 411) MEAN CORPUSCULAR VOLUME (BEAKER) 95.9 fL 79.0-92.2 H (test code = 753) MEAN CORPUSCULAR HEMOGLOBIN 30.6 pg 25.7-32.2 (BEAKER) (test code = 751) MEAN CORPUSCULAR HEMOGLOBIN CONC 31.8 GM/DL 32.3-36.5 L (BEAKER) (test code = 752) RED CELL DISTRIBUTION WIDTH 13.3 % 11.6-14.4 (BEAKER) (test code = 412) PLATELET COUNT (BEAKER) (test 161 K/CU MM 150-450 code = 756) MEAN PLATELET VOLUME (BEAKER) 11.7 fL 9.4-12.4 (test code = 754) NUCLEATED RED BLOOD CELLS 0 /100 WBC 0-0 (BEAKER) (test code = 413) NEUTROPHILS RELATIVE PERCENT 41 % (BEAKER) (test code = 429) LYMPHOCYTES RELATIVE PERCENT 32 % (BEAKER) (test code = 430) MONOCYTES RELATIVE PERCENT 14 % (BEAKER) (test code = 431) EOSINOPHILS RELATIVE PERCENT 12 % (BEAKER) (test code = 432) BASOPHILS RELATIVE PERCENT 1 % (BEAKER) (test code = 437) NEUTROPHILS ABSOLUTE COUNT 2.56 K/ L 1.78-5.38 (BEAKER) (test code = 670) LYMPHOCYTES ABSOLUTE COUNT 1.96 K/ L 1.32-3.57 (BEAKER) (test code = 414) MONOCYTES ABSOLUTE COUNT (BEAKER) 0.90 K/ L 0.30-0.82 H (test code = 415) EOSINOPHILS ABSOLUTE COUNT 0.72 K/ L 0.04-0.54 H (BEAKER) (test code = 416) BASOPHILS ABSOLUTE COUNT (BEAKER) 0.05 K/ L 0.01-0.08 (test code = 417) IMMATURE GRANULOCYTES-RELATIVE 1 % 0-1 PERCENT (BEAKER) (test code = 2801) POCT-GLUCOSE [id number] 21:43:00 Test Item Value Reference Range Interpretation Comments POC-GLUCOSE METER 281 mg/dL 70-110 H : [facility] (BEAKER) (test code = [facility] [place], 1538) 71188: Maple Syrup Maker/Techni talia ID = [id number] for EVE MANCINI [id number] 20:46:00 Test Item Value Reference Range Interpretation Comments PARTIAL THROMBOPLASTIN TIME 106.7 seconds 22.5-36.0 H (BEAKER) (test code = 760) PET/CT, CARDIAC PERF REST AND [id number] 16:41:00Dr. Candice Ramirez for exam:->chest painFINAL REPORT PROCEDURE: MYOCARDIAL PERFUSION PET IMAGING (Rest/Stress)CPT CODE:54795 INDICATION: Evaluation of chest pain the patient was known CAD CARDIOVASCULAR PROFILE:CAD History: Known CAD, prior aortocoronary bypassSymptoms: Chest painRisk Factors: Diabetes, hypertension, hyperlipidemia, peripheral vascular disease.BMI: 37.9Medications: Aspirin, Coreg, Plavix, Crestor. STRESS PROTOCOL:Pharmacologic stress was achieved with a 10-second intravenous infusion of regadenoson 0.4 mg. The radiopharmaceutical was administered 30 seconds after the start of the regadenoson infusion. IMAGING PROTOCOL:Limited low-dose CT imaging was performed for attenuation correction. 40.1 mCi ofRb-82 chloride was injected intravenously at rest, and gated PET images were obtained. Then, 40.0 mCi of Rb-82 chloride was injected intravenously at peak stress, and gated PET images were obtained. Image quality is good. REST FINDINGS:HR: 65/minBP: 102/71 mmHgPrelim. EKG: V paced.Perfusion: There is a marked severity perfusion defect of the basal inferior segment(s).Wall Motion: There is severe hypokinesis of the basal inferior LV (LVEF 31%).LV Volume: Normal.RV Volume: Normal. STRESS FINDINGS:HR: 78/min (48% of MPHR)BP: 100/64 mmHgPrelim. EKG: No ischemic changes.Symptoms: None (treatment not required).Perfusion: There is a marked severity perfusion defect of the basal inferolateral, mid inferior segments segment(s).Wall Motion: Normal (LVEF 41%).LV Volume: Not significantly changed from rest. IMPRESSION:1. Abnormal study.2. Abnormal myocardial perfusion. There is a medium size, marked severity, reversible perfusion abnormality in the basal inferolateral and mid inferior LV. There is a fixed perfusion defect of the basal inferior segment.3. Reduced resting LVEF, which improves with pharmacologic stress.4. Normal extracardiac tracer distribution.5. There is no prior study for comparison. Sign ed: Mallory Sumner MDReport Verified Date/Time: 04/07/2020 16:41:30 Reading Location: [address] Reading Room POCT-GLUCOSE [id number] 16:27:00 Test Item Value Reference Range Interpretation Comments POC-GLUCOSE METER 194 mg/dL 70-110 H : TESTED A T [facility] 6720 (LUCÍAHARINDER) (test code = [facility] [place], 1538) 50870: Maple Syrup Maker/Techni talia ID = [id number] for AV WILLARD [id number] 13:41:00 Test Item Value Reference Range Interpretation Comments PARTIAL THROMBOPLASTIN TIME 91.5 seconds 22.5-36.0 H (BEAKER) (test code = 760) POCT-GLUCOSE [id number] 13:21:00 Test Item Value Reference Range Interpretation Comments POC-GLUCOSE METER 109 mg/dL 70-110 : TESTED A T [facility] 6720 (BEAKER) (test code = [facility] N[facility], 1538) 60905: Maple Syrup Maker/Techni talia ID = [id number] for AV WILLARD [id number] 11:09:00 Test Item Value Reference Range Interpretation Comments PARTIAL THROMBOPLASTIN TIME 181.8 seconds 22.5-36.0 HH (BEAKER) (test code = 760) POCT-GLUCOSE [id number] 07:23:00 Test Item Value Reference Range Interpretation Comments POC-GLUCOSE METER 161 mg/dL 70-110 H : TESTED A T [facility] 6720 (BEAKER) (test code = [facility] Em[facility], 1538) 26688: Maple Syrup Maker/Techni talia ID = [id number] for AV WILLARD BASIC METABOLIC [id number] 06:08:00 Test Item Value Reference Range Interpretation Comments SODIUM (BEAKER) 133 meq/L 136-145 L (test code = 381) POTASSIUM (BEAKER) 4.3 meq/L 3.5-5.1 (test code = 379) CHLORIDE (BEAKER) 103 meq/L 98-107 (test code = 382) CO2 (BEAKER) (test 24 meq/L 22-29 code = 355) BLOOD UREA NITROGEN 17 mg/dL 7-21 (BEAKER) (test code = 354) CREATININE (BEAKER) 1.28 mg/dL 0.57-1.25 H (test code = 358) GLUCOSE RANDOM 150 mg/dL 70-105 H (BEAKER) (test code = 652) CALCIUM (BEAKER) 8.8 mg/dL 8.4-10.2 (test code = 697) EGFR (BEAKER) (test 70 mL/min/1.73 ESTIMA NIRALI GFR IS code = 1092) sq m NOT ACCURATE CREATININE CLEARANCE IN PREDICTING GLOMERULAR FILTRATION RATE . ESTIMATED GFR I S NOT APPLICABLE FOR DIALYSIS PATIEN TS. Maple Syrup Maker ID - ASCBC W/PLT COUNT & AUTO [id number] 06:05:00 Test Item Value Reference Range Interpretation Comments WHITE BLOOD CELL COUNT (BEAKER) 5.7 K/ L 3.5-10.5 (test code = 775) RED BLOOD CELL COUNT (BEAKER) 4.81 M/ L 4.63-6.08 (test code = 761) HEMOGLOBIN (BEAKER) (test code = 14.5 GM/DL 13.7-17.5 410) HEMATOCRIT (BEAKER) (test code = 46.0 % 40.1-51.0 411) MEAN CORPUSCULAR VOLUME (BEAKER) 95.6 fL 79.0-92.2 H (test code = 753) MEAN CORPUSCULAR HEMOGLOBIN 30.1 pg 25.7-32.2 (BEAKER) (test code = 751) MEAN CORPUSCULAR HEMOGLOBIN CONC 31.5 GM/DL 32.3-36.5 L (BEAKER) (test code = 752) RED CELL DISTRIBUTION WIDTH 13.3 % 11.6-14.4 (BEAKER) (test code = 412) PLATELET COUNT (BEAKER) (test 164 K/CU MM 150-450 code = 756) MEAN PLATELET VOLUME (BEAKER) 12.1 fL 9.4-12.4 (test code = 754) NUCLEATED RED BLOOD CELLS 0 /100 WBC 0-0 (BEAKER) (test code = 413) NEUTROPHILS RELATIVE PERCENT 37 % (BEAKER) (test code = 429) LYMPHOCYTES RELATIVE PERCENT 33 % (BEAKER) (test code = 430) MONOCYTES RELATIVE PERCENT 15 % (BEAKER) (test code = 431) EOSINOPHILS RELATIVE PERCENT 14 % (BEAKER) (test code = 432) BASOPHILS RELATIVE PERCENT 1 % (BEAKER) (test code = 437) NEUTROPHILS ABSOLUTE COUNT 2.11 K/ L 1.78-5.38 (BEAKER) (test code = 670) LYMPHOCYTES ABSOLUTE COUNT 1.85 K/ L 1.32-3.57 (BEAKER) (test code = 414) MONOCYTES ABSOLUTE COUNT (BEAKER) 0.86 K/ L 0.30-0.82 H (test code = 415) EOSINOPHILS ABSOLUTE COUNT 0.77 K/ L 0.04-0.54 H (BEAKER) (test code = 416) BASOPHILS ABSOLUTE COUNT (BEAKER) 0.05 K/ L 0.01-0.08 (test code = 417) IMMATURE GRANULOCYTES-RELATIVE 1 % 0-1 PERCENT (BEAKER) (test code = 2801) POCT-GLUCOSE [id number] 21:55:00 Test Item Value Reference Range Interpretation Comments POC-GLUCOSE METER 196 mg/dL 70-110 H : TESTED A T [facility] 6720 (BEAKER) (test code = [facility], 1538) 17902: Maple Syrup Maker/Techni talia ID = [id number] for EDUARD BEYER POCT-GLUCOSE [id number] 16:58:00 Test Item Value Reference Range Interpretation Comments POC-GLUCOSE METER 72 mg/dL 70-110 : TESTED A T [facility] 6720 (BEAKER) (test code = [facility], 1538) 00901: Maple Syrup Maker/Techni talia ID = [id number] for AV WILLARD POCT-GLUCOSE [id number] 13:44:00 Test Item Value Reference Range Interpretation Comments POC-GLUCOSE METER 118 mg/dL 70-110 H : TESTED A T [facility] 6720 (BEAKER) (test code = [facility], 1538) 99829: Maple Syrup Maker/Techni talia ID = [id number] for PETRA WILLARDYL POCT-GLUCOSE [id number] 13:07:00 Test Item Value Reference Range Interpretation Comments POC-GLUCOSE METER 68 mg/dL 70-110 L : TESTED A T [facility] 6720 (BEAKER) (test code = [facility], 1538) 60093: Maple Syrup Maker/Techni talia ID = [id number] for AV WILLARD [id number] 10:36:00 Test Item Value Reference Range Interpretation Comments FIBRINOGEN LEVEL (BEAKER) (test 468 mg/dl 225-434 H code = 658) HEMOGLOBIN [id number] 09:03:00 Test Item Value Reference Range Interpretation Comments HEMOGLOBIN A1C (BEAKER) (test code = 11.2 % 4.3-6.1 H 368) BASIC METABOLIC [id number] 08:24:00 Test Item Value Reference Range Interpretation Comments SODIUM (BEAKER) 136 meq/L 136-145 (test code = 381) POTASSIUM (BEAKER) 4.5 meq/L 3.5-5.1 (test code = 379) CHLORIDE (BEAKER) 107 meq/L 98-107 (test code = 382) CO2 (BEAKER) (test 23 meq/L 22-29 code = 355) BLOOD UREA NITROGEN 19 mg/dL 7-21 (BEAKER) (test code = 354) CREATININE (BEAKER) 1.30 mg/dL 0.57-1.25 H (test code = 358) GLUCOSE RANDOM 123 mg/dL 70-105 H (BEAKER) (test code = 652) CALCIUM (BEAKER) 8.9 mg/dL 8.4-10.2 (test code = 697) EGFR (BEAKER) (test 69 mL/min/1.73 ESTIMA NIRALI GFR IS code = 1092) sq m NOT ACCURATE CREATININE CLEARANCE IN PREDICTING GLOMERULAR FILTRATION RATE . ESTIMATED GFR I S NOT APPLICABLE FOR DIALYSIS PATIEN TS. Maple Syrup Maker ID - [id number] W/PLT COUNT & AUTO [id number] 08:17:00 Test Item Value Reference Range Interpretation Comments WHITE BLOOD CELL COUNT (BEAKER) 6.6 K/ L 3.5-10.5 (test code = 775) RED BLOOD CELL COUNT (BEAKER) 4.72 M/ L 4.63-6.08 (test code = 761) HEMOGLOBIN (BEAKER) (test code = 14.3 GM/DL 13.7-17.5 410) HEMATOCRIT (BEAKER) (test code = 45.5 % 40.1-51.0 411) MEAN CORPUSCULAR VOLUME (BEAKER) 96.4 fL 79.0-92.2 H (test code = 753) MEAN CORPUSCULAR HEMOGLOBIN 30.3 pg 25.7-32.2 (BEAKER) (test code = 751) MEAN CORPUSCULAR HEMOGLOBIN CONC 31.4 GM/DL 32.3-36.5 L (BEAKER) (test code = 752) RED CELL DISTRIBUTION WIDTH 13.3 % 11.6-14.4 (BEAKER) (test code = 412) PLATELET COUNT (BEAKER) (test 156 K/CU MM 150-450 code = 756) MEAN PLATELET VOLUME (BEAKER) 12.3 fL 9.4-12.4 (test code = 754) NUCLEATED RED BLOOD CELLS 0 /100 WBC 0-0 (BEAKER) (test code = 413) NEUTROPHILS RELATIVE PERCENT 45 % (BEAKER) (test code = 429) LYMPHOCYTES RELATIVE PERCENT 29 % (BEAKER) (test code = 430) MONOCYTES RELATIVE PERCENT 14 % (BEAKER) (test code = 431) EOSINOPHILS RELATIVE PERCENT 11 % (BEAKER) (test code = 432) BASOPHILS RELATIVE PERCENT 1 % (BEAKER) (test code = 437) NEUTROPHILS ABSOLUTE COUNT 2.98 K/ L 1.78-5.38 (BEAKER) (test code = 670) LYMPHOCYTES ABSOLUTE COUNT 1.89 K/ L 1.32-3.57 (BEAKER) (test code = 414) MONOCYTES ABSOLUTE COUNT (BEAKER) 0.90 K/ L 0.30-0.82 H (test code = 415) EOSINOPHILS ABSOLUTE COUNT 0.75 K/ L 0.04-0.54 H (BEAKER) (test code = 416) BASOPHILS ABSOLUTE COUNT (BEAKER) 0.04 K/ L 0.01-0.08 (test code = 417) IMMATURE GRANULOCYTES-RELATIVE 0 % 0-1 PERCENT (BEAKER) (test code = 2801) POCT-GLUCOSE [id number] 07:40:00 Test Item Value Reference Range Interpretation Comments POC-GLUCOSE METER 127 mg/dL 70-110 H : TESTED A T [facility] 6720 (BEAKER) (test code = [facility], 1538) 50154: Maple Syrup Maker/Techni talia ID = [id number] for AV WILLARD [id number] 07:06:00 Test Item Value Reference Range Interpretation Comments PARTIAL THROMBOPLASTIN TIME 70.1 seconds 22.5-36.0 H (BEAKER) (test code = 760) TROPONIN [id number] 23:13:00 Test Item Value Reference Range Interpretation Comments TROPONIN I (BEAKER) (test code = 0.07 ng/mL 0.00-0.03 H 397) Troponin I (TnI) levels must be interpreted in the context of the presenting symptoms and the clinical findings. Elevated TnI levels indicate myocardial damage, but are not specific for ischemic heart disease. Elevated TnI levels are seen in patients with other cardiac conditions (including myocarditis and congestive heart failure), and slight TnI elevations occur in patients with other conditions, including sepsis, renal failure, acidosis, acute neurological disease, and persistent tachyarrhythmia.Maple Syrup Maker ID - [id number] 23:07:00 Test Item Value Reference Range Interpretation Comments PARTIAL THROMBOPLASTIN TIME 65.7 seconds 22.5-36.0 H (BEAKER) (test code = 760) POCT-GLUCOSE [id number] 21:17:00 Test Item Value Reference Range Interpretation Comments POC-GLUCOSE METER 144 mg/dL 70-110 H : [facility] T [facility] 6720 (BEHARINDER) (test code = [facility]REA Nieto [facility], 1538) 749[address]: Maple Syrup Maker/Techni talia ID = [id number] for EDUARD BEYER POCT-GLUCOSE [id number] 17:20:00 Test Item Value Reference Range Interpretation Comments POC-GLUCOSE METER 163 mg/dL 70-110 H : TESTED A T [facility] 6720 (MOISES) (test code = [facility]REA Nieto [facility], 1538) 95438: Maple Syrup Maker/Techni talia ID = [id number] for KRISTINA BUSBY SARS-COV2/RT-PCR ([facility])2020-04-05 17:17:00 Test Item Value Reference Range Interpretation Comments SARS-COV2/RT-PCR (test Negative Not Detected, Negative, code = 4728790) See external report for linked test SARS-COV-2 PERFORMING LAB [facility] (test code = 6568730) Negative result for this test determines that SARS-CoV-2 RNA was not present in the specimen above the Limit of Detection (LOD). However, Negative results do not preclude SARS-CoV-2 infection and should not be used as the sole basis for treatment or patient management decisions. Negative results must be combined with clinical observations, patient history, and epidemiological information. A false negative result may occur if a specimen is improperly collected, transported or handled. A false negative result should be considered if patient's recent exposures or clinical presentation indicate that COVID-19 (SARS-CoV-2) is likely and diagnostic tests for other causes of illness are negative. Re-testing should be considered in cases of suspected false negatives.The limit of detection for this assay is 800 copies/mL.This SARS CoV-2 test is a real-time RT-PCR test intended for the qualitative detection of nucleic acid from SARS-CoV-2 in a nasopharyngeal swab specimen collected from individuals suspected of COVID-19 by their healthcare provider.This test has not been Food and Drug Administration (FDA) cleared or approved. This is a modified version of an approved Emergency Use Authorization (EUA) and is in the process of review by the FDA. Once authorized by the FDA, the issued EUA will be effective until the declaration that circumstances exist justifying the authorization of the emergency use ofin vitro diagnostic tests for detection and/or diagnosis of COVID-19 is terminated under Section 564(b)(2) of the Act or the EUA is revoked under Section 564(g) of the Act.Fact Sheet for Healthcare Prov iders:https://www.[employer]/sites/default/files/product/documents/Fact_Sheet_HC _Zwvbdypaz_Xhvn_JZWP-XoO-5.pdfFact Sheet for Healthcare Patients:https://www.[employer]/sites/default/files/product/docume nts/Opix_Lmpqe_Npjuvuzy_Vxon_NWJY-DjX-2.pdfPerforming Laboratory:[place] [address], [place] [address]LHEFKLCU [id number] 16:28:00 Test Item Value Reference Range Interpretation Comments TROPONIN I (BEAKER) (test code = 0.06 ng/mL 0.00-0.03 H 397) Troponin I (TnI) levels must be interpreted in the context of the presenting symptoms and the clinical findings. Elevated TnI levels indicate myocardial damage, but are not specific for ischemic heart disease. Elevated TnI levels are seen in patients with other cardiac conditions (including myocarditis and congestive heart failure), and slight TnI elevations occur in patients with other conditions, including sepsis, renal failure, acidosis, acute neurological disease, and persistent tachyarrhythmia.[employer] ID - [email or web address], CHEST, 1 VIEW, NON [id number] 14:08:00Reason for exam:->elevated tropFINAL REPORT RAD, CHEST, 1 VIEW, NON DEPT INDICATION: elevated trop COMPARISON: August 30, 2017 FINDINGS: Portable frontal view of the chest. IMPRESSION: Support Lines: None. Lungs and pleura: Congestive interstitial changes may reflect developing edema or under inspiration. No lobar consolidation or effusion. No pneumothorax.Heart and mediastinum: Stable contours. Interval plac ement of biventricular pacer.Additional findings: None. Signed: JR Jacqueline, Hayde FERNANDAeport Verified Date/Time: 04/05/2020 14:08:14 Reading Location: [facility] Radiology Reading Room POCT-GLUCOSE [id number] 11:54:00 Test Item Value Reference Range Interpretation Comments POC-GLUCOSE METER 84 mg/dL 70-110 : TESTED A T [facility] 6720 (BEAKER) (test code = ANDREA Emilia HUFF [place], 1538) [address]: Maple Syrup Maker/Techni talia ID = [id number] for KRISTINA CARSON B-TYPE NATRIURETIC FACTOR (BNP)2020-04-05 11:51:00 Test Item Value Reference Range Interpretation Comments B-TYPE NATRIURETIC PEPTIDE (BEAKER) 91 pg/mL 0-100 (test code = 700) [employer] Maker ID - [id number] [id number] 11:51:00 Test Item Value Reference Range Interpretation Comments TROPONIN I (BEAKER) (test code = 0.06 ng/mL 0.00-0.03 H 397) Troponin I (TnI) levels must be interpreted in the context of the presenting symptoms and the clinical findings. Elevated TnI levels indicate myocardial damage, but are not specific for ischemic heart disease. Elevated TnI levels are seen in patients with other cardiac conditions (including myocarditis and congestive heart failure), and slight TnI elevations occur in patients with other conditions, including sepsis, renal failure, acidosis, acute neurological disease, and persistent tachyarrhythmia.[employer] Maker ID - [id number] METABOLIC PANEL 2020-04-05 11:43:00 Test Item Value Reference Range Interpretation Comments SODIUM (BEAKER) 137 meq/L 136-145 (test code = 381) POTASSIUM (BEAKER) 4.0 meq/L 3.5-5.1 (test code = 379) CHLORIDE (BEAKER) 107 meq/L 98-107 (test code = 382) CO2 (BEAKER) (test 25 meq/L 22-29 code = 355) BLOOD UREA NITROGEN 23 mg/dL 7-21 H (BEAKER) (test code = 354) CREATININE (BEAKER) 1.22 mg/dL 0.57-1.25 (test code = 358) GLUCOSE RANDOM 75 mg/dL 70-105 (BEAKER) (test code = 652) CALCIUM (BEAKER) 8.7 mg/dL 8.4-10.2 (test code = 697) EGFR (BEAKER) (test 74 mL/min/1.73 ESTIMA NIRALI GFR IS code = 1092) sq m NOT ACCURATE CREATININE CLEARANCE IN PREDICTING GLOMERULAR FILTRATION RATE . ESTIMATED GFR I S NOT APPLICABLE FOR DIALYSIS PATIEN TS. Maple Syrup Maker ID - [id number] 11:39:00 Test Item Value Reference Range Interpretation Comments PARTIAL THROMBOPLASTIN TIME 57.0 seconds 22.5-36.0 H (BEAKER) (test code = 760) Prior to initiating heparinPROTHROMBIN [id number] 11:38:00 Test Item Value Reference Range Interpretation Comments PROTIME (BEAKER) (test code = 14.0 seconds 11.9-14.2 759) INR (BEAKER) (test code = 370) 1.1 <=5.9 Effective 01/28/2019: PT Reference Range ChangeNew: 11.9-14.2 Previous: 11.7- 14.7RECOMMENDED COUMADIN/WARFARIN INR THERAPY RANGESSTANDARD DOSE: 2.0-3.0 Includes: PROPHYLAXIS for venous thrombosis, systemic embolization; TREATMENT for venous thrombosis and/or pulmonary embolus.HIGH RISK: Target INR is 2.5-3.5 for patients wiht mechanical heart valves.Prior to initiating heparinCBC W/PLT COUNT & AUTO [id number] 11:33:00 Test Item Value Reference Range Interpretation Comments WHITE BLOOD CELL COUNT (BEAKER) 6.7 K/ L 3.5-10.5 (test code = 775) RED BLOOD CELL COUNT (BEAKER) 4.70 M/ L 4.63-6.08 (test code = 761) HEMOGLOBIN (BEAKER) (test code = 14.3 GM/DL 13.7-17.5 410) HEMATOCRIT (BEAKER) (test code = 45.4 % 40.1-51.0 411) MEAN CORPUSCULAR VOLUME (BEAKER) 96.6 fL 79.0-92.2 H (test code = 753) MEAN CORPUSCULAR HEMOGLOBIN 30.4 pg 25.7-32.2 (BEAKER) (test code = 751) MEAN CORPUSCULAR HEMOGLOBIN CONC 31.5 GM/DL 32.3-36.5 L (BEAKER) (test code = 752) RED CELL DISTRIBUTION WIDTH 13.4 % 11.6-14.4 (BEAKER) (test code = 412) PLATELET COUNT (BEAKER) (test 156 K/CU MM 150-450 code = 756) MEAN PLATELET VOLUME (BEAKER) 12.1 fL 9.4-12.4 (test code = 754) NUCLEATED RED BLOOD CELLS 0 /100 WBC 0-0 (BEAKER) (test code = 413) NEUTROPHILS RELATIVE PERCENT 42 % (BEAKER) (test code = 429) LYMPHOCYTES RELATIVE PERCENT 31 % (BEAKER) (test code = 430) MONOCYTES RELATIVE PERCENT 14 % (BEAKER) (test code = 431) EOSINOPHILS RELATIVE PERCENT 12 % (BEAKER) (test code = 432) BASOPHILS RELATIVE PERCENT 1 % (BEAKER) (test code = 437) NEUTROPHILS ABSOLUTE COUNT 2.80 K/ L 1.78-5.38 (BEAKER) (test code = 670) LYMPHOCYTES ABSOLUTE COUNT 2.07 K/ L 1.32-3.57 (BEAKER) (test code = 414) MONOCYTES ABSOLUTE COUNT (BEAKER) 0.91 K/ L 0.30-0.82 H (test code = 415) EOSINOPHILS ABSOLUTE COUNT 0.83 K/ L 0.04-0.54 H (BEAKER) (test code = 416) BASOPHILS ABSOLUTE COUNT (BEAKER) 0.05 K/ L 0.01-0.08 (test code = 417) IMMATURE GRANULOCYTES-RELATIVE 1 % 0-1 PERCENT (BEAKER) (test code = 2801) GLUCOSE BEDSIDE [id number] 16:27:00 Test Item Value Reference Range Interpretation Comments GLUCOSE BEDSIDE TESTING 368 MG/DL 60-99 HH Noti fied Nurse~ (test code = GLUBED) GLUCOSE BEDSIDE [id number] 08:20:00 Test Item Value Reference Range Interpretation Comments GLUCOSE BEDSIDE TESTING (test code 109 MG/DL 60-99 H = GLUBED) GLUCOSE BEDSIDE [id number] 08:17:00 Test Item Value Reference Range Interpretation Comments GLUCOSE BEDSIDE TESTING 439 MG/DL 60-99 HH Noti fied Nurse~ (test code = GLUBED) BASIC METABOLIC [id number] 06:32:00 Test Item Value Reference Range Interpretation [...] 8.8 MG/DL 8.4-10.2 N CA) BASIC METABOLIC [id number] 06:28:00 Test Item Value Reference Range Interpretation [...] code = CA) MG/DL 8.7-9.7 CBC W/AUTO [id number] 06:17:00 Test Item Value Reference Range Interpretation [...] K/mm3 0.0-0.1 N NRBC#) - XR CHEST [id number] 11:58:00 Patient Name: INES WILKERSON Unit No: [id number] EXAMS: CPT CODE: [id number] XR CHEST 1V [id number] EXAM: XR Chest 1 View INDICATION: S/P ICD LOCATION CODE: T 18 COMPARISON: Chest radiograph dated 03/20/2013 TECHNIQUE: Frontal view of the chest was obtained. FINDINGS: Left 3- lead AICD/pacemaker has been placed with one lead in the right atrium. Second lead in the left ventricle, and third lead in the right ventricle.. Mild pulmonary vascular congestion is present. No focal consolidation is seen. There is no pleural effusion or pneumothorax. The cardiomediastinal silhouette is unchanged. No acute osseous abnormality is identified. IMPRESSION: 1. Interval placement of left 3-lead pacemaker as describedabove. No pneumothorax is seen. 2. Mild pulmonary vascular congestion. at 1158 Reported and signed by: Lizeth Salgado MD CC: Te Sheth Technologist: Regina Coles, RT (R) Transcrpt Date/Tm/Trnsp: 11/24/2019 (1158) [email or web address] Orig Print D/T: S: 11/24/2019 (7361) [facility] NAME: INES WILKERSON [id number] [address] PHYS: [place] [address] : 1960 AGE: 59 SEX: M LOC: TOMAS PHONE #: [phone] EXAM DATE: 11/24/2019 STATUS: REG SDC FAX #: [phone] RADIOLOGY NO:PAGE 1 Signed ReportBASIC METABOLIC [id number] 07:32:00 Test Item Value Reference Range Interpretation [...] 9.4 MG/DL 8.4-10.2 N CA) Comments to Instructional Technology Coordinator: NURSE WILL BRING SPECIMEN TO LABIs this a LINE draw? N [id number] 07:32:00 Test Item Value Reference Range Interpretation Comments MAGNESIUM (test code = MAG) 2.1 MG/DL 1.6-2.3 N Comments to Instructional Technology Coordinator: NURSE WILL BRING SPECIMEN TO LABIs this a LINE draw? N BASIC METABOLIC [id number] 07:31:00 Test Item Value Reference Range Interpretation [...] code = MG/DL 8.7-9.7 CA) Comments to Instructional Technology Coordinator: NURSE WILL BRING SPECIMEN TO LABIs this a LINE draw? N [id number] 07:31:00 Test Item Value Reference Range Interpretation Comments MAGNESIUM (test code = MAG) MG/DL 1.6-2.3 Comments to Instructional Technology Coordinator: NURSE WILL BRING SPECIMEN TO LABIs this a LINE draw? N BASIC METABOLIC [id number] 07:29:00 Test Item Value Reference Range Interpretation [...] code = CA) MG/DL 8.7-9.7 Comments to Instructional Technology Coordinator: NURSE WILL BRING SPECIMEN TO LABIs this a LINE draw? N [id number] 07:29:00 Test Item Value Reference Range Interpretation Comments MAGNESIUM (test code = MAG) MG/DL 1.6-2.3 Comments to Instructional Technology Coordinator: NURSE WILL BRING SPECIMEN TO LABIs this a LINE draw? N BASIC METABOLIC [id number] 07:28:00 Test Item Value Reference Range Interpretation [...] code = CA) MG/DL 8.7-9.7 Comments to Instructional Technology Coordinator: NURSE WILL BRING SPECIMEN TO LABIs this a LINE draw? N [id number] 07:28:00 Test Item Value Reference Range Interpretation Comments MAGNESIUM (test code = MAG) MG/DL 1.6-2.3 Comments to Instructional Technology Coordinator: NURSE WILL BRING SPECIMEN TO LABIs this a LINE draw? N PROTHROMBIN [id number] 07:26:00 Test Item Value Reference Range Interpretation Comments PROTHROMBIN TIME 11.7 SECONDS 9.4-12.5 N PATIENT (test code = PTP) INTERNATIONAL NORMAL 1.1 The INR is to be RATIO (test code = used only for INR) monitoring oral anticoagulantth erap y. INDICATION I NR VALUE ---- ---- ---- -------1. Prophylaxis, de ep venous thrombos is, including high risk surgery. 2.0 - 3.0 2. Prophylaxis, deep venous thrombosis, hip surgery, treatm ent for deep venous thrombosis or pulmonary prevention of systemic emboli sm in patients wit h valvular heart disease, atrial fibrillation, tissue heart va lve, or acute myocar dial infarction. 2.0 - 3.0 3. Clinical Laboratory Service Teacher al prosthesis hear t valves, recurre nt systemic emboli sm. 3.0 - 4.5 Comments to Instructional Technology Coordinator: NURSE WILL BRING SPECIMEN TO LABPTT ACTIVATED 2019-11-24 07:26:00 Test Item Value Reference Range Interpretation Comments PTT ACTIVATED (test code = APTT) 34.6 SECONDS 25.1-36.5 N Comments to Instructional Technology Coordinator: NURSE WILL BRING SPECIMEN TO LABCBC W/AUTO [...] 0.00 K/mm3 0.0-0.1 N NRBC#) Comments to Instructional Technology Coordinator: NURSE WILL BRING SPECIMEN TO LABIs this a LINE draw? N HEMOGLOBIN [id number] 09:17:00 Test Item Value Reference Range Interpretation Comments HEMOGLOBIN A1C ([facility]) (test code = 8.3 % 4.3-6.1 H 368) POCT-GLUCOSE [id number] 08:15:00 Test Item Value Reference Range Interpretation Comments POC-GLUCOSE METER 143 mg/dL 70-110 H TESTED AT [place] [address] ([facility]) (test code = [facility] [employer] [facility] 1538) [address] POCT-GLUCOSE [id number] 21:11:00 Test Item Value Reference Range Interpretation Comments POC-GLUCOSE METER 214 mg/dL 70-110 H TESTED AT [place] [address] ([facility]) (test code = [facility] [employer] [facility] 1538) [address] POCT-GLUCOSE [id number] 17:19:00 Test Item Value Reference Range Interpretation Comments POC-GLUCOSE METER 160 mg/dL 70-110 H TESTED AT [place] [address] ([facility]) (test code = [facility] [employer] [facility] 1538) [address] POCT-GLUCOSE [id number] 12:59:00 Test Item Value Reference Range Interpretation Comments POC-GLUCOSE METER 175 mg/dL 70-110 H TESTED AT [place] [address] ([facility]) (test code = [facility] [employer] [facility] 1538) [address] POCT-GLUCOSE [id number] 09:21:00 Test Item Value Reference Range Interpretation Comments POC-GLUCOSE METER 194 mg/dL 70-110 H TESTED AT [place] [address] ([facility]) (test code = [facility] [facility] 1538) [address] POCT-GLUCOSE [id number] 21:05:00 Test Item Value Reference Range Interpretation Comments POC-GLUCOSE METER 264 mg/dL 70-110 H TESTED AT [place] [address] ([facility]) (test code = [facility] [employer] [facility] 1538) [address] POCT-GLUCOSE [id number] 17:11:00 Test Item Value Reference Range Interpretation Comments POC-GLUCOSE METER 158 mg/dL 70-110 H TESTED AT [place] [address] ([facility]) (test code = [facility] [employer] 1538) [address] POCT-GLUCOSE [id number] 12:14:00 Test Item Value Reference Range Interpretation Comments POC-GLUCOSE METER 127 mg/dL 70-110 H TESTED AT [place] [address] ([facility]) (test code = [facility] 1538) [address] BASIC METABOLIC [id number] 10:20:00 Test Item Value Reference Range Interpretation [...] NOT APPLICABLE FOR DIALYSIS PATIEN TS. POCT-GLUCOSE [id number] 09:05:00 Test Item Value Reference Range Interpretation Comments POC-GLUCOSE METER 108 mg/dL 70-110 TESTED AT [place] [address] ([facility]) (test code = [facility] 1538) [address] RAD, CHEST, 1 VIEW, NON [id number] 07:45:00Reason for exam:->pre-opShould this be performed at the bedside?->YesFINAL REPORT CLINICAL HISTORY: pre-op TECHNIQUE: 1 view of the chest. COMPARISON: None IMPRESSION: There are no focal infiltrates or effusions. A focal density in the medial right upper lung zone may be related to costochondral calcification from the right first rib. The cardiomediastinal silhouette is magnified by technique. Signed: Dorian Barnett MDReport Verified Date/Time: 08/30/2017 07:45:46 Reading Location: [facility] Radiology Reading Room PROTHROMBIN [id number] 07:17:00 Test Item Value Reference Range Interpretation Comments PROTIME (BEAKER) (test code = 13.3 seconds 11.7-14.7 759) INR (BEAKER) (test code = 370) 1.0 <=5.9 RECOMMENDED COUMADIN/WARFARIN INR THERAPY RANGESSTANDARD DOSE: 2.0 - 3.0 Includes: PROPHYLAXIS for [...]
[2022-04-12] MEDS ORDERED: NA CHLORIDE 0.9% 1,000 ML ONE (05:54)
[2022-04-12 06:07] LABS: Absolute Lymphocytes (CBC) 1.3 K/uL (0.7-4.9); Hematocrit 46.7 % (39.6-49.0); Lymphocytes % 33.3 % (15.3-44.8); MCV 92.5 fL (80-100); MPV 10.9 fL (7.6-11.3); RBC Red Blood Cell Count 5.05 M/uL (4.33-5.43)
[2022-04-12 06:14] LABS: Albumin 3.2 g/dL (3.4-5.0); Bilirubin Total 0.2 mg/dL (0.2-1.0); Potassium 4.4 mmol/L (3.5-5.1); Protein, Total 7.6 g/dL (6.4-8.2)
[2022-04-12 06:40] LABS: Urine Blood Trace-intact (Negative); Urine Glucose 2+ (Negative); Urine Protein 2+ (Negative); Urine pH 5.5 (5.0-7.0)
[2022-04-12 06:56] LABS: Urine Bacteria <20 /HPF (<20); Urine RBC <5 /HPF (None Seen)
--- NOTE | 2022-04-12 07:16 | RAD REPORT ---
EXAM DESCRIPTION: CTStone Protocol - 04/12/2022 6:42 am CLINICAL HISTORY: HEMATIRIA COMPARISON: <Comparisons> TECHNIQUE: CT of the abdomen and pelvis was performed. All CT scans are performed using dose optimization technique as appropriate and may include automated exposure control or mA/KV adjustment according to patient size. FINDINGS: Lower chest: Pacemaker leads. Liver: No acute abnormality or suspicious lesions. Biliary: Cholecystectomy Stomach: No significant focal abnormality. Duodenum: No significant focal abnormality. Pancreas: No significant abnormality. Spleen: No significant abnormality. Adrenal: Unchanged benign left adrenal nodule measuring 3 cm. Kidney/ureter: No hydronephrosis. No renal calculi. Too small to characterize and/or benign appearing renal lesions are noted. Retroperitoneum: No retroperitoneal adenopathy. Vascular: No aneurysm. IVC filter. Atherosclerosis. Bowel: No significant focal abnormality. Normal appendix. Peritoneum: No ascites or free air. Bladder: Grossly unremarkable. Reproductive: No adnexal masses. Bones: No acute fracture. Other: n/a IMPRESSION: No acute intra-abdominal or pelvic finding. No urinary tract calculi or hydronephrosis i dentified. Normal appendix.
--- NOTE | 2022-04-12 07:24 | EDPHYS ---
Physician Documentation [facility] Name: New Jordan Age: 61 yrs Sex: Male : 1960 Arrival Date: 04/12/2022 Time: 04:57 Bed 10 Private MD: KJ Physician Tarik Osullivan HPI: 04/12 07:17 This 61 yrs old Black Male presents to ER via Ambulatory with complaints of Flank Pain, sy Blood in Urine. 07:17 The patient complains of pain in the left mid back and right mid back. The pain does sy not radiate. Onset: The symptoms/episode began/occurred 2 week(s) ago. Modifying factors: The symptoms are alleviated by nothing. the symptoms are aggravated by nothing. Associated signs and symptoms: Pertinent positives:. Severity of pain: At its worst the pain was mild in the emergency department the pain is unchanged. The patient has not experienced similar symptoms in the past. Historical: - Allergies: 05:25 No Known Allergies; bb - Home Meds: 06:04 aspirin 81 mg Oral TbEC 1 tab once daily [Active]; Crestor 20 mg Oral tab 1 tab once kd3 daily for Hypercholesterolemia [Active]; Fluoxetine Oral [Active]; furosemide 20 mg Oral tab 1 tab once daily [Active]; Jardiance 25 mg Oral tab 1 tab once daily [Active]; metformin 750 mg Oral Tb24 1 tab twice a day [Active]; omega xl [Active]; Plavix 75 mg Oral tab 1 tab once daily [Active]; nystatin Topical [Active]; Toujeo SoloStar 300 unit/mL (1.5 mL) subcutaneous inpn 45 unit daily [Active]; pantoprazole 40 mg Oral TbEC 1 tab once daily [Active]; Trulicity 0.75 mg/0.5 mL subcutaneous pnij 0.5 mL once wkly [Active]; Triamcinolone Acetonide Topical [Active]; Vesicare 10 mg Oral tab 1 tab once daily [Active]; - PMHx: 06:04 Bipolar disorder; Depression; Diabetes - IDDM; High Cholesterol; Hypertension; kd3 quadraple bypass; Schizophrenia; DVT; - Immunization history:: Client reports receiving the Reji \T\ Reji single-dose vaccine. - Social history:: Smoking status: Patient denies any tobacco usage or history of. ROS: 07:17 Constitutional: Negative for fever, chills, and weight loss, Eyes: Negative for injury, sy pain, redness, and discharge, ENT: Negative for injury, pain, and discharge, Neck: Negative for injury, pain, and swelling, Cardiovascular: Negative for chest pain, palpitations, and edema, Respiratory: Negative for shortness of breath, cough, wheezing, and pleuritic chest pain, Abdomen/GI: Negative for abdominal pain, nausea, vomiting, diarrhea, and constipation, Back: Negative for injury and pain, : Negative for injury, bleeding, discharge, and swelling, MS/Extremity: Negative for injury and deformity, Skin: Negative for injury, rash, and discoloration, Neuro: Negative for headache, weakness, numbness, tingling, and seizure, Psych: Negative for depression, anxiety, suicide ideation, homicidal ideation, and hallucinations, Allergy/Immunology: Negative for hives, rash, and allergies, Endocrine: Negative for neck swelling, polydipsia, polyuria, polyphagia, and marked weight changes, Hematologic/Lymphatic: Negative for swollen nodes, abnormal bleeding, and unusual bruising. Exam: 07:17 Constitutional: This is a well developed, well nourished patient who is awake, alert, sy and in no acute distress. Head/Face: Normocephalic, atraumatic. Eyes: Pupils equal round and reactive to light, extra-ocular motions intact. Lids and lashes normal. Conjunctiva and sclera are non-icteric and not injected. Cornea within normal limits. Periorbital areas with no swelling, redness, or edema. ENT: Nares patent. No nasal discharge, no septal abnormalities noted. Tympanic membranes are normal and external auditory canals are clear. Oropharynx with no redness, swelling, or masses, exudates, or evidence of obstruction, uvula midline. Mucous membranes moist. Neck: Trachea midline, no thyromegaly or masses palpated, and no cervical lymphadenopathy. Supple, full range of motion without nuchal rigidity, or vertebral point tenderness. No Meningismus. Chest/axilla: Normal chest wall appearance and motion. Nontender with no deformity. No lesions are appreciated. Cardiovascular: Regular rate and rhythm with a normal S1 and S2. No gallops, murmurs, or rubs. Normal PMI, no JVD. No pulse deficits. Respiratory: Lungs have equal breath sounds bilaterally, clear to auscultation and percussion. No rales, rhonchi or wheezes noted. No increased work of breathing, no retractions or nasal flaring. Abdomen/GI: Soft, non-tender, with normal bowel sounds. No distension or tympany. No guarding or rebound. No evidence of tenderness throughout. Back: No spinal tenderness. No costovertebral tenderness. Full range of motion. Male : Normal genitalia with no discharge or lesions. Skin: Warm, dry with normal turgor. Normal color with no rashes, no lesions, and no evidence of cellulitis. MS/ Extremity: Pulses equal, no cyanosis. Neurovascular intact. Full, normal range of motion. Neuro: Awake and alert, GCS 15, oriented to person, place, time, and situation. Cranial nerves II-XII grossly intact. Motor strength 5/5 in all extremities. Sensory grossly intact. Cerebellar exam normal. Normal gait. Psych: Awake, alert, with orientation to person, place and time. Behavior, mood, and affect are within normal limits. Vital Signs: 05:23 BP 125 / 81; Pulse 72; Resp 16 S; Temp 98.7(O); Pulse Ox 96% on R/A; Weight 122.47 kg bb (R); Height 5 ft. 8 in. (172.72 cm) (R); Pain 6/10; 05:23 Body Mass Index 41.05 (122.47 kg, 172.72 cm) bb MDM: 05:09 Patient medically screened. [facility] 07:18 Differential diagnosis: nephrolithiasis, pyelonephritis, UTI. Data reviewed: vital sy signs, nurses notes, lab test result(s), radiologic studies, CT scan. Data interpreted: cardiac monitor: rate is 72 beats/min, rhythm is regular, Pulse oximetry: on room air is 96 %. Counseling: I had a detailed discussion with the patient and/or guardian regarding: the historical points, exam findings, and any diagnostic results supporting the discharge/admit diagnosis, lab results, radiology results, the need for outpatient follow up, for definitive care, a family practitioner, a urologist. 04/12 05:17 Order name: CBC with Diff; Complete Time: 06:28 [facility] 04/12 05:17 Order name: CMP; Complete Time: :28 [facility] 04/12 05:17 Order name: Lipase; Complete Time: 06:28 [facility] 04/12 05:17 Order name: Urine Microscopic Only; Complete Time: 07:23 sy 04/12 05:19 Order name: Urine Culture [facility] 04/12 06:40 Order name: Urine Dipstick-Ancillary; Complete Time: 07:23 EDMS 04/12 05:17 Order name: CT Stone Protocol [facility] 04/12 06:29 Order name: CT Stone Protocol; Complete Time: 07:23 sy 04/12 05:17 Order name: IV Saline Lock; Complete Time: 05:42 [facility] 04/12 05:17 Order name: Labs collected and sent; Complete Time: 05:42 [facility] 04/12 05:17 Order name: Urine Dipstick-Ancillary (obtain specimen); Complete Time: 06:40 sy Administered Medications: 05:26 CANCELLED (Duplicate Order): Ketorolac 30 mg IVP once sy 05:42 Drug: NS 0.9% 1000 ml Route: IV; Rate: 1 bolus; Site: right forearm; bb 08:14 Not Given (Patient Refused): morphine 2 mg IVP once over 4 mins iw 08:14 Not Given (Patient Refused): Rocephin (cefTRIAXone) 1 grams IV at per protocol once; iw Given slow IV push per pharmacy instructions Disposition Summary: 04/12/22 07:23 Discharge Ordered Location: Home sy Problem: new sy Symptoms: have improved sy Condition: Stable sy Diagnosis - Hematuria, unspecified sy - Obesity, unspecified sy - Type 1 diabetes mellitus with hyperglycemia sy - Abnormal findings on diagnostic imaging of other abdominal regions, including sy retroperitoneum - NEED RENAL PROTOCOL CT/MRI - Unspecified kidney failure - CHRONIC RENAL INSUFFICENCY sy Followup: sy - With: Private Physician - When: 2 - 3 days - Reason: Recheck today's complaints, Continuance of care, Re-evaluation by your physician Followup: sy - With: - When: 2 - 3 days - Reason: Recheck today's complaints, Continuance of care, Re-evaluation by your physician Discharge Instructions: - Discharge Summary Sheet sy - Hematuria, Adult sy - Obesity, Adult sy - Hypertension, Adult sy - Hypertension, Adult, Wmnv-ut-Jnnz sy - Chronic Kidney Disease, Adult, Cxor-ce-Nzsy sy Forms: - Medication Reconciliation Form sy - Thank You Letter sy - Antibiotic Education sy - Prescription Opioid Use sy Signatures: Dispatcher [employer] EDMS Tarik Osullivan MD MD cha Ballard, Brenda RN RN bb Abbie Hanks RN RN kd3 Samara Garcia RN iw Corrections: (The following items were deleted from the chart) 05:26 05:19 Ketorolac 30 mg IVP once ordered. sy dan 05:40 05:22 Stone Protocol ordered. EDMS EDMS 06:41 05:31 Abdomen Pelvis W Con+CT.RAD.BRZ ordered. EDMS EDMS
--- NOTE | 2022-04-12 07:24 | ER ---
Nurse's Notes [facility] Name: [place] Age: 61 yrs Sex: Male : 1960 Arrival Date: 04/12/2022 Time: 04:57 Bed 10 Private MD: Diagnosis: Hematuria, unspecified;Obesity, unspecified;Type 1 diabetes mellitus with hyperglycemia;Abnormal findings on diagnostic imaging of other abdominal regions, including retroperitoneum-NEED RENAL PROTOCOL CT/MRI;Unspecified kidney failure-CHRONIC RENAL INSUFFICENCY Presentation: 04/12 05:23 Chief complaint: Patient states: he has had blood in his urine for 6 months. bb Coronavirus screen: At this time, the client does not indicate any symptoms associated with coronavirus-19. Ebola Screen: No symptoms or risks identified at this time. Initial Sepsis Screen: Does the patient meet any 2 criteria? No. Patient's initial sepsis screen is negative. Does the patient have a suspected source of infection? No. Patient's initial sepsis screen is negative. Risk Assessment: Do you want to hurt yourself or someone else? Patient reports no desire to harm self or others. Onset of symptoms is unknown. 05:23 Method Of Arrival: Ambulatory bb 05:23 Acuity: ANKIT 3 bb Historical: - Allergies: 05:25 No Known Allergies; bb - Home Meds: 06:04 aspirin 81 mg Oral TbEC 1 tab once daily [Active]; Crestor 20 mg Oral tab 1 tab once kd3 daily for Hypercholesterolemia [Active]; Fluoxetine Oral [Active]; furosemide 20 mg Oral tab 1 tab once daily [Active]; Jardiance 25 mg Oral tab 1 tab once daily [Active]; metformin 750 mg Oral Tb24 1 tab twice a day [Active]; omega xl [Active]; Plavix 75 mg Oral tab 1 tab once daily [Active]; nystatin Topical [Active]; Toujeo SoloStar 300 unit/mL (1.5 mL) subcutaneous inpn 45 unit daily [Active]; pantoprazole 40 mg Oral TbEC 1 tab once daily [Active]; Trulicity 0.75 mg/0.5 mL subcutaneous pnij 0.5 mL once wkly [Active]; Triamcinolone Acetonide Topical [Active]; Vesicare 10 mg Oral tab 1 tab once daily [Active]; - PMHx: 06:04 Bipolar disorder; Depression; Diabetes - IDDM; High Cholesterol; Hypertension; kd3 quadraple bypass; Schizophrenia; DVT; - Immunization history:: Client reports receiving the Reji \T\ Reji single-dose vaccine. - Social history:: Smoking status: Patient denies any tobacco usage or history of. Screenin:26 Abuse screen: Denies threats or abuse. Nutritional screening: No deficits noted. bb Tuberculosis screening: No symptoms or risk factors identified. Fall Risk None identified. Assessment: 05:26 General: Appears in no apparent distress. obese, Behavior is calm, cooperative. Pain: bb Complains of pain in pelvis Pain currently is 6 out of 10 on a pain scale. Neuro: Level of Consciousness is awake, alert, obeys commands, Oriented to person, place, time, situation. Cardiovascular: Capillary refill Patient's skin is warm and dry. Respiratory: Respiratory effort is even, unlabored, Respiratory pattern is regular. GI: Abdomen is obese. : Reports blood in urine x 6 months. Derm: Skin is dry, Skin is normal, Skin temperature is warm. Musculoskeletal: Circulation, motion, and sensation intact. 06:40 Reassessment: Patient is alert, oriented x 3, equal unlabored respirations, skin as6 warm/dry/pink. pt to CT scan via wheelchair accompanied by technical document writer. Vital Signs: 05:23 BP 125 / 81; Pulse 72; Resp 16 S; Temp 98.7(O); Pulse Ox 96% on R/A; Weight 122.47 kg bb (R); Height 5 ft. 8 in. (172.72 cm) (R); Pain 6/10; 05:23 Body Mass Index 41.05 (122.47 kg, 172.72 cm) ED Course: 04:57 Patient arrived in ED. bp1 05:09 Tarik Osullivan MD is Attending Physician. sy 05:25 Triage completed. bb 05:25 Arm band placed on Patient placed in an exam room, on a stretcher, on pulse oximetry. bb 05:26 Patient has correct armband on for positive identification. Bed in low position. Call bb light in reach. 05:34 Abbie Hanks, RN is Primary Nurse. kd3 05:40 Initial lab(s) drawn, by me, sent to lab. Inserted saline lock: 20 gauge in right bb forearm, using aseptic technique. Blood collected. 06:44 CT Stone Protocol In Process Unspecified. EDMS 07:23 Eduardo Tesfaye MD is Referral Physician. sy 08:14 No provider procedures requiring assistance completed. IV discontinued, intact, iw bleeding controlled, No redness/swelling at site. Pressure dressing applied. Administered Medications: 05:26 CANCELLED (Duplicate Order): Ketorolac 30 mg IVP once sy 05:42 Drug: NS 0.9% 1000 ml Route: IV; Rate: 1 bolus; Site: right forearm; bb 08:14 Not Given (Patient Refused): morphine 2 mg IVP once over 4 mins iw 08:14 Not Given (Patient Refused): Rocephin (cefTRIAXone) 1 grams IV at per protocol once; iw Given slow IV push per pharmacy instructions Medication: 06:04 VIS not applicable for this client. kd3 Outcome: 07:23 Discharge ordered by . sy 08:14 Discharged to home ambulatory. iw 08:14 Condition: good 08:14 Discharge instructions given to patient, Instructed on discharge instructions, follow up and referral plans. Demonstrated understanding of instructions, follow-up care. 08:14 Patient left the ED. iw Signatures: Dispatcher [employer] EDMS Tarik Osullivan MD MD cha Ballard, Brenda, RN RN Samara Chang, RN RN Yvonne Lentz Ashby, RN RN as6 Abbie Hanks RN RN kd3
[2022-04-12 08:20] VITALS: BP 125/81; TEMP 98.7; O2SAT 96
== END 2022-04-12 08:14 | disposition home or self-care (01) ==
LOC: ER 04:55
DX: R31.9 Hematuria, unspecified (principal); R93.5 Abnormal findings on diagnostic imaging of other abdominal regions, including retroperitoneum; E10.22 Type 1 diabetes mellitus with diabetic chronic kidney disease; E10.65 Type 1 diabetes mellitus with hyperglycemia; I12.9 Hypertensive chronic kidney disease with stage 1 through stage 4 chronic kidney disease, or unspecified chronic kidney disease; N18.9 Chronic kidney disease, unspecified; Z79.82 Long term (current) use of aspirin; Z79.4 Long term (current) use of insulin
CPT/HCPCS: 87088; 85025; 87086; 36415; 83690; 80053; 76377; 74176; 99284; J7030; 81003; 81015

== ENCOUNTER 2022-10-24 11:31 | Inpatient (IN) | payer OTHER ==
--- OUTSIDE RECORDS SUMMARY | 2022-10-24 11:40 | XMS REPORT | Continuity of Care Document ---
:1960 Author Organization [facility] t Address [address] [place] [address] Care Team Providers Name Role Phone Lam_Luba Lares Primary Care Physician Unavailable Anay Hahn Attending Clinician Unavailable VIDHYA GOMEZ Attending Clinician Unavailable ZORAN PETERSON Attending Clinician Unavailable TRUNG GARCIA Attending Clinician Unavailable Trung Garcia MD Attending Clinician [phone] AMBALESSIA_BISI Attending Clinician Unavailable Orquidea_Byyogi Attending Clinician Unavailable Quita Carranza MD Attending Clinician Lea Baugh Attending Clinician QUITA CARRANZA Attending Clinician Unavailable Richard Calzada MD Attending Clinician Pob, [facility] Main Attending Clinician Unavailable Alfredo Lucero MD Attending Clinician Doctor Unassigned, [place] Attending Clinician Unavailable JADE GOMEZ A Attending Clinician Unavailable Bart Yarbrough DO Attending Clinician Jade Dominguez Attending Clinician Hillary Cantu MD Attending Clinician HILLARY CANTU Attending Clinician Unavailable , [facility] Room 1 - Attending Clinician Unavailable Chata Mckeon MD Attending Clinician CHATA MCKEON Attending Clinician Unavailable ALFREDO LUCERO Attending Clinician Unavailable Jhoan Oreilly MD Attending Clinician Room, [facility] Procedure Attending Clinician Unavailable JHOAN OREILLY Attending Clinician Unavailable , [facility] Surg Spec Procedure Attending Clinician Unavailable 2, [facility] Lab Attending Clinician Unavailable Te Sheth Attending Clinician Unavailable Carli Miller MD Attending Clinician Baltazar Pham Attending Clinician Mary MENDOZA, Judi Roth Attending Clinician Unavailable KARY LOONEY Attending Clinician Unavailable VIDHYA GOMEZ Admitting Clinician Unavailable ZORAN PETERSON Admitting Clinician Unavailable TRUNG GARCIA Admitting Clinician Unavailable ROMÁN Admitting Clinician Unavailable Moriah Admitting Clinician Unavailable HILLARY VASQUEZ Admitting Clinician Unavailable PORTIA SMITH Admitting Clinician Unavailable Payers Payer Name Policy Type Policy Number Effective Date Expiration Date Lazara hopeshai AARP/MEDICARE [id number] 2016 COMPLETE 00:00:00 CDC REVIEW [id number] 2020 00:00:00 AETNA MEDICARE OUT [id number] 2020 OF NETWORK 00:00:00 [facility] [id number] Problems Condition Condition Condition Status Onset Resolution Last Treating Co mments Source Name Details Category Date Date Treatment Clinician Date Lower limb Lower limb Disease Active [facility] ischemia ischemia 8 [facility] PVD PVD Disease Active [facility] (periphera 04-05 Tracee kes l vascular l vascular 00:00: Me dical disease) disease) 00 Center 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 a a 0-02 ity of 00:00: [place] 00 [facility] Branch Essential Essential Disease Active 2017-09 Uni vers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 0-02 it y of on on 00:00: [place] 00 Medical Branch Bradycardi Bradycardi Disease Active 2016-[address] a a 2-31 [facility] Center AV AV Disease Active 2016-[address] dissociati dissociati 2-31 Tracee kes on on 00:00: Medical 00 Center PAOD PAOD Disease Active 2016-[address] (periphera (periphera 2-30 Tracee kes l arterial l arterial 00:00: Me dical occlusive occlusive 00 Cent er disease) disease) Coronary Coronary Disease Active 2016-09 [facility] artery artery 2-29 [facility] disease disease 00:00: Medical involving involving 00 Cent er coronary coronary bypass bypass graft of graft of habematolel habematolel heart heart without without angina angina pectoris pectoris Type 2 Type 2 Disease Active 2016-[address] diabetes diabetes 2-29 [facility] mellitus mellitus 00:00: Medica l with with 00 Center complicati complicati on on Secondary Secondary Disease Active 2016-[address]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 2-29 Tracee kes on on 00:00: Medical 00 Center Ischemic Ischemic Disease Active 2016-09 [facility] rest pain rest pain 2-29 Luke s of lower of lower 00:00: Medica l extremity extremity 00 Cent er Stage 3 Stage 3 Disease Active 2016-09 Univers chronic chronic 2-19 ity of kidney kidney 00:00: [place] disease disease 00 Medical Branch 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 diabetes diabetes 8-08 ity of mellitus mellitus 00:00: [place] with with 00 Medical diabetic diabetic Branch nephropath nephropath y, with y, with long-term long-term current current use of use of insulin insulin Dyslipidem Dyslipidem Disease Active U porfirio ia ia 8-08 ity of 00:00: [place] 00 Medical Branch Cough Cough Problem Active 2019-08-13 Tracee ia (finding) (finding) 22:26:06 l Active [place] Problem 08/13/2019 [facility] Diabetes Diabetes Problem Active 2019-08-13 Memoria mellitus mellitus 22:26:06 l (disorder) (disorder) He rmann Active Problem 08/13/2019 [facility] Hyperlipid Hyperlipi Problem Active 2019-08-13 Memoria emia demia 22:26:06 l (disorder) (disorder) He rmann Active Problem 08/13/2019 [facility] Hypertensi Problem Active 2019-08-13 M emoria ve Hypertensi 22:26:06 l disorder, ve [place] systemic disorder, arterial systemic (disorder) arterial (disorder) Active Problem 08/13/2019 [facility] Lumbar Lumbar Problem Active 2019-08-13 Cl meghan radiculopa radiculopa 22:26:06 l thy thy [place] (disorder) (disorder) Active Problem 08/13/2019 [facility] Morbid Morbid Problem Active 2019-08-13 Cl meghan obesity obesity 22:26:06 l (disorder) (disorder) He rmann Active Problem 08/13/2019 [facility] Paresthesi Paresthes Problem Active 2019-08-13 Memoria a ia 22:26:06 l (finding) (finding) Herm esvin Active Problem 08/13/2019 [facility] Peripheral Problem Active 2019-08-13 M emoria nerve Peripheral 22:26:06 l disease nerve [place] (disorder) disease (disorder) Active Problem 08/13/2019 [facility] 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 22:26:06 l s s Geoff (disorder) (disorder) Active Problem 08/13/2019 [facility] [id number] Male Problem Common erectile Spirit dysfunctio [id number] Mixed Problem Common hyperlipid Spirit emia - [facility] [id number] Diabetes Problem Common mellitus Spirit due to - CHI underlying [facility] diabetic Center chronic kidney disease 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 [facility] [id number] Overactive Problem Co mmon bladder Spirit - [facility] [id number] Gastroesop Problem Co mmon hageal Spirit reflux - CHI disease [facility] esophagiti [facility] [id number] Hypertensi Problem Com mon ve heart Spirit disease - [facility] without [facility] [id number] 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, Medical with Center psychotic features [id number] BPH loc w Problem Com mon urin Spirit obs/LUTS - [facility] [id number] Gross Problem Common hematuria [facility] [id number] Adrenal Problem Commo n nodule [facility] [id number] Painful Problem Common erection [facility] [id number] Chronic Problem Commo n kidney Spirit disease, - [facility] stage 3a [facility] [id number] Anxiety Problem Commo n disorder, Spirit unspecifie - [facility] d [facility] [id number] Hypogonadi Problem Com mon sm in male [facility] [id number] 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 [id number] Memory Problem Common changes [facility] Allergies, Adverse Reactions, Alerts Allergy Allergy Status Severity Reaction(s) Onset Inactive Treating Comm ents Source Name Type Date Date Clinician IODINE Allergy Active Low N\\T\\V 2020-0 [facility] AND 11-23 IODIDE 00:00: [address] PRODUCTS Iodine FA Active SV 2020-0 [facility] and 11-23 [facility] Iodide 00:00: [address] Produc Iodine FA Active SV SNEEZING 2019-0 [facility] and 11-23 [place] Iodide 00:: [address] Produc guaifene DA Active U 2019-0 [facility] sin 11-22 [facility] 00:00: [address] guaifene DA Active U itching 2019-0 [facility] sin 11-22 00:00: [address] No Known DA Active U [facility] Allergie 02-06 [facility] s 00:00: [address] No Known DA Active U 0 [facility] Allergie 02-06 [facility] s 00:00: [address] NO KNOWN Allergy Active [facility] ALLERGIE S NO KNOWN Drug Active Univers ALLERGIE Class ity of S [place] [facility] Family History Family Member Diagnosis Comments Start Date Stop Date Source Natural father No Known Problems Met [facility] Natural mother No Known Problems Met [facility] Family member Clotting disorder [facility] Family member Heart disease [facility] Social History Social Habit Start Date Stop Date Quantity Comments Source History of Tobacco Common Spirit - Use [facility] Exposure to 2022-06-012022-06-11 Not sure [facility]-CoV-2 (event) 00:00:00 09:53:00 [facility] Cigarettes smoked 2017-08-30 2017-08-30 [facility] current (pack per 00:00:00 00:00:00 Medical Center day) - Reported Tobacco use and 2017-08-30 2017-08-30 Never used [facility] Tracee kes exposure 00:00:00 00:00:00 [facility] Alcohol intake 2016-08-02 2016-08-02 Current [facility] 00:00:00 00:00:00 non-drinker of Hospital alcohol (finding) Sex [birth year] [facility] 00:00:00 00:00:00 Hospital Smoking Status Start Date Stop Date Source Former Smoker 2022-09-26 00:00:00 2022-09-26 00:00:00 Common S pirit - [facility] Social History [facility] Never smoked tobacco [facility] Medications Ordered Filled Start Stop Current Ordering Indication Dosage Frequency Signature Comments Components Source Medication Medication Date Date Medication? Clinician (SIG) Name Name aspirin 2021-09 Yes 325mg 325 mg, Univer s tablet 325 0-11 Oral, ity of mg 14:00: DAILY, [place] [id number] First dose Medical on [facility] 06/12/22 at 0900, Until Discontinu ed, Routine Metformin Metformin No 1{table BID Metformin HCl 1000 MG HCl 1000 MG 8-17 t_with_ HCl 1000 00:00: meals} MG 00 glipiZIDE glipiZIDE No 1{table QD glipiZIDE XL 10 MG XL 10 MG 8-17 t_with_ XL 10 MG 00:00: breakfa 00 st} Metformin Metformin No 1{table BID Metformin HCl 1000 MG HCl 1000 MG 8-17 t_with_ HCl 1000 00:00: meals} MG 00 glipiZIDE glipiZIDE No 1{table QD glipiZIDE XL 10 MG XL 10 MG 8-17 t_with_ XL 10 MG 00:00: breakfa 00 st} Metformin Metformin No 1{table BID Metformin HCl 1000 MG HCl 1000 MG 8-17 t_with_ HCl 1000 00:00: meals} MG 00 glipiZIDE glipiZIDE 2022-0 No 1{table QD glipiZIDE XL 10 MG XL 10 MG 8-17 t_with_ XL 10 MG 00:00: st} Metformin Metformin 2022-0 No 1{table BID Metformin HCl 1000 MG HCl 1000 MG 8-17 t_with_ HCl 1000 00:00: meals} MG 00 Metformin Metformin 2022-0 No 1{table BID Metformin HCl 1000 MG HCl 1000 MG 8-17 t_with_ HCl 1000 00:00: meals} MG 00 glipiZIDE glipiZIDE 2-0 No 1{table QD glipiZIDE XL 10 MG XL 10 MG 8-17 t_with_ XL 10 MG 00:00: st} Metformin Metformin 2-0 No 1{table BID Metformin HCl 1000 MG HCl 1000 MG 8-17 t_with_ HCl 1000 00:00: meals} MG 00 glipiZIDE glipiZIDE 2-0 No 1{table QD glipiZIDE XL 10 MG XL 10 MG 8-17 t_with_ XL 10 MG 00:00: st} Metformin Metformin 2022-0 No 1{table BID Metformin HCl 1000 MG HCl 1000 MG 8-17 t_with_ HCl 1000 00:00: meals} MG 00 glipiZIDE glipiZIDE 2-0 No 1{table QD glipiZIDE XL 10 MG XL 10 MG 8-17 t_with_ XL 10 MG 00:00: st} glipiZIDE glipiZIDE 2022-0 No 1{table QD glipiZIDE XL 10 MG XL 10 MG 8-17 t_with_ XL 10 MG 00:00: } AMLODIPINE 2020-0 Yes [id number] Take 1 U nivers 10 mg 9-30 tablet by ity of tablet 00:00: mouth once daily Medical Branch AMLODIPINE 2020-0 Yes [id number] Take 1 U nivers 10 mg 9-30 tablet by ity of tablet 00:00: mouth once daily Medical Branch AMLODIPINE 2020-0 Yes [id number] Take 1 U nivers 10 mg 9-30 tablet by ity of tablet 00:00: mouth once [place] daily Medical Branch NOVOLOG 2020-0 Yes 6U inject 6 Univer s FLEXPEN 4-22 Units ity of U-100 00:00: under the [place] INSULIN 100 00 skin 3 Medica l unit/mL (3 (three) Branch mL) times injection daily before meals. NOVOLOG 0 Yes 6U inject 6 Univer s FLEXPEN 4-22 Units ity of U-100 00:00: under the [place] INSULIN 100 00 skin 3 Medica l unit/mL (3 (three) Branch mL) times injection daily before meals. NOVOLOG 0 Yes 6U inject 6 Univer s FLEXPEN 4-22 Units ity of U-100 00:00: under the [place] INSULIN 100 00 skin 3 Medica l unit/mL (3 (three) Branch mL) times injection daily before meals. aspirin 81 0 Yes 325mg Take 325 Un esme mg chewable 4-20 mg by ity of tablet 09:52: mouth [place] 42 daily. Medical Branch aspirin 81 0 Yes 325mg Take 325 Un esme mg chewable 4-20 mg by ity of tablet 09:52: mouth [place] 42 daily. Medical Branch aspirin 81 0 Yes 325mg Take 325 Un esme mg chewable 4-20 mg by ity of tablet 09:52: mouth [place] 42 daily. Medical Branch clopidogreL 0 Yes 75mg Take 75 mg Univers 75 mg 4-20 by mouth. ity of tablet 09:49: [address] clopidogreL 0 Yes 75mg Take 75 mg Univers 75 mg 4-20 by mouth. ity of tablet 09:49: [address] clopidogreL 0 Yes 75mg Take 75 mg Univers 75 mg 4-20 by mouth. ity of tablet 09:49: [address] Branch gabapentin 0 Yes 600mg Take 1 Univ ers ER 600 mg 4-20 tablet by ity o f tablet, 00:00: mouth [place] extended 00 daily. Medical release 24 Branch hr insulin 0 Yes [id number] 50U inject 50 Univers glargine 4-20 Units ity of U-300 conc 00:00: [place] ([place] 00 skin every Medica l SOLOSTAR morning. Branch U-300 INSULIN) 300 unit/mL (1.5 mL) InPn empaglifloz Yes [id number] 1{tbl} Take 1 Univers in 4-20 tablet by ity of (JARDIANCE) 00:00: mouth [place] 25 mg Tab 00 daily. Medical Branch dulaglutide Yes [id number] 1.5mg inject 1.5 Univers (TRULICITY) 4-20 mg under ity of 1.5 mg/0.5 00:00: the skin Roberto as mL PnIj 00 weekly. Medical Branch blood sugar Yes [id number] Use 3 Univers diagnostic 4-20 Times ity of (ONETOUCH 00:00: daily [place] VERIO TEST E11.65 Medical STRIPS) Branch strip rosuvastati Yes [id number] 40mg Take 1 Univers n 40 mg 4-20 tablet by ity of tablet 00:00: mouth at [place] 00 bedtime. Medical Branch lancets Yes [id number] Use 3 Univ ers (ONE TOUCH 4-20 Times ity of DELICA) 33 00:00: daily [place] gauge Misc 00 E11.65 Medical Branch gabapentin Yes 600mg Take 1 Univ ers ER 600 mg 4-20 tablet by ity o f tablet, 00:00: mouth [place] extended 00 daily. Medical release 24 Branch hr insulin Yes [id number] 50U inject 50 Univers glargine 4-20 Units ity of U-300 conc 00:00: [place] ([place] 00 skin every Medica l SOLOSTAR morning. Branch U-300 INSULIN) 300 unit/mL (1.5 mL) InPn empaglifloz Yes [id number] 1{tbl} Take 1 Univers in 4-20 tablet by ity of (JARDIANCE) 00:00: mouth [place] 25 mg Tab 00 daily. Medical Branch dulaglutide Yes [id number] 1.5mg inject 1.5 Univers (TRULICITY) 4-20 mg under ity of 1.5 mg/0.5 00:00: the skin [place] as mL PnIj 00 weekly. Medical Branch blood sugar Yes [id number] Use 3 Univers diagnostic 4-20 Times ity of (ONETOUCH 00:00: daily [place] VERIO TEST E11.65 Medical STRIPS) Branch strip rosuvastati Yes [id number] 40mg Take 1 Univers n 40 mg 4-20 tablet by ity of tablet 00:00: mouth at [place] 00 bedtime. Medical Branch lancets Yes [id number] Use 3 Univ ers (ONE TOUCH 4-20 Times ity of DELICA) 33 00:00: daily [place] gauge Misc E11.65 Medical Branch gabapentin Yes 600mg Take 1 Univ ers ER 600 mg 4-20 tablet by ity o f tablet, 00:00: mouth [place] extended 00 daily. Medical release 24 Branch hr insulin Yes [id number] 50U inject 50 Univers glargine 4-20 Units ity of U-300 conc 00:00: [place] the [place] ([place] 00 skin every Medica l SOLOSTAR morning. Branch U-300 INSULIN) 300 unit/mL (1.5 mL) InPn empaglifloz Yes [id number] 1{tbl} Take 1 Univers in 4-20 tablet by ity of (JARDIANCE) 00:00: mouth [place] 25 mg Tab 00 daily. Medical Branch dulaglutide Yes [id number] 1.5mg inject 1.5 Univers (TRULICITY) 4-20 mg under ity of 1.5 mg/0.5 00:00: the skin [place] as mL PnIj 00 weekly. Medical Branch blood sugar Yes [id number] Use 3 Univers diagnostic 4-20 Times ity of (ONETOUCH 00:00: daily [place] VERIO TEST Medical STRIPS) Branch strip rosuvastati Yes [id number] 40mg Take 1 Univers n 40 mg 4-20 tablet by ity of tablet 00:00: mouth at [place] 00 bedtime. Medical Branch lancets Yes [id number] Use 3 Univ ers (ONE TOUCH 4-20 Times ity of DELICA) 33 00:00: daily [place] gauge Misc E1165 Medical Branch amLODIPine 2020- No [id number] 10mg Take 1 Univers 10 mg 4-20 09-30 tablet by ity of tablet 00:00: 00:00 mouth [place] 00 :00 daily. Medical Branch TAMSULOSIN Yes [id number] Take 1 Univers 0.4 mg 24 4-13 9102 capsule by ity of hr capsule 00:00: mouth once [place] daily [facility] Branch TAMSULOSIN Yes [id number] Take 1 Univers 0.4 mg 24 4-13 9102 capsule by ity of hr capsule 00:00: mouth once [place] daily [facility] Branch TAMSULOSIN Yes [id number] Take 1 Univers 0.4 mg 24 4-13 9102 capsule by ity of hr capsule 00:00: mouth once [place] daily [facility] Branch solifenacin 2019-09 Yes 10mg Take 10 mg Univers 10 mg 2-30 by mouth. ity of tablet 11:05: [address] solifenacin 2019-09 Yes 10mg Take 10 mg Univers 10 mg 2-30 by mouth. ity of tablet 11:05: [address] solifenacin 2019-09 Yes 10mg Take 10 mg Univers 10 mg 2-30 by mouth. ity of tablet 11:05: [address] ONETOUCH 2019-09 Yes [id number] Use as Un esme VERIO FLEX 2-30 directed ity o f START Kit 00:00: [facility] E11.65 [facility] ONETOUCH 2019-09 Yes [id number] Use as Un esme VERIO FLEX 2-30 directed ity o f START Kit 00:00: [facility] Yes [id number] Use as Un esme VERIO FLEX 2-30 directed ity o f START Kit 00:00: [facility] E11.65 [facility] insulin Yes type 1 12U Inject [address] regular 8-11 diabetes Units [facility] (HUMULIN 18:50: mellitus subcutaneo Medical R,NOVOLIN 30 [facility] 3 Center R) 100 (three) unit/mL times injection daily before meals Use as directed . rosuvastati Yes 20mg QD Take [address] n (CRESTOR) 8-11 by mouth Luke s 20 MG 18:50: nightly . Medical tablet 30 Childwold aspirin 81 Yes 81mg QD Take [address] MG EC 8-11 by mouth [facility] tablet 18:50: daily . Medical 30 Center FLUoxetine Yes 40mg QD Take [address] (PROZAC) 40 8-11 by mouth Luke s MG capsule 18:50: daily. Medic al 30 Childw[place] furosemide 2020-0 Yes 20mg Take [address] (LASIX) 20 8-11 by mouth [facility]ukes MG tablet 18:50: daily as Medi [place] 30 needed Center (leg swelling) . clopidogreL 2020-0 Yes 75mg QD Take [address] (PLAVIX) 75 8-11 by mouth Luke s mg tablet 18:50: daily. [facility] 30 Childwold dulaglutide 2020-0 Yes 1.5mg Inject 1.[address] (TRULICITY) 8-11 mg [facility]ukes 1.5 mg/0.5 18:50: subcutaneo M edical mL PnIj 30 usly every Center 7 days. insulin 2020-0 Yes type 1 12U Inject [address] regular 8-11 diabetes Units [facility]ukes (HUMULIN 18:50: mellitus subcutaneo Medical R,NOVOLIN 30 usly 3 Center R) 100 (three) unit/mL times injection daily before meals Use as directed . rosuvastati 2020-0 Yes 20mg QD Take [address] n (CRESTOR) 8-11 by mouth Luke s 20 MG 18:50: nightly . Medical tablet 30 Childw[place] aspirin 81 2020-0 Yes 81mg QD Take [address] MG EC 8-11 by mouth [facility] tablet 18:50: daily . Medical 30 [place] FLUoxetine 2020-0 Yes 40mg QD Take [address] (PROZAC) 40 8-11 by mouth Luke s MG capsule 18:50: daily. [facility] al 30 Childwold furosemide 2020-0 Yes 20mg Take [address] (LASIX) 20 8-11 by mouth [facility]ukes MG tablet 18:50: daily as Medi [place] 30 needed Center (leg swelling) . clopidogreL 2020-0 Yes 75mg QD Take [address] (PLAVIX) 75 8-11 by mouth Luke s mg tablet 18:50: daily. [facility] 30 [place] dulaglutide 2020-0 Yes 1.5mg Inject 1.[address] (TRULICITY) 8-11 mg [facility]ukes 1.5 mg/0.5 18:50: subcutaneo M edical mL PnIj 30 usly every Center 7 days. insulin 2020-0 Yes type 1 12U Inject [address] regular 8-11 diabetes Units [facility]ukes (HUMULIN 18:50: mellitus subcutaneo Medical R,NOVOLIN 30 usly 3 Center R) 100 (three) unit/mL times injection daily before meals Use as directed . rosuvastati 2020-0 Yes 20mg QD Take [address] n (CRESTOR) 8-11 by mouth Luke s 20 MG 18:50: nightly . Medical tablet 30 Center aspirin 81 2020-0 Yes 81mg QD Take [address] MG EC 8-11 by mouth [facility]ukes tablet 18:50: daily . Medical 30 Center FLUoxetine 2020-0 Yes 40mg QD Take [address] (PROZAC) 40 8-11 by mouth Luke s MG capsule 18:50: daily. Medic al 30 Center furosemide 2020-0 Yes 20mg Take [address] (LASIX) 20 8-11 by mouth [facility] MG tablet 18:50: daily as Medi [place] 30 needed Center (leg swelling) . clopidogreL 2020-0 Yes 75mg QD Take [address] (PLAVIX) 75 8-11 by mouth Luke s mg tablet 18:50: daily. Medica l 30 Center dulaglutide 2020-0 Yes 1.5mg Inject 1.[address] (TRULICITY) 8-11 mg [facility]ukes 1.5 mg/0.5 18:50: subcutaneo M edical mL PnIj 30 usly every Center 7 days. insulin 2020-0 Yes type 1 12U Inject [address] regular 8-11 diabetes Units [facility] (HUMULIN 18:50: [facility],NOVOLIN 30 usly 3 Center R) 100 (three) unit/mL times injection daily before meals Use as directed . rosuvastati 2020-0 Yes 20mg QD Take [address] n (CRESTOR) 8-11 by mouth Luke s 20 MG 18:50: nightly . Medical tablet 30 Center aspirin 81 2020-0 Yes 81mg QD Take [address] MG EC 8-11 by mouth [facility]ukes tablet 18:50: daily . Medical 30 Center FLUoxetine 2020-0 Yes 40mg QD Take [address] (PROZAC) 40 8-11 by mouth Luke s MG capsule 18:50: daily. Medic al 30 Center furosemide 2020-0 Yes 20mg Take [address] (LASIX) 20 8-11 by mouth [facility] MG tablet 18:50: daily as Medi [place] 30 needed Center (leg swelling) . clopidogreL 2020-0 Yes 75mg QD Take [address] (PLAVIX) 75 8-11 by mouth Luke s mg tablet [facility] dulaglutide 2020-0 Yes 1.5mg Inject 1.[address] (TRULICITY) 8-11 mg [facility]ukes 1.5 mg/0.5 18:50: subcutaneo M edical mL PnIj 30 usly every Center 7 days. insulin 2020-0 Yes type 1 12U Inject [address] regular 8-11 diabetes Units [facility] (HUMULIN 18:50: mellitus subcutaneo Medical R,NOVOLIN 30 usly 3 Center R) 100 (three) unit/mL times injection daily before meals Use as directed . rosuvastati 2020-0 Yes 20mg QD Take [address] n (CRESTOR) 8-11 by mouth Luke s 20 MG 18:50: nightly . Medical tablet 30 Child[place] aspirin 81 2020-0 Yes 81mg QD Take [address] MG EC 8-11 by mouth [facility]ukes tablet 18:50: daily . Medical 30 [place] FLUoxetine 2020-0 Yes 40mg QD Take [address] (PROZAC) 40 8-11 by mouth Luke s MG capsule 18:50: daily. [facility] 30 Childwold furosemide 2020-0 Yes 20mg Take [address] (LASIX) 20 8-11 by mouth [facility]ukes MG tablet 18:50: daily as Medi er[place] 30 needed Center (leg swelling) . clopidogreL 2020-0 Yes 75mg QD Take [address] (PLAVIX) 75 8-11 by mouth Luke s mg tablet 18:50[facility] dulaglutide 2020-0 Yes 1.5mg Inject 1.[address] (TRULICITY) 8-11 mg [facility]ukes 1.5 mg/0.5 18:50: subcutaneo M edical mL PnIj 30 usly every Center 7 days. insulin 2020-0 Yes type 1 12U Inject [address] regular 8-11 diabetes Units [facility] (HUMULIN 18:50: mellitus subcutaneo Medical R,NOVOLIN 30 usly 3 Center R) 100 (three) unit/mL times injection daily before meals Use as directed . rosuvastati 2020-0 Yes 20mg QD Take [address] n (CRESTOR) 8-11 by mouth Luke s 20 MG 18:50: nightly . Medical tablet 30 Center aspirin 81 2020-0 Yes 81mg QD Take [address] MG EC 8-11 by mouth [facility] tablet 18:50: daily . Medical 30 Center FLUoxetine 2020-0 Yes 40mg QD Take [address] (PROZAC) 40 8-11 by mouth [facility] capsule 18:50: daily. Medic al 30 Center furosemide 2020-0 Yes 20mg Take [address] [facility] (LASIX) 20 8-11 [facility] tablet 18:50: daily as Medi erickson 30 needed Center (leg swelling) . clopidogreL 2020-0 Yes 75mg QD Take [address] [facility] (PLAVIX) 75 8-11 by mouth [facility] mg tablet 18:50: daily. Medica l 30 Center dulaglutide 2020-0 Yes 1.5mg Inject 1.[address] [facility] (TRULICITY) 8-11 mg [facility] 1.5 mg/0.5 18:50: subcutaneo M edical mL PnIj 30 usly every Center 7 days. TOUJEO MAX 2020-0 Yes 75U QD Inject [address] U-300 6-25 Units [facility] SOLOSTAR 00:00: subcutaneo Med ical 300 unit/mL 00 usly Center (3 mL) InPn daily. TOUJEO MAX 2020-0 Yes 75U QD Inject [address] U-300 6-25 Units [facility] SOLOSTAR 00:00: subcutaneo Med ical 300 unit/mL 00 usly Center (3 mL) InPn daily. TOUJEO MAX 2020-0 Yes 75U QD Inject [address] U-300 6-25 Units [facility] SOLOSTAR 00:00: subcutaneo Med ical 300 unit/mL 00 usly Center (3 mL) InPn daily. TOUJEO MAX 2020-0 Yes 75U QD Inject [address] U-300 6-25 Units [facility] SOLOSTAR 00:00: subcutaneo Med ical 300 unit/mL 00 usly Center (3 mL) InPn daily. TOUJEO MAX 2020-0 Yes 75U QD Inject [address] U-300 6-25 Units [facility] SOLOSTAR 00:00: subcutaneo Med ical 300 unit/mL 00 usly Center (3 mL) InPn daily. TOUJEO MAX 2020-0 Yes 75U QD Inject [address] U-300 6-25 Units [facility] SOLOSTAR 00:00: subcutaneo Med ical 300 unit/mL 00 usly Center (3 mL) InPn daily. solifenacin 2020-0 Yes 5mg QD Take [address] (VESICARE) 6-24 by mouth [facility] 5 MG tablet 00:00: every Medic al 00 morning. Center pantoprazol 2020-0 Yes 40mg QD Take [address] [facility] e 6-24 by mouth [facility] (PROTONIX) 00:00: daily. Medic al 40 MG 00 Center tablet gabapentin 2020-0 Yes 600mg QD Take [address] (NEURONTIN) 6-24 mg by [facility] 600 MG 00:00: mouth Medical tablet 00 nightly. Center albuterol 2020-0 Yes USE [address] [facility] [address] [facility] (PROVENTIL) 6-24 IN [facility] 2.5 mg /3 00:00: NEBULIZER Med ical mL (0.083 00 TWICE Center %) DAILY nebulizer solution solifenacin 2020-0 Yes 5mg QD Take [address] (VESICARE) 6-24 by mouth [facility] 5 MG tablet 00:00: every Medic al 00 morning. Center pantoprazol 2020-0 Yes 40mg QD Take [address] [facility] 6-24 by mouth [facility] (PROTONIX) 00:00: daily. Medic al 40 MG 00 Center tablet gabapentin 2020-0 Yes 600mg QD Take [address] (NEURONTIN) 6-24 mg by [facility] 600 MG 00:00: mouth Medical tablet 00 nightly. Center albuterol 2020-0 Yes USE [address] [facility] [address] (PROVENTIL) 6-24 IN [facility] 2.5 mg /3 00:00: NEBULIZER Med ical mL (0.083 00 TWICE Center %) DAILY nebulizer solution solifenacin 2020-0 Yes 5mg QD Take [address] (VESICARE) 6-24 by mouth [facility] 5 MG tablet 00:00: every Medic al 00 morning. Center pantoprazol 2020-0 Yes 40mg QD Take [address] [facility] 6-24 by mouth [facility] (PROTONIX) 00:00: daily. Medic al 40 MG 00 Center tablet gabapentin 2020-0 Yes 600mg QD Take [address] (NEURONTIN) 6-24 mg by [facility] 600 MG 00:00: mouth Medical tablet 00 nightly. Center albuterol 2020-0 Yes USE [address] [facility] [address] (PROVENTIL) 6-24 IN [facility] 2.5 mg /3 00:00: NEBULIZER Med ical mL (0.083 00 TWICE Center %) DAILY nebulizer solution solifenacin 2020-0 Yes 5mg QD Take [address] (VESICARE) 6-24 by mouth [facility] 5 MG tablet 00:00: every Medic al 00 morning. Center pantoprazol 2020-0 Yes 40mg QD Take [address] [facility] 6-24 by mouth [facility] (PROTONIX) 00:00: daily. Medic al 40 MG 00 Center tablet gabapentin 2020-0 Yes 600mg QD Take [address] (NEURONTIN) 6-24 mg by [facility] 600 MG 00:00: mouth Medical tablet 00 nightly. [place] albuterol 2020-0 Yes USE [address] [facility] [address] (PROVENTIL) 6-24 IN [facility] 2.5 mg /3 00:00: NEBULIZER Med ical mL (0.083 00 TWICE Center %) DAILY nebulizer solution solifenacin 2020-0 Yes 5mg QD Take [address] (VESICARE) 6-24 by mouth [facility] 5 MG tablet 00:00: every Medic al 00 morning. [place] pantoprazol 2020-0 Yes 40mg QD Take [address] [facility] 6-24 by mouth [facility] (PROTONIX) 00:00: daily. Medic al 40 MG 00 Center tablet gabapentin 2020-0 Yes 600mg QD Take [address] (NEURONTIN) 6-24 mg by [facility] 600 MG 00:00: mouth Medical tablet 00 nightly. [place] albuterol 2020-0 Yes USE [address] [facility] [address] (PROVENTIL) 6-24 IN [facility] 2.5 mg /3 00:00: NEBULIZER Med ical mL (0.083 00 TWICE Center %) DAILY nebulizer solution solifenacin 2020-0 Yes 5mg QD Take [address] (VESICARE) 6-24 by mouth [facility] 5 MG tablet 00:00: every Medic al 00 morning. Center pantoprazol 2020-0 Yes 40mg QD Take [address] [facility] 6-24 by mouth [facility] (PROTONIX) 00:00: daily. Medic al 40 MG 00 [facility] tablet gabapentin 2019-0 Yes 600mg QD Take [address] (NEURONTIN) 6-24 mg by [facility] 600 MG 00:00: mouth Medical tablet 00 nightly. [place] furosemide 2020-0 Yes 20mg Take 20 mg U nivers 20 mg 6-24 by mouth. ity of tablet 00:00: [address] albuterol 2019-0 Yes USE [address] (PROVENTIL) 6-24 IN [facility] 2.5 mg /3 00:00: NEBULIZER Med ical mL (0.083 00 TWICE Center %) DAILY nebulizer solution furosemide 2019-0 Yes 20mg Take 20 mg U nivers 20 mg 6-24 by mouth. ity of tablet 00:00: [address] furosemide 2019-0 Yes 20mg Take 20 mg U nivers 20 mg 6-24 by mouth. ity of tablet 00:00: [address] MYRBETRIQ 2019-0 Yes 50mg QD Take [address] 50 mg Tb24 6-01 by mouth [facility] tablet 00:00: daily. Medica 00 [place] MYRBETRIQ 2020-0 Yes 50mg QD Take [address] 50 mg Tb24 6-01 by mouth [facility] tablet 00:00: daily. Medica 00 [place] MYRBETRIQ 2020-0 Yes 50mg QD Take [address] 50 mg Tb24 6-01 by mouth [facility] tablet 00:00: daily. Medica 00 [place] MYRBETRIQ 2020-0 Yes 50mg QD Take [address] 50 mg Tb24 6-01 by mouth [facility] tablet 00:00: daily. Medica l 00 [place] MYRBETRIQ 2020-0 Yes 50mg QD Take [address] 50 mg Tb24 6-01 by mouth [facility] tablet 00:00: daily. Medica l 00 [place] MYRBETRIQ 2020-0 Yes 50mg QD Take [address] 50 mg Tb24 6-01 by mouth [facility] tablet 00:00: daily. Medica l 00 [place] lisinopriL 2019-0 Yes 10mg QD Take [address] (PRINIVIL,Z 5-26 by mouth [facility] ESTRIL) 10 00:00: daily. Medic al MG tablet [address] [place] [address] lisinopriL 0 Yes 10mg QD Take [address] (PRINIVIL,Z 5-26 by mouth [facility] ESTRIL) 10 00:00: daily. Medic al MG tablet 00 [place] lisinopriL 0 Yes 10mg QD Take [address] (PRINIVIL,Z 5-26 by mouth [facility] ESTRIL) 10 00:00: daily. Medic al MG tablet 00 [place] lisinopriL 2019-0 Yes 10mg QD Take [address] (PRINIVIL,Z 5-26 by mouth [facility] ESTRIL) 10 00:00: daily. Medic al MG tablet 00 [place] lisinopriL 2019-0 Yes 10mg QD Take [address] (PRINIVIL,Z 5-26 by mouth [facility] ESTRIL) 10 00:00: daily. Medic al MG tablet 00 [place] lisinopriL Yes 10mg QD Take [address] (PRINIVIL,Z 5-26 by mouth [facility] ESTRIL) 10 00:00: daily. Medic al MG tablet 00 [place] carvediloL Yes TAKE 1 [facility]COREG[facility]T [facility] 12.5 MG 00:00: MOUTH Medical tablet 00 TWICE Center DAILY FOR 90 DAYS carvediloL Yes [facility]KE 1 [facility] ([facility] 5-[facility] TABLET [facility] 12.5 MG 00:00: MOUTH Medical tablet 00 TWICE Center DAILY FOR 90 DAYS carvediloL Yes TAKE 1 [facility] (COREG[facility] 5-[facility] TABLET [facility] 12.5 MG 00:00: MOUTH Medical tablet 00 TWICE Center DAILY FOR 90 DAYS carvediloL Yes TAKE 1 [facility] (COREG) 5-15 TABLET [facility] 12.5 MG 00:00: MOUTH Medical tablet 00 TWICE Center DAILY FOR 90 DAYS carvediloL Yes TAKE 1 [facility] (COREG) 5-15 TABLET [facility] 12.5 MG 00:00: MOUTH Medical tablet 00 TWICE Center DAILY FOR 90 DAYS carvediloL Yes TAKE 1 [facility] (COREG[facility] 5-15 TABLET [facility] 12.5 MG 00:00: MOUTH Medical tablet 00 TWICE Center DAILY FOR 90 DAYS fluticasone Yes INHALE [address] -umeclidin- 4-20 PUFF ONCE [facility]y es vilanter 00:00: DAILY AT Medic al (TRELEGY 00 THE SAME Center ELLIPTA) TIME EACH 100-62.5-25 DAY mcg DsDv fluticasone 2020-0 Yes INHALE 1 Un esme -umeclidin- 4-20 PUFF ONCE ity of vilanter 00:00: DAILY AT [place] (TRELEGY 00 THE SAME Medical ELLIPTA) TIME EACH Branch 100-62.5-25 DAY mcg DsDv fluticasone 2020-0 Yes INHALE 1 Un esme -umeclidin- 4-20 PUFF ONCE ity of vilanter 00:00: DAILY AT [place] (TRELEGY 00 THE SAME Medical ELLIPTA) TIME EACH Branch 100-62.5-25 DAY mcg DsDv fluticasone 2020-0 Yes INHALE 1 Un esme -umeclidin- 4-20 PUFF ONCE ity of vilanter 00:00: DAILY AT [place] (TRELEGY 00 THE SAME Medical ELLIPTA) TIME EACH Branch 100-62.5-25 DAY mcg DsDv fluticasone 2020-0 Yes INHALE [address] -umeclidin- 4-20 PUFF ONCE [facility] es vilanter 00:00: DAILY AT Medic al (TRELEGY 00 THE SAME Center ELLIPTA) TIME EACH 100-62.5-25 DAY mcg DsDv fluticasone 2020-0 Yes INHALE [address] -umeclidin- 4-20 PUFF ONCE [facility] es vilanter 00:00: DAILY AT Medic al (TRELEGY 00 THE SAME Center ELLIPTA) TIME EACH 100-62.5-25 DAY mcg DsDv fluticasone 2020-0 Yes INHALE [address] -umeclidin- 4-20 PUFF ONCE [facility] es vilanter 00:00: DAILY AT Medic al (TRELEGY 00 THE SAME Center ELLIPTA) TIME EACH 100-62.5-25 DAY mcg DsDv fluticasone 2020-0 Yes INHALE [address] -umeclidin- 4-20 PUFF ONCE [facility] es vilanter 00:00: DAILY AT Medic al (TRELEGY 00 THE SAME Center ELLIPTA) TIME EACH 100-62.5-25 DAY mcg DsDv fluticasone 2020-0 Yes INHALE [address] -umeclidin- 4-20 PUFF ONCE [facility] es vilanter 00:00: DAILY AT Medic al (TRELEGY 00 THE SAME Center [facility]) TIME EACH 100-62.5-25 DAY mcg DsDv pantoprazol 0 Yes 40mg Take 40 mg [facility] 40 mg EC 1-08 by mouth. ity of tablet 00:00: Medical Branch pantoprazol Yes 40mg Take 40 mg [facility] 40 mg EC 1-08 by mouth. ity of tablet 00:00: Medical Branch pantoprazol 0 Yes 40mg Take 40 mg [facility] 40 mg EC 1-08 by mouth. ity of tablet 00:00: [place] [facility] loratadine 0 Yes 10mg Take 1 Unive rs 10 mg 2-22 tablet by ity of tablet 00:00: mouth daily. Medical Branch loratadine 0 Yes 10mg Take 1 [facility] rs 10 mg 2-22 tablet by ity of tablet 00:00: mouth daily. Medical Branch loratadine 20180 Yes 10mg Take 1 Unive rs 10 mg 2-22 tablet by ity of tablet 00:00: mouth daily. Medical Branch carvedilol 2016-09 Yes Univers 6.25 mg 0-30 ity of tablet 00:00: [place] 00 Medical Branch FLUoxetine 2016- Yes Univers 40 mg 0-30 ity of capsule 00:00: [place] [facility] QUEtiapine 2017 Yes Univers 100 mg 0-30 ity of tablet 00:00: [place] [facility] amitriptyli 2017- Yes Univer s ne 10 mg 0-30 ity of tablet 00:00: [place] [facility] fluticasone 2017- Yes Univer s 50 0-30 ity of mcg/actuati 00:00: [place] on nasal 00 Medical spray Branch ketoconazol 2016- Yes Univer s e 2 % cream 0-30 ity of 00:00: [place] [facility] carvedilol 2017- Yes Univers 6.25 mg 0-30 ity of tablet 00:00: [place] 00 Medical Branch FLUoxetine 2017- Yes Univers 40 mg 0-30 ity of capsule 00:00: [place] [facility] QUEtiapine 2017- Yes Univers 100 mg 0-30 ity of tablet 00:00: [place] [facility] Branch amitriptyli 2016-09 Yes Univer s ne 10 mg 0-30 ity of tablet 00:00: [place] [facility] Branch fluticasone 2016-09 Yes Univer s 50 0-30 ity of mcg/actuati 00:00: [place] on nasal 00 Medical spray Branch ketoconazol 2016-09 Yes Univer s e 2 % cream 0-30 ity of 00:00: [place] [facility] Branch carvedilol 2016-09 Yes Univers 6.25 mg 0-30 ity of tablet 00:00: [place] [facility] Branch FLUoxetine 2016-09 Yes Univers 40 mg 0-30 ity of capsule 00:00: [place] [facility] Branch QUEtiapine 2016-09 Yes Univers 100 mg 0-30 ity of tablet 00:00: [place] [facility] amitriptyli 2016-09 Yes Univer s ne 10 mg 0-30 ity of tablet 00:00: [place] [facility] fluticasone 2016-09 Yes Univer s 50 0-30 ity of mcg/actuati 00:00: [place] on nasal [facility] spray Branch ketoconazol 2016-09 Yes Univer s e 2 % cream 0-30 ity of 00:00: [place] [facility] Branch DICLOFENAC 2015-09 Yes 2{tbl} Q.5D Take 2 Met hodi SODIUM/MISO 1-[address] PROSTOL 14:11: mouth 2 Hospita (ARTHROTEC 20 (two) l 75 ORAL) times a day. amitriptyli 2015-09 Yes 25mg QD Take 25 mg [facility]i ne (ELAVIL) 1-[address] 25 MG 14:11: nightly. Hospita tablet 20 l LOSARTAN 2015-09 Yes 1{tbl} QD Take 1 Metho di POTASSIUM 1-[address] (LOSARTAN 14:11: mouth Hospita ORAL) 20 daily. l insulin 2015-09 Yes 100U Q.5D Inject 100 Meth shyla detemir 1-[address] (LEVEMIR) 14:11: under the Hos anuj 100 unit/mL 20 skin 2 l injection (two) times a day. insulin 2015-09 Yes 30U [id number] Inject 30 [facility] lispro 1-[id number] (HumaLOG) 14:11: 3D under the Hos anuj 100 unit/mL 20 skin 3 l injection (three) times a day before meals. aspirin 325 2015-09 Yes 325mg QD Take 325 M ethodi MG tablet 1-[address] 14:11: mouth Hospita 20 daily. l rosuvastati 2015-09 Yes 20mg QD Take 20 mg Methodi n (CRESTOR) 1-[address] 20 MG 14:11: nightly. Hospita tablet 20 l furosemide 2015-09 Yes 20mg Q.5D Take 20 mg M ethodi (LASIX) 20 1-[address] MG tablet 14:11: (two) Hospita 20 times a l day. potassium 2015-09 Yes 10meq QD Take 10 Meth shyla chloride 1-[address] (K-DUR,KLOR 14:11: mouth Hospi ta -CON) 10 20 daily. l MEQ CR tablet potassium 2015-09 Yes 10meq QD Take 10 Meth shyla chloride 1-[address] (K-DUR,KLOR 14:11: mouth Hospi ta -CON) 10 20 daily. l MEQ CR tablet DICLOFENAC 2015-09 Yes 2{tbl} Q.5D Take 2 Met hodi SODIUM/MISO 1-[address] PROSTOL 14:11: mouth 2 Hospita (ARTHROTEC 20 (two) l 75 ORAL) times a day. amitriptyli 2015-09 Yes 25mg QD Take 25 mg [facility]i ne (ELAVIL) 1-[address] 25 MG 14:11: nightly. Hospita tablet 20 l LOSARTAN 2015-09 Yes 1{tbl} QD Take 1 Metho di POTASSIUM 1-[address] (LOSARTAN 14:11: mouth Hospita ORAL) 20 daily. l insulin 2015-09 Yes 100U Q.5D Inject 100 Meth shyla detemir 1-[address] (LEVEMIR) 14:11: under the Hos anuj 100 unit/mL 20 skin 2 l injection (two) times a day. insulin 2015-09 Yes 30U [id number] Inject 30 [facility]i lispro 1-[id number] (HumaLOG) 14:11: 3D under the Hos anuj 100 unit/mL 20 skin 3 l injection (three) times a day before meals. aspirin 325 2015-09 Yes 325mg QD Take 325 M ethodi MG tablet 1-[address] 14:11: mouth Hospita 20 daily. l rosuvastati 2015-09 Yes 20mg QD Take 20 mg Methodi n (CRESTOR) 1-[address] 20 MG 14:11: nightly. Hospita tablet 20 l furosemide 2015-09 Yes 20mg Q.5D Take 20 mg M ethodi (LASIX) 20 -[address] MG tablet 14:11: (two) Hospita 20 times a l day. potassium 2015-09 Yes 10meq QD Take 10 Meth shyla chloride 1-[address] (K-DUR,KLOR 14:11: mouth Hospi ta -CON) 10 20 daily. l MEQ CR tablet DICLOFENAC 2015-09 Yes 2{tbl} Q.5D Take 2 Met hodi SODIUM/MISO 1-[address] PROSTOL 14:11: mouth 2 Hospita (ARTHROTEC 20 (two) l 75 ORAL) times a day. amitriptyli 2015-09 Yes 25mg QD Take 25 mg [facility] (ELAVIL) -[address] 25 MG 14:11: nightly. Hospita tablet 20 l LOSARTAN 2015-09 Yes 1{tbl} QD Take 1 Metho di POTASSIUM 1-[address] (LOSARTAN 14:11: mouth Hospita ORAL) 20 daily. l insulin 2015-09 Yes 100U Q.5D Inject 100 Meth shyla detemir 1-[address] (LEVEMIR) 14:11: under the Hos anuj 100 unit/mL 20 skin 2 l injection (two) times a day. insulin 2015-09 Yes 30U [id number] Inject 30 [facility]i lispro 1-[id number] (HumaLOG) 14:11: 3D under the Hos anuj 100 unit/mL 20 skin 3 l injection (three) times a day before meals. aspirin 325 2015-09 Yes 325mg QD Take 325 M ethodi MG tablet 1-[address] 14:11: mouth Hospita 20 daily. l rosuvastati 2015-09 Yes 20mg QD Take 20 mg Methodi n (CRESTOR) 1-[address] 20 MG 14:11: nightly. Hospita tablet 20 l furosemide 2015-09 Yes 20mg Q.5D Take 20 mg M ethodi (LASIX) [address] MG tablet 14:11: (two) Hospita 20 times a l day. potassium 2015-09 Yes 10meq QD Take 10 Meth shyla chloride 1-[address] (K-DANIEL,KLOR 14:11: mouth Hospi ta -CON) 10 20 daily. l MEQ CR tablet DICLOFENAC 2015-09 Yes 2{tbl} Q.5D Take 2 Met hodi SODIUM/MISO 1-[address] PROSTOL 14:11: mouth 2 Hospita (ARTHROTEC 20 (two) l 75 ORAL) times a day. amitriptyli 2015-09 Yes 25mg QD Take 25 mg [facility] (ELAVIL) 1-[address] 25 MG 14:11: nightly. Hospita tablet 20 l LOSARTAN 2015-09 Yes 1{tbl} QD Take 1 Metho di POTASSIUM 1-[address] (LOSARTAN 14:11: mouth Hospita ORAL) 20 daily. l insulin 2015-09 Yes 100U Q.5D Inject 100 Meth shyla detemir 1-[address] (LEVEMIR) 14:11: under the Hos anuj 100 unit/mL 20 skin 2 l injection (two) times a day. insulin 2015-09 Yes 30U [id number] Inject 30 [facility]i lispro 1-[id number] (HumaLOG) 14:11: 3D under the Hos anuj 100 unit/mL 20 skin 3 l injection (three) times a day before meals. aspirin 325 2015-09 Yes 325mg QD Take 325 M ethodi MG tablet 1-[address] 14:11: mouth Hospita 20 daily. l rosuvastati 2015-09 Yes 20mg QD Take 20 mg [facility]i n (CRESTOR) 1-[address] 20 MG 14:11: nightly. Hospita tablet 20 l furosemide 2015-09 Yes 20mg Q.5D Take 20 mg M ethodi (LASIX) 20 1-[address] MG tablet 14:11: (two) Hospita 20 times a l day. potassium 2015-09 Yes 10meq QD Take 10 Meth shyla chloride 1-[address] (K-DANIEL,KLOR 14:11: mouth Hospi ta -CON) 10 20 daily. l MEQ CR tablet DICLOFENAC 2015-09 Yes 2{tbl} Q.5D Take 2 Met hodi SODIUM/MISO 1-[address] PROSTOL 14:11: mouth 2 Hospita (ARTHROTEC 20 (two) l 75 ORAL) times a day. amitriptyli 2015-09 Yes 25mg QD Take 25 mg [facility] (ELAVIL) 1-[address] 25 MG 14:11: nightly. Hospita tablet 20 l LOSARTAN 2015-09 Yes 1{tbl} QD Take 1 Metho di POTASSIUM 1-[address] (LOSARTAN 14:11: mouth Hospita ORAL) 20 daily. l insulin 2015-09 Yes 100U Q.5D Inject 100 Meth shyla detemir 1-[address] (LEVEMIR) 14:11: under the Hos anuj 100 unit/mL 20 skin 2 l injection (two) times a day. insulin 2015-09 Yes 30U [id number] Inject 30 [facility]i lispro 1-[id number] (HumaLOG) 14:11: 3D under the Hos anuj 100 unit/mL 20 skin 3 l injection (three) times a day before meals. aspirin 325 2015-09 Yes 325mg QD Take 325 M ethodi MG tablet 1-[address] 14:11: mouth Hospita 20 daily. l rosuvastati 2015-09 Yes 20mg QD Take 20 mg Methodi n (CRESTOR) 1-[address] 20 MG 14:11: nightly. Hospita tablet 20 l furosemide 2015-09 Yes 20mg Q.5D Take 20 mg M ethodi (LASIX) 20 1-[address] MG tablet 14:11: (two) Hospita 20 times a l day. potassium 2015-09 Yes 10meq QD Take 10 Meth shyla chloride 1-[address] (K-DUR,KLOR 14:11: mouth Hospi ta -CON) 10 20 daily. l MEQ CR tablet DICLOFENAC 2015-09 Yes 2{tbl} Q.5D Take 2 Met hodi SODIUM/MISO 1-[address] PROSTOL 14:11: mouth 2 Hospita (ARTHROTEC 20 (two) l 75 ORAL) times a day. amitriptyli 2015-09 Yes 25mg QD Take 25 mg [facility] (ELAVIL) 1-[address] 25 MG 14:11: nightly. Hospita tablet 20 l LOSARTAN 2015-09 Yes 1{tbl} QD Take 1 Metho di POTASSIUM 1-[address] (LOSARTAN 14:11: mouth Hospita ORAL) 20 daily. l insulin 2015-09 Yes 100U Q.5D Inject 100 Meth shyla detemir 1-[address] (LEVEMIR) 14:11: under the Hos anuj 100 unit/mL 20 skin 2 l injection (two) times a day. insulin 2015-09 Yes 30U [id number] Inject 30 [facility]i lispro 1-[id number] (HumaLOG) 14:11: 3D under the Hos anuj 100 unit/mL 20 skin 3 l injection (three) times a day before meals. aspirin 325 2015-09 Yes 325mg QD Take 325 M ethodi MG tablet 1-[address] 14:11: mouth Hospita 20 daily. l aspirin 325 2015-09 Yes 325mg QD Take 325 M ethodi MG tablet 1-[address] 14:11: mouth Hospita 20 daily. l rosuvastati 2015-09 Yes 20mg QD Take 20 mg Methodi n (CRESTOR) 1-[address] 20 MG 14:11: nightly. Hospita tablet 20 l furosemide 2015-09 Yes 20mg Q.5D Take 20 mg M ethodi (LASIX) 20 1-[address] MG tablet 14:11: (two) Hospita 20 times a l day. potassium 2015-09 Yes 10meq QD Take 10 Meth shyla chloride 1-[address] (K-DUR,KLOR 14:11: mouth Hospi ta -CON) 10 20 daily. l MEQ CR tablet DICLOFENAC 2015-09 Yes 2{tbl} Q.5D Take 2 Met hodi SODIUM/MISO 1-[address] PROSTOL 14:11: mouth 2 Hospita (ARTHROTEC 20 (two) l 75 ORAL) times a day. amitriptyli 2015-09 Yes 25mg QD Take 25 mg [facility] ne (ELAVIL) 1-[address] 25 MG 14:11: nightly. Hospita tablet 20 l LOSARTAN 2015-09 Yes 1{tbl} QD Take 1 Metho di POTASSIUM 1-[address] (LOSARTAN 14:11: mouth Hospita ORAL) 20 daily. l rosuvastati 2015-09 Yes 20mg QD Take 20 mg [facility]i n (CRESTOR) 1-[address] 20 MG 14:11: nightly. Hospita tablet 20 l insulin 2015-09 Yes 100U Q.5D Inject 100 Meth shyla detemir -[address] (LEVEMIR) 14:11: under the Hos anuj 100 unit/mL 20 skin 2 l injection (two) times a day. insulin 2015-09 Yes 30U [id number] Inject 30 [facility]i lispro -[id number] (HumaLOG) 14:11: 3D under the Hos anuj 100 unit/mL 20 skin 3 l injection (three) times a day before meals. furosemide 2015-09 Yes 20mg Q.5D Take 20 mg M ethodi (LASIX) 20 09-[address] MG tablet 14:11: (two) Hospita 20 times a l day. FLUoxetine FLUoxetine No 1{capsu QD FLUoxetine HCl 40 MG HCl 40 MG le} HCl 40 MG Pantoprazol Pantoprazol No Pantoprazo e Sodium 40 e Sodium 40 le Sodium MG MG 40 MG QUEtiapine QUEtiapine No 1{table QD QUEtiapine Fumarate 25 Fumarate 25 t_at_be Fumarate MG MG dtime} 25 MG Carvedilol Carvedilol No 1{table BID Carvedilol 25 MG 25 MG t_with_ 25 MG food} Toujeo Toujeo No QD Toujeo SoloStar SoloStar SoloStar 300u/ml 300u/ml 300u/ml Gabapentin Gabapentin No Gabapentin 600 MG 600 MG 600 MG Aspirin 81 Aspirin 81 No 1{table QD Aspirin 81 MG MG t} MG Furosemide Furosemide No Furosemide 20 MG 20 MG 20 MG Clopidogrel Clopidogrel No Clopidogre Bisulfate Bisulfate l 75 MG 75 MG Bisulfate 75 MG FLUoxetine FLUoxetine No 1{capsu QD FLUoxetine HCl 40 MG HCl 40 MG le} HCl 40 MG Pantoprazol Pantoprazol No Pantoprazo e Sodium 40 e Sodium 40 le Sodium MG MG 40 MG QUEtiapine QUEtiapine No 1{table QD QUEtiapine Fumarate 25 Fumarate 25 t_at_be Fumarate MG MG dtime} 25 MG Carvedilol Carvedilol No 1{table BID Carvedilol 25 MG 25 MG t_with_ 25 MG food} Toujeo Toujeo No QD Toujeo SoloStar SoloStar SoloStar 300u/ml 300u/ml 300u/ml Gabapentin Gabapentin No Gabapentin 600 MG 600 MG 600 MG Aspirin 81 Aspirin 81 No 1{table QD Aspirin 81 MG MG t} MG Furosemide Furosemide No Furosemide 20 MG 20 MG 20 MG Clopidogrel Clopidogrel No Clopidogre Bisulfate Bisulfate l 75 MG 75 MG Bisulfate 75 MG FLUoxetine FLUoxetine No 1{capsu QD FLUoxetine HCl 40 MG HCl 40 MG le} HCl 40 MG Pantoprazol Pantoprazol No Pantoprazo e Sodium 40 e Sodium 40 le Sodium MG MG 40 MG QUEtiapine QUEtiapine No 1{table QD QUEtiapine Fumarate 25 Fumarate 25 t_at_be Fumarate MG MG dtime} 25 MG Carvedilol Carvedilol No 1{table BID Carvedilol 25 MG 25 MG t_with_ 25 MG food} Toujeo Toujeo No QD Toujeo SoloStar SoloStar SoloStar 300u/ml 300u/ml 300u/ml Gabapentin Gabapentin No Gabapentin 600 MG 600 MG 600 MG Aspirin 81 Aspirin 81 No 1{table QD Aspirin 81 MG MG t} MG Furosemide Furosemide No Furosemide 20 MG 20 MG 20 MG Clopidogrel Clopidogrel No Clopidogre Bisulfate Bisulfate l 75 MG 75 MG Bisulfate 75 MG QUEtiapine QUEtiapine No 1{table QD QUEtiapine Fumarate 25 Fumarate 25 t_at_be Fumarate MG MG dtime} 25 MG Gabapentin Gabapentin No Gabapentin 600 MG 600 MG 600 MG Toujeo Toujeo No QD Toujeo SoloStar SoloStar SoloStar 300u/ml 300u/ml 300u/ml Clopidogrel Clopidogrel No Clopidogre Bisulfate Bisulfate l 75 MG 75 MG Bisulfate 75 MG Pantoprazol Pantoprazol No Pantoprazo e Sodium 40 e Sodium 40 le Sodium MG MG 40 MG Furosemide Furosemide No Furosemide 20 MG 20 MG 20 MG Aspirin 81 Aspirin 81 No 1{table QD Aspirin 81 MG MG t} MG Carvedilol Carvedilol No 1{table BID Carvedilol 25 MG 25 MG t_with_ 25 MG food} FLUoxetine FLUoxetine No 1{capsu QD FLUoxetine HCl 40 MG HCl 40 MG le} HCl 40 MG Pantoprazol Pantoprazol No Pantoprazo e Sodium 40 e Sodium 40 le Sodium MG MG 40 MG Metformin Metformin No 1{table BID Metformin HCl 1000 MG HCl 1000 MG t_with_ HCl 1000 meals} MG Solifenacin Solifenacin No Solifenaci Succinate Succinate n 10 MG 10 MG Succinate 10 MG QUEtiapine QUEtiapine No 1{table QD QUEtiapine Fumarate 25 Fumarate 25 t_at_be Fumarate MG MG dtime} 25 MG Aspirin 81 Aspirin 81 No 1{table QD Aspirin 81 MG MG t} MG Clopidogrel Clopidogrel No Clopidogre Bisulfate Bisulfate l 75 MG 75 MG Bisulfate 75 MG Gabapentin Gabapentin No Gabapentin 600 MG 600 MG 600 MG glipiZIDE glipiZIDE No 1{table QD glipiZIDE XL 10 MG XL 10 MG t_with_ XL [address]} Rosuvastati Rosuvastati No 1{table QD Rosuvastat n Calcium n Calcium t} in Calcium 40 MG 40 MG 40 MG Furosemide Furosemide No Furosemide 20 MG 20 MG 20 MG Toujeo Toujeo No QD Toujeo SoloStar SoloStar SoloStar 300u/ml 300u/ml 300u/ml FLUoxetine FLUoxetine No 1{capsu QD FLUoxetine HCl 40 MG HCl 40 MG le} HCl 40 MG Tamsulosin Tamsulosin No Tamsulosin HCl 0.4 MG HCl 0.4 MG HCl 0.4 MG Benazepril Benazepril No 1{table QD Benazepril HCl 10 MG HCl 10 MG t} HCl 10 MG Carvedilol Carvedilol No 1{table BID Carvedilol 25 MG 25 MG t_with_ 25 MG food} Pantoprazol Pantoprazol No Pantoprazo e Sodium 40 e Sodium 40 le Sodium MG MG 40 MG Metformin Metformin No 1{table BID Metformin HCl 1000 MG HCl 1000 MG t_with_ HCl 1000 meals} MG Solifenacin Solifenacin No Solifenaci Succinate Succinate n 10 MG 10 MG Succinate 10 MG QUEtiapine QUEtiapine No 1{table QD QUEtiapine Fumarate 25 Fumarate 25 t_at_be Fumarate MG MG dtime} 25 MG Aspirin 81 Aspirin 81 No 1{table QD Aspirin 81 MG MG t} MG Clopidogrel Clopidogrel No Clopidogre Bisulfate Bisulfate l 75 MG 75 MG Bisulfate 75 MG Gabapentin Gabapentin No Gabapentin 600 MG 600 MG 600 MG glipiZIDE glipiZIDE No 1{table QD glipiZIDE XL 10 MG XL 10 MG t_with_ XL [address]} Rosuvastati Rosuvastati No 1{table QD Rosuvastat n Calcium n Calcium t} in Calcium 40 MG 40 MG 40 MG Furosemide Furosemide No Furosemide 20 MG 20 MG 20 MG Toujeo Toujeo No QD Toujeo SoloStar SoloStar SoloStar 300u/ml 300u/ml 300u/ml FLUoxetine FLUoxetine No 1{capsu QD FLUoxetine HCl 40 MG HCl 40 MG le} HCl 40 MG Tamsulosin Tamsulosin No Tamsulosin HCl 0.4 MG HCl 0.4 MG HCl 0.4 MG Benazepril Benazepril No 1{table QD Benazepril HCl 10 MG HCl 10 MG t} HCl 10 MG Carvedilol Carvedilol No 1{table BID Carvedilol 25 MG 25 MG t_with_ 25 MG food} QUEtiapine QUEtiapine No 1{table QD QUEtiapine Fumarate 25 Fumarate 25 t_at_be Fumarate MG MG dtime} 25 MG Gabapentin Gabapentin No Gabapentin 600 MG 600 MG 600 MG Toujeo Toujeo No QD Toujeo SoloStar SoloStar SoloStar 300u/ml 300u/ml 300u/ml Clopidogrel Clopidogrel No Clopidogre Bisulfate Bisulfate l 75 MG 75 MG Bisulfate 75 MG Pantoprazol Pantoprazol No Pantoprazo e Sodium 40 e Sodium 40 le Sodium MG MG 40 MG Furosemide Furosemide No Furosemide 20 MG 20 MG 20 MG Aspirin 81 Aspirin 81 No 1{table QD Aspirin 81 MG MG t} MG Carvedilol Carvedilol No 1{table BID Carvedilol 25 MG 25 MG t_with_ 25 MG food} FLUoxetine FLUoxetine No 1{capsu QD FLUoxetine HCl 40 MG HCl 40 MG le} HCl 40 MG Furosemide Furosemide No Furosemide 20 MG 20 MG 20 MG QUEtiapine QUEtiapine No 1{table QD QUEtiapine Fumarate 25 Fumarate 25 t_at_be Fumarate MG MG dtime} 25 MG Crestor 20 Crestor 20 No 1{table QD Crestor 20 MG MG t} MG Aspirin 81 Aspirin 81 No 1{table QD Aspirin 81 MG MG t} MG Gabapentin Gabapentin No Gabapentin 600 MG 600 MG 600 MG FLUoxetine FLUoxetine No 1{capsu QD FLUoxetine HCl 40 MG HCl 40 MG le} HCl 40 MG Pantoprazol Pantoprazol No Pantoprazo e Sodium 40 e Sodium 40 le Sodium MG MG 40 MG Toujeo Toujeo No QD Toujeo SoloStar SoloStar SoloStar 300u/ml 300u/ml 300u/ml Clopidogrel Clopidogrel No Clopidogre Bisulfate Bisulfate l 75 MG 75 MG Bisulfate 75 MG Carvedilol Carvedilol No 1{table BID Carvedilol 25 MG 25 MG t_with_ 25 MG food} FLUoxetine FLUoxetine No 1{capsu QD FLUoxetine HCl 40 MG HCl 40 MG le} HCl 40 MG Pantoprazol Pantoprazol No Pantoprazo e Sodium 40 e Sodium 40 le Sodium MG MG 40 MG QUEtiapine QUEtiapine No 1{table QD QUEtiapine Fumarate 25 Fumarate 25 t_at_be Fumarate MG MG dtime} 25 MG Carvedilol Carvedilol No 1{table BID Carvedilol 25 MG 25 MG t_with_ 25 MG food} Toujeo Toujeo No QD Toujeo SoloStar SoloStar SoloStar 300u/ml 300u/ml 300u/ml Gabapentin Gabapentin No Gabapentin 600 MG 600 MG 600 MG Aspirin 81 Aspirin 81 No 1{table QD Aspirin 81 MG MG t} MG Furosemide Furosemide No Furosemide 20 MG 20 MG 20 MG Clopidogrel Clopidogrel No Clopidogre Bisulfate Bisulfate l 75 MG 75 MG Bisulfate 75 MG Tamsulosin Tamsulosin 2022- No 2{capsu QD Tamsulosin HCl 0.4 MG HCl 0.4 MG 08- les} HCl 0.4 MG 00:00 :00 Tamsulosin Tamsulosin 2022- No 2{capsu QD Tamsulosin HCl 0.4 MG HCl 0.4 MG 08- les} HCl 0.4 MG 00:00 :00 Tamsulosin Tamsulosin 2022- No 2{capsu QD Tamsulosin HCl 0.4 MG HCl 0.4 MG 08- les} HCl 0.4 MG 00:00 :00 Tamsulosin Tamsulosin 2022- No 2{capsu QD Tamsulosin HCl 0.4 MG HCl 0.4 MG 08- les} HCl 0.4 MG 00:00 :00 Tamsulosin Tamsulosin 2022- No 2{capsu QD Tamsulosin HCl 0.4 MG HCl 0.4 MG 08- les} HCl 0.4 MG 00:00 :00 Tamsulosin Tamsulosin 2022- No 2{capsu QD Tamsulosin HCl 0.4 MG HCl 0.4 MG 08- les} HCl 0.4 MG 00:00 :00 Tamsulosin Tamsulosin 2022- No 2{capsu QD Tamsulosin HCl 0.4 MG HCl 0.4 MG 04-27 les} HCl 0.4 MG 00:00 :00 Solifenacin Solifenacin 2021- No Solifenaci Succinate Succinate 11-15 n 10 MG 10 MG 00:00 Succinate :00 10 MG Solifenacin Solifenacin 2021- No Solifenaci Succinate Succinate 11-15 n 10 MG 10 MG 00:00 Succinate :00 10 MG Solifenacin Solifenacin 2021- No Solifenaci Succinate Succinate 11-15 n 10 MG 10 MG 00:00 Succinate :00 10 MG Solifenacin Solifenacin 2021- No Solifenaci Succinate Succinate 11-15 n 10 MG 10 MG 00:00 Succinate :00 10 MG Solifenacin Solifenacin 2021- No Solifenaci Succinate Succinate 11-15 n 10 MG 10 MG 00:00 Succinate :00 10 MG Solifenacin Solifenacin 2021- No Solifenaci Succinate Succinate 11-15 n 10 MG 10 MG 00:00 Succinate :00 10 MG Solifenacin Solifenacin 2021- No Solifenaci Succinate Succinate 11-15 n 10 MG 10 MG 00:00 Succinate :00 10 MG Immunizations Ordered Filled Immunization Date Status Comments [facility] e Immunization Name Name Pneumovax (PPSV23) Pneumovax (PPSV23) 2022-08-15 [facility]00 [facility] Pneumovax (PPSV23) Pneumovax (PPSV23) 2022-08-15 Completed [facility] - 14:56:00 [facility] Flucelvax - single Flucelvax - single 2022-08-15 Completed [facility] - dose syringe dose syringe 14:55:00 [facility] Flucelvax - single Flucelvax - single 2022-08-15 Completed [facility] - dose syringe dose syringe 14:55:00 [facility] Influenza Virus 2020-08-31 Completed [facility] 00:00:00 [facility] 6[facility] Influenza Virus 2020-08-31 Completed [facility] .5 mL 00:00:00 [facility] 6+ [facility] Influenza Virus 2020-08-31 Completed [facility] .5 mL 00:00:00 [facility] 6+ [facility] Vital Signs Vital Name Observation Time Observation Value Comments Source HEIGHT 2020-04-05 00:00:00 172.7 cm WEIGHT 2020-04-05 00:00:00 116.03 kg height 2022-09-26 16:00:00 70 [in_i] [facility] weight 2022-09-26 16:00:00 270.8 [lb_av] [facility] temperature 2022-09-26 16:00:00 98.6 [degF] [facility] bmi 2022-09-26 16:00:00 38.85 kg/m2 [facility] oximetry 2022-09-26 16:00:00 98 % [facility] respiratory rate 2022-09-26 16:00:00 17 /min [facility] blood pressure 2022-09-26 16:00:00 136 mm[Hg] Common [facility] - systolic [facility] blood pressure 2022-09-26 16:00:00 66 mm[Hg] Common [facility] diastolic [facility] height 2022-08-15 14:40:00 70 [in_i] [facility] weight 2022-08-15 14:40:00 271.4 [lb_av] [facility] temperature 2022-08-15 14:40:00 98.2 [degF] [facility] bmi 2022-08-15 14:40:00 38.94 kg/m2 [facility] oximetry 2022-08-15 14:40:00 95 % [facility] respiratory rate 2022-08-15 14:40:00 16 /min [facility] blood pressure 2022-08-15 14:40:00 137 mm[Hg] Common [facility] - systolic [facility] blood pressure 2022-08-15 14:40:00 83 mm[Hg] Common [facility] - diastolic [facility] height 2022-06-20 09:45:00 70 [in_i] [facility] weight 2022-06-20 09:45:00 267.6 [lb_av] [facility] temperature 2022-06-20 09:45:00 97.3 [degF] Common [facility] bmi 2022-06-20 09:45:00 38.39 kg/m2 [facility] oximetry 2022-06-20 09:45:00 98 % [facility] respiratory rate 2022-06-20 09:45:00 16 /min [facility] blood pressure 2022-06-20 09:45:00 126 mm[Hg] Common [facility] - systolic [facility] blood pressure 2022-06-20 09:45:00 64 mm[Hg] [facility] - diastolic [facility] Systolic blood 2022-06-11 15:54:00 122 mm[Hg] [facility] Diastolic blood 2022-06-11 15:54:00 82 mm[Hg] [facility] Heart rate 2022-06-11 15:54:00 79 /min [facility] Respiratory rate 2022-06-11 15:54:00 26 /min [facility] Oxygen saturation in 2022-06-11 15:54:00 95 /min [facility] Arterial blood by [facility] Pulse oximetry Branch Body temperature 2022-06-11 14:54:00 36.5 [facility] height 2022-06-11 14:54:00 172.7 cm [facility] Body weight 2022-06-11 14:54:00 122.471 kg [facility] BMI 2022-06-11 14:54:00 41.05 kg/m2 [facility] height 2022-05-14 14:40:00 70 [in_i] [facility] weight 2022-05-14 14:40:00 275.4 [lb_av] Common [facility] temperature 2022-05-14 14:40:00 98.0 [degF] Common [facility] bmi 2022-05-14 14:40:00 39.51 kg/m2 [facility] 2022-05-14 14:40:00 96 % Common [facility] respiratory rate 2022-05-14 14:40:00 17 /min Comm [facility] blood pressure 2022-05-14 14:40:00 153 mm[Hg] Common [facility] - systolic [facility] blood pressure 2022-05-14 14:40:00 62 mm[Hg] [facility] height 2022-05-14 14:20:00 70 [in_i] Common [facility] weight 2022-05-14 14:20:00 275.4 [lb_av] Common [facility] temperature 2022-05-14 14:20:00 98.0 [degF] Common [facility] bmi 2022-05-14 14:20:00 39.51 kg/m2 [facility] oximetry 2022-05-14 14:20:00 96 % [facility] respiratory rate 2022-05-14 14:20:00 17 /min [facility] blood pressure 2022-05-14 14:20:00 153 mm[Hg] [facility] - systolic [facility] blood pressure 2022-05-14 14:20:00 62 mm[Hg] [facility] - diastolic [facility] height 2022-05-09 13:30:00 70 [in_i] Common [facility] weight 2022-05-09 13:30:00 272 [lb_av] [facility] temperature 2022-05-09 13:30:00 98.1 [degF] [facility] - [facility] bmi 2022-05-09 13:30:00 39.02 kg/m2 [facility] oximetry 2022-05-09 13:30:00 99 % [facility] respiratory rate 2022-05-09 13:30:00 18 /min [facility] blood pressure 2022-05-09 13:30:00 135 mm[Hg] [facility] - systolic [facility] blood pressure 2022-05-09 13:30:00 76 mm[Hg] [facility] - diastolic [facility] HEIGHT 2020-04-05 00:00:00 172.7 cm WEIGHT 2020-04-05 00:00:00 116.03 kg Heart Rate 2019-04-21 16:15:00 [facility] Rate 2019-04-21 16:15:00 [facility] Height 2019-04-21 16:15:00 172.72 cm [facility] Weight 2019-04-21 16:15:00 [facility] BMI Calculated 2019-04-21 16:15:00 [facility] [place] Systolic (mm Hg) 2019-04-21 16:15:00 [facility] [place] Diastolic (mm Hg) 2019-04-21 16:15:00 [facility] Heart Rate 2019-01-28 19:55:00 [facility] Respitory Rate 2019-01-28 19:55:00 [facility] [place] Systolic (mm Hg) 2019-01-28 19:55:00 [facility] Diastolic (mm Hg) 2019-01-28 19:55:00 [facility] [place] Height 2018-12-23 21:36:00 172.72 cm [facility] [place] Weight 2018-12-23 21:36:00 [facility] BMI Calculated 2018-12-23 21:36:00 [facility] Heart Rate 2018-12-23 21:36:00 [facility] [place] Respitory Rate 2018-12-23 21:36:00 [facility] Systolic (mm Hg) 2018-12-23 21:36:00 [facility] [place] Diastolic (mm Hg) 2018-12-23 21:36:00 [facility] [place] Procedures Procedure Date / Time Performed Performing Clinician Sourc e TROPONIN I 2022-06-11 15:20:00 Trung Garcia [facility] COMP. METABOLIC PANEL 2022-06-11 15:20:00 Trung Garcia [facility] ([id number]) [facility] CBC WITH DIFF 2022-06-11 15:20:00 Trung Garcia [facility] N-TERMINAL PRO-BNP 2022-06-11 15:20:00 Trung Garcia [facility] XR CHEST 1 VW 2022-06-11 15:16:03 Trung Garcia [facility] Plan of Care Planned Activity Planned Date Details Comments Source Future Scheduled 2022-09-26 COVID-19 [facility]ACCINE (#[facility] 15:47:11 [code = COVID-19 VACCINE (#1)] Future Scheduled 2022-09-26 [facility] 15:47:11 [code = COLONOSCOPY SCREENING] Future Scheduled 2022-09-26 [facility] [facility]11 of 2) [code = SHINGLES VACCINES (1 of 2)] Future Scheduled 2022-09-26 INFLUENZA VACCINE [facility] Test 15:47:11 [code = INFLUENZA VACCINE] Future Scheduled 2022-09-16 SHINGLES VACCINES (1 [facility] 12:12:28 of 2) [code = SHINGLES VACCINES (1 of 2)] Future Scheduled 2022-09-16 INFLUENZA VACCINE [facility] Test 12:12:28 [code = INFLUENZA VACCINE] Future Scheduled 2022-09-16 COVID-19 VACCINE (#1) [facility] 12:12:28 [code = COVID-19 VACCINE (#1)] Future Scheduled 2022-09-16 [facility]ING [facility] 12:12:28 [code = COLONOSCOPY SCREENING] Future Scheduled 2022-09-16 SHINGLES VACCINES (1 [facility] 12:12:28 of 2) [code = SHINGLES VACCINES (1 of 2)] Future Scheduled 2022-09-16 INFLUENZA VACCINE [facility] Test 12:12:28 [code = INFLUENZA VACCINE] Future Scheduled 2022-09-16 COVID-19 VACCINE (#1) [facility] Test 12:12:28 [code = COVID-19 VACCINE (#1)] Future Scheduled 2022-09-16 COLONOSCOPY SCREENING [facility] Test 12:12:28 [code = COLONOSCOPY SCREENING] Future Scheduled 2022-09-05 COVID-19 VACCINE (#1) [facility] Test 17:16:06 [code = COVID-19 VACCINE (#1)] Future Scheduled 2022-09-05 COLONOSCOPY SCREENING [facility] Test 17:16:06 [code = COLONOSCOPY SCREENING] Future Scheduled 2022-09-05 [facility]IN[facility] 17:16:06 of 2) [code = SHINGLES VACCINES (1 of 2)] Future Scheduled 2022-09-05 INFLUENZA VACCINE Method is Hospital Test 17:16:06 [code = INFLUENZA VACCINE] Future Scheduled 2022-09-05 COVID-19 VACCINE (#1) [facility] Test 17:16:06 [code = COVID-19 VACCINE (#1)] Future Scheduled 2022-09-[address] [facility] Test 17:16:06 [code = COLONOSCOPY SCREENING] Future Scheduled 2022-09-05 SHINGLES VACCINES ([facility] 17:16:06 of 2) [code = SHINGLES VACCINES (1 of 2)] Future Scheduled 2022-09-05 INFLUENZA VACCINE Method [facility] Test 17:16:06 [code = INFLUENZA VACCINE] Future Scheduled 2022-09-[address] [facility] Test 00:00:00 (12+) [code = Medical Center DEPRESSION SCREENING (12+)] Future Scheduled 2022-09-[address] [facility] Test 00:00:00 (12+) [code = Medical Center DEPRESSION SCREENING (12+)] Future Scheduled 2022-09-[address] [facility] Test 00:00:00 (12+) [code = Medical Center DEPRESSION SCREENING (12+)] Future Scheduled 2022-09-[address] [facility] Test 00:00:00 (12+) [code = Medical Center DEPRESSION SCREENING (12+)] Future Scheduled 2022-08-16 COVID-19 VACCINE (#1) [facility] Test 08:09:15 [code = COVID-19 VACCINE (#1)] Future Scheduled 2022-08-[address] [facility] Test 08:09:15 [code = COLONOSCOPY SCREENING] Future Scheduled 2022-08-16 SHINGLES VACCINES ([address] [facility] Test 08:09:15 of 2) [code = SHINGLES VACCINES (1 of 2)] Future Scheduled 2022-08-16 INFLUENZA VACCINE [facility] Test 08:09:15 [code = INFLUENZA VACCINE] Future Scheduled 2022-05-14 HEPATITIS B VACCINES Met [facility] Test 14:03:54 (1 of 3 - 3-dose series) [code = HEPATITIS B VACCINES (1 of 3 - 3-dose series)] Future Scheduled 2022-05-14 COVID-19 VACCINE (#1) [facility] Test 14:03:54 [code = COVID-19 VACCINE (#1)] Future Scheduled 2022-05-[address] [facility] Test 14:03:54 [code = COLONOSCOPY SCREENING] Future Scheduled 2022-05-14 SHINGLES VACCINES ([address] [facility] Test 14:03:54 of 2) [code = SHINGLES VACCINES (1 of 2)] Future Scheduled 2022-05-14 INFLUENZA VACCINE [facility] Test 14:03:54 [code = INFLUENZA VACCINE] Future Scheduled 2022-05-03 INFLUENZA VACCINE (#1) [facility]00 [code = INFLUENZA Medical Ce nter VACCINE (#1)] Future Scheduled 2022-05-03 INFLUENZA VACCINE (#1) [facility] 00:00:00 [code = INFLUENZA Medical Ce nter VACCINE (#1)] Future Scheduled 2022-05-03 INFLUENZA VACCINE (#1) [facility] 00:00:00 [code = INFLUENZA Medical Ce nter VACCINE (#1)] Future Scheduled 2022-05-03 INFLUENZA VACCINE (#1) [facility] 00:00:00 [code = INFLUENZA Medical Ce nter VACCINE (#1)] Future Scheduled 2022-05-03 INFLUENZA VACCINE (#1) [facility] 00:00:00 [code = INFLUENZA Medical Ce nter VACCINE (#1)] Future Scheduled 2022-05-03 INFLUENZA VACCINE (#1) [facility] 00:00:00 [code = INFLUENZA Medical Ce nter VACCINE (#1)] Future Scheduled 2021-09-[address] [facility] Test 00:00:00 (12+) [code = Medical Center DEPRESSION SCREENING (12+)] Future Scheduled 2021-09-[address] [facility] Test 00:00:00 (12+) [code = Medical Center DEPRESSION SCREENING (12+)] Future Scheduled 2020-07-[address] [facility] (procedure) [code = 59887513] Future Scheduled 2020-07-[address] [facility] (procedure) [code = [id number]] Future Scheduled 2020-07-[address] [facility] (procedure) [code = [id number]] Future Scheduled 2020-07-[address] [facility] (procedure) [code = [id number]] Future Scheduled 2020-07-[address] [facility] (procedure) [code = [id number]] Future Scheduled 2020-07-[address] [facility] Center (procedure) [code = [id number]] Future Scheduled 2017-12-[address] [facility] 00:00:[facility] WELLNESS (YEAR 2 or Medical Center FIRST YEAR if no IPPE) [code = MEDICARE ANNUAL WELLNESS (YEAR 2 or FIRST YEAR if no IPPE)] Future Scheduled 2017-12-[address] [facility] 00:00:00 WELLNESS (YEAR 2 or Medical Center FIRST YEAR if no IPPE) [code = MEDICARE ANNUAL WELLNESS (YEAR 2 or FIRST YEAR if no IPPE)] Future Scheduled 2017-12-[address] [facility] 00:00:00 WELLNESS (YEAR 2 or Medical Center FIRST YEAR if no IPPE) [code = MEDICARE ANNUAL WELLNESS (YEAR 2 or FIRST YEAR if no IPPE)] Future Scheduled 2017-12-[address] [facility] 00:00:00 WELLNESS (YEAR 2 or Medical Center FIRST YEAR if no IPPE) [code = MEDICARE ANNUAL WELLNESS (YEAR 2 or FIRST YEAR if no IPPE)] Future Scheduled 2017-12-[address] [facility] 00:00:00 WELLNESS (YEAR 2 or Medical Center FIRST YEAR if no IPPE) [code = MEDICARE ANNUAL WELLNESS (YEAR 2 or FIRST YEAR if no IPPE)] Future Scheduled 2017-12-[address] [facility] 00:00:00 WELLNESS (YEAR 2 or Medical Center FIRST YEAR if no IPPE) [code = MEDICARE ANNUAL WELLNESS (YEAR 2 or FIRST YEAR if no IPPE)] Future Scheduled 2011 SHINGLES VACCINES ([address] [facility] Test 00:00:00 of 2) [code = SHINGLES Medic al Center VACCINES (1 of 2)] Future Scheduled 2011 SHINGLES VACCINES ([address] [facility] Test 00:00:00 of 2) [code = SHINGLES Medic al Center VACCINES (1 of 2)] Future Scheduled 2011 SHINGLES VACCINES ([address] [facility] Test 00:00:00 of 2) [code = SHINGLES Medic al Center VACCINES (1 of 2)] Future Scheduled 2011 SHINGLES VACCINES ([address] [facility] Test 00:00:00 of 2) [code = SHINGLES Medic al Center VACCINES (1 of 2)] Future Scheduled 2011 SHINGLES VACCINES ([address] [facility] Test 00:00:00 of 2) [code = SHINGLES Medic al Center VACCINES (1 of 2)] Future Scheduled 2011 SHINGLES VACCINES ([address] [facility] Test 00:00:00 of 2) [code = SHINGLES Medic al Center VACCINES (1 of 2)] Future Scheduled [address] [facility] 00:[facility]:00 (procedure) [code = [facility] [id number]] Future Scheduled [address] [facility] 00:00:00 (procedure) [code = [facility] [id number]] Future Scheduled [address] [facility] 00:00:00 (procedure) [code = [facility] [id number]] Future Scheduled [address] [facility] 00:00:00 (procedure) [code = [facility] [id number]] Future Scheduled [address] [facility] 00:00:00 (procedure) [code = [facility] [id number]] Future Scheduled [address] [facility] 00:00:00 (procedure) [code = [facility] [id number]] Future Scheduled 1980 DTAP/TDAP/TD [facility]ACCINES [facility] (1 - Tdap) [code = Medical C enter DTAP/TDAP/TD VACCINES (1 - Tdap)] Future Scheduled 1980 DTAP/TDAP/TD [facility]ACCINES [facility] 00:00:00 (1 - Tdap) [code = Medical C enter DTAP/TDAP/TD VACCINES (1 - Tdap)] Future Scheduled 1980 DTAP/TDAP/TD [facility]ACCINES [facility] 00:00:00 (1 - Tdap) [code = Medical C enter DTAP/TDAP/TD VACCINES (1 - Tdap)] Future Scheduled 1980 DTAP/TDAP/TD [facility]ACCINES [facility] 00:00:00 (1 - Tdap) [code = Medical C enter DTAP/TDAP/TD VACCINES (1 - Tdap)] Future Scheduled 1980 DTAP/TDAP/TD [facility]ACCINES [facility] 00:00:00 (1 - Tdap) [code = Medical C enter DTAP/TDAP/TD VACCINES (1 - Tdap)] Future Scheduled 1980 DTAP/TDAP/TD [facility]ACCINES [facility] 00:00:00 (1 - Tdap) [code = Medical C enter DTAP/TDAP/TD VACCINES (1 - Tdap)] Future Scheduled 1979 HEPATITIS C [facility]CRE[facility]:00[facility]00 [code = HEPATITIS C Medical Center SCREENING] Future Scheduled 1979 HEPATITIS C [facility] 00:00:00 [code = HEPATITIS C Medical Center SCREENING] Future Scheduled 1979 HEPATITIS C [facility] 00:00:00 [code = HEPATITIS C Medical Center SCREENING] Future Scheduled 1979 HEPATITIS C [facility] 00:00:00 [code = HEPATITIS C Medical Center SCREENING] Future Scheduled 1979 HEPATITIS C [facility] 00:00:00 [code = HEPATITIS C Medical Center SCREENING] Future Scheduled 1979 HEPATITIS C [facility] 00:00:00 [code = HEPATITIS C Medical Center SCREENING] Future Scheduled [address] [facility] Test 00:00:00 Counseling and Medical Cente r Screening (12+) [code = Tobacco Cessation Counseling and Screening (12+)] Future Scheduled [address] [facility] Test 00:00:00 Counseling and Medical Cente r Screening (12+) [code = Tobacco Cessation Counseling and Screening (12+)] Future Scheduled [address] [facility] Test 00:00:00 Counseling and Medical Cente r Screening (12+) [code = Tobacco Cessation Counseling and Screening (12+)] Future Scheduled [address] [facility] Test 00:00:00 Counseling and Medical Cente r Screening (12+) [code = Tobacco Cessation Counseling and Screening (12+)] Future Scheduled [address] [facility] 00:00:00 Counseling and Medical Cente r Screening (12+) [code = Tobacco Cessation Counseling and Screening (12+)] Future Scheduled [address] [facility] 00:00:00 Counseling and Medical Cente r Screening (12+) [code = Tobacco Cessation Counseling and Screening (12+)] Future Scheduled [address] [facility] 00:00:00 [code = DIABETIC EYE Medical Center EXAM] Future Scheduled [address] [facility] examination Medical Center (regime/therapy) [code = 439242209] Future Scheduled 1971 Urine screening for [facility] 00:00:00 protein (procedure) Medical Center [code = 896727644] Future Scheduled [address] EXAM [facility] 00:00:00 [code = DIABETIC EYE Medical Center EXAM] Future Scheduled [address] [facility] 00:[facility]00 examination Medical Center (regime/therapy) [code = 288984780] Future Scheduled 1971 Urine screening for [facility] 00:00:00 protein (procedure) Medical Center [code = 773508499] Future Scheduled [address]YE EXAM [facility] 00:00:00 [code = DIABETIC EYE Medical Center EXAM] Future Scheduled [address] [facility] 00:[facility]:00 examination Medical Center (regime/therapy) [code = 901131083] Future Scheduled 1971 Urine screening for [facility] 00:00:00 protein (procedure) Medical Center [code = 841898178] Future Scheduled [address]YE EXAM [facility] 00:00:00 [code = DIABETIC EYE Medical Center EXAM] Future Scheduled [address] [facility] 00:[facility]:00 examination Medical Center (regime/therapy) [code = 618652195] Future Scheduled 1971 Urine screening for [facility] 00:00:00 protein (procedure) Medical Center [code = 507429852] Future Scheduled [address]YE EXAM [facility] 00:00:00 [code = DIABETIC EYE Medical Center EXAM] Future Scheduled [address] [facility] 00:[facility]:00 examination Medical Center (regime/therapy) [code = 329450570] Future Scheduled 1971 Urine screening for [facility] 00:00:00 protein (procedure) Medical Center [code = 108421447] Future Scheduled [address] EXAM [facility] 00:00:00 [code = DIABETIC EYE Medical Center EXAM] Future Scheduled [address] [facility] 00:[facility]:00 examination Medical Center (regime/therapy) [code = 707935665] Future Scheduled 1971 Urine screening for [facility] 00:00:00 protein (procedure) Medical Center [code = 620966411] Future Scheduled [address] [facility] 00:00:00 0-64 YRS (1 - PCV) Medical C enter [code = PNEUMOCOCCAL VACCINE 0-64 YRS (1 - PCV)] Future Scheduled [address] [facility] 00:00:00 0-64 YRS (1 - PCV) Medical C enter [code = PNEUMOCOCCAL VACCINE 0-64 YRS (1 - PCV)] Future Scheduled [address] [facility] 00:00:00 0-64 YRS (1 - PCV) Medical C enter [code = PNEUMOCOCCAL VACCINE 0-64 YRS (1 - PCV)] Future Scheduled [address] [facility] 00:00:00 0-64 YRS (1 - PCV) Medical C enter [code = PNEUMOCOCCAL VACCINE 0-64 YRS (1 - PCV)] Future Scheduled [address] [facility] 00:00:00 0-64 YRS (1 - PCV) Medical C enter [code = PNEUMOCOCCAL VACCINE 0-64 YRS (1 - PCV)] Future Scheduled [address] [facility] 00:00:00 0-64 YRS (1 - PCV) Medical C enter [code = PNEUMOCOCCAL VACCINE 0-64 YRS (1 - PCV)] Future Scheduled 1962-01-20 COVID-19 VACCINE (#1) [facility]00 [code = COVID-[address] VACCINE (#1)] Future Scheduled 1962-01-20 COVID-19 VACCINE (#1) [facility] 00:00:00 [code = COVID-[address] VACCINE (#1)] Future Scheduled 1962-01-20 COVID-19 VACCINE (#1) [facility] 00:00:00 [code = COVID-[address] VACCINE (#1)] Future Scheduled 1962-01-20 COVID-19 VACCINE (#1) [facility] 00:00:00 [code = COVID-[address] VACCINE (#1)] Future Scheduled 1962-01-20 COVID-19 VACCINE (#1) [facility] 00:00:00 [code = COVID-[address] VACCINE (#1)] Future Scheduled 1962-01-20 COVID-19 VACCINE (#1) [facility] 00:[facility]:00 [code = COVID-[address] VACCINE (#1)] Future Scheduled [address] [facility] 00:00:00 (combo) [code = CT Medical C enter Colonography (combo)] Future Scheduled [address] [facility] 00:[facility]:00 malignant neoplasm of Medica l Center colon (procedure) [code = 220112809] Future Scheduled [address] [facility] 00:00:00 malignant neoplasm of [facility] Center colon (procedure) [code = 696185871] Future Scheduled [address] [facility] 00:00:00 malignant neoplasm of [facility] Center colon (procedure) [code = 503562548] Future Scheduled [address] [facility] 00:00:00 malignant neoplasm of [facility]ica [facility] Center colon (procedure) [code = 835002717] Future Scheduled 1961 Sigmoidoscopy [facility]code [facility] [address] [facility] 00:00:00 malignant neoplasm of [facility]ica [facility] Center colon (procedure) [code = 124032957] Future Scheduled [address] [facility] 00:00:00 malignant neoplasm of [facility]ica [facility] Center colon (procedure) [code = 928908709] Future Scheduled [address] [facility] 00:00:00 malignant neoplasm of [facility]ica [facility] Center colon (procedure) [code = 494465677] Future Scheduled [address] [facility] 00:00:00 malignant neoplasm of [facility]ica [facility] Center colon (procedure) [code = 642308348] Future Scheduled 1961 Sigmoidoscopy [facility]code [facility] Scheduled [address] [facility] 00:00:00 (combo) [code = CT Medical C enter Colonography (combo)] Future Scheduled [address] [facility] 00:00:00 malignant neoplasm of [facility] Center colon (procedure) [code = 556679466] Future Scheduled [address] [facility] 00:00:00 malignant neoplasm of [facility]ica [facility] Center colon (procedure) [code = 054946894] Future Scheduled [address] [facility] 00:00:00 malignant neoplasm of [facility]ica [facility] Center colon (procedure) [code = 691032198] Future Scheduled [address] [facility] 00:00:00 malignant neoplasm of [facility]ica [facility] Center colon (procedure) [code = 186039922] Future Scheduled 1961 Sigmoidoscopy [facility]code [facility]] [facility] r Future Scheduled [address] [facility] 00:00:00 (combo) [code = CT Medical C enter Colonography (combo)] Future Scheduled [address] [facility] 00:00:00 malignant neoplasm of Medica [facility] Center colon (procedure) [code = 315244797] Future Scheduled [address] [facility] 00:00:00 malignant neoplasm of [facility]ica [facility] Center colon (procedure) [code = 874982689] Future Scheduled [address] [facility] 00:00:00 malignant neoplasm of [facility]ica [facility] Center colon (procedure) [code = 093336357] Future Scheduled [address] [facility] 00:00:00 malignant neoplasm of [facility]ica [facility] Center colon (procedure) [code = 124733486] Future Scheduled 1961 Sigmoidoscopy [facility]code [facility]] [facility] r Future Scheduled [address] [facility] 00:00:00 (combo) [code = CT Medical C enter Colonography (combo)] Future Scheduled [address] [facility] 00:00:00 malignant neoplasm of [facility]ica [facility] Center colon (procedure) [code = 282982061] Future Scheduled [address] [facility] 00:00:00 malignant neoplasm of [facility]ica [facility] Center colon (procedure) [code = 235121071] Future Scheduled [address] [facility] 00:00:00 malignant neoplasm of [facility]ica [facility] Center colon (procedure) [code = 644921254] Future Scheduled [address] [facility] 00:00:00 malignant neoplasm of [facility]ica [facility] Center colon (procedure) [code = 799766760] Future Scheduled 1961 Sigmoidoscopy [facility]code [facility]oscopy] Medical Jocee r Future Scheduled [address] [facility] 00:00:00 (combo) [code = CT Medical C enter Colonography (combo)] Future Scheduled [address] [facility] 00:00:00 malignant neoplasm of [facility] Center colon (procedure) [code = 962677481] Future Scheduled [address] [facility] 00:00:00 malignant neoplasm of [facility]ica [facility] Center colon (procedure) [code = 241587985] Future Scheduled [address] [facility] 00:00:00 malignant neoplasm of [facility]ica [facility] Center colon (procedure) [code = 155376332] Future Scheduled [address] [facility] 00:00:00 malignant neoplasm of Medica l Center colon (procedure) [code = 106421001] Future Scheduled 1961 Sigmoidoscopy [facility]code [facility] S[facility]oscopy] Medical Keshav r Future Scheduled [address] [facility] 00:00:00 (combo) [code = CT Medical C enter Colonography (combo)] Encounters Start End Encounter Admission Attending Care Care Encounter Source Date/Time Date/Time Type Type Clinicians Facility Department ID 2022-09-25 Outpatient HahnREINA [facility] [id number] Common 08:18:03 [place] [id number] [facility] [place] [place]-13 Outpatient REINA Hahn [facility] [id number] Common 10:35:06 [place] [facility] [place]22-[place]-09 Outpatient REINA Hahn [facility] [id number] Common 07:42:01 [place] [facility] [place]22-05-16 Outpatient Hahn, STLMLC [facility] [id number] Common 11:14:03 Anay [facility] 2022-05-09 Outpatient Hahn, STLMLC STLMLC [id number] Common 13:17:00 Anay [facility] 2022-05-02 Outpatient Hahn, STLMLC STLMLC [id number] Common 15:04:02 [place] [facility] 2021-06-07 Inpatient PALLISTER, [facility] Surgery [id number] [facility] 03:29:59 VIDHYA 2020-04-05 Inpatient UR ALLAHHAM, SLE Vascular [id number] [facility] 09:56:00 MAHJACK Dominguez 2022-09-26 2022-09-26 OFFICE STLMLC STLMLC [id number] Co mmon 00:00:00 00:00:00 VISIT Spirit ESTAB PT - [facility] 2022-08-15 2022-08-15 OFFICE STLMLC STLMLC [id number] Co mmon 00:00:00 00:00:00 VISIT Spirit ESTAB PT - [facility] 2022-06-20 2022-06-20 OFFICE STLMLC STLMLC [id number] Co mmon 00:00:00 00:00:00 VISIT Spirit ESTAB PT - [facility] 2022-06-11 2022-06-11 Emergency X AUFDERHEIDE [facility] ERT [id number] Univers 09:56:00 11:24:00 , TRUNG wild of [facility] 2022-06-11 2022-06-11 Emergency Aufderheide [facility] 1.2.840.114 [id number] Univers 09:56:00 11:24:00 , Trung SCHULZ 350.1.13.10 i ty of [place] 4.2.7.2.686 [facility] [phone] [place] [address] [place] 2022-05-14 2022-05-14 (MCR WELL) STLMLC STLMLC [id number] Common 00:00:00 00:00:00 Medicare Spiri t Wellness - [facility] 2022-05-14 2022-05-14 (TEL) STLMLC STLMLC [id number] Co mmon 00:00:00 00:00:00 [facility] 2022-05-14 2022-05-14 (TEL) STLMLC STLMLC [id number] Co mmon 00:00:00 00:00:00 [facility] - [facility] 2022-05-14 2022-05-14 OFFICE STLMLC STLMLC [id number] Co mmon 00:00:00 00:00:00 VISIT [facility] ESTAB PT - [facility] 2022-05-09 2022-05-09 (PROC) STLMLC STLMLC [id number] Co mmon 00:00:00 00:00:00 Procedure Spir it - [facility] 2022-03-27 2022-03-27 Outpatient AMBREEN_FAR [facility] [id number] [place] 11:29:00 11:29:00 VISHNU 0726 da [facility] 2022-01-30 2022-01-30 Outpatient A_Byrd [facility] [id number] [place] 09:45:00 09:45:00 0531 da [facility] 2021-11-30 2021-11-30 Aracelis Carranza [facility] 1.2.840.114 [id number] Univers 00:00:00 00:00:00 Quita SCHULZ 350.1.13.10 i [place] [phone] [address] 2021-05-25 2021-05-25 Aracelis Carbajal [facility] 1.2.840.114 [id number] Univers 00:00:00 00:00:00 Lea Schulz 350.1.13.10 i [place] [phone] [address] 2021-03-21 2021-03-21 Outpatient R DILLON [facility] [id number] Univers 13:30:00 13:30:00 QUITA wild [facility] 2021-02-22 2021-02-22 Reflizzette Carranza [facility] 1.2.840.114 [id number] Univers 00:00:00 00:00:00 Quita Schulz 350.1.13.10 i [place] [phone] In dical nal 220 [facility] 2021-02-21 2021-02-21 Refill [facility] 1.2.840.114 [id number] Univers 00:00:00 00:00:00 Quita Schulz 350.1.13.10 i [place] [phone] In dical nal 220 [facility] 2021-02-14 2021-02-14 Refill [facility] 1.2.840.114 [id number] Univers 00:00:00 00:00:00 Quita Schulz 350.1.13.10 i [place] of [place] [phone] In dical nal 220 [facility] 2020-12-30 2020-12-30 Telephone [facility] 1.2.840.114 [id number] Univers 00:00:00 00:00:00 Richard Schulz 350.1.13.10 i [place] [phone] In dical nal 220 [facility] 2020-12-22 2020-12-22 Outpatient R DILLON [facility] [id number] Univers 10:45:00 10:45:00 QUITA itdarian of [facility] 2020-12-22 2020-12-22 Customer Engineering Specialist Rob Rowley [facility] Main [facility] 1.2.8 40.114 [id number] Univers 10:27:48 10:42:48 Visit Quita Carranza 350.1.13.10 ity of [place] [phone] In dical nal 353 [facility] 2020-12-21 2020-12-21 Telephone [facility] 1.2.021.438 [id number] Univers 00:00:00 00:00:00 Wentong [place] 350.1.13.10 i ty of [place] [phone] [facility] 220 [facility] 2020-12-20 2020-12-20 Office [facility] 1.2.840.114 [id number] Univers 09:27:02 10:30:00 [facility] 350.1.13.10 [place] [phone] [facility] 220 [facility] 2020-12-20 2020-12-20 Outpatient R DILLON [facility] [id number] Univers 09:30:00 09:30:00 WENTONG ity [facility] 2020-12-13 2020-12-13 Refill Jazmine [facility] 1.2.840.114 [id number] Univers 00:00:00 00:00:00 Alfredokristin Schulz 350.1.13.10 i [place] [phone] [facility] 204 [facility] 2020-12-13 2020-12-13 Refill [facility] 1.2.840.114 [id number] Univers 00:00:00 00:00:00 Quita [place] 350.1.13.10 i ty of [place] [phone] [facility] 220 [facility] 2020-12-13 2020-12-13 Orders Doctor DUANE 1.2.840.114 [id number] Univers 00:00:00 00:00:00 Only Unassigned, RAMON 350.1.13.10 ity of [place] [facility] 4.2.7.2.686 Roberto as [phone] [address] 2020-12-06 2020-12-06 Refill [facility] 1.2.840.114 [id number] Univers 00:00:00 00:00:00 Wentong [place] 350.1.13.10 i ty of [place] [phone] In dical nal 220 [facility] 2020-11-30 2020-11-30 Outpatient R PATRICIA [facility] [id number] Univers 15:30:00 15:30:00 JADE wild [facility] 2020-11-21 2020-11-21 [facility] [id number] Univers 15:30:00 15:30:00 JADE wild [facility] 2020-11-12 2020-11-12 Patient Zenon [facility] 1.2.840.114 [id number] Univers 00:00:00 00:00:00 Outreach Bart PRIMARY 350.1.13.10 i ty of [facility] [place]2.[place].2.[place] [phone] [facility] [address] 2020-09-12 2020-09-12 Office [facility] 1.2.840.114 [id number] Univers 13:09:53 14:54:39 Visit Jade Schulz 350.1.13.10 ity of [place] [phone] In dical nal 204 [facility] 2020-09-12 2020-09-12 [facility] [id number] Univers 13:45:00 13:45:00 JADE wild [facility] 2020-08-31 2020-08-31 Office [facility] 1.2.840.114 [id number] Univers 10:05:51 11:48:04 Visit Quita Schulz 350.1.13.10 i ty of [place] [phone] In dical nal 220 [facility] 2020-08-31 2020-08-31 Outpatient R DILLON [facility] [id number] Univers 10:00:00 10:00:00 QUITA wild [facility] 2020-08-02 2020-08-02 Office [facility] 1.2.840.114 [id number] Univers 09:02:01 11:38:00 Visit Hillary Schulz 350.1.13.10 ity of [place] [phone] In dical nal 205 [facility] 2020-08-02 2020-08-02 Outpatient R PEPE, [facility] [id number] Univers 09:15:00 09:15:00 HILLARY orlandodarian lial violeta [facility] 2020-08-02 2020-08-02 Orders Doctor DUANE 1.2.840.114 [id number] Univers 00:00:00 00:00:00 Only Unassigned, RAMON 350.1.13.10 ity of [place] [facility] 4.2.7.2.686 Roberto as [phone] [address] 2020-08-01 2020-08-01 Refill [facility] 1.2.840.114 [id number] Univers 00:00:00 00:00:00 Alfredo Schulz 350.1.13.10 i ty of [place] [phone] In dical nal 204 [facility] 2020-07-25 2020-07-25 Appointmen , [facility] Vascular Room [address] [place] [address] 1.2.840.114 [id number] Univers 08:08:00 09:58:20 Chata Farley 350.1.13. 10 ity of [place] [phone] In dical nal 059 [facility] 2020-07-25 2020-07-25 Appointmen , [facility] Vascular Room [address] [place] [address] 1.2.840.114 [id number] Univers 08:07:30 09:58:12 Chata Farley 350.1.13. 10 ity of [place].2.[place] [phone] In dical nal 059 [facility] 2020-07-25 2020-07-25 Appointmen , [facility] Vascular Room [address] [place] [address] 1.2.840.114 [id number] Univers 08:07:04 09:58:01 Chata Farley 350.1.13. 10 ity of [place] [phone] In dical nal 059 [facility] 2020-07-25 2020-07-25 Appointmen Pc, [facility] Vascular Room 1 [facility] 1.2.840.114 [id number] Univers 08:05:57 09:57:53 t Chata Mckeon 350.1.13. 10 ity of [place] [phone] In dical nal 059 [facility] 2020-07-25 2020-07-25 Customer Engineering Specialist Pc, [facility] Vascular Room 1 [facility] 1.2.840.114 [id number] [facility] 08:05:21 09:57:45 Visit Chata Mckeon 350.1.13. 10 ity of [place] [phone] In dicpa nal 059 [facility] 2020-07-25 2020-07-25 Outpatient R [facility] [id number] Univers 08:00:00 08:00:00 ity [facility] 2020-07-22 2020-07-22 [facility] [id number] Univers 13:00:00 13:00:[facility] 2020-07-21 [facility] [id number] Univers 09:30:00 09:30:00 [facility] 2020-07-21 2020-07-21 Office [facility] 1.2.840.114 [id number] Univers 08:57:55 09:29:27 Visit Alfredo Schulz 350.1.13.10 i ty of [place] [phone] [facility] 204 [facility] 2020-07-19 2020-07-19 Office [facility] 1.2.840.114 [id number] Univers 08:45:33 10:43:06 Visit Hillary Schulz 350.1.13.10 ity of [place] [phone] In dical nal 205 [facility] 2020-07-19 2020-07-19 Outpatient R PEPE [facility] [id number] Univers 09:00:00 09:00:00 HILLARY mcdaniel [facility] 2020-07-12 2020-07-12 Office Denilson [facility] 1.2.840.114 [id number] [facility] 08:50:38 11:39:35 Visit Room, [facility] Procedure [facility] 350.1. 13.10 ity of [place] [phone] [facility] Primary & [address] [facility] 2020-07-12 2020-07-12 Outpatient [facility] [id number] Univers 10:00:00 10:00:00 [facility] 2020-06-27 2020-06-27 Patient [facility] 1.2.840.114 [id number] Univers 00:00:00 00:00:00 Secure Msg Wentong [place] 350.1.13.10 ity of [place] [phone] [facility] dical [facility] 220 [facility] 2020-06-23 2020-06-23 Office Jazmine [facility] 1.2.840.114 [id number] Univers 08:08:49 09:11:59 Visit Rm, Adc Surg Spec Procedure [place] 3 50.1.13.10 ity of [place] [phone] In dical [facility] 204 [facility] 2020-06-23 2020-06-23 Office Jazmine [facility] 1.2.840.114 [id number] 08:08:49 09:11:59 Visit Rm, Adc Surg Spec Procedure [place] 3 50.1.13.10 [place] 4.2.7.2.686 Professio [phone] [facility] 204 [facility] 2020-06-23 2020-06-23 [facility] [id number] Univers 08:30:00 08:30:00 [facility] 2020-06-23 2020-06-23 Orders Doctor ZEPEDA 1.2.840.114 [id number] Univers 00:00:00 00:00:00 Only Unassigned, RAMON 350.1.13.10 ity of [place] [facility] 4.2.7.2.686 Roberto as [phone] [address] 2020-05-31 2020-05-31 Customer Engineering Specialist 2, Adc Lab [facility] 1.2.840.114 [id number] Univers 09:08:20 09:23:20 Visit Quita Carranza 350.1.13.10 ity of [place] [phone] In dical nal 353 [facility] 2020-05-31 2020-05-31 Office [facility] 1.2.840.114 [id number] Univers 07:56:47 09:00:08 Visit Quita Schulz 350.1.13.10 i ty of [place] [phone] In dical nal 220 [facility] 2020-05-31 2020-05-31 Outpatient R DILLON [facility] [id number] Univers 08:00:00 08:00:00 WENTONG ity [facility] 2020-05-30 2020-05-30 Office Jazmine [facility] 1.2.840.114 [id number] Univers 13:36:12 17:40:52 Visit Alfredo Ricardo 350.1.13.10 [place] ty [place] [phone] In dical [facility] 204 [facility] 2020-05-30 2020-05-30 Outpatient R JAZMINE [facility] [id number] Univers 14:00:00 14:00:00 ALFREDO ity of [facility] 2020-05-30 2020-05-30 Orders Doctor ZEPEDA 1.2.840.114 [id number] Univers 00:00:00 00:00:00 Only Unassigned, RAMON 350.1.13.10 ity of [place] [facility] 4.2.7.2.686 Roberto as [phone] [address] 2020-05-29 2020-05-29 Refill Dillon [facility] 1.2.840.114 [id number] Univers 00:00:00 00:00:00 Eliazarjose alfredo Ricardo 350.1.13.10 i ty [place] [phone] In dical nal 220 [facility] 2020-05-02 2020-05-02 Outpatient EL SLEH SLEH [id number] SLEH 00:00:00 00:00:00 2020-04-21 2020-04-21 Office Jazmine [facility] 1.2.840.114 [id number] Univers 13:35:17 16:11:50 Visit Alfredo Schulz 350.1.13.10 i [place] [phone] In dicpa nal 204 [facility] 2020-04-21 2020-04-21 Customer Engineering Specialist 2, Adc Lab [facility] 1.2.840.114 [id number] Univers 15:20:02 15:35:02 Visit Alfredo Lucero 350.1.13.10 it[place] of [place] [phone] [facility] 353 [facility] 2020-04-21 2020-04-21 Outpatient R JAZMINE [facility] [id number] Univers 14:45:00 14:45:00 ALFREDO ity [facility] 2020-04-21 2020-04-21 Orders Doctor ZEPEDA 1.2.840.114 [id number] Univers 00:00:00 00:00:00 Only Unassigned, RAMON 350.1.13.10 ity of [place] [facility] 4.2.7.2.686 Roberto as [phone] [address] 2020-01-26 2020-01-26 Outpatient R DILLON [facility] [id number] Univers 09:00:00 09:00:00 ELIAZARONG ity [facility] 2020-01-26 2020-01-26 Telemedici Dillon [facility] 1.2.840.114 [id number] Univers 07:58:17 08:28:17 ne Visit Quita Schulz 350.1.13.10 ity of [place] [phone] In dical nal 220 [facility] 2019-12-31 2019-12-31 Telephone Carranza, DEMB [id number] Univers 00:00:00 00:00:00 Eliazarong [place] 350.1.13.10 i ty of [place] [phone] In dical nal 220 [facility] 2019-12-24 2019-12-24 Telephone Carranza, DEMB 1.2.560.683 [id number] Univers 00:00:00 00:00:00 Eliazarong [place] 350.1.13.10 i ty of [place] [phone] In dical nal 220 [facility] 2019-12-18 2019-12-18 Refill Carranza, [facility] 1.2.840.114 [id number] Univers 00:00:00 00:00:00 Quita [place] 350.1.13.10 i ty of [place] [phone] In dical nal 220 [facility] 2019-11-24 2019-11-24 Outpatient Pepper, HCAWU SURG [id number] [facility] 07:30:00 07:30:[address] [place] [address] 2019-10-12 2019-10-12 Patient Carranza, [facility] 1.2.840.114 [id number] Univers 00:00:00 00:00:00 Secure Msg Quita [place] 350.1.13.10 ity of [place] [phone] In dical nal 220 [facility] 2019-09-25 2019-09-25 Telephone Paul, [facility] [id number] Univers 00:00:00 00:00:00 Carli Schulz 350.1.13.10 ity of [place] [phone] In dical nal 059 [facility] 2019-09-23 2019-09-23 Customer Engineering Specialist Halley, Adc Lab Main [facility] 1.2.8 40.114 [id number] Univers 12:45:00 13:00:00 Visit Quita Carranza 350.1.13.10 ity of [place] [phone] In dical nal 353 [facility] 2019-09-23 2019-09-23 Office Dillon [facility] 1.2.840.114 [id number] Univers 10:40:06 12:19:03 Visit Quita Schulz 350.1.13.10 i ty of [place] [phone] In dical nal 220 [facility] 2019-09-23 2019-09-23 Orders Doctor DUANE 1.2.840.114 [id number] Univers 00:00:00 00:00:00 Only Unassigned, RAMON 350.1.13.10 ity of [place] [facility] 4.2.7.2.686 Roberto as [phone] [address] 2019-08-30 2019-08-30 Orders Doctor DUANE 1.2.840.114 [id number] Univers 00:00:00 00:00:00 Only Unassigned, RAMON 350.1.13.10 ity of [place] [facility] 4.2.7.2.686 Rboerto as [phone] [address] 2019-08-11 2019-08-11 Ambulatory nullFlavo MNA [id number] Memoria 15:30:00 15:30:00 Pre-Reg r Neurology 05 l [place] 2019-08-11 2019-08-11 Ambulatory nullFlavo MNA [id number] Memoria 15:30:00 15:30:00 Pre-Reg r Neurology 05 l Aaron Lewisann 2019-08-11 2019-08-11 Outpatient MHIE MHIE [id number] Memoria 09:30:00 09:30:00 05 keeley Geoff 2019-08-11 2019-08-11 Outpatient HAILEE Pham MHMISCHER [id number] 09:30:00 09:30:00 Baltazar Benavidez 2019-05-19 2019-05-19 [facility] 1.2.012.102 [id number] [facility] 00:00:00 00:00:00 Judi Schulz 350.1.13.10 i ty of [place] [phone] In dical nal 220 [facility] 2019-05-11 2019-05-11 Aracelis Hernandez [facility] 1.2.840.114 [id number] Univers 00:00:00 00:00:00 Judi Schulz 350.1.13.10 i ty [place] [phone] In dicyeison nal 220 [facility] 2019-04-21 2019-04-22 Outpatient nullFlavo MNA [id number] Memoria 16:00:00 04:59:59 r Neurology 04 keeley [place] 2019-04-21 2019-04-22 Outpatient nullFlavo MNA [id number] Memoria 16:00:00 04:59:59 r Neurology 04 keeley [place] Geoff 2019-04-21 2019-04-21 Outpatient FRANCIE PhamSCHALANA MHMISCHER [id number] 11:00:00 23:59:59 Baltazar Jason Pramod 2019-04-21 2019-04-21 Outpatient MHIE MHIE [id number] Memoria 11:00:00 11:00:00 Jason mina [place] 2019-03-18 2019-03-18 Ambulatory nullFlavo MNA [id number] Memoria 19:45:00 19:45:00 Pre-Reg r Neurology 03 keeley Lewisann 2019-03-18 2019-03-18 Ambulatory nullFlavo MNA [id number] Memoria 19:45:00 19:45:00 Pre-Reg r Neurology 03 [place]ley [place] 2019-03-18 2019-03-18 Outpatient MHIE MHIE [id number] Memoria 14:45:00 14:45:00 03 keeley Tellez 2019-03-18 2019-03-18 Outpatient FRANCIE PhamSCHALANA MISCHER [id number] 14:45:00 14:45:00 Baltazar Herlinda Benavidez 2019-01-28 2019-01-29 Outpatient nullFlavo MNA [id number] Memoria 19:30:00 04:59:59 r Neurology 02 keeley Tellez 2019-01-28 2019-01-29 Outpatient nullFlavo MNA [id number] Memoria 19:30:00 04:59:59 r Neurology 02 keeley Tellez 2019-01-28 2019-01-28 Outpatient FRANCIE PhamSCHER MISCHER [id number] 14:30:00 23:59:59 Baltazar Gavin Benavidez 2019-01-28 2019-01-28 Outpatient MHIE MHIE [id number] Memoria 14:30:00 14:30:00 02 keeley Tellez 2018-12-23 2018-12-24 Outpatient nullFlavo MNA [id number] Memoria 21:15:00 04:59:59 r Neurology 01 keeley Tellez 2018-12-23 2018-12-24 Outpatient nullFlavo MNA [id number] Memoria 21:15:00 04:59:59 r Neurology 01 keeley Tellez 2018-12-23 2018-12-23 [facility] [id number] 16:15:00 23:59:59 Baltazar Pramod 2018-12-23 2018-12-23 Outpatient MHIE MHIE [id number] Memoria 16:15:00 16:15:00 01 keeley Tellez 2018-12-05 2018-12-05 Outpatient MHIE MHIE [id number] Memoria 10:00:00 10:00:00 00 keeley Tellez 2018-12-05 2018-12-05 Outpatient MHIE MHIE [id number] Memoria 10:00:00 10:00:00 00 keeley Geoff Results Test Description Test Time Test Comments Results Result Comments Source HEMOGLOBIN A1C 2022-09-26 00:00:00 Test Item Value Reference Range Interpretation Comme nts A1C (test code = 4548-4) 8.5 HEMOGLOBIN [id number] 00:00:00 Test Item Value Reference Range Interpretation Comments A1C (test code = 4548-4) 9.2 TROPONIN [id number] 16:00:43 Test Item Value Reference Interpretation Comments Range TROPONIN I (test 0.110 ng/mL See_Comment H [Automated code = 6764929763) message] The system which generated this result transmitted reference range : <=0.034. The reference range was not used to interpret this result as normal/abnormal . PAUL (test code = Reference (Normal) PAUL) Range (defined by the 99th percentile reference limit): <= 0.034 ng/mL Note: Cardiac troponin begins to rise 3-4 hours after the onset of ischemia. Repeat in 4-6 hours if the sample was drawn within 3-4 hours of the onset of the symptom and found normal. Diagnosis of myocardial injury is made with acute changes in cTn concentrations with at least one serial sample above the 99th percentile upper reference limit (URL), taken together with the patient's clinical presentation. Biotin has been reported to cause a negative bias, interpret results relative to patient's use of biotin. Lab Interpretation Abnormal (test code = 53471-0) [id number] 15:57:20 Test Item Value Reference Range Interpretation Comments NT-proBNP (test code 875 pg/mL See_Comment H [Autom ated = 5895486603) message] The system which generated this result transmitted reference range : <=125. The reference range was not used to interpret this result as normal/abnormal . PAUL (test code = PAUL) Biotin has been reported to cause a negative bias, interpret results relative to patient's use of biotin. Lab Interpretation Abnormal (test code = 08655-9) [facility] (16867)2022-06-11 15:49:22 Test Item Value Reference Range Interpretation Comments NA (test code = 140 mmol/L 135-145 0662918142) K (test code = 4.8 mmol/L 3.5-5 2860334582) CL (test code = 104 mmol/L 98-108 6018372922) CO2 TOTAL (test code = 26 mmol/L 23-31 8431297376) AGAP (test code = 2-16 3066153723) BUN (test code = 22 mg/dL 7-23 4057871316) GLUCOSE (test code = 246 mg/dL 70-110 H 8528694987) CREATININE (test code = 1.17 mg/dL 0.6-1.25 3877577208) TOTAL BILI (test code = 0.4 mg/dL 0.1-1.6 3825677614) CALCIUM (test code = 9.2 mg/dL 8.6-10.6 8889506102) T PROTEIN (test code = 7.4 g/dL 6.3-8.2 5959674255) ALBUMIN (test code = 4.2 g/dL 3.5-5 2028318498) ALK PHOS (test code = 60 U/L 34-122 3880576418) ALTv (test code = 20 U/L 5-50 1742-6) AST(SGOT) (test code = 25 U/L 13-40 2486652413) eGFR (test code = mL/min/1.73m2 5303714616) PAUL (test code = PAUL) Association of Glomerular Filtration Rate (GFR) and Staging of Kidney Disease* + --+ --+ ------+| GFR (mL/min/1.73 m2) ?| With Kidney Damage ?| ?Without Kidney Damage+ --------+ --------+ +| ?>90 ?| ?Stage one ?| ? Normal ?+ ---+ ---+ -------+| ?60-89 ?| ?Stage two ?| ? Decreased GFR ? + --+ --+ ------+| ?30-59 ?| ?Stage three ?| ? Stage three ? + --+ --+ ------+| ?15-29 ?| ?Stage four ? | ? Stage four ?+ ---+ ---+ -------+| ?<15 (or dialysis) ? ?| ?Stage five ? | ? Stage five ?+ ---+ ---+ -------+ *Each stage assumes the associated GFR level has been in effect for at least three months. ?Stages 1 to 5, with or without kidney disease, indicate chronic kidney disease. Notes: Determination of stages one and two (with eGFR >59mL/min/1.73 m2) requires estimation of kidney damage for at least three months as defined by structural or functional abnormalities of the kidney, manifested by either:Pathological abnormalities or Markers of kidney damage (including abnormalities in the composition of the blood or urine or abnormalities in imaging tests). Lab Interpretation Abnormal (test code = 52210-2) [facility] WITH [id number] 15:36:37 Test Item Value Reference Range Interpretation Comments WBC (test code = See_Comment L [Automated 6690-2) message] The sy stem which generated this result transmitted reference range : 4.20 - 10.70 10*3/?L. The reference range was not used to interpret this result as normal/abnormal . RBC (test code = See_Comment [Automated 789-8) message] The sy stem which generated this result transmitted reference range : 4.26 - 5.52 10*6/?L. The reference range was not used to interpret this result as normal/abnormal . HGB (test code = 15.4 g/dL 12.2-16.4 718-7) HCT (test code = 46.9 % 38.4-49.3 4544-3) MCV (test code = 93.8 fL 81.7-95.6 787-2) MCH (test code = 30.8 pg 26.1-32.7 785-6) MCHC (test code = 32.8 g/dL 31.2-35 786-4) RDW-SD (test code = 42.7 fL 38.5-51.6 55890-0) RDW-CV (test code = 12.4 % 12.1-15.4 788-0) PLT (test code = See_Comment L [Automated 777-3) message] The sy stem which generated this result transmitted reference range : 150 - 328 10*3/ ?L. The reference r santos was not used to interpret this result as normal/abnormal . MPV (test code = 12.2 fL 9.8-13 35574-3) NRBC/100 WBC (test See_Comment [Automat ed code = 3204979067) message] The system which generated this result transmitted reference range : 0.0 - 10.0 /100 WBCs. The refer ence range was not u sed to interpret th is result as normal/abnormal . NRBC x10^3 (test code See_Comment [Auto mated = 0354225863) message] The s ystem which generated this result transmitted reference range : 10*3/?L. The reference range was not used to interpret this result as normal/abnormal . GRAN MAT (NEUT) % 51.2 % (test code = 770-8) IMM GRAN % (test code 0.20 % = 2270315228) LYMPH % (test code = 27.5 % 736-9) MONO % (test code = 17.0 % 5905-5) EOS % (test code = 3.6 % 713-8) BASO % (test code = 0.5 % 706-2) GRAN MAT x10^3(ANC) 2.14 10*3/uL 1.99-6.95 (test code = 1577746830) IMM GRAN x10^3 (test 0-0.06 code = 1608809113) LYMPH x10^3 (test code 1.15 10*3/uL 1.09-3.23 = 731-0) MONO x10^3 (test code 0.71 10*3/uL 0.36-1.02 = 742-7) EOS x10^3 (test code = 0.15 10*3/uL 0.06-0.53 711-2) BASO x10^3 (test code 0.01-0.09 = 704-7) Lab Interpretation Abnormal (test code = 34677-2) [facility]) 2020-04-13 06:48:00 Test Item Value Reference Range Interpretation Comments SARS-COV2/RT-PCR (test Negative Not Detected, Negative, code = 6567843) See external report for linked test SARS-COV-2 [facility] (test code = 7780466) Negative result for this test determines that [...] justifying the authorization of the emergency use of in vitro diagnostic tests for detection and/or diagnosis of COVID-19 is terminated under Section 564(b)(2) of the Act or the EUA is revoked under Section 564(g) of the Act.Fact Sheet for Healthcare Pro viders:https://www.[employer]/sites/default/files/product/documents/Fact_Sheet_H S_Qcvovhdbg_Daye_YDSC-IqL-9.pdfFact Sheet for Healthcare Patients:https://www.[employer]/sites/default/files/product/docum ents/Ivkx_Qucui_Eadzbvtf_Ocze_ZELC-FeA-4.pdfPerforming Laboratory:[facility].[place], [place] [address]MENOX METABOLIC PANEL 2020-04-12 18:16:00 Test Item Value [...] S NOT APPLICABLE FOR DIALYSIS PATIEN TS. Dry Cleaning Attendant ID - ASPOCT-GLUCOSE [id number] 17:34:00 Test Item Value Reference Range Interpretation Comments POC-GLUCOSE METER 327 mg/dL 70-110 H : Notified RN/MD: (MOISES) (test code = TESTED AT [facility] 6720 1538) [facility], [address]: Dry Cleaning Attendant/Techni talia ID = [id number] for TH OMAS, COSHA CT, CTA EXTREMITY, LOWER, [id number] 15:42:00Anesthesia:->NoneAddendum BeginsREPORT STATUS:A Addendum: April 12, 2020 [...] for further evaluation and characterization. Signed: Duane Atkinson MDReport Verified Date/Time: 04/12/2020 15:42:53 Reading Location: [place] [address] Angio Body Reading RoomAddendum EndsFINAL REPORT CT [...] contrast indicating occlusion. Remainder of the the habematolel distal half of the left popliteal artery [...] dictated regarding the non-vascular findings by the Promotion Officer Radiologist. Signed: Rex Hodge MDReport Verified Date/Time: 04/10/2020 08:48:51 Reading Location: [place] [address], CTA EXTREMITY, LOWER, [id number] 15:42:00Addendum BeginsREPORT STATUS:A Addendum: April 12, 2020 [...] for further evaluation and characterization. Signed: Duane Atkinsoneport Verified Date/Time: 04/12/2020 15:42:53 Reading Location: [facility] [address] Angio Body Reading RoomAddendum EndsFINAL REPORT CT [...] contrast indicating occlusion. Remainder of the the habematolel distal half of the left popliteal artery is patent, however, at the most distal left popliteal artery, at image 529, moderate focal calcification is seen. Details of the runoff vessels in the left lower extremity as described above. 4. Mild to moderate calcification is seen at the takeoff of the right SFA with no significant disease identified. Remainder of the right SFA has calcific and noncalcific atherosclerosis with no obstructive lesion appreciated. The right p opliteal artery is also unremarkable however, at the very distal right popliteal artery at image 532, significant calcification is seen making accurate assessment limited. 5. Details of the runoff vessels as described above and the right lower extremity. 6. Other findings as described above, includingthe left adrenal gland finding; an addendum will be dictated thereafter. 7. An addendum will be dictated regarding the non-vascular findings by the Promotion Officer Radiologist. Signed: Rex Hodge MDReport Verified Date/Time: 04/10/2020 08:48:51 Reading Location: [place] [address] CT Reading Room POCT-GLUCOSE [id number] 07:28:00 Test Item Value Reference Range Interpretation Comments POC-GLUCOSE METER 416 mg/dL 70-110 HH : Notified RN/: (MOISES) (test code = TESTED AT [facility] 6720 1538) [facility] [address]: Dry Cleaning Attendant/Techni talia ID = [id number] for SHANIA PANDEY CBC (HEMOGRAM ONLY)2020-04-12 05:56:00 Test Item Value Reference Range Interpretation Comments WHITE BLOOD CELL COUNT (BEAKER) 7.4 K/ L 3.5-10.5 (test code = 775) RED BLOOD CELL COUNT (BEAKER) 4.74 M/ L 4.63-6.08 (test code = 761) HEMOGLOBIN (BEAKER) (test code = 14.4 GM/DL 13.7-17.5 410) [...] (BEAKER) (test code = 413) BASIC METABOLIC [id number] 05:52:00 Test Item Value Reference Range Interpretation [...] S NOT APPLICABLE FOR DIALYSIS PATIEN TS. Dry Cleaning Attendant ID - [id number] 23:47:00 Test Item Value Reference Range Interpretation Comments ACTIVATED CLOTTING TIME 136 sec : 74 -137 seconds, (BEAKER) (test code = Baseli ne: TESTED AT 441) [facility] 6720 [facility], [address]: Dry Cleaning Attendant/Techni talia ID = [id number] for ST EPHENS, HUSSEIN [id number] 23:47:00 Test Item Value Reference Range Interpretation Comments ACTIVATED CLOTTING TIME 153 sec : 74 -137 seconds, (BEAKER) (test code = Baseli ne: TESTED AT 441) [facility] 67[address] [facility], 770 30: Dry Cleaning Attendant/Techni talia ID = [id number] for ST EPHENS, HUSSEIN POCT-GLUCOSE [id number] 22:18:00 Test Item Value Reference Range Interpretation Comments POC-GLUCOSE METER 238 mg/dL 70-110 H : TESTED A T [facility] 6720 (BEAKER) (test code = [facility], 153) [address]: Dry Cleaning Attendant/Techni talia ID = [id number] for TYLER PARMAR [id number] 19:56:00 Test Item Value Reference Range Interpretation Comments ACTIVATED CLOTTING TIME 213 sec : 74 -137 seconds, (BEAKER) (test code = Baseli ne: TESTED AT 441) [address], [facility] 30: Dry Cleaning Attendant/Techni talia ID = [id number] for TI NAYLAALL, CRYSTAL POCT-GLUCOSE [id number] 17:25:00 Test Item Value Reference Range Interpretation Comments POC-GLUCOSE METER 191 mg/dL 70-110 H : TESTED A T [facility] 6720 (BEAKER) (test code = [facility], 153) [address]: Dry Cleaning Attendant/Techni talia ID = [id number] for TI NDALL, CRYSTAL [id number] 16:06:00 Test Item Value Reference Range Interpretation Comments ACTIVATED CLOTTING TIME 252 sec : 74 -137 seconds, (BEAKER) (test code = Baseli ne: TESTED AT 441) [address], [facility] 30: Dry Cleaning Attendant/Techni talia ID = [id number] for AL AIDAN, CASWANNA [id number] 15:21:00 Test Item Value Reference Range Interpretation Comments ACTIVATED CLOTTING TIME 257 sec : 74 -137 seconds, (BEAKER) (test code = Baseli ne: TESTED AT 441) [address], [facility] 30: Dry Cleaning Attendant/Techni talia ID = [id number] for DANIELLA RANDHAWA RN [id number] 14:59:00 Test Item Value Reference Range Interpretation Comments ACTIVATED CLOTTING TIME 263 sec : 74 -137 seconds, (BEAKER) (test code = Baseli ne: TESTED AT 441) [address], [facility] 30: Dry Cleaning Attendant/Techni talia ID = [id number] for AL AIDAN, CASWANNA POCT-GLUCOSE [id number] 12:19:00 Test Item Value Reference Range Interpretation Comments POC-GLUCOSE METER 167 mg/dL 70-110 H : TESTED A T [facility] 6720 (BEAKER) (test code = ANDREA Nieto [place], 1538) [address]: Dry Cleaning Attendant/Techni talia ID = [id number] for AV WILLARD POCT-GLUCOSE [id number] 06:01:00 Test Item Value Reference Range Interpretation Comments POC-GLUCOSE METER 185 mg/dL 70-110 H : TESTED A T [facility] 6720 (BEAKER) (test code = ANDREA Nieto [place], 1538) [address]: Dry Cleaning Attendant/Techni talia ID = [id number] for KEVAN PIRES BASIC METABOLIC [id number] 05:29:00 Test Item Value Reference Range Interpretation [...] S NOT APPLICABLE FOR DIALYSIS PATIEN TS. Dry Cleaning Attendant ID - [id number] (HEMOGRAM ONLY)2020-04-11 04:39:00 Test [...] 0-0 (BEAKER) (test code = 413) POCT-GLUCOSE [id number] 21:01:00 Test Item Value Reference Range Interpretation Comments POC-GLUCOSE METER 220 mg/dL 70-110 H : TESTED A T [facility] 6720 (BEAKER) (test code = [facility], 153) [address]: Dry Cleaning Attendant/Techni talia ID = [id number] for KEVAN PIRES POCT-GLUCOSE [id number] 16:11:00 Test Item Value Reference Range Interpretation Comments POC-GLUCOSE METER 239 mg/dL 70-110 H : TESTED A T [facility] 6720 (BEAKER) (test code = [facility], 153) [address]: Dry Cleaning Attendant/Techni talia ID = [id number] for DA VIS, KEYAIRA POCT-GLUCOSE [id number] 11:48:00 Test Item Value Reference Range Interpretation Comments POC-GLUCOSE METER 233 mg/dL 70-110 H : TESTED A T [facility] 6720 (BEAKER) (test code = [facility], 1538) [address]: Dry Cleaning Attendant/Techni talia ID = [id number] for DA VIS, KEYAIRA POCT-GLUCOSE [id number] 07:52:00 Test Item Value Reference Range Interpretation Comments POC-GLUCOSE METER 168 mg/dL 70-110 H : TESTED A T [facility] 6720 (BEAKER) (test code = [facility], 1538) [address]: Dry Cleaning Attendant/Techni talia ID = [id number] for KARI MISHRA BASIC METABOLIC [id number] 04:50:00 Test Item Value Reference Range Interpretation [...] S NOT APPLICABLE FOR DIALYSIS PATIEN TS. Dry Cleaning Attendant ID - [id number] (HEMOGRAM ONLY)2020-04-10 04:37:00 Test [...] 150-450 code = 756) MEAN PLATELET VOLUME (AKER) 11.6 fL 9.4-12.4 (test code = 754) NUCLEATED RED BLOOD CELLS 0 /100 WBC 0-0 (AKER) (test code = 413) POCT-GLUCOSE [id number] 21:45:00 Test Item Value Reference Range Interpretation Comments POC-GLUCOSE METER 260 mg/dL 70-110 H : TESTED A T [facility] 6720 ([facility]) (test code = [facility], 1538) [address]: Dry Cleaning Attendant/Techni talia ID = [id number] for GR AHAM, YEISON POCT-GLUCOSE [id number] 15:40:00 Test Item Value Reference Range Interpretation Comments POC-GLUCOSE METER 297 mg/dL 70-110 H : TESTED A T [facility] 6720 ([facility]) (test code = [facility], [facility]8) [address]: Dry Cleaning Attendant/Techni talia ID = [id number] for DA VIS, KEYAIRA POCT-GLUCOSE [id number] 12:01:00 Test Item Value Reference Range Interpretation Comments POC-GLUCOSE METER 239 mg/dL 70-110 H : TESTED A T [facility] 6720 ([facility]) (test code = [facility], 1538) [address]: Dry Cleaning Attendant/Techni talia ID = [id number] for DA VIS, KEYAIRA POCT-GLUCOSE [id number] 08:29:00 Test Item Value Reference Range Interpretation Comments POC-GLUCOSE METER 318 mg/dL 70-110 H : TESTED A T [facility] 6720 ([facility]) (test code = [facility], 1538) [address]: Dry Cleaning Attendant/Techni talia ID = [id number] for DA VIS, KEYAIRA POCT-GLUCOSE [id number] 05:25:00 Test Item Value Reference Range Interpretation Comments POC-GLUCOSE METER 376 mg/dL 70-110 H : TESTED A T [facility] 6720 (BEAKER) (test code = [facility], [facility]8) [address]: Dry Cleaning Attendant/Techni talia ID = [id number] for YEBOAH NDY, EVE BASIC METABOLIC [id number] 04:27:00 Test Item Value Reference Range Interpretation [...] S NOT APPLICABLE FOR DIALYSIS PATIEN TS. Dry Cleaning Attendant ID - LINDA MCBC (HEMOGRAM ONLY)2020-04-09 04:08:00 [...] WBC 0-0 (BEAKER) (test code = 413) [id number] 12:18:00 Test Item Value Reference Range Interpretation Comments PARTIAL THROMBOPLASTIN TIME 115.3 seconds 22.5-36.0 H (BEAKER) (test code = 760) POCT-GLUCOSE [id number] 12:09:00 Test Item Value Reference Range Interpretation Comments POC-GLUCOSE METER 143 mg/dL 70-110 H : TESTED A T [facility] 6720 (BEAKER) (test code = ANDREA Nieto [facility], 1538) 567[address]: Dry Cleaning Attendant/Techni talia ID = [id number] for KARI MISHRA [id number] 05:09:00 Test Item Value Reference Range Interpretation Comments PARTIAL THROMBOPLASTIN TIME 89.1 seconds 22.5-36.0 H (BEAKER) (test code = 760) [id number] 03:59:00 Test Item Value Reference Range Interpretation Comments PARTIAL THROMBOPLASTIN TIME 164.6 seconds 22.5-36.0 HH (BEAKER) (test code = 760) [id number] 03:04:00 Test Item Value Reference Range Interpretation Comments PARTIAL THROMBOPLASTIN TIME 156.3 seconds 22.5-36.0 HH (BEAKER) (test code = 760) BASIC METABOLIC [id number] 02:57:00 Test Item Value Reference Range Interpretation [...] S NOT APPLICABLE FOR DIALYSIS PATIEN TS. Dry Cleaning Attendant ID - EDASICBC W/PLT COUNT & AUTO [id number] 02:42:00 Test Item Value Reference Range Interpretation [...] PERCENT (BEAKER) (test code = 2801) POCT-GLUCOSE [id number] 21:43:00 Test Item Value Reference Range Interpretation Comments POC-GLUCOSE METER 281 mg/dL 70-110 H : TESTED A T [facility] 6720 (BEAKER) (test code = ANDREA Nieto [place], 1538) [address]30[address]: Dry Cleaning Attendant/Techni talia ID = [id number] for EVE MANCINI [id number] 20:46:00 Test Item Value Reference Range Interpretation Comments PARTIAL THROMBOPLASTIN TIME 106.7 seconds 22.5-36.0 H (BEAKER) (test code = 760) PET/CT, CARDIAC PERF REST AND [id number] 16:41:00Dr. Candice Ramirez for exam:->chest painFINAL REPORT PROCEDURE: MYOCARDIAL PERFUSION PET IMAGING (Rest/Stress)CPT CODE:84240 INDICATION: Evaluation of chest pain the patient [...] study for comparison. Sign ed: Mallory Sumner Verified Date/Time: 04/07/2020 16:41:30 Reading Location: [address] Reading Room POCT-GLUCOSE [id number] 16:27:00 Test Item Value Reference Range Interpretation Comments POC-GLUCOSE METER 194 mg/dL 70-110 H : TESTED A T [facility] 6720 (combionic) (test code = [facility] Emilia [facility], 1538) 14234: Dry Cleaning Attendant/Techni talia ID = [id number] for AV WILLARD [id number] 13:41:00 Test Item Value Reference Range Interpretation Comments PARTIAL THROMBOPLASTIN TIME 91.5 seconds 22.5-36.0 H ([employer]UC[employer]) (test code = 760) POCT-GLUCOSE [id number] 13:21:00 Test Item Value Reference Range Interpretation Comments POC-GLUCOSE METER 109 mg/dL 70-110 : TESTED A T [facility] 6720 (combionic) (test code = [facility] Emilia [facility], 1538) 14081: Dry Cleaning Attendant/Techni talia ID = [id number] for AV WILLARD [id number] 11:09:00 Test Item Value Reference Range Interpretation Comments PARTIAL THROMBOPLASTIN TIME 181.8 seconds 22.5-36.0 HH (LUC[employer]) (test code = 760) POCT-GLUCOSE [id number] 07:23:00 Test Item Value Reference Range Interpretation Comments POC-GLUCOSE METER 161 mg/dL 70-110 H : TESTED Orquidea T [facility] 6720 (BEAKER) (test code = ANDREA [place], 1538) [address]: Dry Cleaning Attendant/Techni talia ID = [id number] for AV WILLARD BASIC METABOLIC [id number] 06:08:00 Test Item Value Reference Range Interpretation [...] S NOT APPLICABLE FOR DIALYSIS PATIEN TS. Dry Cleaning Attendant ID - ASCBC W/PLT COUNT & AUTO [id number] 06:05:00 Test Item Value Reference Range Interpretation [...] PERCENT (BEAKER) (test code = 2801) POCT-GLUCOSE [id number] 21:55:00 Test Item Value Reference Range Interpretation Comments POC-GLUCOSE METER 196 mg/dL 70-110 H : TESTED A T [facility] 6720 (BEAKER) (test code = ANDREA [place], 1538) 38273: Dry Cleaning Attendant/Techni talia ID = [id number] for EDUARD BEYER POCT-GLUCOSE [id number] 16:58:00 Test Item Value Reference Range Interpretation Comments POC-GLUCOSE METER 72 mg/dL 70-110 : TESTED A T [facility] 6720 (BEAKER) [facility], 1538) 934[address]: Dry Cleaning Attendant/Techni talia ID = [id number] for AV WILLARD POCT-GLUCOSE [id number] 13:44:00 Test Item Value Reference Range Interpretation Comments POC-GLUCOSE METER 118 mg/dL 70-110 H : TESTED A T [facility] 6720 (BEAKER) (test code = [facility] Emilia [facility], 1538) 087[address]: Dry Cleaning Attendant/Techni talia ID = [id number] for AV WILLARD POCT-GLUCOSE [id number] 13:07:00 Test Item Value Reference Range Interpretation Comments POC-GLUCOSE METER 68 mg/dL 70-110 L : TESTED A T [facility] 6720 (BEAKER) (test code = [facility] Emilia [facility], 1538) 61803: Dry Cleaning Attendant/Techni talia ID = [id number] for AV WILLARD [id number] 10:36:00 Test Item Value Reference Range Interpretation Comments FIBRINOGEN LEVEL (BEAKER) (test 468 mg/dl 225-434 H code = 658) HEMOGLOBIN [id number] 09:03:00 Test Item Value Reference Range Interpretation Comments HEMOGLOBIN A1C (BEAKER) (test code = 11.2 % 4.3-6.1 H 368) BASIC METABOLIC [id number] 08:24:00 Test Item Value Reference Range Interpretation [...] S NOT APPLICABLE FOR DIALYSIS PATIEN TS. Dry Cleaning Attendant ID - NTPCBC W/PLT COUNT & AUTO [id number] 08:17:00 Test Item Value Reference Range Interpretation [...] PERCENT (BEAKER) (test code = 2801) POCT-GLUCOSE [id number] 07:40:00 Test Item Value Reference Range Interpretation Comments POC-GLUCOSE METER 127 mg/dL 70-110 H : TESTED A T [facility] 6720 (BEAKER) (test code = [facility], 1538) 96863: Dry Cleaning Attendant/Techni talia ID = [id number] for AV WILLARD [id number] 07:06:00 Test Item Value Reference Range Interpretation Comments PARTIAL THROMBOPLASTIN TIME 70.1 seconds 22.5-36.0 H (BEAKER) (test code = 760) TROPONIN [id number] 23:13:00 Test Item Value Reference Range Interpretation [...] failure, acidosis, acute neurological disease, and persistent tachyarrhythmia.Dry Cleaning Attendant ID - [id number] 23:07:00 Test Item Value Reference Range Interpretation Comments PARTIAL THROMBOPLASTIN TIME 65.7 seconds 22.5-36.0 H (BEAKER) (test code = 760) POCT-GLUCOSE [id number] 21:17:00 Test Item Value Reference Range Interpretation Comments POC-GLUCOSE METER 144 mg/dL 70-110 H : TESTED A T [facility] 6720 (BEAKER) (test code = [facility], 1538) 30198: Dry Cleaning Attendant/Techni talia ID = [id number] for SANDRA BOOTH EDUARD POCT-GLUCOSE [id number] 17:20:00 Test Item Value Reference Range Interpretation Comments POC-GLUCOSE METER 163 mg/dL 70-110 H : TESTED A T [facility] 6720 (MOISES) (test code = AND[place], 1538) 76991: Dry Cleaning Attendant/Techni talia ID = [id number] for KRISTINA BUSBY SARS-COV2/RT-PCR ([facility])2020-04-05 17:17:00 Test Item Value Reference Range Interpretation Comments SARS-COV2/RT-PCR (test Negative Not Detected, Negative, code = 3714587) See external report for linked test SARS-COV-2 PERFORMING LAB [facility] ROZINA (test code = 9452840) Negative result for this test determines that [...] of the Act.Fact Sheet for Healthcare Prov iders:https://www.[employer]/sites/default/files/product/documents/Fact_Sheet_HC _[place]mvkukn_Oxzj_DDDG-UaR-1.pdfFact Sheet for Healthcare Patients:https://www.[employer]/sites/default/files/product/docume nts/Jhgy_Vsifi_Euincpni_Flle_XNTD-IkU-9.pdfPerforming Laboratory:[facility], [place] [id number] [id number] 16:28:00 Test Item Value Reference Range Interpretation Comments TROPONIN I (MOISES) (test code = 0.06 ng/mL 0.00-0.03 H [...] failure, acidosis, acute neurological disease, and persistent tachyarrhythmia.Dry Cleaning Attendant ID - NTPRAD, CHEST, 1 VIEW, NON [id number] 14:08:00Reason for exam:->elevated tropFINAL REPORT RAD, CHEST, 1 VIEW, NON DEPT INDICATION: elevated trop COMPARISON: August 30, 2017 FINDINGS: Portable frontal view of the chest. IMPRESSION: Support Lines: None. Lungs and pleura: Congestive interstitial changes may reflect developing edema or under inspiration. No lobar consolidation or effusion. No pneumothorax.Heart and mediastinum: Stable contours. Interval plac ement of biventricular pacer.Additional findings: None. Signed: JR Phillips Robert MDReport Verified Date/Time: 04/05/2020 14:08:14 Reading Location: [facility] Radiology Reading Room POCT-GLUCOSE [id number] 11:54:00 Test Item Value Reference Range Interpretation Comments POC-GLUCOSE METER 84 mg/dL 70-110 : TESTED A T [facility] 6720 (MOISES) (test code = ANDREA Nieto [facility], 1538) 93850: Dry Cleaning Attendant/Techni talia ID = [id number] for DENYS EN, KRISTINA B-TYPE NATRIURETIC FACTOR (BNP)2020-04-05 11:51:00 Test Item Value Reference Range Interpretation Comments B-TYPE NATRIURETIC PEPTIDE (BEAKER) 91 pg/mL 0-100 (test code = 700) Dry Cleaning Attendant ID - NTPTROPONIN [id number] 11:51:00 Test Item Value Reference Range Interpretation [...] failure, acidosis, acute neurological disease, and persistent tachyarrhythmia.Dry Cleaning Attendant ID - NTPBASIC METABOLIC PANEL 2020-04-05 11:43:00 [...] S NOT APPLICABLE FOR DIALYSIS PATIEN TS. Dry Cleaning Attendant ID - [id number] 11:39:00 Test Item Value Reference Range Interpretation Comments PARTIAL THROMBOPLASTIN TIME 57.0 seconds 22.5-36.0 H (BEAKER) (test code = 760) Prior to initiating heparinPROTHROMBIN [id number] 11:38:00 Test Item Value Reference Range Interpretation [...] to initiating heparinCBC W/PLT COUNT & AUTO [id number] 11:33:00 Test Item Value Reference Range Interpretation [...] (BEAKER) (test code = 2801) GLUCOSE BEDSIDE [id number] 16:27:00 Test Item Value Reference Range Interpretation Comments GLUCOSE BEDSIDE TESTING 368 MG/DL 60-99 HH Noti fied Nurse~ (test code = GLUBED) GLUCOSE BEDSIDE [id number] 08:20:00 Test Item Value Reference Range Interpretation Comments GLUCOSE BEDSIDE TESTING (test code 109 MG/DL 60-99 H = GLUBED) GLUCOSE BEDSIDE [id number] 08:17:00 Test Item Value Reference Range Interpretation Comments GLUCOSE BEDSIDE TESTING 439 MG/DL 60-99 HH Noti fied Nurse~ (test code = GLUBED) BASIC METABOLIC [id number] 06:32:00 Test Item Value Reference Range Interpretation [...] 8.8 MG/DL 8.4-10.2 N CA) BASIC METABOLIC [id number] 06:28:00 Test Item Value Reference Range Interpretation [...] code = CA) MG/DL 8.7-9.7 CBC W/AUTO [id number] 06:17:00 Test Item Value Reference Range Interpretation [...] K/mm3 0.0-0.1 N NRBC#) - XR CHEST [id number] 11:58:00 Patient Name: NEW WILKERSON Unit No: [id number] EXAMS: CPT CODE: [id number] XR CHEST 1V 87899 EXAM: XR Chest 1 View INDICATION: S/P [...] Salgado MD CC: Te Sheth Technologist: Regina Coles RT (R) Transcrpt Date/Tm/Trnsp: 11/24/2019 (1158) [email or web address] Orig Print D/T: S: 11/24/2019 (7601) LEXI Pozo NAME: NEW WILKERSON [address] PHYS: [place] [address] : 1960 AGE: 59 SEX: M LOC: [facility] PHONE #: [phone] EXAM DATE: 11/24/2019 STATUS: REG SDC FAX #: [phone] RADIOLOGY NO: PAGE 1 Signed ReportBASIC METABOLIC [id number] 07:32:00 Test Item Value Reference Range Interpretation [...] 9.4 MG/DL 8.4-10.2 N CA) Comments to Admissions Dean: NURSE WILL BRING SPECIMEN TO LABIs this a LINE draw? N [id number] 07:32:00 Test Item Value Reference Range Interpretation Comments MAGNESIUM (test code = MAG) 2.1 MG/DL 1.6-2.3 N Comments to Admissions Dean: NURSE WILL BRING SPECIMEN TO LABIs this a LINE draw? N BASIC METABOLIC [id number] 07:31:00 Test Item Value Reference Range Interpretation [...] code = MG/DL 8.7-9.7 CA) Comments to Admissions Dean: NURSE WILL BRING SPECIMEN TO LABIs this a LINE draw? N [id number] 07:31:00 Test Item Value Reference Range Interpretation Comments MAGNESIUM (test code = MAG) MG/DL 1.6-2.3 Comments to Admissions Dean: NURSE WILL BRING SPECIMEN TO LABIs this a LINE draw? N BASIC METABOLIC [id number] 07:29:00 Test Item Value Reference Range Interpretation [...] code = CA) MG/DL 8.7-9.7 Comments to Admissions Dean: NURSE WILL BRING SPECIMEN TO LABIs this a LINE draw? N [id number] 07:29:00 Test Item Value Reference Range Interpretation Comments MAGNESIUM (test code = MAG) MG/DL 1.6-2.3 Comments to Admissions Dean: NURSE WILL BRING SPECIMEN TO LABIs this a LINE draw? N BASIC METABOLIC [id number] 07:28:00 Test Item Value Reference Range Interpretation [...] code = CA) MG/DL 8.7-9.7 Comments to Admissions Dean: NURSE WILL BRING SPECIMEN TO LABIs this a LINE draw? N [id number] 07:28:00 Test Item Value Reference Range Interpretation Comments MAGNESIUM (test code = MAG) MG/DL 1.6-2.3 Comments to Admissions Dean: NURSE WILL BRING SPECIMEN TO LABIs this a LINE draw? N PROTHROMBIN [id number] 07:26:00 Test Item Value Reference Range Interpretation [...] myocar dial infarction. 2.0 - 3.0 3. [place] Winder al prosthesis hear t valves, recurre nt systemic emboli sm. 3.0 - 4.5 Comments to Admissions Dean: NURSE WILL BRING SPECIMEN TO LABPTT ACTIVATED 2019-11-24 07:26:00 Test Item Value Reference Range Interpretation Comments PTT ACTIVATED (test code = APTT) 34.6 SECONDS 25.1-36.5 N Comments to Admissions Dean: NURSE WILL BRING SPECIMEN TO LABCBC W/AUTO [...] 0.00 K/mm3 0.0-0.1 N NRBC#) Comments to Admissions Dean: NURSE WILL BRING SPECIMEN TO LABIs this a LINE draw? N HEMOGLOBIN [id number] 09:17:00 Test Item Value Reference Range Interpretation Comments HEMOGLOBIN A1C ([facility]) (test code = 8.3 % 4.3-6.1 H 368) POCT-GLUCOSE [id number] 08:15:00 Test Item Value Reference Range Interpretation Comments POC-GLUCOSE METER 143 mg/dL 70-110 H TESTED AT [place] [address] ([facility]) (test code = ANDREA [place] 1538) [address] POCT-GLUCOSE [id number] 21:11:00 Test Item Value Reference Range Interpretation Comments POC-GLUCOSE METER 214 mg/dL 70-110 H TESTED AT [place] [address] ([facility]) (test code = ANDREA [place] 1538) [address] POCT-GLUCOSE [id number] 17:19:00 Test Item Value Reference Range Interpretation Comments POC-GLUCOSE METER 160 mg/dL 70-110 H TESTED AT [place] [address] ([facility]) (test code = ANDREA [place] 1538) [address] POCT-GLUCOSE [id number] 12:59:00 Test Item Value Reference Range Interpretation Comments POC-GLUCOSE METER 175 mg/dL 70-110 H TESTED AT [place] [address] ([facility]) (test code = ANDREA [place] 1538) [address] POCT-GLUCOSE [id number] 09:21:00 Test Item Value Reference Range Interpretation Comments POC-GLUCOSE METER 194 mg/dL 70-110 H TESTED AT [place] [address] ([facility]) (test code = ANDREA [place] 1538) [address] POCT-GLUCOSE [id number] 21:05:00 Test Item Value Reference Range Interpretation Comments POC-GLUCOSE METER 264 mg/dL 70-110 H TESTED AT [place] [id number] ([facility]) (test code = ANDREA [place] 1538) [address] POCT-GLUCOSE [id number] 17:11:00 Test Item Value Reference Range Interpretation Comments POC-GLUCOSE METER 158 mg/dL 70-110 H TESTED AT [place] [address] ([facility]) (test code = ANDREA [place] 1538) [address] POCT-GLUCOSE [id number] 12:14:00 Test Item Value Reference Range Interpretation Comments POC-GLUCOSE METER 127 mg/dL 70-110 H TESTED AT [facility] 6720 ([facility]) (test code = ANDREA Nieto [place] 1538) [address] BASIC METABOLIC [id number] 10:20:00 Test Item Value Reference Range Interpretation [...] NOT APPLICABLE FOR DIALYSIS PATIEN TS. POCT-GLUCOSE [id number] 09:05:00 Test Item Value Reference Range Interpretation Comments POC-GLUCOSE METER 108 mg/dL 70-110 TESTED AT [facility] 6720 ([facility]) (test code = ANDREA Nieto [facility] 1538) [address] RAD, CHEST, 1 VIEW, NON [id number] 07:45:00Reason for exam:->pre-opShould this be performed at the bedside?->YesFINAL REPORT CLINICAL HISTORY: pre-op TECHNIQUE: 1 view of the chest. COMPARISON: None IMPRESSION: There are no focal infiltrates or effusions. A focal density in the medial right upper lung zone may be related to costochondral calcification from the right first rib. The cardiomediastinal silhouette is magnified by technique. Signed: Dorian Pelaez MDReport Verified Date/Time: 08/30/2017 07:45:46 Reading Location: [facility] Radiology Reading Room PROTHROMBIN TIME/[id number] 07:17:00 Test Item Value Reference Range Interpretation [...] /100 WBC 0-0 (BEAKER) (test code = 413)"
--- NOTE | 2022-10-24 12:16 | RAD REPORT ---
EXAM DESCRIPTION: RAD - Chest Single View - 10/24/2022 12:10 pm CLINICAL HISTORY: cough, chest pain, sob COMPARISON: Chest Pa And Lat (2 Views) dated 06/10/2022; Chest Single View dated 02/23/2020; Chest Pa And Lat (2 Views) dated 10/08/2019; Chest Single View dated 08/09/2019 FINDINGS: Lines: Pacemaker/ICD. Lungs: No evidence of edema or pneumonia. Pleural: No significant pleural effusions or pneumothorax. Cardiac: Similar size and configuration. Mediastinum: Within normal limits. Bones: No acute fractures. Other: None IMPRESSION: No acute cardiopulmonary disease.
[2022-10-24 12:42] LABS: Absolute Lymphocytes (CBC) 1.2 K/uL (0.7-4.9); Hematocrit 45.2 % (39.6-49.0); Lymphocytes % 35.3 % (15.3-44.8); MCV 92.4 fL (80-100); MPV 9.7 fL (7.6-11.3); RBC Red Blood Cell Count 4.89 M/uL (4.33-5.43)
[2022-10-24 12:43] LABS: Protime INR 1.15
[2022-10-24] MEDS ORDERED: LIDOCAINE VISCOUS 2% SOLN 15 ML UDC ONE (12:52)
[2022-10-24] MEDS ORDERED: MAGNES/ALUMIN/SIMET 30ML UCUP ONE (12:52)
[2022-10-24 13:47] LABS: SARS-COV-2 RT PCR NEGATIVE (NEGATIVE)
[2022-10-24] MEDS ORDERED: MORPHINE 4 MG/ML SYR ONE (14:29)
[2022-10-24] MEDS ORDERED: ONDANSETRON 4 MG/2 ML VIAL ONE (14:29)
[2022-10-24 14:33] LABS: ALT/SGPT 15 U/L (16-61); AST/SGOT 17 U/L (15-37); Alkaline Phosphatase 58 U/L (45-117); BUN Blood Urea Nitrogen 21 mg/dL (7-18); Bicarbonate 24 mmol/L (21-32); Bilirubin Total 0.2 mg/dL (0.2-1.0); Glomerular Filtration Rate 54 ml/min (=/>90); Glucose Level 105 mg/dL (74-106); NT PRO-BNP 709 pg/mL (<125); Potassium 4.4 mmol/L (3.5-5.1); Protein, Total 6.8 g/dL (6.4-8.2); Sodium Level 139 mmol/L (136-145)
[2022-10-24 14:34] LABS: Bilirubin Direct < 0.1 mg/dL (0-0.2)
[2022-10-24 14:36] LABS: Troponin High Sensitivity 583.2 pg/mL (<58.9)
--- NOTE | 2022-10-24 15:01 | ER ---
Nurse's Notes [facility] Name: [place] Age: 62 yrs Sex: Male : 1960 Arrival Date: 10/24/2022 Time: 11:[address] Private MD: Anay Hahn Diagnosis: Non-ST elevation [place] Presentation: 10/24 11:40 Chief complaint: Patient states: I think i have whooping cough, I cough stuff up in my [facility] throat and it salty. I have had my flu, covid, and pneumonia shot but I am coughing hard and i think [place] pulled some muscles cause coughing. Coronavirus screen: Vaccine status: Patient reports receiving the 2nd dose of the covid vaccine. Client denies travel out of the [place] in the last 14 days. Ebola Screen: Patient negative for fever greater than or equal to 101.5 degrees Fahrenheit, and additional compatible Ebola Virus Disease symptoms Patient denies exposure to infectious person. Patient denies travel to an Ebola-affected area in the 21 days before illness onset. Initial Sepsis Screen: Does the patient meet any 2 criteria? No. Patient's initial sepsis screen is negative. Does the patient have a suspected source of infection? No. Patient's initial sepsis screen is negative. Risk Assessment: Do you want to hurt yourself or someone else? Patient reports no desire to harm self or others. 11:40 Method Of Arrival: Ambulatory [facility] 11:40 Acuity: ANKIT 3 [facility] Triage Assessment: 11:49 General: Appears in no apparent distress. obese, well groomed, well developed, Behavior [facility] is calm, cooperative, appropriate for age. Historical: - Allergies: 11:48 No Known Allergies; jh - PMHx: 11:48 Bipolar disorder; quadraple bypass; DVT; Schizophrenia; Hypertension; High Cholesterol; [facility] Diabetes - IDDM; Depression; - PSHx: 11:48 pacemaker; [facility] - Immunization history:: Adult Immunizations up to date. - Social history:: Smoking status: Patient denies any tobacco usage or history of. Screenin:00 [facility] ED Fall Risk Assessment (Adult) Score/Fall Risk Level 0 - 2 = Low Risk. Abuse eh3 screen: Denies threats or abuse. Denies injuries from another. Nutritional screening: No deficits noted. Tuberculosis screening: No symptoms or risk factors identified. Assessment: 12:00 General: Appears in no apparent distress. uncomfortable, Behavior is calm, cooperative, eh3 appropriate for age. Pain: Complains of pain in throat. Neuro: Level of Consciousness is awake, alert, obeys commands, Oriented to person, place, time, situation. Cardiovascular: Capillary refill < 3 seconds Patient's skin is warm and dry. Respiratory: Reports cough that is productive, pain with cough Airway is patent Respiratory effort is even, unlabored, Respiratory pattern is regular, symmetrical, Breath sounds are coarse bilaterally. GI: No signs and/or symptoms were reported involving the gastrointestinal system. Abdomen is round non-distended. : No signs and/or symptoms were reported regarding the genitourinary system. EENT: Throat is reddened. Derm: No signs and/or symptoms reported regarding the dermatologic system. Skin is pink, warm \T\ dry. Musculoskeletal: No signs and/or symptoms reported regarding the musculoskeletal system. Circulation, motion, and sensation intact. Range of motion: intact in all extremities. 13:00 Reassessment: Patient appears in no apparent distress at this time. Patient and/or 3 family updated on plan of care and expected duration. Pain level reassessed. Patient is alert, oriented x 3, equal unlabored respirations, skin warm/dry/pink. 14:00 Reassessment: Patient appears in no apparent distress at this time. Patient and/or 3 family updated on plan of care and expected duration. Pain level reassessed. Patient is alert, oriented x 3, equal unlabored respirations, skin warm/dry/pink. Patient states symptoms have not improved. Vital Signs: 11:40 BP 110 / 66; Pulse 70; Resp 18; Temp 98.1; Pulse Ox 97% ; Weight 122.47 kg; Height 5 jh5 ft. 8 in. (172.72 cm); Pain 4/10; 12:25 BP 128 / 79; Pulse 68; Resp 18; Pulse Ox 99% on R/A; eh3 13:00 BP 127 / 73; Pulse 70; Resp 18; Pulse Ox 99% on R/A; eh3 14:00 BP 116 / 62; Pulse 70; Resp 20; Pulse Ox 100% on R/A; eh3 11:40 Body Mass Index 41.05 (122.47 kg, 172.72 cm) [facility] Vitals: 12:25 Cardiac Rhythm Assessment Paced. 3 ED Course: 11:36 Patient arrived in ED. as 11:37 Anay Hahn is Private Physician. as 11:37 Xenia Shin FNP-C [facility]. snw 11:37 Tarik Osullivan MD is Attending Physician. snw 11:48 Triage completed. [facility] 11:48 Cordell Galvan PA is PHCP. jmm 11:49 Arm band placed on right wrist. 5 12:00 Patient has correct armband on for positive identification. Bed in low position. Call [facility] light in reach. Side rails up X2. Client placed on continuous cardiac and pulse oximetry monitoring. NIBP monitoring applied. Door closed. Noise minimized. Lights dimmed. Warm blanket given. Pillow given. 12:06 Susan Montenegro, RN is Primary Nurse. 3 12:30 Inserted saline lock: 20 gauge in right wrist, using aseptic technique. Blood collected.[facility] 13:02 COVID-19/FLU A+B Sent. 3 14:59 Katie Hernandez MD is Hospitalizing Provider. [facility] 21:26 No provider procedures requiring assistance completed. Patient admitted, IV remains in [address] Administered Medications: 12:45 Drug: GI Cocktail without - (Maalox Suspension 30 ml, Lidocaine Liquid 2 % 15 eh3 ml) Route: PO; 14:02 Follow up: Response: Pain is unchanged, physician notified [facility] 14:25 Drug: morphine 4 mg Route: IVP; Infused Over: 4 mins; Site: right wrist; 3 15:32 Follow up: Response: Pain is decreased 3 14:25 Drug: Zofran (Ondansetron) 4 mg Route: IVP; Site: right wrist; eh3 15:31 Follow up: Response: No adverse reaction 3 15:31 Drug: Lovenox (enoxaparin) 1 mg/kg Route: Sub-Q; Site: left lower abdomen; 3 16:30 Follow up: Response: No adverse reaction 3 15:31 Drug: Aspirin Chewable Tablet 324 mg Route: PO; 3 16:30 Follow up: Response: No adverse reaction [facility] Medication: 21:26 VIS not applicable for this client. [facility] Outcome: 15:00 Decision to Hospitalize by Provider. daija 20:56 Patient left the ED. 21:27 Admitted to Med/surg accompanied by tech, via wheelchair, room 209, Report called to [address] 21:27 Condition: stable 21:27 Instructed on the need for admit. Signatures: Tamie Lu, RN RN Xenia Croft, DIVER HELPER-C DIVER HELPER-Csnw Cordell Galvan PA PA jmm Martinez, Amelia as Rees, Jessica, RN RN [facility] Susan Montenegro RN RN [facility] Corrections: (The following items were deleted from the chart) 11:49 11:40 Pulse 70bpm; Resp 18bpm; Pulse Ox 97%; Temp 98.1F; 122.47 kg; Height 5 ft. 8 in.; [facility] BMI: 41.0; Pain 4/10; [facility]
--- NOTE | 2022-10-24 15:01 | EDPHYS ---
Physician Documentation [facility] Name: New Jordan Age: 62 yrs Sex: Male : 1960 Arrival Date: 10/24/2022 Time: 11:[address] Private MD: Anay Hahn ED Physician Tarik Osullivan HPI: 10/24 11:48 This 62 yrs old Black Male presents to ER via Ambulatory with complaints of Cough, jmm Sneezing, Sore Throat, High Blood Pressure. 11:48 The patient or guardian reports cough. Onset: The symptoms/episode began/occurred jmm gradually. 11:48 Modifying factors: The symptoms are alleviated by nothing, the symptoms are aggravated jmm by nothing. 11:48 Associated signs and symptoms: Pertinent positives: sore throat. Is a 62-year-old male jmm with a history of bipolar, coronary artery disease, schizophrenia, hypertension the presents emerged part with complaints of cough congestion and chest pain. Denies vomiting. Denies shortness of breath. Historical: - Allergies: 11:48 No Known Allergies; jh5 - PMHx: 11:48 Bipolar disorder; quadraple bypass; DVT; Schizophrenia; Hypertension; High Cholesterol; 5 Diabetes - IDDM; Depression; - PSHx: 11:48 pacemaker; [facility] - Immunization history:: Adult Immunizations up to date. - Social history:: Smoking status: Patient denies any tobacco usage or history of. ROS: 11:48 Constitutional: Negative for fever, chills, and weight loss. jmm 11:48 ENT: Positive for sore throat. 11:48 Cardiovascular: Positive for chest pain. 11:48 All other systems are negative. Exam: 11:48 Constitutional: This is a well developed, well nourished patient who is awake, alert, jmm and in no acute distress. Head/Face: atraumatic. Eyes: EOMI, no conjunctival erythema appreciated ENT: Moist Mucus Membranes Neck: Trachea midline, Supple Chest/axilla: Normal chest wall appearance and motion. Cardiovascular: Regular rate and rhythm. No edema appreciated Respiratory: Normal respirations, no respiratory distress appreciated Abdomen/GI: Non distended Back: Normal ROM Skin: General appearance color normal MS/ Extremity: Moves all extremities, no obvious deformities appreciated, no edema noted to the lower extremities Neuro: Awake and alert Psych: Behavior is normal, Mood is normal, Patient is cooperative and pleasant Vital Signs: 11:40 BP 110 / 66; Pulse 70; Resp 18; Temp 98.1; Pulse Ox 97% ; Weight 122.47 kg; Height 5 [facility] ft. 8 in. (172.72 cm); Pain 4/10; 12:25 BP 128 / 79; Pulse 68; Resp 18; Pulse Ox 99% on R/A; eh3 13:00 BP 127 / 73; Pulse 70; Resp 18; Pulse Ox 99% on R/A; eh3 14:00 BP 116 / 62; Pulse 70; Resp 20; Pulse Ox 100% on R/A; eh3 11:40 Body Mass Index 41.05 (122.47 kg, 172.72 cm) [facility] MDM: 11:48 Patient medically screened. [facility] 14:56 Data reviewed: vital signs, nurses notes. Consideration of Admission/Observation [facility] Patient was admitted/placed on observation. Management of patient was discussed with the following: Fredrick, recommends lovenox. I considered the following discharge prescriptions or medication management in the emergency department Medications were administered in the Emergency Department. See MAR. Independent interpretation of the following test(s) in the Emergency Department X-Ray: My interpretation is No infiltate. Counseling: I had a detailed discussion with the patient and/or guardian regarding: the historical points, exam findings, and any diagnostic results supporting the discharge/admit diagnosis, lab results, radiology results, the need for further work-up and treatment in the hospital. ED course: I discussed the patient with Conner whom accepted the patient to Dr. Chang service. 10/24 11:51 Order name: Basic Metabolic Panel [facility] 10/24 11:51 Order name: CBC with Diff [facility] 10/24 11:51 Order name: LFT's [facility] 10/24 11:51 Order name: Magnesium [facility] 10/24 11:51 Order name: NT PRO-BNP [facility] 10/24 11:51 Order name: PT-INR [facility] 10/24 11:51 Order name: Troponin HS [facility] 10/24 11:52 Order name: COVID-19/FLU A+B [facility] 10/24 12:44 Order name: Protime (+INR); Complete Time: 12:48 [facility] 10/24 12:47 Order name: CBC with Automated Diff; Complete Time: 12:48 ED[facility] 10/24 13:48 Order name: COVID-19/FLU A+B; Complete Time: 14:02 [facility] 10/24 14:36 Order name: Basic Metabolic Panel; Complete Time: 14:36 ED[facility] 10/24 14:36 Order name: Liver (Hepatic) Function; Complete Time: 14:36 ED[facility] 10/24 14:36 Order name: Troponin High Sensitivity; Complete Time: 14:36 [facility] 10/24 11:51 Order name: XRAY Chest (1 view) [facility] 10/24 11:51 Order name: EKG; Complete Time: 11:52 [facility] 10/24 11:51 Order name: Cardiac monitoring; Complete Time: 13:02 [facility] 10/24 11:51 Order name: EKG - Nurse/Tech; Complete Time: 13:02 [facility] 10/24 11:51 Order name: IV Saline Lock; Complete Time: 12:35 [facility] 10/24 12:17 Order name: RAD; Complete Time: 12:23 [facility] 10/24 14:36 Order name: NT PRO-BNP; Complete Time: 14:36 [facility] 10/24 14:36 Order name: Magnesium; Complete Time: 14:36 [facility] 10/24 16:38 Order name: Diet Ada [address]; Complete Time: 16:41 [facility] 10/24 17:31 Order name: CT; Complete Time: 17:57 [facility] 10/24 20:21 Order name: Glucose, Ancillary Testing; Complete Time: 08:21 [facility] 10/24 11:51 Order name: Labs collected and sent; Complete Time: 12:35 [facility] 10/24 11:51 Order name: O2 Per Protocol; Complete Time: 12:35 [facility] 10/24 11:51 Order name: O2 Sat Monitoring; Complete Time: 12:35 [facility] 10/24 12:50 Order name: Labs - recollect needed: recollect green top please- two if possible; em1 Complete Time: 14:02 Administered Medications: 12:45 Drug: GI Cocktail without - (Maalox Suspension 30 ml, Lidocaine Liquid 2 % 15 eh3 ml) Route: PO; 14:02 Follow up: Response: Pain is unchanged, physician notified 3 14:25 Drug: morphine 4 mg Route: IVP; Infused Over: 4 mins; Site: right wrist; eh3 15:32 Follow up: Response: Pain is decreased eh3 14:25 Drug: Zofran (Ondansetron) 4 mg Route: IVP; Site: right wrist; eh3 15:31 Follow up: Response: No adverse reaction eh3 15:31 Drug: Lovenox (enoxaparin) 1 mg/kg Route: Sub-Q; Site: left lower abdomen; eh3 16:30 Follow up: Response: No adverse reaction eh3 15:31 Drug: Aspirin Chewable Tablet 324 mg Route: PO; eh3 16:30 Follow up: Response: No adverse reaction eh3 Disposition Summary: 10/24/22 15:00 Hospitalization Ordered Hospitalization Status: Inpatient Admission [facility] Provider: Katie Hernandez Location: Telemetry/MedSurg (Inpatient) [facility] Condition: Stable jm Problem: new jmm Symptoms: are unchanged jmm Bed/Room Type: Standard [facility] Room Assignment: 209(10/24/22 20:01) cg Diagnosis - Non-ST elevation [place] [facility] Forms: - Medication Reconciliation Form [facility] - SBAR form [facility] Signatures: Dispatcher [employer] EDMS Cordell Galvan PA PA jmm Martinez, Eric em1 Carolyn Reynoso RN RN cg Hannah Hernandez RN RN 5 Susan Montenegro RN RN eh3 Corrections: (The following items were deleted from the chart) 20:01 15:00 jmm cg
[2022-10-24] MEDS ORDERED: ASPIRIN 81 MG CHEWABLE TABLET ONE (15:18)
[2022-10-24] MEDS ORDERED: ENOXAPARIN 100 MG/ML SYR SQ ONE (15:19)
[2022-10-24] MEDS ORDERED: ACETAMINOPHEN 325 MG TABLET PO PRN (15:34)
[2022-10-24] MEDS ORDERED: HYDROCODONE/APAP 10/325 TAB PO PRN (15:34)
[2022-10-24] MEDS ORDERED: ONDANSETRON 4 MG/2 ML VIAL IV PRN (15:45)
[2022-10-24] MEDS ORDERED: GUAIFENESIN/CODEINE 5ML UCUP PO PRN (15:51)
[2022-10-24] MEDS ORDERED: SODIUM CHLORIDE 0.9% 10ML INJ IV PRN (15:51)
--- NOTE | 2022-10-24 15:59 | P.HP ---
Certification for Inpatient Patient admitted to: Inpatient With expected LOS: >2 Midnights Patient will require the following post-hospital care: None Practitioner: I am a practitioner with admitting privileges, knowledge of patient current condition, hospital course, and medical plan of care. Services: Services provided to patient in accordance with Admission requirements found in Title 42 Section 412.3 of the Code of Federal Regulations Patient History Date of Service: 10/24/22 Reason for admission: NSTEMI History of Present Illness: Patient is a 62-year-old male with a past medical history significant bipolar disorder, CAD, CABG, DVT, schizophrenia, hypertension, HLD, DM2, depression who presents with complaint of intermittent chest pain located in the left chest wall that has been ongoing for the past 3 days. Patient reported that chest pain last for sometimes 30 minutes and self resolves. Patient reported that today he started having chest pain again. Patient rated pain as 7/10 in severity and described pain as pressure in quality. Patient indicated that chest pain radiates to his back. Patient also reports persistent cough that has been ongoing for the past 3 weeks. Patient also indicated that he has been having sore throat, loss of taste, loss of appetite for the past 2 weeks. Patient reported associated signs and symptoms of shortness of breath, headache and dizziness. Patient denies any other signs and symptoms. Symptoms are aggravated or relieved by nothing. Patient decided to present to the hospital due to worsening symptoms. Allergies No Known Drug Allergies Allergy (Verified 02/23/20 19:53) Unknown Home Medications: Dulaglutide [Trulicity] 1.5 mg SQ Q7D 09/09/18 Fluoxetine HCl [Prozac] 40 mg PO DAILY 09/09/18 Fluticasone [Flonase 50MCG Nasal [place]*] 1 puff IN BID 09/09/18 Gabapentin 600 mg PO BID 09/09/18 Losartan Potassium [Cozaar] 75 mg PO DAILY 09/09/18 Pantoprazole [Protonix Tab*] 40 mg PO DAILY 09/09/18 Rosuvastatin Calcium 40 mg PO BEDTIME 09/09/18 Solifenacin Succinate [Vesicare] 10 mg PO DAILY 09/09/18 Albuterol Neb [Proventil 0.083% Neb Soln] 2.5 mg NEB [id number] PRN #14 amp 08/11/19 Ipratropium Neb [Atrovent*] 0.5 mg NEB [id number] PRN #14 amp 08/11/19 Aspirin [Lo-Dose Aspirin EC] 1 tab PO DAILY 02/23/20 Clopidogrel Bisulfate [Plavix*] 75 mg PO DAILY 02/23/20 Empagliflozin [Jardiance] 1 tab PO DAILY 02/23/20 carvediloL [Carvedilol] 12.23 mg PO BID 02/23/20 Tramadol HCl [Ultram] 50 mg PO Q8HR PRN #7 tablet 02/25/20 - Past Medical/Surgical History Diabetic: Yes -: CAD -: IDDM -: HTN -: DVT -: Dyslipidemia -: Bipolar -: Depression -: HLD -: Schizophrenia -: UTI -: NEUROPATHY -: QUADRUPLE BYPASS/CABG -: IVC filter -: CABG -: Cardiac stents - Family History parents -: Other (see notes) Notes: none - Social History Smoking Status: Former smoker Alcohol use: No CD- Drugs: No Caffeine use: Yes Place of Residence: Home Review of Systems General: Other (loss of tatse, smell, appetite ) Eyes: Unremarkable ENT: Throat Pain Respiratory: Cough, Shortness of Breath Cardiovascular: Chest Pain Gastrointestinal: Unremarkable Genitourinary: Unremarkable Musculoskeletal: Unremarkable Integumentary: Unremarkable Neurological: Other (Headache, Dizziness ) Lymphatics: Unremarkable Physical Examination - Physical Exam General: Alert, In no apparent distress, Oriented x3, Cooperative HEENT: Atraumatic, PERRLA, Mucous membr. moist/pink, EOMI, Sclerae nonicteric Neck: Supple, 2+ carotid pulse no bruit, No LAD, Without JVD or thyroid abnormality Respiratory: Diminished Cardiovascular: No edema, Regular rate/rhythm, Normal S1 S2 Capillary refill: <2 Seconds Gastrointestinal: Normal bowel sounds, Soft and benign, No tenderness Musculoskeletal: No clubbing, No swelling, No tenderness Integumentary: No rashes, No breakdown, No tenderness/swelling Neurological: Normal speech, Normal tone, Normal affect Lymphatics: No axilla or inguinal lymphadenopathy - Studies Laboratory Data (last 24 hrs) 10/24/22 14:00: Sodium 139, Potassium 4.4, BUN 21 H, Creatinine 1.47 H, Glucose 105, Magnesium 2.0, Total Bilirubin 0.2, AST 17, ALT 15 L, Alkaline Phosphatase 58 10/24/22 12:26: PT 12.7 H, INR 1.15 10/24/22 12:26: WBC 3.40 L, Hgb 14.8, Hct 45.2, Plt Count 155 Assessment and Plan - Plan --NSTEMI. Troponin elevated at 583.2. Patient started on weight-based Lovenox. Echocardiogram pending to assess cardiac functions and structures. We will continue to trend troponin levels. Cardiology consulted. Continue aspirin, Plavix and statin. Will await further recommendation from arabic linguist. --Hypertension. Stable. Continue home medications. --History of CAD with stents\CABG. Continue aspirin, Plavix and statin. -- History of DVT. Continue Lovenox subQ. --DM2 with neuropathy. BS monitoring with sliding scale insulin. Continue gabapentin for his neuropathy. --Hyperlipidemia. Continue statin. --Bipolar disorder\schizophrenia\depression. Continue home medications. --Persistent cough. CT chest pending for further evaluation. Patient placed on antitussives. --GERD. Continue Protonix. --Obesity. Likely secondary to excess calories intake. Patient counseled on weight reduction, diet and excise therapy. --CKD 3A. Stable. We will continue to monitor renal functions. --DVT prophylaxis with Lovenox subQ. Discharge Plan: Home Plan to discharge in: Greater than 2 days - Advance Directives Does patient have a Living Will: Yes Does patient have a Durable POA for Healthcare: Yes - Code Status/Comfort Care Code Status Assessed: Yes Physician Review: Patient Assessed, Agree with Above Assessment and Plan Critical Care: No
[2022-10-24] MEDS: INSULIN -REGULAR HUMAN 50 UNIT/0.5 ML ML SQ SCH ×2 (16:30→21:00)
[2022-10-24] MEDS: CLOPIDOGREL 75 MG TABLET PO SCH (17:00)
[2022-10-24] MEDS: PANTOPRAZOLE 40 MG INJ IVP SCH (17:00)
--- NOTE | 2022-10-24 17:30 | RAD REPORT ---
EXAM DESCRIPTION: CT - Thorax Wo Con - 10/24/2022 4:38 pm CLINICAL HISTORY: Persistent cough COMPARISON: Chest For Pe Angio dated 08/09/2019; Chest For Pe Angio dated 01/04/2018; Chest Single View dated 10/24/2022 TECHNIQUE: Axial thin cut images of the chest were obtained without IV contrast. Multiplanar reforma ts were generated and reviewed. All CT scans are performed using dose optimization technique as appropriate and may include automated exposure control or mA/KV adjustment according to patient size. FINDINGS: No mass or infiltrate in the lung parenchyma. No suspicious nodules. No pleural thickening or pleural effusion. No pneumothorax. No abnormal mediastinal or hilar masses or lymphadenopathy seen. No significant aortic or pulmonary a rtery findings. Assessment is limited in the absence of IV contrast. Left chest wall pacer/AICD in pl [place]. Aortic valve calcifications are present. No chest wall mass or abnormal axillary lymphadenopathy. Evaluation of the solid abdominal structures reveals no suspicious findings. Status post cholecystect mahesh. A small splenule is incidentally noted. IMPRESSION: No acute pulmonary process. Incidental findings as above.
[2022-10-24] MEDS ORDERED: guaiFENesin 100 MG/5 ML UCUP ONE (19:34)
[2022-10-24] MEDS ORDERED: PANTOPRAZOLE 40 MG INJ ONE (19:34)
[2022-10-24] MEDS ORDERED: CLOPIDOGREL 75 MG TABLET ONE (19:34)
[2022-10-24] MEDS ORDERED: HOME MED 1 EA UNK (Rosuvastatin Calcium [Rosuvastatin Calcium] 40 MG Tablet) PO SCH (21:00)
[2022-10-24] MEDS: Enoxaparin 120 MG/0.8 ML SYR SQ SCH (21:00)
[2022-10-24 21:26] VITALS: BMI 40.8
[2022-10-24] MEDS: BENZONATATE 100 MG CAP PO PRN (23:06)
[2022-10-24] MEDS: ROSUVASTATIN 10 MG TAB PO SCH (23:06)
[2022-10-24 23:49] LABS: Protime INR 1.13
[2022-10-25 00:11] LABS: Magnesium 2.1 mg/dL (1.6-2.4); Phosphorus 3.3 mg/dL (2.5-4.9); Thyroid Stimulating Hormone 1.78 uIU/mL (0.358-3.740)
[2022-10-25 04:56] LABS: Urine Bacteria <20 /HPF (<20); Urine Bilirubin NEGATIVE (Negative); Urine Blood Negative (Negative); Urine Clarity Clear (Clear); Urine Color Light-Yellow (Yellow); Urine Glucose NEGATIVE (Negative); Urine Protein 1+ (Negative); Urine RBC <5 /HPF (None Seen); Urine Urobilinogen 1+ (Normal); Urine pH 6.5 (5.0-7.0)
[2022-10-25 04:58] LABS: Urine Sperm Present (None Seen)
[2022-10-25] MEDS: INSULIN -REGULAR HUMAN 50 UNIT/0.5 ML ML SQ SCH ×4 (07:30→20:54)
[2022-10-25 07:35] LABS: Hematocrit 44.1 % (39.6-49.0); Lymphocytes % 26.3 % (15.3-44.8); MCV 92.2 fL (80-100); MPV 9.8 fL (7.6-11.3); RBC Red Blood Cell Count 4.78 M/uL (4.33-5.43)
[2022-10-25 07:44] LABS: Potassium 4.2 mmol/L (3.5-5.1)
[2022-10-25] MEDS: Enoxaparin 120 MG/0.8 ML SYR SQ SCH ×2 (08:24→20:59)
[2022-10-25] MEDS: CLOPIDOGREL 75 MG TABLET PO SCH (08:25)
[2022-10-25] MEDS: ASPIRIN 81 MG CHEWABLE TABLET PO SCH (08:25)
[2022-10-25] MEDS: PANTOPRAZOLE 40 MG INJ IVP SCH (08:25)
[2022-10-25] MEDS: BENZONATATE 100 MG CAP PO PRN ×2 (08:32→21:04)
--- NOTE | 2022-10-25 15:10 | CON ---
Date of Consultation: 10/25/2022 Reason For Consultation: Elevated troponin. History Of Present Illness: A 62-year-old male with history of coronary artery disease, status post quadruple bypass in 2012, history of DVT, dyslipidemia, diabetes, hypertension, presented to the [facility] room with cough mainly and he will get chest pain with the coughing spells. Pain is across the chest and can be in tensed to a level of 7/10. He is chest pain free now and he follows up with a c ardiologist in [place] and he gets his surveillance testing on reasonable timing. Past Medical History: As outlined above in HPI. Medications: Refer to reconciliation sheet for detailed list. Allergies: GUAIFENESIN. Family History: No premature coronary artery disease or cancer. Social History: He is an ex-smoker. Does not drink. Does not use any drugs. Review of Systems: All systems reviewed and they were negative except what mentioned in HPI. Physical Examination: Vital Signs: Reviewed. Head and Neck: Pupils are equal, reactive to light. Intact eye movements. No JVD. No cervical lym phadenopathy. Neck is supple. Thyroid is not enlarged. Lungs: Clear to auscultation bilaterally. No rhonchi, wheezing, or crackles. No accessory muscle u se. Heart: Regular rate and rhythm. No extra sounds. Abdomen: Soft, nontender. Bowel sounds positive. No organomegaly. No masses or hernia. No rigidi ty or rebound. Extremities: No edema, clubbing, or cyanosis. Intact pulses. Skin: No rash. Neurologic: Alert, awake, oriented x3. No acute focal deficits appreciated. Lymph Nodes: No cervical or axillary lymphadenopathy. Investigations: Troponin 585, went down to 557. BUN 19, creatinine 1.18, hemoglobin 14.3. Assessment And Recommendations: 1.Elevated troponin with atypical chest pain. This could be demand ischemia. He has been having up per respiratory tract infection symptoms. Obtain exercise nuclear stress test and an echo and determ ine the need for coronary angiogram. Continue aspirin and Lovenox for now. 2.Hypertension. Blood pressure is controlled. 3.Dyslipidemia. Continue statin with rosuvastatin. SR/MODL Voice ID: [id number] Report ID: [id number]
--- NOTE | 2022-10-25 16:32 | EKG ---
Test Date: 2022-10-24 Test Time: 12:42:22 Staff Development Educator: KENY MEASUREMENT RESULTS: Intervals: Rate: 70 HI: QRSD: 132 QT: 466 QTc: 503 Anthony: P: 258 HI: QRS: -57 T: 73 INTERPRETIVE STATEMENTS: Electronic ventricular pacemaker Compared to ECG 04/05/2020 03:15:58 No significant changes Electronically Signed On 10-25-22 16:29:39 FREELANCE DESIGNER by Mino Alcala
[2022-10-25] MEDS: ROSUVASTATIN 10 MG TAB PO SCH (20:59)
--- NOTE | 2022-10-26 00:10 | P.PN ---
Subjective Date of Service: 10/25/22 Subjective: No new changes, No C/O voiced, Improving Patient is clinically doing better. However, he still having some chest discomfort. Stress test is pending. Review of Systems 10-point ROS is otherwise unremarkable Physical Examination - Vital Signs Temperature: 98.2 F Blood Pressure: 139/73 Pulse: 70 Respirations: 18 Pulse Ox (%): 95 - Physical Exam General: Alert, In no apparent distress HEENT: Atraumatic, PERRLA, EOMI Neck: Supple, JVD not distended Respiratory: Clear to auscultation bilaterally, Normal air movement Cardiovascular: Regular rate/rhythm, Normal S1 S2 Gastrointestinal: Normal bowel sounds, No tenderness Musculoskeletal: No tenderness Integumentary: No rashes Neurological: Normal speech, Normal tone, Normal affect Lymphatics: No axilla or inguinal lymphadenopathy - Studies Medications List Reviewed: Yes Assessment & Plan - Problems (Diagnosis) (1) ZABRINA (acute kidney injury) Current Visit: No Status: Acute (2) CAD (coronary artery disease) Onset Date: 09/10/18 Current Visit: No Status: Acute Qualifiers: Coronary Disease-Associated Artery/Lesion type: bypass graft [place] vs. transplanted heart: [place] heart Associated angina: without angina Qualified Code(s): I25.810 - Atherosclerosis of coronary artery bypass graft(s) without angina pectoris (3) Diabetes mellitus Onset Date: 09/10/18 Current Visit: No Status: Acute Qualifiers: Diabetes mellitus type: type 2 Diabetes mellitus long distance operator insulin use: with long distance operator use Diabetes mellitus complication status: with unspecified complications (4) HTN (hypertension) Onset Date: 09/10/18 Current Visit: No Status: Acute Qualifiers: Hypertension type: essential hypertension (5) Hx of CABG Current Visit: No Status: Acute (6) Pacemaker Current Visit: No Status: Acute (7) NSTEMI (non-ST elevated myocardial infarction) Current Visit: Yes Status: Acute - Plan -High-sensitivity troponin elevated -Cardiology consultation appreciated -Echocardiogram and stress test per cardiology recommendation -Repeat EKG -Continue with cough medications -Lipid profile pending -Hybrid Corn Breeder regarding modifying risk for cardiac disease Discharge Plan: Home Plan to discharge in: Greater than 2 days - Advance Directives Does patient have a Living Will: No Does patient have a Durable POA for Healthcare: No - Code Status/Comfort Care Code Status Assessed: Yes Code Status: Full Code Physician Review: Patient Assessed, Agree with Above Assessment and Plan Critical Care: No Time Spent Managing PTS Care (In Minutes): 35
[2022-10-26] MEDS: INSULIN -REGULAR HUMAN 50 UNIT/0.5 ML ML SQ SCH ×4 (07:30→21:00)
[2022-10-26] MEDS ORDERED: REGADENOSON 0.4 MG/5 ML SYR IV ONE (07:45)
--- NOTE | 2022-10-26 08:54 | ECHO ---
HEIGHT: 5 ft 8 in WEIGHT: 268 lb 8 oz DATE OF STUDY: 10/25/[address]: Corby Ford 2-DIMENSIONAL: YES M.MODE: YES DOPPLER: YES COLOR FLOW: YES TDS: PORTABLE: YES DEFINITY: BUBBLE STUDY: DIAGNOSIS: CHEST PAIN CARDIAC HISTORY: CATHERIZATION: YES SURGERY: YES PROSTHETIC VALVE: NO PACEMAKER: YES MEASUREMENTS (cm) DIASTOLIC (NORMALS) SYSTOLIC (NORMALS) IVSd 1.3 (0.6-1.2) LA Diam 4.1 (1.9-4.0) LVEF 32% LVIDd 5.7 (3.5-5.7) LVIDs 48 (2.0-3.5) %FS 15% LVPWd 1.3 (0.6-1.2) Ao Diam 3.2 (2.0-3.7) 2 DIMENSIONAL ASSESSMENT: RIGHT ATRIUM: NORMAL LEFT ATRIUM: ENLARGED RIGHT VENTRICLE: NORMAL LEFT VENTRICLE: DEPRESSED EJECTION FRACTION TRICUSPID VALVE: TRACE TRICUSPID REGURGITATION MITRAL VALVE: MILD MITRAL REGURGITATION PULMONIC VALVE: NORMAL AORTIC VALVE: HEAVILY CALCIFIED AORTIC VALVE PERICARDIAL EFFUSION: NONE AORTIC ROOT: NORMAL LEFT VENTRICULAR WALL MOTION: MODERATE GLOBAL HYPOKINESIS DOPPLER/COLOR FLOW: SEE BELOW COMMENTS: 1. MODERATELY DEPRESSED LEFT VENTRICULAR EJECTION FRACTION 30-35% 2. MODERATE GLOBAL HYPOKINESIS 3. HEAVILY CALCIFIED AORTIC VALVE WITH T LEAST MODERATE AORTIC STENOSIS (NEEDS FURTHER EVALUATION) 4. LEFT ATRIAL ENLARGEMENT 5. MILD MITRAL REGURGITATION, TRACE TRICUSPID REGURGITATION TECHNOLOGIST: AARON ROMERO
[2022-10-26] MEDS: PANTOPRAZOLE 40 MG INJ IVP SCH (12:52)
[2022-10-26] MEDS: ASPIRIN 81 MG CHEWABLE TABLET PO SCH (12:52)
[2022-10-26] MEDS: CLOPIDOGREL 75 MG TABLET PO SCH (12:52)
--- NOTE | 2022-10-26 13:06 | RAD REPORT ---
EXAM DESCRIPTION: NM - Rest Stress Cardiac Imaging - 10/26/2022 12:44 pm CLINICAL HISTORY: CHEST PAIN/ ELEVATED TROPONIN Chest pain. COMPARISON: Chest Single View dated 10/24/2022 TECHNIQUE: The patient was administered approximately 11.4 mCi of Tc 99m Sestamibi prior to resting SPECT imaging of the heart. The patient was then administered approximately 28.6 mCi of Tc 99m Sestam ibi following exercise or pharmacologic stress. Multiplanar SPECT images were reviewed. FINDINGS: Splanchnic uptake both on the stress and rest images somewhat limits evaluation. Subjectively, there is evidence of transient dilation of the left ventricle on the gated stress image s, which can be an indicator of underlying ischemic disease. The left ventricle is enlarged. TID rati o is calculated at 1.06. Suspected small region of reversible defect along the mid segment lateral wall, near the junction wit h the inferior wall, concerning for stress-induced ischemia. Fixed defects along the inferior wall mi d to basal region are probably artifactual. No other fixed defects to suggest an infarct. The end diastolic volume is 217 ml, the end systolic volume is 157 ml, and the ejection fraction is 2 7 %. IMPRESSION: Small region of reversible defects suggestive of ischemia along the mid segment lateral wall. Other findings as above. Evidence of transient left ventricle dilation on the gated stress images, can be an indicator of unde rlying ischemic disease. Dilated left ventricle, with reduced ejection fraction, 27%. The findings were communicated to Jordan Hernandez on 10/26/2022 at 13:01 hours.
[2022-10-26] MEDS ORDERED: METHYLPREDNISOLONE 40 MG INJ IV ONE (14:38)
--- NOTE | 2022-10-26 14:53 | TREADPHA ---
DX: CHEST PAIN, ELEVATED TROPONIN Date of Study: 10/26/2022 Ht: 5' 8 " Wt: 268 lb 8 oz Consulting Physician: BELKIS MEDICATIONS: TYLENOL, NORCO, ASPIRIN, PLAVIX, LOVENOX, ZOFRAN, NOVOLIN-R, PROTONIX, CRESTOR HISTORY: 62 YEAR OLD MALE WITH COMPLAINTS OF CHEST PAIN. HISTORY OF DIABETES MELLITUS, CORONARY ARTERY DISEASE, HYPERTENSION, DEEP VEIN THROMBOSIS, HYPERLIPIDEMIA, BIPOLAR, SCHIZOPHRENIA, CORONARY ARTERY BYPASS GRAFT, SLEEP APNEA, NON SMOKER, NON DRINKER PHYSICIAL EXAMINATION: RESTING B.P.: 114/81 RESTING H.R.: 70 RESTING EKG: VENTRICULAR PACED PROTOCOL: PHARMACOLOGIC EXERCISE TIME: 3:30 B.P. AT [place] STRESS: 107/72 IMPRESSION: LEXISCAN INJECTED FOLLOWED BY CARDIOLITE PER PROTOCOL. SEE NUCLEAR MEDICINE REPORT. NO SUPRAVENTRICULAR TACHYCARDIA, VENTRICULAR TACHYCARDIA, PREMATURE ATRIAL COMPLEXES. PATIENT HAD FREQUENT PREMATURE VENTRICULAR COMPLEXES WITH SHORT RUN OF BIGEMINY RHYTHM. PATIENT REPORTS NO CHEST PAIN. NON-DIAGNOSTIC ELECTROCARDIOGRAM PORTION DUE TO ABNORMAL BASELINE.
--- NOTE | 2022-10-26 16:20 | PN ---
Date of Progress Note: 10/26/2022 Subjective: Seen by bedside. Has no chest pain. Stress test was abnormal for reversible ischemia a nd his ejection fraction was extremely low. Review of Systems: No chest pain, shortness of breath, orthopnea, cough. No nausea, vomiting, diarrhea. All other syst ems reviewed and they were negative. Physical Examination: Vital Signs: Reviewed. Head and Neck: Pupils are equal, reactive to light. Intact eye movements. No JVD. No cervical lym phadenopathy. Neck is supple. Thyroid is not enlarged. Lungs: Clear to auscultation bilaterally. No rhonchi, wheezing, or crackles. No accessory muscle u se. Heart: Regular rate and rhythm. No extra sounds. Abdomen: Soft, nontender. Bowel sounds positive. No organomegaly. No masses or hernia. No rigidi ty or rebound. Extremities: No edema, clubbing, or cyanosis. Intact pulses. Skin: No rash. Neurologic: Alert, awake, oriented x3. No acute focal deficits appreciated. Investigations: His last blood work yesterday. BUN 19, creatinine 1.18. Troponin 557. Assessment And Recommendations: 1.Chest pain with elevated troponin suggestive of non-ST elevation myocardial infarction and this co uld be demand ischemia also. The junction fraction, however, is very low on echo. I recommend coron tate angiogram; however, the patient ate today, so recommend to keep him on Lovenox 1 mg/kg subcu q.12 hours, aspirin 81 mg daily, and high-dose statin, plan for coronary angiogram on Saturday. 2.Dyslipidemia. Continue statin. 3.Severe systolic heart failure. He does not know if he had congestive heart failure or a low eject ion fraction; however, ischemia evaluation is indicated, plan for coronary angiogram on Saturday as outlined above. SR/MODL Voice ID: [id number] Report ID: [id number]
[2022-10-26] MEDS: Enoxaparin 120 MG/0.8 ML SYR SQ SCH (21:08)
[2022-10-26] MEDS: ROSUVASTATIN 10 MG TAB PO SCH (21:08)
[2022-10-26] MEDS: BENZONATATE 100 MG CAP PO PRN (21:08)
[2022-10-27] MEDS: INSULIN -REGULAR HUMAN 50 UNIT/0.5 ML ML SQ SCH ×4 (07:30→21:01)
[2022-10-27] MEDS: CLOPIDOGREL 75 MG TABLET PO SCH (07:40)
[2022-10-27] MEDS: Enoxaparin 120 MG/0.8 ML SYR SQ SCH ×2 (07:40→21:01)
[2022-10-27] MEDS: ASPIRIN 81 MG CHEWABLE TABLET PO SCH (07:41)
[2022-10-27] MEDS: PANTOPRAZOLE 40 MG INJ IVP SCH (07:41)
[2022-10-27] MEDS ORDERED: HYDROCODONE/CHLORPHEN 5 ML/OSYR PO PRN (11:26)
[2022-10-27] MEDS: METHYLPREDNISOLONE 125 MG INJ IV SCH ×2 (12:20→17:02)
[2022-10-27] MEDS: ROSUVASTATIN 10 MG TAB PO SCH (21:01)
[2022-10-28] MEDS: METHYLPREDNISOLONE 125 MG INJ IV SCH (01:02)
[2022-10-28 04:53] LABS: Absolute Lymphocytes (CBC) 0.7 K/uL (0.7-4.9); Hematocrit 50.1 % (39.6-49.0); Lymphocytes % 10.9 % (15.3-44.8); MCV 92.3 fL (80-100); MPV 9.7 fL (7.6-11.3); RBC Red Blood Cell Count 5.42 M/uL (4.33-5.43)
[2022-10-28 05:17] LABS: Magnesium 2.4 mg/dL (1.6-2.4); Potassium 4.9 mmol/L (3.5-5.1)
[2022-10-28 05:18] LABS: Troponin High Sensitivity 532.6 pg/mL (<58.9)
[2022-10-28] MEDS: PANTOPRAZOLE 40 MG INJ IVP SCH (08:41)
[2022-10-28] MEDS: CLOPIDOGREL 75 MG TABLET PO SCH (08:42)
[2022-10-28] MEDS: ASPIRIN 81 MG CHEWABLE TABLET PO SCH (08:42)
[2022-10-28] MEDS: INSULIN -REGULAR HUMAN 50 UNIT/0.5 ML ML SQ SCH ×4 (08:42→20:55)
[2022-10-28] MEDS: Enoxaparin 120 MG/0.8 ML SYR SQ SCH ×2 (08:42→20:55)
--- NOTE | 2022-10-28 18:01 | P.PN ---
Date of Service: 10/26/22 Subjective Seen by cardiology. Stress test was performed. Stress test shows reversible ischemia. Cardiology wanted to proceed with cardiac catheterization; however, patient had eaten. Still having some chest discomfort cardiology wants to keep him in the hospital for procedure on Saturday. However, patient was adamant about leaving. Whenever he talked to his though she convinced him to stay until he gets a heart catheterization. Review of Systems 10-point ROS is otherwise unremarkable Physical Examination - Vital Signs reviewed - Physical Exam General: Alert, In no apparent distress Respiratory: Clear to auscultation bilaterally, Normal air movement Cardiovascular: Regular rate/rhythm, Normal S1 S2 Gastrointestinal: Normal bowel sounds, No tenderness Musculoskeletal: No tenderness Integumentary: No rashes Neurological: Normal speech, Normal tone, Normal affect Assessment & Plan - Problems (Diagnosis) (1) ZABRINA (acute kidney injury) Current Visit: No Status: Acute (2) CAD (coronary artery disease) Onset Date: 09/10/18 Current Visit: No Status: Acute Qualifiers: Coronary Disease-Associated Artery/Lesion type: bypass graft [place] vs. transplanted heart: [place] heart Associated angina: without angina Qualified Code(s): I25.810 - Atherosclerosis of coronary artery bypass graft(s) without angina pectoris (3) Diabetes mellitus Onset Date: 09/10/18 Current Visit: No Status: Acute Qualifiers: Diabetes mellitus type: type 2 Diabetes mellitus long term care phlebotomist insulin use: with long term care phlebotomist use Diabetes mellitus complication status: with unspecified complications (4) HTN (hypertension) Onset Date: 09/10/18 Current Visit: No Status: Acute Qualifiers: Hypertension type: essential hypertension (5) Hx of CABG Current Visit: No Status: Acute (6) Pacemaker Current Visit: No Status: Acute (7) NSTEMI (non-ST elevated myocardial infarction) Current Visit: Yes Status: Acute - Plan -High-sensitivity troponin elevated -Cardiology consultation appreciated -Echocardiogram and stress test per cardiology recommendation -Repeat EKG -Continue with cough medications -Lipid profile pending -Digital Hardware Design Engineer regarding modifying risk for cardiac disease
[2022-10-28] MEDS: ROSUVASTATIN 10 MG TAB PO SCH (20:55)
[2022-10-29] MEDS: CLOPIDOGREL 75 MG TABLET PO SCH (05:45)
[2022-10-29] MEDS: ASPIRIN 81 MG CHEWABLE TABLET PO SCH (05:45)
[2022-10-29] MEDS ORDERED: FENTANYL CITR 100 MCG/2 ML ONE (06:22)
[2022-10-29] MEDS ORDERED: LIDOCAINE 1% 20 ML MDV ONE (06:22)
[2022-10-29] MEDS ORDERED: ATROPINE SULF 1 MG/10 ML SYR IV ONE (06:22)
[2022-10-29] MEDS ORDERED: MIDAZOLAM HCL 2 MG/2 ML INJ ONE (06:22)
[2022-10-29] MEDS ORDERED: HEPA 1000U/500MLS 2,000 UNIT/1,000 ML BAG IV ONE (06:22)
[2022-10-29] MEDS ORDERED: CLOPIDOGREL 75 MG TABLET ONE (06:23)
[2022-10-29] MEDS ORDERED: ASPIRIN 325 MG TAB ONE (06:23)
[2022-10-29] MEDS ORDERED: HEPARIN 10,000 UNIT/10 ML VIAL IV ONE (06:24)
[2022-10-29] MEDS ORDERED: TICAGRELOR 90 MG TABLET PO ONE (06:24)
--- NOTE | 2022-10-29 06:25 | P.PN ---
Date of Service: 10/27/22 Subjective No new changes-awaiting cardiac cath; 10/26 Seen by cardiology. Stress test was performed. Stress test shows reversible ischemia. Cardiology wanted to proceed with cardiac catheterization; however, patient had eaten. Still having some chest discomfort cardiology wants to keep him in the hospital for procedure on Saturday. However, patient was adamant about leaving. Whenever he talked to his though she convinced him to stay until he gets a heart catheterization. Review of Systems 10-point ROS is otherwise unremarkable Physical Examination - Vital Signs reviewed - Physical Exam General: Alert, In no apparent distress Respiratory: Clear to auscultation bilaterally, Normal air movement Cardiovascular: Regular rate/rhythm, Normal S1 S2 Gastrointestinal: Normal bowel sounds, No tenderness Neurological: No focal deficits noted Assessment & Plan - Problems (Diagnosis) (1) ZABRINA (acute kidney injury) Current Visit: No Status: Acute (2) CAD (coronary artery disease) Onset Date: 09/10/18 Current Visit: No Status: Acute Qualifiers: Coronary Disease-Associated Artery/Lesion type: bypass graft [place] vs. transplanted heart: [place] heart Associated angina: without angina Qualified Code(s): I25.810 - Atherosclerosis of coronary artery bypass graft(s) without angina pectoris (3) Diabetes mellitus Onset Date: 09/10/18 Current Visit: No Status: Acute Qualifiers: Diabetes mellitus type: type 2 Diabetes mellitus rodent exterminator insulin use: with rodent exterminator use Diabetes mellitus complication status: with unspecified complications (4) HTN (hypertension) Onset Date: 09/10/18 Current Visit: No Status: Acute Qualifiers: Hypertension type: essential hypertension (5) Hx of CABG Current Visit: No Status: Acute (6) Pacemaker Current Visit: No Status: Acute (7) NSTEMI (non-ST elevated myocardial infarction) Current Visit: Yes Status: Acute - Plan Continue with POC as mentioned below: -Cardiology consultation appreciated -Cardiac cath Saturday -Continue with cough medications -strict BS and BP control
--- NOTE | 2022-10-29 06:27 | P.PN ---
Date of Service: 10/28/22 Subjective Patient in good spirits; awaiting cardiac catheterization in the AM 10/26 Seen by cardiology. Stress test was performed. Stress test shows reversible ischemia. Cardiology wanted to proceed with cardiac catheterization; however, patient had eaten. Still having some chest discomfort cardiology wants to keep him in the hospital for procedure on Saturday. However, patient was adamant about leaving. Whenever he talked to his though she convinced him to stay until he gets a heart catheterization. Review of Systems 10-point ROS is otherwise unremarkable Physical Examination - Vital Signs reviewed - Physical Exam General: Alert, In no apparent distress Respiratory: Clear to auscultation bilaterally, Normal air movement Cardiovascular: Regular rate/rhythm, Normal S1 S2 Gastrointestinal: Normal bowel sounds, No tenderness Neurological: No focal deficits noted Assessment & Plan - Problems (Diagnosis) (1) ZABRINA (acute kidney injury) Current Visit: No Status: Acute (2) CAD (coronary artery disease) Onset Date: 09/10/18 Current Visit: No Status: Acute Qualifiers: Coronary Disease-Associated Artery/Lesion type: bypass graft [place] vs. transplanted heart: [place] heart Associated angina: without angina Qualified Code(s): I25.810 - Atherosclerosis of coronary artery bypass graft(s) without angina pectoris (3) Diabetes mellitus Onset Date: 09/10/18 Current Visit: No Status: Acute Qualifiers: Diabetes mellitus type: type 2 Diabetes mellitus correction insulin use: with terminal operator use Diabetes mellitus complication status: with unspecified complications (4) HTN (hypertension) Onset Date: 09/10/18 Current Visit: No Status: Acute Qualifiers: Hypertension type: essential hypertension (5) Hx of CABG Current Visit: No Status: Acute (6) Pacemaker Current Visit: No Status: Acute (7) NSTEMI (non-ST elevated myocardial infarction) Current Visit: Yes Status: Acute - Plan Continue with POC as mentioned below: -Cardiology consultation appreciated -Cardiac cath Saturday -Continue with cough medications -strict BS and BP control -Continue with monitoring renal function
[2022-10-29] MEDS ORDERED: HEPARIN 5000 UNIT/ML 1 ML VIAL ONE (06:32)
[2022-10-29] MEDS ORDERED: VERAPAMIL HCL 10 MG/4 ML VIAL IV ONE (06:33)
[2022-10-29] MEDS ORDERED: NITROGLYCERIN/D5W 25 MG/250 ML BTL IV ONE (06:33)
[2022-10-29] MEDS ORDERED: NITROGLYCERIN 100 MCG/ML SYR (for cath lab use only) IV ONE (06:33)
[2022-10-29] MEDS ORDERED: NA CHLORIDE 0.9% 500 ML ONE (06:41)
[2022-10-29] MEDS ORDERED: DIPHENHYDRAMINE 50 MG/ML VIAL ONE (06:45)
[2022-10-29] MEDS ORDERED: METHYLPREDNISOLONE 125 MG INJ ONE (06:45)
[2022-10-29] MEDS ORDERED: ADENOSINE 6 MG/ 2ML VIAL IV ONE (07:15)
[2022-10-29] MEDS ORDERED: AMIODARONE IN DEXTROSE,ISO-OSM 0 MG/0 ML BAG IV ONE (07:15)
[2022-10-29] MEDS: INSULIN -REGULAR HUMAN 50 UNIT/0.5 ML ML SQ SCH ×3 (07:30→17:02)
[2022-10-29] MEDS: Enoxaparin 120 MG/0.8 ML SYR SQ SCH (09:00)
[2022-10-29] MEDS: PANTOPRAZOLE 40 MG INJ IVP SCH (09:22)
[2022-10-29] MEDS ORDERED: NA CHLORIDE 0.9% 1,000 ML IV SCH (10:00)
[2022-10-29] MEDS ORDERED: ACETAMINOPHEN 325 MG TABLET PO PRN (10:00)
[2022-10-29] MEDS ORDERED: NITROGLYCERIN 0.4 MG/TAB SL PRN (10:00)
--- NOTE | 2022-10-29 10:51 | P.PN ---
Subjective Date of Service: 10/29/22 Chief Complaint: NSTEMI No acute events overnight. He was seen this morning on rounds, post-coronary angiogram. Per Dr. Alcala, severe coronary artery disease, but no intervention required today. He recommends medical management for now. He plans on NADEEM-DCCV tomorrow morning for atrial flutter. Mr. Jordan denies any chest pain, palpitations, or shortness of breath. Review of Systems 10-point ROS is otherwise unremarkable Physical Examination - Vital Signs Temperature: 97 F Blood Pressure: 139/80 Pulse: 70 Respirations: 16 Pulse Ox (%): 95 - Physical Exam General: Alert, In no apparent distress, Oriented x3 HEENT: Atraumatic, Mucous membr. moist/pink, EOMI, Sclerae nonicteric Neck: JVD not distended Respiratory: Clear to auscultation bilaterally, Normal air movement Cardiovascular: No edema, Normal pulses, No gallops, No rubs, No murmurs, Irregular heart rate/rhythm Gastrointestinal: Normal bowel sounds, Soft and benign, Non-distended, No tenderness, No rebound, No guarding Musculoskeletal: No clubbing Integumentary: No rashes Neurological: Normal speech, Normal affect - Studies Medications List Reviewed: Yes Assessment And Plan - Plan # Non-ST Segment Elevation Myocardial Infarction # Coronary Artery Disease s/p CABG # Chronic Compensated Congestive Heart Failure with Reduced Ejection Fraction (LVEF 30-35 %) # History of Deep Venous Thrombosis s/p IVC Filter # Hypertension # Dyslipidemia - Evaluation thus far: - EKG: reportedly without STEMI criteria, trend - Serial troponin: 583.2 -> 585.8 -> 557.7 -> 532.6 - Chest x-ray = "no acute cardiopulmonary disease." - CT chest = "no acute pulmonary process." - Transthoracic echocardiogram = "1. moderately depressed left ventricular ejection fraction 30-35% 2. moderate global hypokinesis 3. heavily calcified aortic valve with t least moderate aortic stenosis (needs further evaluation) 4. left atrial enlargement 5. mild mitral regurgitation, trace tricuspid regurgi tation" - Nuclear stress test = "small region of reversible defects suggestive of ischemia along the mid segment lateral wall. Other findings as above. Evidence of transient left ventricle dilation on the gated stress images, can be an indicator of underlying ischemic disease. Dilated left ventricle, with reduced ejection fraction, 27%." - Management plan: - Consult Cardiology and spoke with Dr. Alcala - recommendations appreciated - S/P [facility] today (report pending), per Dr. Alcala, plan for medical management - Continue aspirin, rosuvastatin, clopidogrel - Continue enoxaparin for now # KDIGO Stage I Acute Kidney Injury on Chronic Kidney Disease Stage III - Creatinine = 1.47 -> 1.18 -> 1.55 -> 1.33 (baseline creatinine ~ 1.1-1.2) - Urinalysis = 1+ urobilinogen, 1+ protein - Monitor creatinine and urine output - If worsening, obtain renal ultrasound - Renally dose medications # Hyperglycemia in Type II Diabetes Mellitus - Hgb A1c 8.6 % - Continue correction scale insulin # Atrial Flutter s/p PPM Per Dr. Alcala, he remains in atrial flutter. He is planning on NADEEM-DCCV in the morning. - Continue enoxaparin # Schizophrenia # Bipolar Disorder # Depression - Reconcile home medications once verified # Moderate Aortic Stenosis with Heavily Calcified Aortic Valve - Follow-up with Cardiothoracic Surgery as an outpatient # Splenic Nodule - Follow-up with PCP for further evaluation Ayush Lilly M.D.
[2022-10-29 16:36] VITALS: O2SAT 95
[2022-10-29 16:38] VITALS: BP 153/76; TEMP 98.4
--- NOTE | 2022-10-29 19:08 | OP ---
Date of Procedure: 10/29/2022 Surgeon: ALEX TAMAYO Procedure Performed: Selective coronary angiogram with bypass graft study. Indications: Chest pain with elevated troponin and low ejection fraction. Access: Right femoral artery 6-Pakistani closed with 6-Pakistani Angio-Seal. Complications: None. Bleeding: Less than 10 mL. Anesthesia: Total sedation time was 45 minutes. Description Of Procedure: After risks, benefits, alternatives were explained, the patient agreed to procedure and signed informed consent. The patient was brought into the cardiac catheterization [facility], prepped and draped in the usual sterile fashion. Then, I accessed right femoral artery using micropuncture kit, ultrasound guidance and fluoroscopy, and placed a 6-Pakistani Elliott sheath and to ok a 6-Pakistani JL4 catheter into the aortic root, engaged left main and took standard views, and then I exchanged for 6-Pakistani JR4 catheter over a J-wire and engaged the RCA, took standard views and enga ged the SVG to diagonal and the KIM to LAD, and there were 2 SVGs that were occluded in the aortic r oot. Then, I removed the catheter and the sheath and placed a 6-Pakistani Angio-Seal for closure with g ood hemostasis. Findings: 1.Left main is with diffuse 20% to 30% stenosis. 2.LAD; proximal 90% stenosis and then there were diagonal takes off and then 100% SMALL PIECE CUTTER totally occlud ed. 3.Left circumflex; proximal 70%, mid 80% stenosis, heavily calcified. 4.RCA; proximal 90% stenosis and then becomes SMALL PIECE CUTTER, result to collaterals that fills the vessel. Graft Study: 1.Patent KIM to LAD. 2.Patent SVG to diagonal 1. 3.Occluded SVG to RCA and occluded SVG to OM. Conclusion: 1.Severe [place] coronary artery disease. 2.Patent LAD graft to the KIM and patent SVG to diagonal. 3.Occluded SVG to RCA and OM. Recommendations: PCI with atherectomy of the left circumflex at higher level care facility. He can follow up with his inspector multifocal lens on that and possibly attempting SMALL PIECE CUTTER of the RCA as well. SR/MODL Voice ID: [id number] Report ID: [id number]
--- NOTE | 2022-10-29 20:45 | P.DS ---
Admission Date: 10/24/22 Discharge Date: 10/29/22 Disposition: ROUTINE DISCHARGE Discharge Condition: GOOD Reason for Admission: NSTEMI Consultations: CardiologyDr. Alcala Procedures: Chest x-ray 10/24/2022 FINDINGS: Lines: Pacemaker/ICD. Lungs: No evidence of edema or pneumonia. Pleural: No significant pleural effusions or pneumothorax. Cardiac: Similar size and configuration. Mediastinum: Within normal limits. Bones: No acute fractures. Other: None IMPRESSION: No acute cardiopulmonary disease. CT chest 10/24/2022 FINDINGS: No mass or infiltrate in the lung parenchyma. No suspicious nodules. No pleural thickening or pleural effusion. No pneumothorax. No abnormal mediastinal or hilar masses or lymphadenopathy seen. No significant aortic or pulmonary artery findings. Assessment is limited in the absence of IV contrast. Left chest wall pacer/AICD in place. Aortic valve calcifications are present. No chest wall mass or abnormal axillary lymphadenopathy. Evaluation of the solid abdominal structures reveals no suspicious findings. Status post cholecystectomy. A small splenule is incidentally noted. IMPRESSION: No acute pulmonary process. Incidental findings as above Stress test 10/26/2022 FINDINGS: Splanchnic uptake both on the stress and rest images somewhat limits evaluation. Subjectively, there is evidence of transient dilation of the left ventricle on the gated stress images, which can be an indicator of underlying ischemic disease. The left ventricle is enlarged. TID ratio is calculated at 1.06. Suspected small region of reversible defect along the mid segment lateral wall, near the junction with the inferior wall, concerning for stress-induced ischemia. Fixed defects along the inferior wall mid to basal region are probably artifactual. No other fixed defects to suggest an infarct. The end diastolic volume is 217 ml, the end systolic volume is 157 ml, and the ejection fraction is 27 %. IMPRESSION: Small region of reversible defects suggestive of ischemia along the mid segment lateral wall. Other findings as above. Evidence of transient left ventricle dilation on the gated stress images, can be an indicator of underlying ischemic disease. Dilated left ventricle, with reduced ejection fraction, 27%. Heart catheterization 10/29/2022 Description Of Procedure: After risks, benefits, alternatives were explained, the patient agreed to procedure and signed informed consent. The patient was brought into the cardiac catheterization laboratory, prepped and draped in the usual sterile fashion. Then, I accessed right femoral artery using micropuncture kit, ultrasound guidance and fluoroscopy, and placed a 6-[place]oz[place] sheath and took a 6-[place] JL4 catheter into the aortic root, engaged left main and took standard views, and then I exchanged for 6-[place] JR4 catheter over a J-wire and engaged the RCA, took standard views and engaged the SVG to diagonal and the KIM to LAD, and there were 2 SVGs that were occluded in the aortic root. Then, I removed the catheter and the sheath and placed a 6-[place] Angio-Seal for closure with good hemostasis. Findings: 1. Left main is with diffuse 20% to 30% stenosis. 2. LAD; proximal 90% stenosis and then there were diagonal takes off and then 100% PLASTIC CUTTER totally occluded. 3. Left circumflex; proximal 70%, mid 80% stenosis, heavily calcified. 4. RCA; proximal 90% stenosis and then becomes PLASTIC CUTTER, result to collaterals that fills the vessel. Graft Study: 1. Patent KIM to LAD. 2. Patent SVG to diagonal 1. 3. Occluded SVG to RCA and occluded SVG to OM. Conclusion: 1. Severe [place] coronary artery disease. 2. Patent LAD graft to the KIM and patent SVG to diagonal. 3. Occluded SVG to RCA and OM. Recommendations: PCI with atherectomy of the left circumflex at higher level care facility. He can follow up with his banking center manager on that and possibly attempting PLASTIC CUTTER of the RCA as well. Brief History of Present Illness: HPI Patient is a 62-year-old male with a past medical history significant bipolar disorder, CAD, CABG, DVT, schizophrenia, hypertension, HLD, DM2, depression who presents with complaint of intermittent chest pain located in the left chest wall that has been ongoing for the past 3 days. Patient reported that chest pain last for sometimes 30 minutes and self resolves. Patient reported that today he started having chest pain again. Patient rated pain as 7/10 in severity and described pain as pressure in quality. Patient indicated that chest pain radiates to his back. Patient also reports persistent cough that has been ongoing for the past 3 weeks. Patient also indicated that he has been having sore throat, loss of taste, loss of appetite for the past 2 weeks. Patient reported associated signs and symptoms of shortness of breath, headache and dizziness. Patient denies any other signs and symptoms. Symptoms are aggravated or relieved by nothing. Patient decided to present to the hospital due to worsening symptoms Hospital Course: # Non-ST Segment Elevation Myocardial Infarction # Coronary Artery Disease s/p CABG # Chronic Compensated Congestive Heart Failure with Reduced Ejection Fraction (LVEF 30-35 %) # History of Deep Venous Thrombosis s/p IVC Filter # Hypertension # Dyslipidemia - Evaluation thus far: - EKG: reportedly without STEMI criteria, trend - Serial troponin: 583.2 -> 585.8 -> 557.7 -> 532.6 - Chest x-ray = "no acute cardiopulmonary disease." - CT chest = "no acute pulmonary process." - Transthoracic echocardiogram = "1. moderately depressed left ventricular ejection fraction 30-35% 2. moderate global hypokinesis 3. heavily calcified aortic valve with t least moderate aortic stenosis (needs further evaluation) 4. left atrial enlargement 5. mild mitral regurgitation, trace tricuspid regurgitation" - Nuclear stress test = "small region of reversible defects suggestive of ischemia along the mid segment lateral wall. Other findings as above. Evidence of transient left ventricle dilation on the gated stress images, can be an indicator of underlying ischemic disease. Dilated left ventricle, with reduced ejection fraction, 27%." - Management plan: - Consult Cardiology and spoke with Dr. Alcala - recommendations appreciated - S/P [facility] today (report pending), per Dr. Alcala, plan for medical management - Continue aspirin, rosuvastatin, clopidogrel -Continue Xarelto # KDIGO Stage I Acute Kidney Injury on Chronic Kidney Disease Stage III - Creatinine = 1.47 -> 1.18 -> 1.55 -> 1.33 (baseline creatinine ~ 1.1-1.2) - Urinalysis = 1+ urobilinogen, 1+ protein - Monitor creatinine and urine output - If worsening, obtain renal ultrasound - Renally dose medications # Hyperglycemia in Type II Diabetes Mellitus - Hgb A1c 8.6 % - Continue correction scale insulin # Atrial Flutter s/p PPM Now in normal sinus rhythm, continue home Xarelto. # Schizophrenia # Bipolar Disorder # Depression - Reconcile home medications once verified # Moderate Aortic Stenosis with Heavily Calcified Aortic Valve - Follow-up with Cardiothoracic Surgery as an outpatient # Splenic Nodule - Follow-up with PCP for further evaluation Patient was admitted for chest pain/ACS evaluation. He had a stress test performed on 10/26/2022 which showed small areas of reversible ischemia. Cardiology recommended heart catheterization which was performed today on 10/29/2022. Cardiology recommends medical management as well as outpatient PCI with atherectomy of left circumflex at higher level of care facility with recommendations to follow-up with his banking center manager and possible intervention of the RCA. Patient was also noted to be in atrial flutter, cardioversion was planned but he reverted without any need for cardioversion, he takes Xarelto at home which will be continued. His other home medications should be continued as well. This evening cardiology cleared him for discharge from their perspective, patient is stable denies any chest pain at this time. Discharged home with strict return precautions. He is to follow-up with his PCP, banking center manager in the next 1 week. He was also instructed to follow-up with [facility]'s cardiothoracic team given his moderate aortic stenosis/calcification. Additionally he was notified of his small splenule that was an incidental finding on his CT scan. Vital Signs/Physical Exam: Temp Pulse Resp BP Pulse Ox 98.4 F 70 18 153/76 H 96 10/29/22 16:00 10/29/22 16:00 10/29/22 16:00 10/29/22 16:00 10/29/22 16:00 Laboratory Data at Discharge: WBC 6.80 K/uL (4.3-10.9) 10/28/22 04:35 Hgb 16.4 g/dL (13.6-17.9) 10/28/22 04:35 Hct 50.1 % (39.6-49.0) H 10/28/22 04:35 Plt Count 197 K/uL (152-406) 10/28/22 04:35 PT 12.4 SECONDS (9.5-12.5) 10/24/22 23:36 INR 1.13 10/24/22 23:36 Sodium 134 mmol/L (136-145) L 10/29/22 10:09 Potassium 5.0 mmol/L (3.5-5.1) 10/29/22 10:09 BUN 29 mg/dL (7-18) H 10/29/22 10:09 Creatinine 1.33 mg/dL (0.70-1.30) H 10/29/22 10:09 Glucose 202 mg/dL (74-106) H 10/29/22 10:09 Phosphorus 3.3 mg/dL (2.5-4.9) 10/24/22 23:36 Magnesium 2.4 mg/dL (1.6-2.4) 10/28/22 04:35 Total Bilirubin 0.2 mg/dL (0.2-1.0) 10/24/22 14:00 AST 17 U/L (15-37) 10/24/22 14:00 ALT 15 U/L (16-61) L 10/24/22 14:00 Alkaline Phosphatase 58 U/L (45-117) 10/24/22 14:00 Triglycerides 87 mg/dL (<150) 10/24/22 23:36 Cholesterol 210 mg/dL (<200) H 10/24/22 23:36 HDL Cholesterol 56 mg/dL (40-60) 10/24/22 23:36 Cholesterol/HDL Ratio 3.75 10/24/22 23:36 Home Medications: Dulaglutide [Trulicity] 1.5 mg SQ Q7D 09/09/18 Fluoxetine HCl [Prozac] 40 mg PO DAILY 09/09/18 Fluticasone [Flonase 50MCG Nasal [place]*] 1 puff IN BID 09/09/18 Gabapentin 600 mg PO BID 09/09/18 Losartan Potassium [Cozaar] 75 mg PO DAILY 09/09/18 Pantoprazole [Protonix Tab*] 40 mg PO DAILY 09/09/18 Rosuvastatin Calcium 40 mg PO BEDTIME 09/09/18 Solifenacin Succinate [Vesicare] 10 mg PO DAILY 09/09/18 Albuterol Neb [Proventil 0.083% Neb Soln] 2.5 mg NEB [id number] PRN #14 amp 08/11/19 Ipratropium Neb [Atrovent*] 0.5 mg NEB [id number] PRN #14 amp 08/11/19 Aspirin [Lo-Dose Aspirin EC] 1 tab PO DAILY 02/23/20 Clopidogrel Bisulfate [Plavix*] 75 mg PO DAILY 02/23/20 Empagliflozin [Jardiance] 1 tab PO DAILY 02/23/20 carvediloL [Carvedilol] 12.23 mg PO BID 02/23/20 Tramadol HCl [Ultram] 50 mg PO Q8HR PRN #7 tablet 02/25/20 Benzonatate [Tessalon Perle*] 100 mg PO TID PRN #30 cap 10/26/22 Cefdinir [Cefdinir*] 300 mg PO BID #14 cap 10/26/22 Furosemide [Lasix] 20 mg PO BIDL #60 tab 10/26/22 Potassium Chloride [K-Dur] 10 meq PO DAILY #30 tab 10/26/22 predniSONE [Deltasone] 20 mg PO DAILY #5 tab 10/26/22 New Medications: Cefdinir [Cefdinir*] 300 mg PO BID #14 cap Potassium Chloride [K-Dur] 10 meq PO DAILY #30 tab Furosemide [Lasix] 20 mg PO BIDL #60 tab predniSONE [Deltasone] 20 mg PO DAILY #5 tab Benzonatate [Tessalon Perle*] 100 mg PO TID PRN #30 cap PRN Reason: Cough Physician Discharge Instructions: -DC IV and DC home -Follow-up with PCP in 1 week -Follow-up with cardiology Dr. Contreras in 1 week -Follow-up with cardiothoracic surgery at [facility] for further evaluation of moderate aortic stenosis -Please call nursing station at [phone] if any nursing or medication questions -Return to the emergency room if symptoms worsen Diet: AHA Activity: Fall precautions Followup: DASIA CONTRERAS [UNKNOWN] - 1 Week Anay Hahn MD [Primary Care Provider] - 1 Week
--- NOTE | 2022-10-29 23:53 | PN ---
Date of Progress Note: 10/29/2022 Subjective: Seen by bedside. Doing clinically well. No chest pain. Review of Systems: No chest pain, shortness of breath, orthopnea, or cough. No nausea, vomiting, or diarrhea. No abdom inal pain. No dysuria, polyuria, or urinary urgency. No skin rash, headache. All other systems rev iewed and they were negative. Physical Examination: Vital Signs: Reviewed. Head and Neck: Pupils are equal, reactive to light. Intact eye movements. No JVD. No cervical lym phadenopathy. Neck is supple. Thyroid is not enlarged. Lungs: Clear to auscultation bilaterally. No rhonchi, wheezing, or crackles. No accessory muscle u se. Heart: Regular rate and rhythm. No extra sounds. Abdomen: Soft, nontender. Bowel sounds positive. No organomegaly. No masses or hernia. No rigidi ty or rebound. Extremities: No edema, clubbing, or cyanosis. Intact pulses. Skin: No rash. Neurologic: Alert, awake, oriented x3. No acute focal deficits appreciated. Investigations: Labs were reviewed. Assessment And Recommendation: 1.Chest pain with elevated troponin, status post coronary angiogram. He has 2 grafts were occluded and there is a KIM to LAD and SVG to diagonal is functional. There is a disease in the left circumf aaron, however, it is heavily calcified and can be managed with atherectomy. The RCA is diffusely dise ased and it may be amenable to PCI, but success rate is not high. At this point, I will recommend co ntinue medical management and patient can be released and a plan for outpatient PCI of the left circu mflex at a higher level of care facility. He has his own medical superintendent. He can follow up with him an d get this issue taken care of. 2.Systolic heart failure. Very weak ejection fraction. Patient has a pacemaker and he is on paced rhythm, not sure what kind of pacemaker he has. If it is only RV pacer, he will need a third lead pu t into the left ventricle. Patient follows up with a medical superintendent in [place]. At this point, he ca n be released and I asked him to follow up with his medical superintendent for further management. SR/MODL Voice ID: [id number] Report ID: [id number]
== END 2022-10-29 20:15 | disposition home or self-care (01) | DRG 234 ==
LOC: ER 11:31 → 2ND 20:45
PROVIDERS: ADMIT Hospitalist; ATTEND Internal Medicine
PROC: 0210099 Bypass Coronary Artery, One Artery from Left Internal Mammary with Autologous Venous Tissue, Open Approach (ICD-10-PCS; principal; 2022-10-29)
PROC: 4A023N7 Measurement of Cardiac Sampling and Pressure, Left Heart, Percutaneous Approach (ICD-10-PCS; 2022-10-29)
PROC: 021009W Bypass Coronary Artery, One Artery from Aorta with Autologous Venous Tissue, Open Approach (ICD-10-PCS; 2022-10-29)
PROC: B2131ZZ Fluoroscopy of Multiple Coronary Artery Bypass Grafts using Low Osmolar Contrast (ICD-10-PCS; 2022-10-29)
PROC: B2111ZZ Fluoroscopy of Multiple Coronary Arteries using Low Osmolar Contrast (ICD-10-PCS; 2022-10-29)
DX: I21.4 Non-ST elevation (NSTEMI) myocardial infarction (principal); I13.0 Hypertensive heart and chronic kidney disease with heart failure and stage 1 through stage 4 chronic kidney disease, or unspecified chronic kidney disease; I25.810 Atherosclerosis of coronary artery bypass graft(s) without angina pectoris; N17.9 Acute kidney failure, unspecified; Z68.41 Body mass index [BMI] 40.0-44.9, adult; I50.22 Chronic systolic (congestive) heart failure; I48.92 Unspecified atrial flutter; N18.31 Chronic kidney disease, stage 3a; E11.22 Type 2 diabetes mellitus with diabetic chronic kidney disease; E11.40 Type 2 diabetes mellitus with diabetic neuropathy, unspecified; E11.65 Type 2 diabetes mellitus with hyperglycemia; E66.09 Other obesity due to excess calories; E78.5 Hyperlipidemia, unspecified; F31.9 Bipolar disorder, unspecified; F20.9 Schizophrenia, unspecified; I08.3 Combined rheumatic disorders of mitral, aortic and tricuspid valves; K21.9 Gastro-esophageal reflux disease without esophagitis; I25.10 Atherosclerotic heart disease of native coronary artery without angina pectoris; Z95.0 Presence of cardiac pacemaker; Z95.1 Presence of aortocoronary bypass graft; Z88.8 Allergy status to other drugs, medicaments and biological substances; Z79.52 Long term (current) use of systemic steroids; Z79.82 Long term (current) use of aspirin; Z79.02 Long term (current) use of antithrombotics/antiplatelets; Z79.899 Other long term (current) drug therapy; Z87.891 Personal history of nicotine dependence; Z86.718 Personal history of other venous thrombosis and embolism; Z20.822 Contact with and (suspected) exposure to COVID-19
CPT/HCPCS: 0240U; 36415; 71045; 71250; 76937; 78452; 80048; 80061; 80076; 81001; 82947; 83036; 83735; 83880; 84100; 84439; 84443; 84484; 85025; 85610; 87070; 87205; 93005; 93017; 93306; 93455; 96372; 96374; 96375; 99285; A9500; C1760; C1893; C9113; G0269; J0153; J0282; J0461; J1200; J1644; J1650; J1815; J2001; J2250; J2405; J2785; J2930; J3010; J7040; Q9967

== ENCOUNTER → 2023-09-22 | Emergency (ER) | payer OTHER ==
--- NOTE | 2023-09-22 02:15 | ER ---
Nurse's Notes [facility] Name: New Jordan Age: 63 yrs Sex: Male : 1960 Arrival Date: 09/22/2023 Time: 01:52 Bed 14 Private MD: Diagnosis: Post procedural hematoma Presentation: 09/22 02:06 Chief complaint: Patient states: 2 days ago I had my left leg cathed and the lower site jb4 is bleeding and swelling. I am also having a pain in my left groin. Coronavirus screen: At this time, the client does not indicate any symptoms associated with coronavirus-19. Ebola Screen: No symptoms or risks identified at this time. Initial Sepsis Screen: Does the patient meet any 2 criteria? No. Patient's initial sepsis screen is negative. Does the patient have a suspected source of infection? No. Patient's initial sepsis screen is negative. Risk Assessment: Do you want to hurt yourself or someone else? Patient reports no desire to harm self or others. Onset of symptoms was September 22, 2023. Transition of care: patient was not received from another setting of care. 02:06 Method Of Arrival: Wheelchair jb4 02:06 Acuity: ANKIT 3 jb4 Historical: - Allergies: 02:10 IV contrast; jb4 - PMHx: 02:10 Bipolar disorder; Depression; Diabetes - IDDM; DVT; High Cholesterol; Hypertension; jb4 quadraple bypass; Schizophrenia; - PSHx: 02:10 pacemaker; jb4 - Immunization history:: Adult Immunizations up to date. - Social history:: Smoking status: Patient denies any tobacco usage or history of. Screenin:10 [facility] ED Fall Risk Assessment (Adult) History of falling in the last 3 months, pf1 including since admission No falls in past 3 months (0 pts) Confusion or Disorientation No (0 pts) Intoxicated or Sedated No (0 pts) Impaired Gait No (0 pts) Mobility Assist Device Used No (0 pt) Altered Elimination No (0 pt) Score/Fall Risk Level 0 - 2 = Low Risk Oriented to surroundings, Maintained a safe environment, Educated pt \T\ family on fall prevention, incl call for assistance when getting out of bed, Assessed \T\ reinforced patient's understanding of fall precautions, Provided non-skid footwear, Hourly rounding (assess needs \T\ fall precautionary measures) done, Used ambulatory aids as needed (educated on \T\ assisted with), Used gait belt as appropriate. 02:10 Abuse screen: Denies threats or abuse. Nutritional screening: No deficits noted. pf1 Tuberculosis screening: No symptoms or risk factors identified. Assessment: 02:10 General: Appears in no apparent distress. comfortable, obese, well developed, Behavior pf1 is calm, cooperative, appropriate for age, quiet. 02:10 Pain: Complains of pain in left ankle from catherization Pain currently is 4 out of 10 pf1 on a pain scale. Neuro: No deficits noted. Level of Consciousness is awake, alert, obeys commands, Oriented to person, place, time, situation. Cardiovascular: No deficits noted. Capillary refill < 3 seconds Patient's skin is warm and dry. Respiratory: No deficits noted. Airway is patent Respiratory effort is even, unlabored, Respiratory pattern is regular, symmetrical. GI: No deficits noted. No signs and/or symptoms were reported involving the gastrointestinal system. : No deficits noted. No signs and/or symptoms were reported regarding the genitourinary system. EENT: No deficits noted. No signs and/or symptoms were reported regarding the EENT system. Derm: Reports pain with swelling to left ankle region from previous catherization. Patient has saturated bloody gauze dressing with Tegaderm noted to left anterior ankle/foot region,onset 2 days. Patient stated is afraid to take bandage off due to bleeding and swelling. 02:25 Reassessment: Tegaderm and gauze removed from left ankle/foot. No bleeding noted. pf1 Reapplied new gauze with Tegaderm. Vital Signs: 02:06 BP 149 / 80; Pulse 70; Resp 16; Temp 98.1; Pulse Ox 100% on R/A; pf1 ED Course: 01:58 Patient arrived in ED. jj6 02:00 Jani Dawson DO is Attending Physician. ms3 02:10 Triage completed. jb4 02:10 Arm band placed on right wrist. jb4 02:10 Patient has correct armband on for positive identification. Placed in gown. Bed in low pf1 position. Call light in reach. 02:18 Ava Ordaz RN is Primary Nurse. pf1 02:20 Wound care: to from previous catherization site located on left foot was cleaned with pf1 with NS, dressed with 4X4s, applied Tegaderm dressing, Patient tolerated well. 02:20 No provider procedures requiring assistance completed. Patient did not have IV access pf1 during this emergency room visit. 02:35 Provided Education on: wound care and follow up. pf1 Administered Medications: No medications were administered Medication: 02:10 VIS not applicable for this client. pf1 Outcome: 02:15 Discharge ordered by . ms3 02:35 Discharged to home ambulatory, pf1 02:35 Condition: stable 02:35 Discharge instructions given to patient, Instructed on discharge instructions, follow up and referral plans. Demonstrated understanding of instructions, follow-up care, wound care, 02:35 Patient left the ED. pf1 Signatures: Jensen Bazan, RN RN jb4 Jani Dawson DO DO ms3 Hillary Moreno jj6 Ava Ordaz, RN RN pf1 Corrections: (The following items were deleted from the chart) 05:05 02:06 BP 149 / 80; Pulse 70bpm; Resp 16bpm; Pulse Ox 100% RA; jb4 pf1
[2023-09-22 03:51] VITALS: BP 149/80; O2SAT 100
--- NOTE | 2023-09-23 02:36 | EDPHYS ---
Physician Documentation [facility] Name: New Jordan Age: 63 yrs Sex: Male : 1960 Arrival Date: 09/22/2023 Time: 01:52 Bed 14 Private MD: ED Physician Jani Dawson HPI: 09/22 02:15 This 63 yrs old Black Male presents to ER via Wheelchair with complaints of Post ms3 Surgical Problem. 02:15 63-year-old male with past medical history of bipolar, depression, diabetes, DVT, ms3 hyperlipidemia, hypertension presents to the emergency department for left ankle pain status post angioplasty of his left lower extremity. Patient states he had angioplasty performed on and . Patient states the pain is a 03/11. Patient denies any alleviating or inciting factors. Historical: - Allergies: 02:10 IV contrast; jb4 - PMHx: 02:10 Bipolar disorder; Depression; Diabetes - IDDM; DVT; High Cholesterol; Hypertension; jb4 quadraple bypass; Schizophrenia; - PSHx: 02:10 pacemaker; jb4 - Immunization history:: Adult Immunizations up to date. - Social history:: Smoking status: Patient denies any tobacco usage or history of. ROS: 02:15 Constitutional: Negative for fever, and chills. Neck: Negative for injury, pain, and ms3 swelling, Cardiovascular: Negative for chest pain, and palpitations. Respiratory: Negative for shortness of breath, cough, wheezing, and pleuritic chest pain, Abdomen/GI: Negative for abdominal pain, nausea, vomiting, diarrhea, and constipation, 02:15 MS/extremity: Positive for Left ankle hematoma, 02:15 All other systems are negative, Exam: 02:15 Constitutional: This is a well developed, well nourished patient who is awake, alert, ms3 and in no acute distress. Head/Face: Normocephalic, atraumatic. Chest/axilla: Normal chest wall appearance and motion. Nontender with no deformity. Cardiovascular: Regular rate and rhythm with a normal S1 and S2. No gallops, murmurs, or rubs. Normal PMI, no JVD. No pulse deficits. Respiratory: Lungs have equal breath sounds bilaterally, clear to auscultation and percussion. No rales, rhonchi or wheezes noted. No increased work of breathing, no retractions or nasal flaring. Abdomen/GI: Soft, non-tender, with normal bowel sounds. No distension or tympany. No guarding or rebound. No evidence of tenderness throughout. 02:15 Skin: Hematoma left lateral ankle. Vital Signs: 02:06 BP 149 / 80; Pulse 70; Resp 16; Temp 98.1; Pulse Ox 100% on R/A; pf1 MDM: 02:11 Patient medically screened. ms3 02:15 Data reviewed: vital signs, nurses notes, and as a result, I will discharge patient. ms3 Care significantly affected by the following chronic conditions: Diabetes, Hypertension. Counseling: I had a detailed discussion with the patient and/or guardian regarding the historical points, exam findings, and any diagnostic results supporting the discharge/admit diagnosis, the need for outpatient follow up, to return to the emergency department if symptoms worsen or persist or if there are any questions or concerns that arise at home. Special discussion: I discussed with the patient/guardian in detail that at this point there is no indication for admission to the hospital. It is understood, however, that if the symptoms persist or worsen the patient needs to return immediately for re-evaluation. ED course: Discussed physical exam findings with patient. Dressing change. Patient to follow-up with his physician in 2 to 3 days. Patient understands and agrees with plan. All questions were answered. Return precautions discussed include worsening symptoms, or any other concerns. Administered Medications: No medications were administered Disposition: 23:36 Chart complete. ms3 Disposition Summary: 09/22/23 02:15 Discharge Ordered Notes: Location: Home ms3 Condition: Stable ms3 Diagnosis - Post procedural hematoma ms3 Followup: ms3 - With: Private Physician - When: 1 - 2 days - Reason: Re-evaluation by your physician Discharge Instructions: - Discharge Summary Sheet ms3 - Hematoma, [id number] ms3 Forms: - Medication Reconciliation Form ms3 - Thank You Letter ms3 - Antibiotic Education ms3 - Prescription Opioid Use ms3 - Patient Portal Instructions ms3 - Leadership Thank You Letter ms3 Signatures: Jensen Bazan, RN RN jb4 Jani Dawson DO DO ms3
== END ==
LOC: ER 01:52
DX: L76.32 Postprocedural hematoma of skin and subcutaneous tissue following other procedure (principal); Z98.62 Peripheral vascular angioplasty status; I10 Essential (primary) hypertension; Z95.0 Presence of cardiac pacemaker; Z95.1 Presence of aortocoronary bypass graft
CPT/HCPCS: 99283

== ENCOUNTER → 2023-10-24 | Emergency (ER) | payer OTHER ==
[~2023-10-24] MED LIST: BISACODYL 10 MG RECTAL SUPP ONE; LACTULOSE 20 GM/30 ML UCUP ONE; NA CHLORIDE 0.9% 1,000 ML ONE; ONDANSETRON 4 MG/2 ML VIAL ONE
[2023-10-24 02:17] LABS: Absolute Lymphocytes (CBC) 1.2 K/uL (0.7-4.9); Hematocrit 42.2 % (39.6-49.0); Lymphocytes % 16.9 % (15.3-44.8); MPV 9.1 fL (7.6-11.3); Platelets 160 thou/uL (152-406); RBC Red Blood Cell Count 4.53 M/uL (4.33-5.43)
[2023-10-24 02:33] LABS: Albumin 2.9 g/dL (3.4-5.0); Bilirubin Total 0.4 mg/dL (0.2-1.0); Potassium 4.3 mEq/L (3.5-5.1); Protein, Total 6.9 g/dL (6.4-8.2)
--- NOTE | 2023-10-24 03:59 | EDPHYS ---
Physician Documentation [facility] Name: [place] Age: 63 yrs Sex: Male : 1960 Arrival Date: 10/24/2023 Time: 00:23 Bed 12 Private MD: Anay Hahn ED Physician Tarik Osullivan HPI: 10/24 02:47 This 63 yrs old Black Male presents to ER via Ambulatory with complaints of sy Constipation. 02:47 The patient presents with abdominal pain abdominal distention in the upper abdomen, in sy the lower abdomen. Onset: The symptoms/episode began/occurred 2 day(s) ago. The symptoms do not radiate. Associated signs and symptoms: none. The symptoms are described as crampy. Modifying factors: The symptoms are alleviated by nothing, the symptoms are aggravated by no bm. Severity of pain: At its worst the pain was moderate in the emergency department the pain is unchanged. The patient has experienced similar episodes in the past, a few times. Historical: - Allergies: 00:35 IV contrast; tm6 - PMHx: 00:35 Schizophrenia; quadraple bypass; Hypertension; High Cholesterol; DVT; Diabetes - IDDM; tm6 Depression; Bipolar disorder; - PSHx: 00:35 pacemaker; AICD (pacemaker); tm6 - Immunization history:: Adult Immunizations up to date, Client reports having NOT received the Covid vaccine. Flu vaccine is up to date. - Social history:: Smoking status: Patient denies any tobacco usage or history of. Patient/guardian denies using alcohol, street drugs. - Family history:: not pertinent. ROS: 02:47 Constitutional: Negative for fever, chills, and weight loss, Eyes: Negative for injury, sy pain, redness, and discharge, ENT: Negative for injury, pain, and discharge, Neck: Negative for injury, pain, and swelling, Cardiovascular: Negative for chest pain, palpitations, and edema, Respiratory: Negative for shortness of breath, cough, wheezing, and pleuritic chest pain, Back: Negative for injury and pain, : Negative for injury, bleeding, discharge, and swelling, MS/Extremity: Negative for injury and deformity, Skin: Negative for injury, rash, and discoloration, Neuro: Negative for headache, weakness, numbness, tingling, and seizure, 02:47 Abdomen/GI: Positive for abdominal pain, constipation, Exam: 02:47 Constitutional: This is a well developed, well nourished patient who is awake, alert, sy and in no acute distress. Head/Face: Normocephalic, atraumatic. Eyes: Pupils equal round and reactive to light, extra-ocular motions intact. Lids and lashes normal. Conjunctiva and sclera are non-icteric and not injected. Cornea within normal limits. Periorbital areas with no swelling, redness, or edema. ENT: Nares patent. No nasal discharge, no septal abnormalities noted. Tympanic membranes are normal and external auditory canals are clear. Oropharynx with no redness, swelling, or masses, exudates, or evidence of obstruction, uvula midline. Mucous membranes moist. Neck: Trachea midline, no thyromegaly or masses palpated, and no cervical lymphadenopathy. Supple, full range of motion without nuchal rigidity, or vertebral point tenderness. No Meningismus. Chest/axilla: Normal chest wall appearance and motion. Nontender with no deformity. No lesions are appreciated. Cardiovascular: Regular rate and rhythm with a normal S1 and S2. No gallops, murmurs, or rubs. Normal PMI, no JVD. No pulse deficits. Respiratory: Lungs have equal breath sounds bilaterally, clear to auscultation and percussion. No rales, rhonchi or wheezes noted. No increased work of breathing, no retractions or nasal flaring. Abdomen/GI: Soft, non-tender, with normal bowel sounds. No distension or tympany. No guarding or rebound. No evidence of tenderness throughout. Back: No spinal tenderness. No costovertebral tenderness. Full range of motion. Male : Normal genitalia with no discharge or lesions. Skin: Warm, dry with normal turgor. Normal color with no rashes, no lesions, and no evidence of cellulitis. MS/ Extremity: Pulses equal, no cyanosis. Neurovascular intact. Full, normal range of motion. Neuro: Awake and alert, GCS 15, oriented to person, place, time, and situation. Cranial nerves II-XII grossly intact. Motor strength 5/5 in all extremities. Sensory grossly intact. Cerebellar exam normal. Normal gait. Psych: Awake, alert, with orientation to person, place and time. Behavior, mood, and affect are within normal limits. Vital Signs: 00:35 BP 115 / 71; Pulse 70; Resp 19; Temp 98.4(O); Pulse Ox 99% on R/A; Weight 113.4 kg; tm6 Height 5 ft. 8 in. ; Pain 9/10; 02:00 BP 136 / 72; Pulse 69; Pulse Ox 97% ; Pain 7/10; tm6 02:35 BP 148 / 84; Pulse 70; Pulse Ox 99% on R/A; Pain 5/10; tm6 03:38 BP 138 / 71; Pulse 70; Pulse Ox 94% ; Pain 0/10; tm6 04:11 BP 121 / 57; Pulse 69; Resp 19; Temp 97.4(TE); Pulse Ox 96% on R/A; Pain 3/10; tm6 00:35 Body Mass Index 38.01 (113.40 kg, 172.72 cm) tm6 00:35 Pain Scale: Adult tm6 02:00 Pain Scale: Adult tm6 02:35 Pain Scale: Adult tm6 03:38 Pain Scale: Adult tm6 04:11 Pain Scale: Adult tm6 MDM: 00:30 Patient medically screened. sy 01:02 Patient medically screened. sy 02:50 Differential diagnosis: diverticulitis, non-specific abd pain, Peptic Ulcer Disease, sy Prostatitis, Ureterolithiasis, urinary tract infection. Data reviewed: vital signs, nurses notes, lab test result(s), radiologic studies, CT scan. Consideration of Admission/Observation Escalation of care including admission/observation considered. I considered the following discharge prescriptions or medication management in the emergency department Medications were administered in the Emergency Department. See MAR. Independent interpretation of the following test(s) in the Emergency Department CT Scan: My interpretation is ct abd/pelvis. Test considered but Not performed: EKG: no ekg. Care significantly affected by the following chronic conditions: Diabetes, Hypertension, Obesity, schizo, high cholesterol, iddm, cad, cabg. 10/24 99: Order name: CBC with Diff 10/24: Order name: CMP sy 10/24 99: Order name: Lipase sy 10/24 99: Order name: Urinalysis w/ reflexes sy 10/24 99: Order name: CT Abd/Pelvis - PO and IV Contrast sy 10/24 Order name: IV Saline Lock; Complete Time: 01:03 [facility] 10/24 00:31 Order name: Labs collected and sent; Complete Time: 01:03 [facility] 10/24 01:35 Order name: Akbar. Order: RECOLLECT ALL LABS; Complete Time: 02:00 rv1 Administered Medications: 01:14 Drug: NS 0.9% IV 1000 ml IV at 1 bolus Per protocol; 1000 mL bolus Route: IV; Rate: 1 tm6 bolus; Site: right antecubital; 04:12 Follow up: Response: No adverse reaction; IV Intake: 1000ml tm6 01:14 Drug: Ondansetron IVP 4 mg IVP once; over 2 minutes Route: IVP; Site: right antecubital;tm6 01:14 Drug: Lactulose PO 30 grams 45 ml PO once Volume: 45 ml; Route: PO; tm6 01:25 Drug: Dulcolax [place] Suppository 10 mg AZ once Route: AZ; tm6 Disposition Summary: 10/24/23 03:58 Discharge Ordered Notes: Location: Home cp Problem: new cp Symptoms: have improved cp Condition: Stable cp Diagnosis - Constipation cp - Abdominal tenderness cp Followup: sy - With: Anay Hahn - When: 2 - 3 days - Reason: Recheck today's complaints, Continuance of care, Re-evaluation by your physician Followup: sy - With: Graciela Donohue MD - When: 2 - 3 days - Reason: Recheck today's complaints, Re-evaluation by your physician Discharge Instructions: - Discharge Summary Sheet sy - Abdominal Pain, Adult sy - Constipation, Adult sy - Constipation, Adult, [id number] sy - Abdominal Pain, Adult, [id number] sy Forms: - Medication Reconciliation Form cp - Thank You Letter cp - Antibiotic Education cp - Prescription Opioid Use cp - Patient Portal Instructions cp - Leadership Thank You Letter cp Prescriptions: - Dulcolax (bisacodyl) 10 mg Rectal suppository - insert 1 suppository RECTAL route every 12 hours for 3 days; 6 suppository; sy Refills: 0, Product Selection Permitted - Metamucil 3.4 gram/5.4 gram Oral powder - take 1 Tablespoon ORAL route every 12 hours mix into at least 8 oz of water or sy juice before administering; 1 unit; Refills: 0, Product Selection Permitted - Lactulose 10 gram/15 mL Oral Solution - take 30 milliliters ORAL route once daily; 300 milliliter; Refills: 0, Product sy Selection Permitted Signatures: Dispatcher [employer] EDTarik Rico MD MD cha Page, Corey, PA PA cp Villegas, Rebecca rv1 Osiris Garcia RN RN tm6
--- NOTE | 2023-10-24 03:59 | ER ---
Nurse's Notes [facility] Name: [place] Age: 63 yrs Sex: Male : 1960 Arrival Date: 10/24/2023 Time: 00:23 Bed 12 Private MD: Anay Hahn Diagnosis: Constipation;Abdominal tenderness Presentation: 10/24 00:33 Chief complaint: Patient states: has not had BM for 2 days. "Feels like a meatball in tm6 there." Aching 9/10 pain. Coronavirus screen: Vaccine status: Patient reports being unvaccinated. Ebola Screen: Patient negative for fever greater than or equal to 101.5 degrees Fahrenheit, and additional compatible Ebola Virus Disease symptoms Patient denies exposure to infectious person. Patient denies travel to an Ebola-affected area in the 21 days before illness onset. No symptoms or risks identified at this time. Initial Sepsis Screen: Does the patient meet any 2 criteria? No. Patient's initial sepsis screen is negative. Does the patient have a suspected source of infection? No. Patient's initial sepsis screen is negative. Risk Assessment: Do you want to hurt yourself or someone else? Patient reports no desire to harm self or others. Onset of symptoms was October 22, 2023. 00:33 Method Of Arrival: Ambulatory tm6 00:33 Acuity: ANKIT 4 tm6 Triage Assessment: 00:35 General: Appears uncomfortable, Behavior is cooperative. Pain: Complains of pain in tm6 buttocks Pain currently is 9 out of 10 on a pain scale. Quality of pain is described as aching, Pain began 2-3 days ago. EENT: No signs and/or symptoms were reported regarding the EENT system. Neuro: Level of Consciousness is awake, alert, obeys commands, Oriented to person, place, time, situation. Cardiovascular: Capillary refill < 3 seconds Patient's skin is warm and dry. Respiratory: Airway is patent Respiratory effort is even, unlabored, Respiratory pattern is regular, symmetrical. GI: Abdomen is round non-distended, Abd is soft and non tender X 4 quads. Reports constipation. : No signs and/or symptoms were reported regarding the genitourinary system. Derm: No signs and/or symptoms reported regarding the dermatologic system. Musculoskeletal: No signs and/or symptoms reported regarding the musculoskeletal system. Historical: - Allergies: 00:35 IV contrast; tm6 - PMHx: 00:35 Schizophrenia; quadraple bypass; Hypertension; High Cholesterol; DVT; Diabetes - IDDM; tm6 Depression; Bipolar disorder; - PSHx: 00:35 pacemaker; AICD (pacemaker); tm6 - Immunization history:: Adult Immunizations up to date, Client reports having NOT received the Covid vaccine. Flu vaccine is up to date. - Social history:: Smoking status: Patient denies any tobacco usage or history of. Patient/guardian denies using alcohol, street drugs. - Family history:: not pertinent. Screenin:05 [facility] ED Fall Risk Assessment (Adult) History of falling in the last 3 months, tm6 including since admission No falls in past 3 months (0 pts) Confusion or Disorientation No (0 pts) Intoxicated or Sedated No (0 pts) Impaired Gait No (0 pts) Mobility Assist Device Used No (0 pt) Altered Elimination No (0 pt) Score/Fall Risk Level 0 - 2 = Low Risk Oriented to surroundings. Abuse screen: Denies threats or abuse. Denies injuries from another. Nutritional screening: No deficits noted. Tuberculosis screening: No symptoms or risk factors identified. Assessment: 00:33 Reassessment: see triage assessment. tm6 02:01 Reassessment: Patient appears in no apparent distress at this time. No changes from tm6 previously documented assessment. Patient and/or family updated on plan of care and expected duration. Pain level reassessed. GI: Bowel sounds present X 4 quads. 02:35 Reassessment: Patient appears in no apparent distress at this time. No changes from tm6 previously documented assessment. Patient and/or family updated on plan of care and expected duration. Pain level reassessed. patient had bowel movement Patient states feeling better. 03:38 Reassessment: Patient states feeling better. tm6 04:11 Reassessment: Patient appears in no apparent distress at this time. No changes from tm6 previously documented assessment. Patient and/or family updated on plan of care and expected duration. Pain level reassessed. Vital Signs: 00:35 BP 115 / 71; Pulse 70; Resp 19; Temp 98.4(O); Pulse Ox 99% on R/A; Weight 113.4 kg; tm6 Height 5 ft. 8 in. ; Pain 9/10; 02:00 BP 136 / 72; Pulse 69; Pulse Ox 97% ; Pain 7/10; tm6 02:35 BP 148 / 84; Pulse 70; Pulse Ox 99% on R/A; Pain 5/10; tm6 03:38 BP 138 / 71; Pulse 70; Pulse Ox 94% ; Pain 0/10; tm6 04:11 BP 121 / 57; Pulse 69; Resp 19; Temp 97.4(TE); Pulse Ox 96% on R/A; Pain 3/10; tm6 00:35 Body Mass Index 38.01 (113.40 kg, 172.72 cm) tm6 00:35 Pain Scale: Adult tm6 02:00 Pain Scale: Adult tm6 02:35 Pain Scale: Adult tm6 03:38 Pain Scale: Adult tm6 04:11 Pain Scale: Adult tm6 ED Course: 00:24 Patient arrived in ED. mr 00:25 Anay Hahn is Private Physician. mr 00:29 Tarik Osullivan MD is Attending Physician. sy 00:34 Triage completed. tm6 00:35 Arm band placed on right wrist. tm6 00:39 Osiris Garcia, BAYRON is Primary Nurse. tm6 01:04 Inserted saline lock: 22 gauge in right antecubital area, using aseptic technique. tm6 Missed attempt(s): 20 gauge in left forearm. 01:05 Patient has correct armband on for positive identification. Bed in low position. Call tm6 light in reach. Side rails up X2. Provided Education on: plan of care. Client placed on continuous cardiac and pulse oximetry monitoring. NIBP monitoring applied. 03:28 CT Abd/Pelvis - PO and IV Contrast In Process Unspecified. EDMS 03:58 Anay Hahn is Referral Physician. cp 03:58 Graciela Donohue MD is Referral Physician. cp 04:11 No provider procedures requiring assistance completed. IV discontinued, intact, tm6 bleeding controlled, No redness/swelling at site. Pressure dressing applied. Administered Medications: 01:14 Drug: NS 0.9% IV 1000 ml IV at 1 bolus Per protocol; 1000 mL bolus Route: IV; Rate: 1 tm6 bolus; Site: right antecubital; 04:12 Follow up: Response: No adverse reaction; IV Intake: 1000ml tm6 01:14 Drug: Ondansetron IVP 4 mg IVP once; over 2 minutes Route: IVP; Site: right antecubital;tm6 01:14 Drug: Lactulose PO 30 grams 45 ml PO once Volume: 45 ml; Route: PO; tm6 01:25 Drug: Dulcolax FL Suppository 10 mg FL once Route: FL; tm6 Medication: 01:05 VIS not applicable for this client. tm6 Intake: 04:12 IV: 1000ml; Total: 1000ml. tm6 Output: 02:35 Stool: 1 (Formed Stool) ; Total: 0ml. tm6 Outcome: 03:58 Discharge ordered by MD. cp 04:11 Discharged to home ambulatory, tm6 04:11 Condition: stable 04:11 Discharge instructions given to patient, Instructed on discharge instructions, follow up and referral plans. medication usage, Demonstrated understanding of instructions, follow-up care, medications, Prescriptions given X 3, 04:12 Patient left the ED. tm6 Signatures: Dispatcher [employer] EDMS Tarik Osullivan MD MD cha Rivera, Mary, Reg Reg mr Tarik Kuo, PA PA Osiris Mendoza, RN RN tm6 Eleazar Nettles RN RN as9 Corrections: (The following items were deleted from the chart) 01:04 00:33 Reassessment: see triage assessment as9 as9
[2023-10-24 04:37] VITALS: BP 121/57; TEMP 97.4; O2SAT 96
[2023-10-24 05:22] LABS: Specific Gravity 1.021 (1.005-1.030); Urine Bacteria None Seen /HPF (<20); Urine Bilirubin NEGATIVE (Negative); Urine Blood Negative (Negative); Urine Clarity Clear (Clear); Urine Color Yellow (Yellow); Urine Glucose 1+ (Negative); Urine Protein 1+ (Negative); Urine RBC <5 /HPF (None Seen); Urine Urobilinogen Normal (Normal); Urine pH 5.5 (5.0-7.0)
--- NOTE | 2023-10-24 12:41 | RAD REPORT ---
EXAM DESCRIPTION: CT Abdomen and Pelvis With Intravenous Contrast CLINICAL HISTORY: Constipation, abd pain TECHNIQUE: Axial computed tomography images of the abdomen and pelvis with intravenous contrast. S agittal and coronal reformatted images were created and reviewed. This CT exam was performed using one or more of the following dose reduction techniques: automated exposure control, adjustment of t he mA and/or kV according to patient size, and/or use of iterative reconstruction technique. COMPARISON: CT Abdomen Pelvis dated 02/23/2020 and 04/12/2022 FINDINGS: Lung bases: Unremarkable. No mass. No consolidation. Heart: The heart is mildly enlarged. Coronary artery calcification. ABDOMEN: Liver: The liver is enlarged. Gallbladder and bile ducts: Prior cholecystectomy. No ductal dilation. Pancreas: Unremarkable. No mass. No ductal dilation. Spleen: Unremarkable. No splenomegaly. Adrenals: Stable 2.4 cm homogeneous left adrenal nodule measuring 79 Hounsfield units. No follow-up imaging is necessary. Kidneys and ureters: No hydronephrosis. Normal renal cortical enhancement. Subcentimeter left richy al hypodensity which is too small to characterize. No follow-up imaging is recommended. JACR 2018 Oct ; [id number], Management of the Incidental Renal Mass on CT, [employer] 2020; [phone], Bosniak Classi fication of Cystic Renal Masses, Version 2019. Stomach and bowel: Moderate stool. No bowel obstruction. Colonic diverticula without adjacent infla mmatory change. No mucosal thickening. PELVIS: Appendix: Normal caliber appendix. No findings to suggest acute appendicitis. Bladder: The urinary bladder is distended. Reproductive: The prostate is mildly enlarged. ABDOMEN and PELVIS: Intraperitoneal space: Unremarkable. No free air. No significant fluid collection. Bones/joints: Multilevel spondylosis. No acute fracture. No dislocation. Soft tissues: Unremarkable. Vasculature: Moderate to severe atherosclerotic disease. No abdominal aortic aneurysm. Infrarenal I VC filter. Left common and external and right external iliac venous stents. Bilateral superficial fem oral arterial stents. Lymph nodes: Unremarkable. No enlarged lymph nodes. Tubes, lines and devices: Partially visualized pacer leads. IMPRESSION: 1. Moderate stool. No bowel obstruction. 2. Other findings as above. Electronically signed by: Erika Weinstein MD 10/24/2023 03:49 AM GUN TESTER Due to temporary technical issues with the PACS/Fluency reporting system, reports are being signed by the in house radiologist without review as a courtesy to ensure prompt reporting. The interpreting r adiologist is fully responsible for the content of the report.
== END ==
LOC: ER 00:23
DX: K59.00 Constipation, unspecified (principal); R10.819 Abdominal tenderness, unspecified site; Z91.041 Radiographic dye allergy status; Z95.810 Presence of automatic (implantable) cardiac defibrillator; Z28.310 Unvaccinated for COVID-19
CPT/HCPCS: 85025; 81001; 36415; 83690; 80053; 74177; 96374; 99284; Q9967; J2405; J7030

== ENCOUNTER 2024-09-11 05:36 | Emergency (ER) | payer MEDICARE, OTHER ==
[2024-09-11] MEDS ORDERED: ALBUTEROL 2.5 MG/3 ML NEB SOL ONE (06:16)
[2024-09-11] MEDS ORDERED: ACETAMINOPHEN 500 MG TAB ONE (06:16)
[2024-09-11] MEDS ORDERED: IBUPROFEN 200 MG TAB PO ONE (06:16)
[2024-09-11] MEDS ORDERED: AZITHROMYCIN 250 MG TAB ONE (06:17)
[2024-09-11] MEDS ORDERED: BENZONATATE 100 MG CAP PO ONE (06:17)
[2024-09-11] MEDS ORDERED: IBUPROFEN 400 MG TAB ONE (06:17)
[2024-09-11] MEDS ORDERED: GUAIFENESIN/DM 5 ML UCUP ONE (06:17)
[2024-09-11 06:25] LABS: Absolute Eosinophils 0.2 K/uL (0-0.5); Absolute Lymphocytes (CBC) 1.6 K/uL (0.7-4.9); Absolute Monocytes 0.4 K/uL (0.1-1.3); Basophils % 0.6 % (0-1.3); Eosinophils % 3.3 % (0-4.4); Hematocrit 45.1 % (39.6-49.0); Hemoglobin 14.8 g/dL (13.6-17.9); Lymphocytes % 30.5 % (15.3-44.8); MCH 30.9 pg (27.0-35.0); MCHC 32.7 g/dL (32.0-36.0); MCV 94.3 fL (80-100); MPV 9.9 fL (7.6-11.3); Monocytes % 8.4 % (3.3-12.3); Neutrophils % 57.2 % (41.7-73.7); Nucleated Red Blood Cells % 0.2 % (0-0); Platelets 179 thou/uL (152-406); RBC Red Blood Cell Count 4.78 M/uL (4.33-5.43)
[2024-09-11 06:49] LABS: Albumin 3.5 g/dL (3.4-5.0); Albumin/Globulin Ratio 0.8 (1.1-1.8); Bilirubin Direct 0.2 mg/dL (0-0.2); Bilirubin Indirect, Calculated 0.3 mg/dL (0.2-0.8); Bilirubin Total 0.5 mg/dL (0.2-1.0); Globulin 4.5 g/dL (2.3-3.5)
[2024-09-11 06:55] LABS: Troponin High Sensitivity 4850.5 pg/mL (<58.9)
[2024-09-11] MEDS ORDERED: DIPHENHYDRAMINE 50 MG/ML VIAL ONE (07:00)
[2024-09-11] MEDS ORDERED: HEPARIN/D5W 25,000 UNIT/500 ML BAG IV ONE (07:13)
[2024-09-11] MEDS ORDERED: HEPARIN 5000 UNIT/ML 1 ML VIAL ONE (07:13)
--- NOTE | 2024-09-11 07:17 | ER ---
Nurse's Notes [facility] Name: New Jordan Age: 64 yrs Sex: Male : 1960 Arrival Date: 09/11/2024 Time: 05:36 Bed 20 Private MD: Diagnosis: NSTEMI, acute dyspnea Presentation: 09/11 05:58 Chief complaint: Patient states: c/o cough, congestion, nasal congestion, headache for al5 the past 5 days. denies anyone sick around him. Coronavirus screen: congestion, cough unrelated to allergies, headache, runny nose. Ebola Screen: No symptoms or risks identified at this time. Initial Sepsis Screen: Does the patient meet any 2 criteria? HR > 90 bpm. No. Patient's initial sepsis screen is negative. Does the patient have a suspected source of infection? No. Patient's initial sepsis screen is negative. Risk Assessment: Do you want to hurt yourself or someone else? Patient reports no desire to harm self or others. Onset of symptoms was September 06, 2024. 05:58 Method Of Arrival: Ambulatory al5 05:58 Acuity: ANKIT 3 al5 Triage Assessment: 06:01 Headache History: Denies prior headaches. General: Appears in no apparent distress. al5 comfortable, Behavior is calm, cooperative. Pain: Complains of pain in head Pain currently is 4 out of 10 on a pain scale. Pain began 4-5 days Also complains of no other associated symptoms. EENT: Reports nasal congestion. Neuro: Level of Consciousness is awake, alert, obeys commands, Oriented to person, place, time, situation. Cardiovascular: Capillary refill < 3 seconds Patient's skin is warm and dry. Respiratory: Reports cough that is productive, Airway is patent Respiratory effort is even, unlabored, Respiratory pattern is regular, symmetrical. GI: No signs and/or symptoms were reported involving the gastrointestinal system. : No signs and/or symptoms were reported regarding the genitourinary system. Derm: Skin is intact, is healthy with good turgor, Skin is pink, warm \T\ dry. normal. Musculoskeletal: No signs and/or symptoms reported regarding the musculoskeletal system. Historical: - Allergies: 06:00 IV contrast; al5 06:00 Mucinex; al5 - PMHx: 06:00 Bipolar disorder; Depression; Diabetes - IDDM; DVT; High Cholesterol; Hypertension; al5 quadraple bypass; Schizophrenia; - PSHx: 06:00 AICD; pacemaker; al5 - Immunization history:: Adult Immunizations up to date. - Infectious Disease History:: Denies. - Social history:: Smoking status: Patient denies any tobacco usage or history of. - Family history:: not pertinent. Screenin:05 [facility] ED Fall Risk Assessment (Adult) History of falling in the last 3 months, al5 including since admission No falls in past 3 months (0 pts) Confusion or Disorientation No (0 pts) Intoxicated or Sedated No (0 pts) Impaired Gait No (0 pts) Mobility Assist Device Used No (0 pt) Altered Elimination No (0 pt) Score/Fall Risk Level 0 - 2 = Low Risk Oriented to surroundings, Maintained a safe environment, Hourly rounding (assess needs \T\ fall precautionary measures) done. Abuse screen: Denies threats or abuse. Denies injuries from another. Nutritional screening: No deficits noted. Tuberculosis screening: No symptoms or risk factors identified. Assessment: 06:04 Reassessment: see triage assessment. al5 07:15 Reassessment: Patient appears in no apparent distress at this time. Patient and/or db family updated on plan of care and expected duration. Pain level reassessed. Patient is alert, oriented x 3, equal unlabored respirations, skin warm/dry/pink. General: Appears in no apparent distress. comfortable, Behavior is calm, cooperative. Pain: Denies pain. Neuro: Level of Consciousness is awake, alert, obeys commands, Oriented to person, place, time, situation. Cardiovascular: Rhythm is ventricular pacer. Respiratory: Airway is patent Respiratory effort is even, unlabored, Respiratory pattern is regular, symmetrical. 08:50 Reassessment: CALLED [facility] FOR ROOM 2138 TO GIVEN REPORT X 2 NO ANSWER. CALLED db CALL CENTER TO BE CONNECTED. 08:55 Reassessment: CALLED [facility] CALL CENTER TO HELP WITH BEING CONNECT TO UNIT TO db GIVE PATIENT REPORT. 09:08 Reassessment: REPORT GIVEN TO CAROLYN AT [facility]. db 09:35 Reassessment: Patient appears in no apparent distress at this time. Patient and/or db family updated on plan of care and expected duration. Pain level reassessed. Patient is alert, oriented x 3, equal unlabored respirations, skin warm/dry/pink. EMS ARRIVAL TO PICK PATIENT UP. Vital Signs: 05:58 BP 115 / 80; Pulse 94; Resp 20; Temp 97.8; Pulse Ox 99% on R/A; Weight 104.33 kg; al5 Height 5 ft. 9 in. ; 06:56 BP 115 / 79; Pulse 92; Resp 24 S; Pulse Ox 93% on R/A; br2 07:00 BP 122 / 92; Pulse 87; Resp 24; Pulse Ox 96% on R/A; db 08:00 BP 125 / 97; Pulse 88; Resp 22; Pulse Ox 95% on R/A; db 08:30 BP 158 / 102; Pulse 104; Resp 20; Pulse Ox 95% on 2 lpm NC; db 09:00 BP 163 / 99; Pulse 88; Resp 16; Pulse Ox 95% on 2 lpm NC; db 05:58 Body Mass Index 33.96 (104.33 kg, 175.26 cm) al5 Jose Coma Score: 07:18 Eye Response: spontaneous(4). Motor Response: obeys commands(6). Verbal Response: sp4 oriented(5). Total: 15. 07:23 Eye Response: spontaneous(4). Motor Response: obeys commands(6). Verbal Response: sp4 oriented(5). Total: 15. ED Course: 05:42 Patient arrived in ED. gm2 05:47 Ezio Bustos MD is Attending Physician. sp4 05:48 Lori Pardo RN is Primary Nurse. br2 06:00 Triage completed. al5 06:04 Arm band placed on right wrist. Patient placed in the treatment room, on a stretcher, al5 on pulse oximetry. 06:05 Patient has correct armband on for positive identification. Bed in low position. Call al5 light in reach. Side rails up X 1. Provided Education on: plan of care. 06:05 No provider procedures requiring assistance completed. al5 06:08 XRAY Chest (1 view) In Process Unspecified. EDMS 06:30 Inserted saline lock: 20 gauge in right antecubital area, using aseptic technique. br2 Blood collected. Flushed with 10 mL NS. 06:32 Influenza Screen (a \T\ B) Sent. br2 06:32 Basic Metabolic Panel Sent. br2 06:32 CBC with Diff Sent. br2 06:32 LFT's Sent. br2 06:32 Magnesium Sent. br2 06:32 NT PRO-BNP Sent. br2 06:32 Troponin HS Sent. br2 06:54 Notified ED physician of a critical lab result(s). Troponin 4850.5. ll1 07:08 Missed attempt(s): 20 gauge in left forearm. Bleeding controlled, band aid applied, ll1 catheter tip intact. 07:10 Inserted saline lock: 22 gauge in left forearm, using aseptic technique. Blood ll1 collected. Flushed with 10 mL NS. 07:15 Pillow given. db 07:26 initiated transfer to [facility]. bd 07:28 Client placed on continuous cardiac and pulse oximetry monitoring. NIBP monitoring db applied. night monitor on. Pulse ox on. NIBP on. 08:07 Oxygen administration via nasal cannula \T\ 2L/min Response to oxygen therapy: symptoms db improved. 08:35 pt accepted in transfer to [facility] rm [id number] Haley admin approval given by ulysses Jimenez. 09:49 Patient transferred, IV remains in place. db Administered Medications: 06:31 Drug: Dextromethorphan-Guaifenesin PO Liquid 10 mg-100 mg/5 mL 20 ml PO once Route: PO; br2 07:05 Follow up: Response: Other br2 06:31 Drug: Albuterol Inhalation 2.5 mg Inhalation once Route: Inhalation; br2 07:04 Follow up: Response: No adverse reaction br2 06:31 Drug: AZITHromycin PO 500 mg PO once Route: PO; br2 07:04 Follow up: Response: No adverse reaction br2 06:31 Drug: Ibuprofen PO 800 mg PO once Route: PO; br2 07:04 Follow up: Response: No adverse reaction br2 06:31 Drug: Acetaminophen PO 1000 mg PO once Route: PO; br2 07:04 Follow up: Response: No adverse reaction br2 06:31 Drug: Tessalon Perle PO 200 mg PO once Route: PO; br2 07:05 Follow up: Response: No adverse reaction br2 07:03 Drug: diphenhydrAMINE IVP 25 mg IVP once Route: IVP; Site: right antecubital; br2 07:04 Follow up: Response: No adverse reaction br2 07:20 Drug: Heparin (DC-Bolus No thrombolytic) - HEParin IVP 60 units/kg IVP once; Max 5000 db units {Co-Signature: ll1 (Tran Lu RN).} Route: IVP; Site: left forearm; 09:50 Follow up: Response: No adverse reaction db 07:20 Drug: Heparin (DC Drip) 12 units/kg/[place] - ([place] [address] units, D5W IV 500 ml) IV at db calculated rate Per protocol; Max initial rate 1000 units/hr {Co-Signature: ll1 (Tran Lu RN).} Route: IV; Rate: calculated rate; Site: left forearm; 09:50 Follow up: Response: No adverse reaction; IV Status: Infusion continued upon transfer db Medication: 06:05 VIS not applicable for this client. al5 Outcome: 07:16 ER care complete, transfer ordered by . sp4 09:49 Transferred by ground EMS to [facility], Transfer form completed. X-rays db sent w/ patient. 09:49 Condition: stable 09:49 Instructed on the need for transfer, 09:50 Patient left the ED. db Signatures: Dispatcher [employer] EDMS Rukhsana Ornelas Lynsay, RN RN ll1 Angelica Madison RN RN db Ezio Bustos MD MD sp4 Nehal Uriostegui Amanda, RN RN al5 Lori Pardo RN RN br2 Tran Lu RN ll1
--- NOTE | 2024-09-11 07:17 | EDPHYS ---
Physician Documentation [facility] Name: New Jordan Age: 64 yrs Sex: Male : 1960 Arrival Date: 09/11/2024 Time: 05:36 Bed 20 Private MD: ED Physician Ezio Bustos HPI: 09/11 05:47 This 64 yrs old Black Male presents to ER via Unassigned with complaints of Headache, sp4 Congestion, Breathing Difficulty. 07:16 64-year-old male presents with acute onset headache shortness of breath and sp4 congestion.. Patient reported prominent cough with sputum, denied chest pain.. Patient has history of complex coronary artery disease.. 07:18 Past medical history includes NSTEMI, complicated coronary artery disease, history of sp4 CABG, hypertension, hyperlipidemia, CHF, diabetes type 2, bipolar disorder, schizophrenia. History of coronary artery disease in 2022 at [facility]. 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 Historical: - Allergies: 06:00 IV contrast; al5 06:00 Mucinex; al5 - PMHx: 06:00 Bipolar disorder; Depression; Diabetes - IDDM; DVT; High Cholesterol; Hypertension; al5 quadraple bypass; Schizophrenia; - PSHx: 06:00 AICD; pacemaker; al5 - Immunization history:: Adult Immunizations up to date. - Infectious Disease History:: Denies. - Social history:: Smoking status: Patient denies any tobacco usage or history of. - Family history:: not pertinent. ROS: 07:18 Constitutional: Negative for fever, chills, and weight loss, positive shortness of sp4 breath, positive headache congestion and cough. 07:18 All other systems are negative, Exam: 07:18 Constitutional: This is a well developed, well nourished patient who is awake, alert, sp4 and in no acute distress. Head/Face: Normocephalic, atraumatic. Eyes: Pupils equal round and reactive to light, extra-ocular motions intact. Lids and lashes normal. Conjunctiva and sclera are not injected. Cornea within normal limits. Periorbital areas with no swelling, redness, or edema. ENT: Nares patent. No nasal discharge, no septal abnormalities noted. Tympanic membranes are normal and external auditory canals are clear. Oropharynx with no redness, swelling, or masses, exudates, or evidence of obstruction, uvula midline. Mucous membranes moist. Neck: Trachea midline, no thyromegaly or masses palpated, and no cervical lymphadenopathy. Supple, full range of motion without nuchal rigidity, or vertebral point tenderness. Chest/axilla: Normal chest wall appearance and motion. Nontender with no deformity. No lesions are appreciated. Cardiovascular: Regular rate and rhythm with a normal S1 and S2. No gallops, murmurs, or rubs. Normal PMI, no JVD. No pulse deficits. Respiratory: Lungs have equal breath sounds bilaterally, clear to auscultation and percussion. No rales, rhonchi or wheezes noted. No increased work of breathing, no retractions or nasal flaring. Abdomen/GI: Soft, with normal bowel sounds. No distension or tympany. No guarding or rebound. No evidence of tenderness throughout. Back: No spinal tenderness. No costovertebral tenderness. Skin: Warm, dry with normal turgor. Normal color with no rashes, no lesions, and no evidence of cellulitis. MS/ Extremity: Pulses equal, no cyanosis. Neurovascular intact. Full, normal range of motion. Neuro: Awake and alert, GCS 15, oriented to person, place, time, and situation. Cranial nerves II-XII grossly intact. Motor strength 5/5 in all extremities. Sensory grossly intact. Psych: Awake, alert, with orientation to person, place and time. Behavior, mood, and affect are within normal limits 07:21 ECG was reviewed by the Attending Physician. Paced rhythm at the rate of 90 sp4 Vital Signs: 05:58 BP 115 / 80; Pulse 94; Resp 20; Temp 97.8; Pulse Ox 99% on R/A; Weight 104.33 kg; al5 Height 5 ft. 9 in. ; 06:56 BP 115 / 79; Pulse 92; Resp 24 S; Pulse Ox 93% on R/A; br2 07:00 BP 122 / 92; Pulse 87; Resp 24; Pulse Ox 96% on R/A; db 08:00 BP 125 / 97; Pulse 88; Resp 22; Pulse Ox 95% on R/A; db 08:30 BP 158 / 102; Pulse 104; Resp 20; Pulse Ox 95% on 2 lpm NC; db 09:00 BP 163 / 99; Pulse 88; Resp 16; Pulse Ox 95% on 2 lpm NC; db 05:58 Body Mass Index 33.96 (104.33 kg, 175.26 cm) al5 Jose Coma Score: 07:18 Eye Response: spontaneous(4). Motor Response: obeys commands(6). Verbal Response: sp4 oriented(5). Total: 15. 07:23 Eye Response: spontaneous(4). Motor Response: obeys commands(6). Verbal Response: sp4 oriented(5). Total: 15. MDM: 06:18 Medical Screening Exam initiated sp4 07:23 Differential diagnosis: hypoglycemia, hyponatremia, migraine, otitis. Data reviewed: sp4 vital signs, nurses notes, lab test result(s), radiologic studies, plain films. ED course: PROCEDURE:XR CHEST 1 VIEW HISTORY:COUGH COMPARISON: 05/22/2024 report FINDINGS: The heart is seen to be enlarged. Left-sided pacemaker is present. Postsurgical changes the mediastinum. The lungs are clear there is no alveolar consolidation, effusion or pneumothorax. There are no acute bony or soft tissue abnormalities. IMPRESSION: No acute cardiopulmonary process. 07:54 ED course: Patient accepted at [facility]. Discussed with Dr. Reynoso who is sp3 accepted the patient to the hospital service. Awaiting hospitalist call and we will transfer once that is complete.. 09/11 05:48 Order name: Influenza Screen (a \T\ B); Complete Time: 07:00 sp4 09/11 05:49 Order name: Basic Metabolic Panel; Complete Time: 07:00 sp4 09/11 05:49 Order name: CBC with Diff; Complete Time: 07:00 sp4 09/11 05:49 Order name: LFT's; Complete Time: 07:00 sp4 09/11 05:49 Order name: Magnesium; Complete Time: 07:00 sp4 09/11 05:49 Order name: NT PRO-BNP; Complete Time: 07:00 sp4 09/11 05:49 Order name: Troponin HS; Complete Time: 07:00 sp4 09/11 07:08 Order name: Ptt, Activated; Complete Time: 07:52 br2 09/11 05:49 Order name: XRAY Chest (1 view); Complete Time: 07:55 sp4 09/11 05:49 Order name: Cardiac monitoring; Complete Time: 06:31 sp4 09/11 05:49 Order name: EKG - Nurse/Tech; Complete Time: 07:25 sp4 09/11 05:49 Order name: IV Saline Lock; Complete Time: 06:32 sp4 09/11 05:49 Order name: Labs collected and sent; Complete Time: 06:32 sp4 09/11 05:49 Order name: O2 Per Protocol; Complete Time: 06:32 sp4 09/11 05:49 Order name: O2 Sat Monitoring; Complete Time: 06:32 sp4 EC:21 Rate is 90 beats/min. Rhythm is regular, Paced. Interpreted by me. Reviewed by me. sp4 Administered Medications: 06:31 Drug: Dextromethorphan-Guaifenesin PO Liquid 10 mg-100 mg/5 mL 20 ml PO once Route: PO; br2 07:05 Follow up: Response: Other br2 06:31 Drug: Albuterol Inhalation 2.5 mg Inhalation once Route: Inhalation; br2 07:04 Follow up: Response: No adverse reaction br2 06:31 Drug: AZITHromycin PO 500 mg PO once Route: PO; br2 07:04 Follow up: Response: No adverse reaction br2 06:31 Drug: Ibuprofen PO 800 mg PO once Route: PO; br2 07:04 Follow up: Response: No adverse reaction br2 06:31 Drug: Acetaminophen PO 1000 mg PO once Route: PO; br2 07:04 Follow up: Response: No adverse reaction br2 06:31 Drug: Tessalon Perle PO 200 mg PO once Route: PO; br2 07:05 Follow up: Response: No adverse reaction br2 07:03 Drug: diphenhydrAMINE IVP 25 mg IVP once Route: IVP; Site: right antecubital; br2 07:04 Follow up: Response: No adverse reaction br2 07:20 Drug: Heparin ([place]-Bolus No thrombolytic) - HEParin IVP 60 units/kg IVP once; Max 5000 db units {Co-Signature: amparo (Tran Lu RN).} Route: IVP; Site: left forearm; 09:50 Follow up: Response: No adverse reaction db 07:20 Drug: Heparin ([place] Drip) 12 units/kg/[place] - ([place] [address] units, D5W IV 500 ml) IV at db calculated rate Per protocol; Max initial rate 1000 units/hr {Co-Signature: amparo (Tran Lu RN).} Route: IV; Rate: calculated rate; Site: left forearm; 09:50 Follow up: Response: No adverse reaction; IV Status: Infusion continued upon transfer db Disposition Summary: 09/11/24 07:16 Transfer Ordered Notes: Transfer Location: [facility] sp4 Reason: Higher level of care sp4 Condition: Serious sp4 Problem: new sp4 Symptoms: have improved sp4 Accepting Physician: [facility]'s attending physician(09/11/24 09:50) db Diagnosis - NSTEMI, acute dyspnea sp4 Forms: - Medication Reconciliation Form sp4 - SBAR form sp4 Critical care time excluding procedures: 08:04 Critical care time: Bedside Care: 36 minutes, Consultation: 12 minutes, Family sp4 Intervention: 12 minutes. Total time: 60 minutes Signatures: Dispatcher [employer] EDMS Sina Almeida MD MD sp3 Angelica Madison RN RN db Ezio Bustos MD MD sp4 Marina Gutierrez RN RN al5 Lori Pardo RN RN br2 Tran Lu RN ll1 Corrections: (The following items were deleted from the chart) 05:49 05:49 BASIC METABOLIC PANEL+C.LAB.BRZ ordered. EDMS EDMS 05:49 05:49 CBC+H.LAB.BRZ ordered. EDMS EDMS 05:49 05:49 HEPATIC FUNCTION+C.LAB.BRZ ordered. EDMS EDMS 05:49 05:49 MAGNESIUM+C.LAB.BRZ ordered. EDMS EDMS 05:49 05:49 PROBNP+C.LAB.BRZ ordered. EDMS EDMS 05:49 05:49 Troponin High Sensitivity+C.LAB.BRZ ordered. EDMS EDMS 05:49 05:49 Chest Single View+RAD.RAD.BRZ ordered. EDMS EDMS 09:50 07:16 [facility]'s attending physician sp4 db
--- NOTE | 2024-09-11 07:50 | RAD REPORT ---
PROCEDURE: R CHEST 1 VIEW HISTORY: DEREK COMPARISON: 05/22/2024 report FINDINGS: The heart is seen to be enlarged. Left-sided pacemaker is present. Postsurgical changes the mediastin um. The lungs are clear there is no alveolar consolidation, effusion or pneumothorax. There are no acute bony or soft tissue abnormalities. IMPRESSION: No acute cardiopulmonary process. Electronically signed by: Rahat Greene MD 09/11/2024 07:01 AM [facility] Due to temporary technical issues with the PACS/ReaMetrix reporting system, reports are being anat d by the in-house radiologist without review as a courtesy to ensure prompt reporting the interpreting radiologist is fully responsible for the content of the report. Transcribed Date/Time: 09/11/2024 7:50 AM
[2024-09-11 10:16] VITALS: TEMP 97.8
[2024-09-11 10:20] VITALS: O2SAT 95
[2024-09-11 10:23] VITALS: BP 163/99
--- NOTE | 2024-09-17 12:17 | EKG ---
Test Date: 2024-09-11 Test Time: 06:39:41 Jewelry Racker: [id number] MEASUREMENT RESULTS: Intervals: Rate: 96 ID: [id number] QRSD: 76 QT: 340 QTc: 429 [place]: P: 65 ID: [id number] QRS: 74 T: 46 INTERPRETIVE STATEMENTS: Sinus rhythm with marked sinus arrhythmia Otherwise normal ECG Compared to ECG 05/22/2024 20:08:04 Ventricular-paced complex(es) or rhythm no longer present Electronically Signed On 09-17-24 12:14:00 FRAUD REPRESENTATIVE by Chris Nieves
--- NOTE | 2024-09-17 12:17 | EKG ---
Test Date: 2024-09-11 Test Time: 05:59:42 Application Spec: [id number] MEASUREMENT RESULTS: Intervals: Rate: 94 AL: 132 QRSD: 136 QT: 432 QTc: 540 [place]: P: 71 AL: 132 QRS: -73 T: 149 INTERPRETIVE STATEMENTS: Electronic ventricular pacemaker Compared to ECG 05/22/2024 20:08:04 No significant changes Electronically Signed On 09-17-24 12:14:02 CROSSING GUARD by Chris Nieves
== END 2024-09-11 09:50 | disposition short-term general hospital (02) ==
LOC: ER 05:36
DX: I21.4 Non-ST elevation (NSTEMI) myocardial infarction (principal); I10 Essential (primary) hypertension; E11.9 Type 2 diabetes mellitus without complications; Z95.1 Presence of aortocoronary bypass graft; Z95.0 Presence of cardiac pacemaker; Z79.82 Long term (current) use of aspirin; Z79.4 Long term (current) use of insulin
CPT/HCPCS: 93005 ×2; 85025; 80048; 36415; 83735; 80076; 85730; 84484; 83880; 87804 ×2; 71045; 99285; J1644; J1200; J7613

== ENCOUNTER 2024-12-03 17:22 | Emergency (ER) | payer MEDICARE ==
[2024-12-03] MEDS ORDERED: KETOROLAC 30 MG/ML INJ ONE (17:55)
--- NOTE | 2024-12-03 18:19 | RAD REPORT ---
EXAMINATION: Hip Right 2 View CLINICAL INDICATION: Male, 64 years old. PAIN RIGHT COMPARISON: No prior exam. FINDINGS: No acute fracture. No malalignment/dislocation. Mild right hip degenerative changes. Other: Vascular stents overlying the right lower pelvis and right lower extremity. IMPRESSION: No acute osseous abnormality.
--- NOTE | 2024-12-03 19:58 | RAD REPORT ---
Extremity Venous Uni Limited CLINICAL INDICATION: Male, 64 years old. Pain Right TECHNIQUE: Complete duplex sonography of the lower extremity veins was performed of the affected limb . The examination included compression for vein patency, color Doppler imaging and flow augmentation in response to distal compression of the distal external iliac, common femoral, femoral, popliteal, peroneal, tibial and great saphenous veins. [id number]. COMPARISON: 04/05/2020 FINDINGS: Duplex sonography imaging demonstrates all deep veins except for the femoral vein examined to be full y compressible with spontaneous, phasic and augmented flow in the affected limb. At the distal femoral vein, there is partially occlusive filling defect and incomplete compressibility consistent w ith DVT. A stone present in the common femoral vein is patent. IMPRESSION: Positive for nonocclusive DVT in the right femoral vein. THIS REPORT CONTAINS FINDINGS THAT MAY BE CRITICAL TO PATIENT CARE. The emergent findings were commun icated to Dr. Bassett on 12/03/2024 7:56 PM.
--- NOTE | 2024-12-03 20:28 | ER ---
Nurse's Notes [facility] Name: New Jordan Age: 64 yrs Sex: Male : 1960 Arrival Date: 12/03/2024 Time: 17:22 Bed 18 Private MD: Diagnosis: Acute embolism and thrombosis of unspecified deep veins of right lower extremity Presentation: 12/03 17:46 Chief complaint: Patient states: R hip pain that radiates into R leg for 3 weeks. No ll1 trauma or falls. Coronavirus screen: Client denies travel out of the [place] in the last 14 days. At this time, the client does not indicate any symptoms associated with coronavirus-19. Ebola Screen: Patient denies travel to an Ebola-affected area in the 21 days before illness onset. Initial Sepsis Screen: Does the patient meet any 2 criteria? No. Patient's initial sepsis screen is negative. Does the patient have a suspected source of infection? No. Patient's initial sepsis screen is negative. Risk Assessment: Do you want to hurt yourself or someone else? Patient reports no desire to harm self or others. Onset of symptoms was November 12, 2024. 17:46 Method Of Arrival: Ambulatory ll1 17:46 Acuity: ANKIT 3 ll1 Triage Assessment: 17:47 General: Appears in no apparent distress. Behavior is calm, cooperative, appropriate ll1 for age. Pain: Complains of pain in R hip Pain radiates to right leg. Musculoskeletal: Reports pain in right leg. Historical: - Allergies: 17:45 IV contrast; ll1 17:45 Mucinex; ll1 - PMHx: 17:45 Bipolar disorder; Depression; Diabetes - IDDM; DVT; High Cholesterol; Hypertension; ll1 quadraple bypass; Schizophrenia; - PSHx: 17:45 AICD; pacemaker; Coronary artery bypass graft; ll1 - Immunization history:: Adult Immunizations up to date. - Infectious Disease History:: Denies. - Social history:: Smoking status: Patient/guardian denies using tobacco. Screenin:55 [facility] ED Fall Risk Assessment (Adult) History of falling in the last 3 months, aa5 including since admission No falls in past 3 months (0 pts) Confusion or Disorientation No (0 pts) Intoxicated or Sedated No (0 pts) Impaired Gait No (0 pts) Mobility Assist Device Used No (0 pt) Altered Elimination No (0 pt) Score/Fall Risk Level 0 - 2 = Low Risk Oriented to surroundings, Maintained a safe environment, Educated pt \T\ family on fall prevention, incl call for assistance when getting out of bed, Assessed \T\ reinforced patient's understanding of fall precautions. Abuse screen: Denies threats or abuse. Nutritional screening: No deficits noted. Tuberculosis screening: No symptoms or risk factors identified. Assessment: 17:55 General: Appears comfortable, Behavior is calm, cooperative. Pain: Complains of pain in aa5 right hip Pain radiates to right leg Pain currently is 7 out of 10 on a pain scale. Quality of pain is described as sharp, shooting, Pain began 3 weeks ago. Neuro: Level of Consciousness is awake, alert, obeys commands, Oriented to person, place, time, situation. Cardiovascular: Patient's skin is warm and dry. Respiratory: Airway is patent Respiratory effort is even, unlabored, Respiratory pattern is regular, symmetrical. GI: No signs and/or symptoms were reported involving the gastrointestinal system. : No signs and/or symptoms were reported regarding the genitourinary system. EENT: No signs and/or symptoms were reported regarding the EENT system. Derm: Skin is dry, Skin is normal, Skin temperature is warm. Musculoskeletal: Reports pain in right hip. Vital Signs: 17:46 BP 94 / 59; Pulse 81; Resp 17; Temp 98; Pulse Ox 96% ; Weight 108.86 kg; Height 5 ft. 8 ll1 in. ; Pain 7/10; 20:47 BP 108 / 64; cp4 20:48 Pulse 84; Resp 16; Pulse Ox 96% ; cp4 17:46 Body Mass Index 36.49 (108.86 kg, 172.72 cm) ll1 17:46 Pain Scale: Adult ll1 ED Course: 17:39 Patient arrived in ED. ll1 17:42 Deshawn Bassett is Attending Physician. ci 17:44 Tiffany Cordova, RN is Primary Nurse. aa5 17:45 Arm band placed on Patient placed in an exam room, on a stretcher. ll1 17:47 Triage completed. ll1 17:55 Patient has correct armband on for positive identification. Bed in low position. Call aa5 light in reach. Side rails up X 1. 18:10 XRAY Hip RIGHT 2 view In Process Unspecified. EDMS 19:00 Report given to BAYRON Horne. aa5 19:13 No provider procedures requiring assistance completed. aa5 19:38 US Extremity Venous Unilateral Ltd In Process Unspecified. EDMS 20:48 Provided Education on: DVT. cp4 20:48 Patient did not have IV access during this emergency room visit. cp4 Administered Medications: 17:58 Drug: Ketorolac IM 15 mg IM once Route: IM; Site: right gluteus; aa5 18:25 Follow up: Response: No adverse reaction aa5 Medication: 17:58 VIS not applicable for this client. aa5 Outcome: 20:28 Discharge ordered by MD. ci 20:48 AMA AMA form signed cp4 20:48 Condition: stable 20:48 Discharge instructions given to patient, Instructed on follow up and referral plans. medication usage, Demonstrated understanding of instructions, medications, Prescriptions given X 1, 20:49 Patient left the ED. cp4 Signatures: Dispatcher [employer] EDME Tiffany Cordova RN RN aa5 Tran Lu RN RN ll1 Coleen Manuel cp4 Deshawn Bassett ci Corrections: (The following items were deleted from the chart) 17:48 17:46 Acuity: ANKIT 4 ll1 ll1 20:46 19:52 BP 182 / 56; Pulse 57bpm; Resp 16bpm; Pulse Ox 100%; cp4 cp4
--- NOTE | 2024-12-03 20:28 | EDPHYS ---
Physician Documentation [facility] Name: New Jordan Age: 64 yrs Sex: Male : 1960 Arrival Date: 12/03/2024 Time: 17:22 Bed 18 Private MD: ED Physician Deshawn Bassett HPI: 12/03 18:11 This 64 yrs old Black Male presents to ER via Ambulatory with complaints of Leg Pain. ci 18:11 Patient is a 64-year-old male with PMH DVT, hypertension, diabetes who presents to the ED with right lower extremity pain that began 3 weeks ago pain is intermittent, sharp, radiates into the posterior thigh, no aggravating or relieving factors. Patient is on aspirin and Plavix, unsure if his open blood thinning medication. He denies any trauma/fall. No fever, swelling to right lower extremity.. Historical: - Allergies: 17:45 IV contrast; ll1 17:45 Mucinex; ll1 - PMHx: 17:45 Bipolar disorder; Depression; Diabetes - IDDM; DVT; High Cholesterol; Hypertension; ll1 quadraple bypass; Schizophrenia; - PSHx: 17:45 AICD; pacemaker; Coronary artery bypass graft; ll1 - Immunization history:: Adult Immunizations up to date. - Infectious Disease History:: Denies. - Social history:: Smoking status: Patient/guardian denies using tobacco. ROS: 19:10 Constitutional: Negative for fever, chills, and weight loss, ci 19:10 Cardiovascular: Negative for chest pain, palpitations, and edema, Respiratory: Negative for shortness of breath, cough, wheezing, and pleuritic chest pain, Abdomen/GI: Negative for abdominal pain, nausea, vomiting, diarrhea, and constipation, Skin: Negative for injury, rash, and discoloration, 19:10 MS/extremity: Positive for pain, tenderness, 19:10 Skin: Exam: 19:10 Constitutional: This is a well developed, well nourished patient who is awake, alert, ci and in no acute distress. Head/Face: Normocephalic, atraumatic. Eyes: Pupils equal round and reactive to light, extra-ocular motions intact. Lids and lashes normal. Conjunctiva and sclera are non-icteric and not injected. Cornea within normal limits. Periorbital areas with no swelling, redness, or edema. ENT: Nares patent. No nasal discharge, no septal abnormalities noted. Tympanic membranes are normal and external auditory canals are clear. Oropharynx with no redness, swelling, or masses, exudates, or evidence of obstruction, uvula midline. Mucous membranes moist. Neck: Trachea midline, no thyromegaly or masses palpated, and no cervical lymphadenopathy. Supple, full range of motion without nuchal rigidity, or vertebral point tenderness. No Meningismus. Chest/axilla: Normal chest wall appearance and motion. Nontender with no deformity. No lesions are appreciated. Cardiovascular: Regular rate and rhythm with a normal S1 and S2. No gallops, murmurs, or rubs. Normal PMI, no JVD. No pulse deficits. Respiratory: Lungs have equal breath sounds bilaterally, clear to auscultation and percussion. No rales, rhonchi or wheezes noted. No increased work of breathing, no retractions or nasal flaring. MS/ Extremity: Pulses equal, no cyanosis. Neurovascular intact. Full, normal range of motion. Right lower extremity compartments soft, DP/PT 2+, sensation to light touch is intact, cap refill less than 2 seconds. Right hip is atraumatic, no reproducible tenderness to palpation. Neuro: Awake and alert, GCS 15, oriented to person, place, time, and situation. Cranial nerves II-XII grossly intact. Motor strength 5/5 in all extremities. Sensory grossly intact. Cerebellar exam normal. Normal gait. Vital Signs: 17:46 BP 94 / 59; Pulse 81; Resp 17; Temp 98; Pulse Ox 96% ; Weight 108.86 kg; Height 5 ft. 8 ll1 in. ; Pain 7/10; 20:47 BP 108 / 64; cp4 20:48 Pulse 84; Resp 16; Pulse Ox 96% ; cp4 17:46 Body Mass Index 36.49 (108.86 kg, 172.72 cm) ll1 17:46 Pain Scale: Adult ll1 MDM: 17:42 Medical Screening Exam initiated ci 19:10 Differential diagnosis: closed fracture, contusion, tendonitis, DVT, osteoarthritis, ci sciatica. Data reviewed: vital signs, nurses notes. ED course: Will obtain x-ray right hip, DVT ultrasound study given history of previous DVT. Patient was given Toradol for pain. Suspicion for OA versus sciatica. Plan for discharge with Medrol Dosepak referral to Ortho.. 20:27 ED course: Discussed admission with patient and he declines to be admitted. Will start ci on Eliquis and have him follow-up with his primary care doctor and PCP for medication adjustment.. 12/03 17:51 Order name: XRAY Hip RIGHT 2 view; Complete Time: 18:46 ci 12/03 19:13 Interpretation: No acute disease. ci 12/03 18:16 Order name: Extremity Venous Unilateral Ltd; Complete Time: 20:02 ci 12/03 19:56 Interpretation: Abnormal: Chronic DVT. ci Administered Medications: 17:58 Drug: Ketorolac IM 15 mg IM once Route: IM; Site: right gluteus; aa5 18:25 Follow up: Response: No adverse reaction aa5 Disposition Summary: 12/03/24 20:30 Left Against Medical Advice Notes: Location: Home(12/03/24 20:30) ci Problem: new ci Symptoms: are unchanged ci Condition: Stable(12/03/24 20:30) ci Diagnosis - Acute embolism and thrombosis of unspecified deep veins of right lower ci extremity(12/03/24 20:30) Followup: ci - With: Private Physician - When: 1 - 2 days - Reason: Recheck today's complaints, Re-evaluation by your physician Discharge Instructions: - Discharge Summary Sheet ci - Deep Vein Thrombosis ci - Bleeding Precautions When on Anticoagulant Therapy, Adult ci Prescriptions: - Eliquis DVT-PE Treat 30D Start 5 mg (74 tabs) Oral Tablet, Dose Pack - take 1 tablet ORAL route once; 74 tablet; Refills: 0, Product Selection ci Permitted Signatures: Dispatcher [facility] EDKS Tiffany Cordova RN RN aa5 Tran Lu RN RN ll1 Coleen Manuel cp4 Deshawn Bassett ci Corrections: (The following items were deleted from the chart) 18:47 18:11 Patient is a 64-year-old male with PMH DVT, hypertension, diabetes who presents ci to the ED with right lower extremity pain that began 3 weeks ago pain is intermittent, sharp, radiates into the posterior thigh, no aggravating or relieving factors.. ci 20:29 20:28 Home ci ci 20:29 20:28 Stable ci ci 20:29 20:28 Acute embolism and thrombosis of unspecified deep veins of right lower extremity ci ci
== END 2024-12-03 20:49 | disposition left against medical advice (07) ==
LOC: ER 17:22
DX: I82.401 Acute embolism and thrombosis of unspecified deep veins of right lower extremity (principal); Z86.718 Personal history of other venous thrombosis and embolism; Z95.1 Presence of aortocoronary bypass graft; Z95.810 Presence of automatic (implantable) cardiac defibrillator
CPT/HCPCS: 93971; 96372; 99284

== ENCOUNTER 2025-06-05 09:39 | Inpatient (IN) | payer MEDICARE ==
[2025-06-05 10:18] LABS: Absolute Lymphocytes (CBC) 0.9 K/uL (0.7-4.9); Hematocrit 48.8 % (39.6-49.0); Hemoglobin 16.4 g/dL (13.6-17.9); MCH 31.3 pg (27.0-35.0); MCHC 33.5 g/dL (32.0-36.0); MCV 93.3 fL (80-100); MPV 9.1 fL (7.6-11.3); Nucleated RBC Absolute Count 0.0 (0-0); Nucleated Red Blood Cells % 0.1 % (0-0); RBC Red Blood Cell Count 5.23 M/uL (4.33-5.43); White Blood Count 4.10 thou/uL (4.3-10.9)
[2025-06-05 10:25] LABS: PT Prothrombin Time 13.2 SECONDS (10-13.0); Protime INR 1.17
[2025-06-05 10:39] LABS: ALT/SGPT 18 U/L (16-61); AST/SGOT 14 U/L (15-37); Albumin 3.5 g/dL (3.4-5.0); Albumin/Globulin Ratio 0.8 (1.1-1.8); Alkaline Phosphatase 86 U/L (45-117); Anion Gap 11.1 mEq/L (5.0-15.0); BUN Blood Urea Nitrogen 26 mg/dL (7-18); Bilirubin Indirect, Calculated 0.2 mg/dL (0.2-0.8); Globulin 4.6 g/dL (2.3-3.5); Glucose Level 190 mg/dL (74-106); Magnesium 1.9 mg/dL (1.6-2.4); NT PRO-BNP 3308 pg/mL (<125); Potassium 4.1 mEq/L (3.5-5.1)
[2025-06-05 10:41] LABS: Troponin High Sensitivity 769.9 pg/mL (<58.9)
--- NOTE | 2025-06-05 11:09 | RAD REPORT ---
Procedure: Chest Single View HISTORY: Chest pain COMPARISON: January 2025 FINDINGS: The lungs appear clear of acute infiltrate. Calcified granuloma left lung. No significant pleural effusion noted. The heart is moderately enlarged. AICD in place. IMPRESSION: No acute abnormality is displayed.
--- NOTE | 2025-06-05 11:18 | ER ---
Nurse's Notes [facility] Name: New Jordan Age: 64 yrs Sex: Male : 1960 Arrival Date: 06/05/2025 Time: 09:39 Bed 4 Private MD: Diagnosis: Subsequent non-ST elevation (NSTEMI) myocardial infarction Presentation: 06/05 10:01 Chief complaint: Patient states: was sent from [facility] [place] for left arm numbness since iw last night, EKG was abnormal, pt has significant cardiac hx. Coronavirus screen: At this time, the client does not indicate any symptoms associated with coronavirus-19. Risk Assessment: Do you want to hurt yourself or someone else? Patient reports no desire to harm self or others. 10:01 Method Of Arrival: Ambulatory iw 10:01 Acuity: ANKIT 2 iw 10:03 Ebola Screen: No symptoms or risks identified at this time. Initial Sepsis Screen: Does iw the patient meet any 2 criteria? No. Patient's initial sepsis screen is negative. Does the patient have a suspected source of infection? No. Patient's initial sepsis screen is negative. Onset of symptoms was June 04, 2025. Historical: - Allergies: 10:05 Mucinex; iw - PMHx: 10:05 Depression; Bipolar disorder; Diabetes - IDDM; DVT; High Cholesterol; Hypertension; iw Myocardial infarction; quadraple bypass; Schizophrenia; - PSHx: 10:05 Coronary artery bypass graft; AICD; pacemaker; iw - Immunization history:: Adult Immunizations not up to date. - Infectious Disease History:: Denies. - Social history:: Smoking status: Patient denies any tobacco usage or history of. Screenin:00 [facility] ED Fall Risk Assessment (Adult) History of falling in the last 3 months, nh2 including since admission No falls in past 3 months (0 pts) Confusion or Disorientation No (0 pts) Intoxicated or Sedated No (0 pts) Impaired Gait No (0 pts) Mobility Assist Device Used No (0 pt) Altered Elimination No (0 pt) Score/Fall Risk Level 0 - 2 = Low Risk Oriented to surroundings, Maintained a safe environment, Educated pt \T\ family on fall prevention, incl call for assistance when getting out of bed. Abuse screen: Denies threats or abuse. Denies injuries from another. Nutritional screening: No deficits noted. Tuberculosis screening: No symptoms or risk factors identified. Assessment: 10:00 General: Appears in no apparent distress. Behavior is calm, cooperative, appropriate nh2 for age. Pain: Denies pain. Neuro: Level of Consciousness is awake, alert, obeys commands, Oriented to person, place, time, situation, Appropriate for age Reports numbness in left arm since this morning. Cardiovascular: Patient's skin is warm and dry. Rhythm is sinus rhythm w pair PVCs. Respiratory: Airway is patent Trachea midline Respiratory effort is even, unlabored, Respiratory pattern is regular, symmetrical, Breath sounds are clear bilaterally. Denies cough, shortness of breath. GI: Abdomen is round non-distended, Patient currently denies nausea, vomiting. : No signs and/or symptoms were reported regarding the genitourinary system. Denies burning with urination. EENT: No signs and/or symptoms were reported regarding the EENT system. Derm: Skin is intact, Skin is normal. Musculoskeletal: Circulation, motion, and sensation intact. Range of motion: intact in all extremities. 11:00 Reassessment: Patient and/or family updated on plan of care and expected duration. Pain nh2 level reassessed. Patient is alert, oriented x 3, equal unlabored respirations, skin warm/dry/pink. Patient denies pain at this time. 12:00 Reassessment: Patient and/or family updated on plan of care and expected duration. Pain nh2 level reassessed. Patient is alert, oriented x 3, equal unlabored respirations, skin warm/dry/pink. Patient denies pain at this time. 13:00 Reassessment: Patient and/or family updated on plan of care and expected duration. Pain nh2 level reassessed. Patient is alert, oriented x 3, equal unlabored respirations, skin warm/dry/pink. Vital Signs: 10:06 BP 122 / 65; Pulse 74; Resp 16; Pulse Ox 100% on R/A; Weight 100.7 kg; Height 5 ft. 8 iw in. ; Pain 0/10; 12:00 BP 114 / 68; Pulse 70; Resp 18; Pulse Ox 100% on R/A; nh2 13:00 BP 112 / 84; Pulse 72; Resp 18; Temp 97.8; Pulse Ox 100% ; nh2 10:06 Body Mass Index 33.75 (100.70 kg, 172.72 cm) iw 10:06 Pain Scale: Adult iw ED Course: 09:45 Patient arrived in ED. cj3 09:47 [facility] sb4 09:47 Sina Almeida MD is Attending Physician. sb4 09:57 Fly Wharton Jr, RN is Primary Nurse. nh2 10:00 Patient has correct armband on for positive identification. Bed in low position. Call nh2 light in reach. Side rails up X 1. Provided Education on: using call light for assistance. 10:00 Initial lab(s) drawn, by me, sent to lab. Inserted saline lock: 22 gauge in right nh2 forearm, using aseptic technique. Blood collected. Flushed with 10 mL NS. 10:03 Triage completed. iw 10:05 Arm band placed on. iw 10:18 No provider procedures requiring assistance completed. nh2 10:40 XRAY Chest (1 view) In Process Unspecified. EDMS 11:17 Amadou Soto MD is Hospitalizing Provider. sb4 11:17 Hospitalizing Provider role handed off by Amadou oSto MD sb4 11:17 Curt Soto MD is Hospitalizing Provider. sb4 13:28 Patient admitted, IV remains in place. cm10 Administered Medications: 12:03 Drug: Ondansetron IVP 4 mg IVP once; over 2 minutes Route: IVP; Site: right forearm; nh2 12:30 Follow up: Response: No adverse reaction; Nausea is decreased nh2 Medication: 10:18 VIS not applicable for this client. nh2 Outcome: 11:18 Decision to Hospitalize by Provider. sb4 13:27 Admitted to Tele accompanied by tech, via wheelchair, room 420, cm10 13:27 Condition: stable 13:27 Instructed on the need for admit, 13:28 Patient left the ED. cm10 Signatures: Dispatcher [employer] EDMS Samara Garcia RN RN iw Isi aCrbajal PA-C PA-C sb4 Mari Logan RN RN cm10 Fly Wharton Jr, BAYRON RN nh2 Payton Mendoza cj3 Corrections: (The following items were deleted from the chart) 12:20 10:05 Allergies: IV contrast; iw iw 13:13 10:00 Neuro: Level of Consciousness is awake, alert, obeys commands, Oriented to nh2 person, place, time, situation, Appropriate for age Reports weakness in left arm since this morning nh2
--- NOTE | 2025-06-05 11:18 | EDPHYS ---
Physician Documentation [facility] Name: New Joradn Age: 64 yrs Sex: Male : 1960 Arrival Date: 06/05/2025 Time: 09:39 Bed 4 Private MD: ED Physician Sina Almeida HPI: 06/05 09:56 This 64 yrs old Black Male presents to ER via Unassigned with complaints of Abnormal sb4 Lab Results - EKG, Numbness Of Arm - LT. 10:03 Patient reports left arm numbness since last night. He states that he went to bed sb4 thinking it would be gone when he woke up, but it was still present. He went to urgent care this morning for evaluation, had an EKG done, and was sent here for further eval. He denies any chest pain or shortness of breath, only the left arm numbness. Does report a significant cardiac history including TAVR 1 month ago, CABG, pacemaker, congestive heart failure. Historical: - Allergies: 10:05 Mucinex; iw - PMHx: 10:05 Depression; Bipolar disorder; Diabetes - IDDM; DVT; High Cholesterol; Hypertension; iw Myocardial infarction; quadraple bypass; Schizophrenia; - PSHx: 10:05 Coronary artery bypass graft; AICD; pacemaker; iw - Immunization history:: Adult Immunizations not up to date. - Infectious Disease History:: Denies. - Social history:: Smoking status: Patient denies any tobacco usage or history of. ROS: 10:03 Constitutional: Negative for fever, chills, and weight loss, sb4 10:03 Neuro: Positive for numbness, of the left arm, 10:03 All other systems are negative, Exam: 09:59 ECG was reviewed by the Attending Physician. sb4 10:03 Constitutional: This is a well developed, well nourished patient who is awake, alert, sb4 and in no acute distress. Head/Face: Normocephalic, atraumatic. Eyes: Extra-ocular motions intact. Periorbital areas with no swelling, redness, or edema. ENT: Mucous membranes moist. Respiratory: No increased work of breathing, no retractions or nasal flaring. Abdomen/GI: Soft, non-tender, no distension. Skin: Warm, dry with normal turgor. Normal color with no rashes, no lesions, and no evidence of cellulitis. 10:03 Cardiovascular: Rate: normal, Rhythm: irregular, Vital Signs: 10:06 BP 122 / 65; Pulse 74; Resp 16; Pulse Ox 100% on R/A; Weight 100.7 kg; Height 5 ft. 8 iw in. ; Pain 0/10; 12:00 BP 114 / 68; Pulse 70; Resp 18; Pulse Ox 100% on R/A; nh2 13:00 BP 112 / 84; Pulse 72; Resp 18; Temp 97.8; Pulse Ox 100% ; nh2 10:06 Body Mass Index 33.75 (100.70 kg, 172.72 cm) iw 10:06 Pain Scale: Adult iw MDM: 09:47 Medical Screening Exam initiated sb4 11:18 Differential diagnosis: ACS, electrolyte abnormality. Data reviewed: vital signs, sb4 nurses notes, lab test result(s), EKG, radiologic studies, I have discussed the patient's presentation/case with the attending Emergency Department Physician; and as a result, I will admit patient. Consideration of Admission/Observation Patient was admitted/placed on observation. Management of patient was discussed with the following: Advertisement Compositor: Dr. Nieves, agrees to consult - ok to keep here. Historians other than the Patient: Spouse/Significant Other: . Care significantly affected by the following chronic conditions: Diabetes, Hypertension, Congestive Heart Failure. Counseling: I had a detailed discussion with the patient and/or guardian regarding the historical points, exam findings, and any diagnostic results supporting the discharge/admit diagnosis, lab results, radiology results, the need for further work-up and treatment in the hospital. 06/05 09:51 Order name: Basic Metabolic Panel; Complete Time: 10:42 sb4 06/05 09:51 Order name: CBC with Diff; Complete Time: 10:31 sb4 06/05 09:51 Order name: LFT's; Complete Time: 10:42 sb4 06/05 09:51 Order name: Magnesium; Complete Time: 10:42 sb4 06/05 09:51 Order name: NT PRO-BNP; Complete Time: 10:42 sb4 06/05 09:51 Order name: PT-INR; Complete Time: 10:26 sb4 06/05 09:51 Order name: Troponin HS; Complete Time: 10:42 sb4 06/05 12:00 Order name: CBC with Automated Diff EDMS 06/05 12:00 Order name: CBC with Automated Diff EDMS 06/05 12:00 Order name: Comprehensive Metabolic Panel EDMS 06/05 12:00 Order name: Comprehensive Metabolic Panel EDMS 06/05 12:00 Order name: Troponin High Sensitivity EDMS 06/05 12:00 Order name: Troponin High Sensitivity EDMS 06/05 09:51 Order name: XRAY Chest (1 view); Complete Time: 11:10 sb4 06/05 12:39 Order name: CT; Complete Time: 12:40 EDMS 06/05 13:01 Order name: CT; Complete Time: 13:03 EDMS 06/05 13:01 Order name: CT; Complete Time: 13:03 EDMS 06/05 12:00 Order name: CONS Physician Consult EDMS 06/05 09:51 Order name: Cardiac monitoring; Complete Time: 09:58 sb4 06/05 09:51 Order name: EKG - Nurse/Tech; Complete Time: 09:58 sb4 06/05 09:51 Order name: IV Saline Lock; Complete Time: 10:13 sb4 06/05 09:51 Order name: Labs collected and sent; Complete Time: 10:13 sb4 06/05 09:51 Order name: O2 Per Protocol; Complete Time: 09:58 sb4 06/05 09:51 Order name: O2 Sat Monitoring; Complete Time: 09:58 sb4 EC:59 Rate is 75 beats/min. Rhythm is irregular, Paced with Unifocal PVCs. QRS interval is sb4 normal at 194 msec. QT interval is prolonged at 502 msec. Interpreted by me. Reviewed by me. Administered Medications: 12:03 Drug: Ondansetron IVP 4 mg IVP once; over 2 minutes Route: IVP; Site: right forearm; nh2 12:30 Follow up: Response: No adverse reaction; Nausea is decreased nh2 Disposition Summary: 06/05/25 11:18 Hospitalization Ordered Notes: Hospitalization Status: Observation sb4 Provider: Curt Soto4 Location: Telemetry/MedSurg (observation) sb4 Condition: Fair sb4 Problem: new sb4 Symptoms: are unchanged sb4 Bed/Room Type: Standard sb4 Room Assignment: [facility](06/05/25 12:32) eb Diagnosis - Subsequent non-ST elevation (NSTEMI) myocardial infarction sb4 Forms: - Medication Reconciliation Form sb4 - SBAR form sb4 - Leadership Thank You Letter sb4 Signatures: Dispatcher [employer] Samara Pereyra, BAYRON RN iw Lizeth Bailey Sophia, PAMadeleineC PAKim sb4 Fly Wharton Jr, RN RN nh2 Corrections: (The following items were deleted from the chart) 09:52 09:52 BASIC METABOLIC PANEL+C.LAB.BRZ ordered. EDMS EDMS 09:52 09:52 CBC+H.LAB.BRZ ordered. EDMS EDMS 09:52 09:52 HEPATIC FUNCTION+C.LAB.BRZ ordered. EDMS EDMS 09:52 09:52 MAGNESIUM+C.LAB.BRZ ordered. EDMS EDMS 09:52 09:52 PROBNP+C.LAB.BRZ ordered. EDMS EDMS 09:52 09:52 PROTIME (+INR)+COAG.LAB.BRZ ordered. EDMS EDMS 09:52 09:52 Troponin High Sensitivity+C.LAB.BRZ ordered. EDMS EDMS 09:52 09:52 Chest Single View+RAD.RAD.BRZ ordered. EDMS EDMS 11:36 11:36 Head Brain Wo Cont+CT.RAD.BRZ ordered. EDMS EDMS 11:36 11:36 Head Angio+CT.RAD.BRZ ordered. EDMS EDMS 11:36 11:36 Neck Angio+CT.RAD.BRZ ordered. EDMS EDMS 12:20 10:05 Allergies: IV contrast; iw iw 12:32 11:18 sb4 eb
[2025-06-05] MEDS ORDERED: GLUCAGON 1 MG/VIAL IM PRN (11:59)
[2025-06-05] MEDS ORDERED: D10W 125 ML IV PRN (11:59)
[2025-06-05] MEDS: LOSARTAN POTASSIUM 50 MG TABLET PO SCH (12:00)
[2025-06-05] MEDS ORDERED: ONDANSETRON 4 MG/2 ML VIAL ONE (12:00)
--- NOTE | 2025-06-05 12:00 | P.HP ---
Patient History Date of Service: 06/05/25 Reason for admission: Numbness of the left arm non-STEMI History of Present Illness: Patient is 64 years of age multiple medical problems admitted with sudden onset of numbness of the left arm below his left elbow that persisted which started at 11 PM there is been no change denies any other weakness or neurological issues denies any chest pain was also admitted with non-STEMI Allergies guaifenesin [From Robitussin] Allergy (Verified 10/24/22 21:23) Itching/Hives/Rash Home Medications: Fluoxetine HCl [Prozac] 40 mg PO DAILY 09/09/18 Rosuvastatin Calcium 40 mg PO BEDTIME 09/09/18 Solifenacin Succinate [Vesicare] 10 mg PO DAILY 09/09/18 Aspirin [Lo-Dose Aspirin EC] 1 tab PO DAILY 02/23/20 Clopidogrel Bisulfate [Plavix*] 75 mg PO DAILY 02/23/20 Gabapentin 600 mg PO BID 05/23/24 Glipizide [Glipizide ER] 1 tab PO DAILY 05/23/24 Insulin Glargine,Hum.rec.anlog [Toujeo Solostar] 39 unit SQ BID 05/23/24 Losartan Potassium 25 mg PO DAILY 05/23/24 Amox/Clavulanate [Augmentin 875-125 Tab] 875 mg PO BID 4 Days #8 tab 05/26/24 Prasugrel Hydrochloride [Effient*] 10 mg PO DAILY #30 tab 05/26/24 - Past Medical/Surgical History Diabetic: Yes -: CAD -: IDDM -: HTN -: DVT -: Dyslipidemia -: Bipolar -: Depression -: HLD -: Schizophrenia -: UTI -: NEUROPATHY -: QUADRUPLE BYPASS/CABG -: IVC filter -: CABG -: Cardiac stents -: TAVR - Family History parents -: Other (see notes) Notes: none - Social History Alcohol use: No CD- Drugs: No Caffeine use: No Review of Systems 10-point ROS is otherwise unremarkable Physical Examination - Vital Signs Temperature: 97.6 F Blood Pressure: 170/78 Pulse: 84 Respirations: 18 Pulse Ox (%): 97 - Physical Exam General: Alert, Oriented x3 HEENT: Atraumatic Neck: Supple Respiratory: Clear to auscultation bilaterally Cardiovascular: No edema, Regular rate/rhythm, Normal S1 S2 Gastrointestinal: Normal bowel sounds, Soft and benign Musculoskeletal: No clubbing, No swelling Neurological: Normal speech, Normal strength at 5/5 x4 extr, Cranial nerves 3-12 intact - Studies Laboratory Data (last 24 hrs) 06/05/25 06/05/25 06/05/25 10:11 10:11 10:11 WBC 4.10 L Hgb 16.4 Hct 48.8 Plt Count 152 PT 13.2 H INR 1.17 Sodium 137 Potassium 4.1 BUN 26 H Creatinine 1.52 H Glucose 190 H Magnesium 1.9 Total Bilirubin 0.4 AST 14 L ALT 18 Alkaline Phosphatase 86 Assessment and Plan - Problems (Diagnosis) (1) Non-STEMI (non-ST elevated myocardial infarction) Current Visit: Yes Status: Acute Plan: Patient is 64 years of age admitted with non-STEMI denies any chest pain shortness of breath chest x-ray shows cardiomegaly he has had a CABG before and recently had a TAVR also has a pacemaker plan to admit observe anticoagulate with Lovenox for now cardiology consult (2) Numbness and tingling in left hand Current Visit: Yes Status: Acute Plan: Patient developed numbness of the left hand below his left elbow has any weakness of his extremities no other neurological symptoms plan to rule out a stroke patient is on Plavix - Advance Directives Does patient have a Living Will: No Does patient have a Durable POA for Healthcare: No
--- NOTE | 2025-06-05 12:39 | RAD REPORT ---
EXAM: CT brain without contrast HISTORY: Left numbness COMPARISON: 2019 TECHNIQUE: Multiple contiguous axial images were obtained and a CT of the brain without contrast.. Sagittal and coronal reconstruction performed. Automated exposure control, adjustment of the mA and/or kV according to patient size, and/or iterative reconstruction. Unless otherwise specified, incidental f indings do not require dedicated imaging follow-up FINDINGS: An intracranial bleed is not seen Ventricles are normal caliber No extra-axial fluid collection noted No significant hypodensity within the brain No fluid within the visualized sinuses or mastoids noted. IMPRESSION: No acute intracranial abnormality noted. If the patient continues to have symptoms to suggest an acute intracranial abnormality then MRI of th e brain would be recommended.
[2025-06-05] MEDS ORDERED: D50W 25 GM/50 ML SYRINGE IV PRN (13:00)
--- NOTE | 2025-06-05 13:00 | RAD REPORT ---
EXAMINATION: Neck Angio CLINICAL INDICATION: Left numbness TECHNIQUE: Axial CT images were obtained from the aortic arch to the skull base after intravenous adm inistration of 100 cc Isovue-370 utilizing angiographic protocol. Multiplanar reformats, as well as 3D post-processing (maximum intensity projection images, volume rendered images and/or shaded surface rendered images) were generated and reviewed. One or more of the following dose reduction techniques were used: Automated exposure control, adjustment of the mA and/or kV according to patient size, and/or iterative reconstruction. Unless otherwise specified, incidental findings do not require dedicated imaging follow-up. COMPARISON: No prior exam. FINDINGS: The visualized aortic arch and great vessels do not demonstrate a significant abnormality Calcified plaque left carotid bulb/proximal left internal carotid artery results in mild stenosis. Left common carotid and left external carotid arteries unremarkable Left vertebral artery unremarkable Mild plaque left common carotid artery. Left external carotid artery unremarkable. Mild plaque left internal carotid artery Most of the proximal and mid right vertebral artery are occluded. Calcified plaque distal right verte bral artery results in high-grade stenosis. Additional portions of the distal right vertebral artery are narrowed. Methods for NASCET criteria: Mild stenosis, 0% to 49%; Moderate stenosis 50% to 69%; Severe stenosis, 70% to 99% IMPRESSION: Occlusion of most of the proximal and mid right vertebral artery with area of marked narrowing distal right vertebral artery. Age of the occlusion is indeterminate but it probably is chronic.
--- NOTE | 2025-06-05 13:01 | RAD REPORT ---
EXAMINATION: CTA HEAD CLINICAL INDICATION: Left numbness TECHNIQUE: Axial CT images were obtained through the head after 100 cc Isovue-370 intravenous contras t utilizing angiographic protocol with 3D post-processing (maximum intensity projection images, volume rendered images and/or shaded surface rendered images). One or more of the following dose red uction techniques were used: Automated exposure control, adjustment of the mA and/or kV according to patient size, and/or iterative reconstruction. Unless otherwise specified, incidental findings do not require dedicated imaging follow-up. COMPARISON: None FINDINGS: Calcified plaque distal right internal carotid artery results in a moderate stenosis. Calcified plaque distal left internal carotid artery results in a severe stenosis The basilar, anterior cerebral, middle cerebral and posterior cerebral arteries do not demonstrate a significant stenosis An aneurysm not noted. No large vessel occlusion IMPRESSION: Calcified plaque distal left internal carotid artery results in a severe stenosis
[2025-06-05 14:01] VITALS: BMI 33.7
[2025-06-05] MEDS: ASPIRIN EC 81 MG TAB PO SCH (14:24)
[2025-06-05] MEDS: INSULIN REGULAR (HUMAN) 100 UNIT/ML SQ SCH (15:48)
[2025-06-05] MEDS: ROSUVASTATIN 10 MG TAB PO SCH (20:36)
[2025-06-05] MEDS: SACUBITRIL/VALSARTAN 24/26 MG TAB PO SCH (22:06)
[2025-06-05 22:44] VITALS: O2SAT 94
[2025-06-06 05:22] LABS: Absolute Lymphocytes (CBC) 1.1 K/uL (0.7-4.9); Hematocrit 45.3 % (39.6-49.0); Hemoglobin 15.1 g/dL (13.6-17.9); MCH 30.9 pg (27.0-35.0); MCHC 33.3 g/dL (32.0-36.0); MCV 92.8 fL (80-100); MPV 9.6 fL (7.6-11.3); Nucleated RBC Absolute Count 0.0 (0-0); Nucleated Red Blood Cells % 0.1 % (0-0); RBC Red Blood Cell Count 4.88 M/uL (4.33-5.43); White Blood Count 3.90 thou/uL (4.3-10.9)
[2025-06-06 05:41] LABS: ALT/SGPT 15.0 U/L (16-61); AST/SGOT 11.0 U/L (15-37); Albumin 2.9 g/dL (3.4-5.0); Albumin/Globulin Ratio 0.7 (1.1-1.8); Alkaline Phosphatase 77.0 U/L (45-117); Anion Gap 11.3 mEq/L (5.0-15.0); BUN Blood Urea Nitrogen 21.0 mg/dL (7-18); Globulin 4.0 g/dL (2.3-3.5); Glucose Level 104.0 mg/dL (74-106); HDL Cholesterol 55.0 mg/dL (40-60); LDL Cholesterol, Calculated 90.0 mg/dL (<130); LDL Cholesterol,Calc NonReport 90.0; Potassium 4.3 mEq/L (3.5-5.1)
[2025-06-06 05:44] LABS: Troponin High Sensitivity 699.6 pg/mL (<58.9)
[2025-06-06] MEDS: FLUOXETINE 20 MG CAP PO SCH (08:01)
[2025-06-06] MEDS: GLIPIZIDE S.A. 5 MG TAB PO SCH (08:01)
[2025-06-06] MEDS: OXYBUTYNIN ER 5 MG TAB PO SCH (08:07)
[2025-06-06 08:22] VITALS: BP 99/57; TEMP 98.3
[2025-06-06] MEDS: ENOXAPARIN 100 MG/ML SYR SQ SCH (08:51)
[2025-06-06] MEDS ORDERED: PRASUGREL (EFFIENT) 10 MG TAB PO SCH (09:00)
[2025-06-06] MEDS ORDERED: SOLIFENACIN SUCCIN 5 MG TAB PO SCH (09:00)
[2025-06-06] MEDS ORDERED: CLOPIDOGREL 75 MG TABLET PO SCH (09:00)
--- NOTE | 2025-06-06 10:08 | P.CNS ---
Date of Consult: 06/06/25 Chief Complaint: Numbness of the left arm non-STEMI History of Present Illness: Patient with PMH of CAD s/p CABG, only patent KIM-LAD, CHRISTOPHER, heart failure preserved EF, presented with left arm numbness, denies chest pain, no palpitations, no syncope, no breathing problems. Allergies guaifenesin [From Robitussin] Allergy (Verified 06/05/25 13:44) Itching/Hives/Rash Home medications list reviewed: Yes Home Medications: Fluoxetine HCl [Prozac] 40 mg PO DAILY 09/09/18 Rosuvastatin Calcium 40 mg PO BEDTIME 09/09/18 Solifenacin Succinate [Vesicare] 10 mg PO DAILY 09/09/18 Aspirin [Lo-Dose Aspirin EC] 1 tab PO DAILY 02/23/20 Clopidogrel Bisulfate [Plavix*] 75 mg PO DAILY 02/23/20 Glipizide [Glipizide ER] 1 tab PO DAILY 05/23/24 Prasugrel Hydrochloride [Effient*] 10 mg PO DAILY #30 tab 05/26/24 Albuterol Inhaler [Ventolin Inhaler*] 2 puff IH Q8HP 06/05/25 Sacubitril/Valsartan [Entresto 24 mg-26 mg Tablet] 1 tab PO BID 06/05/25 - Past Medical/Surgical History Diabetic: Yes -: CAD -: IDDM -: HTN -: DVT -: Dyslipidemia -: Bipolar -: Depression -: HLD -: Schizophrenia -: UTI -: NEUROPATHY -: QUADRUPLE BYPASS/CABG -: IVC filter -: CABG -: Cardiac stents x 10 -: TAVR - Family History parents Medical History: Other (see notes) Notes: none - Social History Smoking Status: Never smoker Alcohol use: No CD- Drugs: No Caffeine use: Yes Place of Residence: Home Review of Systems 10-point ROS is otherwise unremarkable Physical Examination Temp Pulse Resp BP Pulse Ox 98.3 F 71 18 99/57 L 96 06/06/25 08:00 06/06/25 08:00 06/06/25 08:00 06/06/25 08:00 06/06/25 08:00 General: Alert, In no apparent distress HEENT: Atraumatic, PERRLA, Mucous membr. moist/pink, EOMI, Sclerae nonicteric Neck: Supple, 2+ carotid pulse no bruit, No LAD, Without JVD or thyroid abnormality Respiratory: Clear to auscultation bilaterally, Normal air movement Cardiovascular: Regular rate/rhythm, Normal S1 S2 Gastrointestinal: Normal bowel sounds, No tenderness Musculoskeletal: No tenderness Integumentary: No rashes Neurological: Normal gait, Normal speech, Normal tone, Normal affect Lymphatics: No axilla or inguinal lymphadenopathy Laboratory Data (last 24 hrs) 06/05/25 06/05/25 06/05/25 10:11 10:11 10:11 WBC 4.10 L Hgb 16.4 Hct 48.8 Plt Count 152 PT 13.2 H INR 1.17 Sodium 137 Potassium 4.1 BUN 26 H Creatinine 1.52 H Glucose 190 H Magnesium 1.9 Total Bilirubin 0.4 AST 14 L ALT 18 Alkaline Phosphatase 86 - Problems (1) CAD (coronary artery disease) of artery bypass graft Current Visit: Yes Status: Acute Plan: Patient with history of complex CAD, CABG with only patent KIM-LAD, LCX multiple stents with severe ISR, RCA PSYCHOLOGIST COUNSELING, BOTH not amenable for intervention, patient with chronic troponin elevation continue ASA continue Plavix 75 mg daily continue Lipitor 40 mg daily (2) History of transcatheter aortic valve implantation (CHRISTOPHER) Current Visit: Yes Status: Acute Plan: Outpatient follow up with cardiology for updated echo (3) Pacemaker Current Visit: No Status: Acute Plan: patient is currently paced, outpatient follow up with cardiology for device check. (4) Carotid artery disease Current Visit: Yes Status: Acute Plan: Calcified plaque distal left internal carotid artery results in a severe stenosis per CT head and neck outpatient follow up with cardiology for further evaluation continue ASA and Plavix (5) Chronic combined systolic (congestive) and diastolic (congestive) heart failure Current Visit: Yes Status: Acute Plan: severe reduced LV systolic function, ischemic in nature. patient to resume home dose entresto on discharge.
--- NOTE | 2025-06-06 10:22 | P.DS ---
Admission Date: 06/05/25 Discharge Date: 06/06/25 Disposition: ROUTINE DISCHARGE Discharge Condition: FAIR Reason for Admission: Numbness of the left arm non-STEMI - Problems (1) Non-STEMI (non-ST elevated myocardial infarction) Current Visit: Yes Status: Acute (2) Numbness and tingling in left hand Current Visit: Yes Status: Acute Brief History of Present Illness: Patient is 64 years of age multiple medical problems admitted with sudden onset of numbness of the left arm below his left elbow that persisted which started at 11 PM there is been no change denies any other weakness or neurological issues denies any chest pain was also admitted with non-STEMI Hospital Course: Patient is 64 years of age admitted with left arm numbness there is no evidence of stroke he does however has vertebral artery and carotid artery stenosis discussed with Dr. Fowler he also had a non-STEMI although he did not complain of any chest pain or shortness of breath at the time of discharge alert oriented responsive denies any chest pain shortness of breath numbness in the left arm persists possible underlying carpal tunnel syndrome he is to follow-up with Dr. Fowler next week patient has mild chronic renal insufficiency at the time of discharge alert oriented responsive cooperative chest clear cardiovascular system heart sounds normal no change in home medications to resume all his home medications Vital Signs/Physical Exam: Temp Pulse Resp BP Pulse Ox 98.3 F 71 18 99/57 L 96 06/06/25 08:00 06/06/25 08:00 06/06/25 08:00 06/06/25 08:00 06/06/25 08:00 Laboratory Data at Discharge: WBC 3.90 thou/uL (4.3-10.9) L 06/06/25 04:27 Hgb 15.1 g/dL (13.6-17.9) 06/06/25 04:27 Hct 45.3 % (39.6-49.0) 06/06/25 04:27 Plt Count 139 thou/uL (152-406) L 06/06/25 04:27 PT 13.2 SECONDS (10-13.0) H 06/05/25 10:11 INR 1.17 06/05/25 10:11 Sodium 138 mEq/L (136-145) 06/06/25 04:27 Potassium 4.3 mEq/L (3.5-5.1) 06/06/25 04:27 BUN 21 mg/dL (7-18) H 06/06/25 04:27 Creatinine 1.32 mg/dL (0.70-1.30) H 06/06/25 04:27 Glucose 104 mg/dL (74-106) 06/06/25 04:27 Magnesium 1.9 mg/dL (1.6-2.4) 06/05/25 10:11 Total Bilirubin 0.4 mg/dL (0.2-1.0) 06/06/25 04:27 AST 11 U/L (15-37) L 06/06/25 04:27 ALT 15 U/L (16-61) L 06/06/25 04:27 Alkaline Phosphatase 77 U/L (45-117) 06/06/25 04:27 Triglycerides 85 mg/dL (<150) 06/06/25 04:27 Cholesterol 162 mg/dL (<200) 06/06/25 04:27 HDL Cholesterol 55 mg/dL (40-60) 06/06/25 04:27 Cholesterol/HDL Ratio 2.95 06/06/25 04:27 Home Medications: Fluoxetine HCl [Prozac] 40 mg PO DAILY 09/09/18 Rosuvastatin Calcium 40 mg PO BEDTIME 09/09/18 Solifenacin Succinate [Vesicare] 10 mg PO DAILY 09/09/18 Aspirin [Lo-Dose Aspirin EC] 1 tab PO DAILY 02/23/20 Clopidogrel Bisulfate [Plavix*] 75 mg PO DAILY 02/23/20 Glipizide [Glipizide ER] 1 tab PO DAILY 05/23/24 Prasugrel Hydrochloride [Effient*] 10 mg PO DAILY #30 tab 05/26/24 Albuterol Inhaler [Ventolin Inhaler*] 2 puff IH Q8HP 06/05/25 Sacubitril/Valsartan [Entresto 24 mg-26 mg Tablet] 1 tab PO BID 06/05/25 Physician Discharge Instructions: AW Left arm numbness. Severe LCA stenosis and R vertebral artery stenosis. No stroke. S/B Dr. Nieves. Poss carpal tunnel. To f/u with neurology, Chau or Ankit and Dr. Nieves/ no change in meds/ NSTEMI CRF f/u with Jovani next week PROBLEM: Non-Stemi, Numbness of Left Hand GOAL: Clear understanding of disease process INSTRUCTIONS: If symptoms worsen return to the nearest emergency room. If you have any questions, please call the 4th floor nurses station at [phone] Diet: Regular Activity: As Tolerated Diet: Regular Activity: Ad ananya Followup: Collin Ritchie MD [ASSOCIATE-ACTIVE - CAN ADMIT] - 1-2 Weeks Chris Nieves MD [ACTIVE - CAN ADMIT] - 1-2 Weeks Baltazar Pham MD [ACTIVE - CAN ADMIT] - 1-2 Weeks Anay Hahn MD [Primary Care Provider] - 1 Week
== END 2025-06-06 10:21 | disposition home or self-care (01) | DRG 281 ==
LOC: ER 09:39 → ERHOLD 11:56 → 4TH 13:03
PROVIDERS: ADMIT Internal Medicine Sleep Medicine; ATTEND Internal Medicine Sleep Medicine
DX: I21.4 Non-ST elevation (NSTEMI) myocardial infarction (principal); I50.32 Chronic diastolic (congestive) heart failure; I11.0 Hypertensive heart disease with heart failure; E78.00 Pure hypercholesterolemia, unspecified; E11.9 Type 2 diabetes mellitus without complications; I65.22 Occlusion and stenosis of left carotid artery; F20.9 Schizophrenia, unspecified; F31.9 Bipolar disorder, unspecified; I25.2 Old myocardial infarction; I25.10 Atherosclerotic heart disease of native coronary artery without angina pectoris; Z79.4 Long term (current) use of insulin; Z95.1 Presence of aortocoronary bypass graft; Z88.8 Allergy status to other drugs, medicaments and biological substances; Z86.718 Personal history of other venous thrombosis and embolism; Z95.810 Presence of automatic (implantable) cardiac defibrillator; Z79.82 Long term (current) use of aspirin; Z79.02 Long term (current) use of antithrombotics/antiplatelets; Z79.899 Other long term (current) drug therapy
CPT/HCPCS: 36415; 70450; 70496; 70498; 71045; 80048; 80053; 80061; 80076; 82947; 83735; 83880; 84484; 85025; 85610; 93005; 96374; 99285; J1650; J2405; Q9967